=== PATIENT | female | born 1960 | race Caucasian/White ===

== ENCOUNTER 2016-07-29 06:13 | Emergency (ER) | payer BC, OTHER ==
[~2016-07-29] VITALS: Ht 175.3 cm; Wt 94.4 kg
[~2016-07-29 06:13] MED LIST: ASPEC81 PO; ATV/1 PO; CALC200T PO; CLON1TAB3 PO; DULO60CA44 PO; FLUV100T12 PO; LAMO200T38 PO; LEVO75TA PO; MELO15TA4 PO; METH500T37 PO; MULT-506 PO; OXYC-57 PO; RISP0.253 PO
[2016-07-29 06:19] VITALS: TEMP 36.7; Ht 175.3 cm; Wt 94.4 kg
[2016-07-29] MEDS ORDERED: TRAM-10 PO (06:39)
--- NOTE | 2016-07-29 06:41 | EMERGENCY ROOM VISIT NOTE ---
History Report prepared by Alexander: Aisha Etienne Under the Supervision of: Dr. Jamie Myers M.D. First contact with patient: 06:31 Chief Complaint: RESPIRATORY PROBLEMS Stated Complaint: CAN'T BREATH,PANIC ATTACK History of Present Illness The patient is a 55 year old female who presents to the Emergency Room with complaints of persistent shortness of breath that began this morning. The patient states that she has a history of bipolar disorder, anxiety, and panic attacks. She states that she took her normal medications around 0300 this morning, but states that she had difficulty breathing. The patient states that she is unsure if her breathing difficulties are related to her anxiety. The patient notes that during her breathing difficulties she experienced heart palpitations. She notes that she felt disoriented this morning after the episode. She additionally notes a dry mouth and states that she is unsure if that is related to her medications as well. The patient states that this morning she was breathing rapidly this morning. She denies wearing any supplemental oxygen at home, but notes that she smokes approximately 7 cigarettes per day. The patient notes a surgical history of knee replacements and lumbar fusions. She states that she is typically constipated, but denies any increased constipation. The patient denies any fever, chills, chest pain, or recent cough. Source of History: patient Onset: this morning Position: other (global) Quality: other (shortness of breath) Timing: other (persistent) Associated Symptoms: No chest pain, No chills, No cough, No fevers Note: Associated Symptoms: dry mouth, heart palpitations, disorientation Review of Systems All systems have been listed, reviewed, and are negative other than those previously mentioned. Please see Additional Medical History Sheet. 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 (5) Lumbar spinal fusion Surgical Problems: (1) H/O: hysterectomy Family History Cancer Diabetes mellitus Gallbladder disease Heart disease Hypertension Kidney disease Kidney stones Thyroid Social History Smoking Status: Current Every Day Smoker Alcohol Use: none Marital Status: Housing Status: lives with family Occupation Status: unemployed, disabled Current/Historical Medications Scheduled Calcium Carbonate-Vitamin D (Oscal 500/200 D-3), 2 TABS PO QAM Clonazepam (Klonopin), 1 MG PO HS Duloxetine Hcl (Cymbalta), 90 MG PO QAM Fluvoxamine Maleate (Luvox), 150 MG PO HS Lamotrigine (Lamictal), 200 MG PO AMPM Levothyroxine Sodium (Synthroid), 75 MCG PO QAM Meloxicam (Mobic), 15 MG PO QAM Methocarbamol (Robaxin), 1,000 MG PO QID Risperidone (Risperdal), 0.25 MG PO HS Scheduled PRN Tramadol (Ultram), 50 MG PO Q6 PRN for Pain Allergies Coded Allergies: Gabapentin (Verified Adverse Reaction, Intermediate, EDEMA, 07/29/16) Sulfa Antibiotics (Verified Adverse Reaction, Intermediate, VOMITING, 07/29) Physical Exam Vital Signs Date Time Temp Pulse Resp B/P Pulse Ox O2 Delivery O2 Flow Rate FiO2 07/29/16 09:48 80 16 110/82 96 07/29/16 09:41 79 07/29/16 08:21 79 16 129/86 96 Room Air 07/29/16 06:57 83 07/29/16 06:42 99 Room Air 07/29/16 06:37 99 Room Air 07/29/16 06:19 36.7 79 22 141/83 100 Room Air Physical Exam GENERAL: Patient awake, alert, oriented x 3. Patient follows commands. Patient does not appear toxic. Patient is adequately hydrated and well- nourished. SKIN: No erythema, pallor, cyanosis or rash HEENT: Normal head, pupils equal, reactive to light and accommodation. Ears normal. Oral cavity and posterior pharynx appear normal. Neck: Without adenopathy, no neck vein distention. LUNGS: Clear to auscultation. No wheezes, no rales, no rhonchi. HEART: No murmurs. No gallops. No rubs ABDOMEN: No masses, no rebound, no hepatomegaly or splenomegaly. EXTREMITIES: No signs of trauma. No pedal or pretibial edema. No calf or thigh tenderness. NEUROLOGIC: Cranial nerves II-XII within normal limits. No gross motor sensory function deficits. Medical Decision & Procedures ER Provider Diagnostic Interpretation: X ray results are stated below per my interpretation and the radiologist's interpretation. CHEST 2 VIEWS ROUTINE CLINICAL HISTORY: Shortness of breath. COMPARISON STUDY: 12/09/2015 FINDINGS: The cardiac and mediastinal contours are normal. There is no evidence of focal pulmonary consolidation. There is no evidence of failure. No pleural effusions are visualized.[ There is a nonspecific 11 mm opacity at the right lung base, likely representing a summation. If desired, a follow-up PA study with shallow PA obliques could be obtained. There are postsurgical changes present within the lumbar spine IMPRESSION: 1. 11 mm opacity at the right lung base, possibly representing a summation 2. No evidence of failure. No evidence of focal pulmonary consolidation Electronically signed by: Darin Cohn M.D. 07/29/2016 7:53 AM Dictated Date/Time: 07/29/2016 7:49 AM CHEST- PA OBLIQUES NO LATERAL CLINICAL HISTORY: Abnormal chest x-ray. Right lower lung zone nodule COMPARISON STUDY: 07/29/2016 FINDINGS: Submental views the chest fails to confirm the presence of a right lower lung zone nodule. As suspected, that density represented a summation. IMPRESSION: No active disease in the chest. Electronically signed by: Darin Cohn M.D. 07/29/2016 8:52 AM Dictated Date/Time: 07/29/2016 8:51 AM ECG Indication: SOB/dyspnea Rate (beats per minute): 71 Rhythm: normal sinus Findings: no acute ischemic change, no ectopy ED Course 0632: Past medical records reviewed. The patient was evaluated in room B10. A complete history and physical examination was performed. 0932: I reevaluated the patient and she is resting comfortably. I discussed the exam findings with her and I discussed the treatment plan. She verbalized complete understanding and agreement. She is ready to go home. Medical Decision Nurses notes reviewed. Medical history sheet reviewed. Differential diagnosis includes but is not limited to: hyperventilation, anxiety, panic, pulmonary embolism, pneumonia, arrhythmia. 55-year-old female with history of panic attacks now here with similar symptoms. On arrival patient is now calm and comfortable. EKG and chest x-ray were obtained. Please see above. No blood work was felt necessary. The patient was observed and was asymptomatic prior to discharge. Impression Primary Impression: Panic attack Scribe Attestation The scribe's documentation has been prepared under my direction and personally reviewed by me in its entirety. I confirm that the note above accurately reflects all work, treatment, procedures, and medical decision making performed by me. Departure Information Dispostion Home / Self-Care Referrals Leanne Mistry, (PCP) Forms HOME CARE DOCUMENTATION FORM, IMPORTANT VISIT INFORMATION Patient Instructions ED Panic Attack, My [facility] Additional Instructions Continue all of your current medications as prescribed. Follow-up with your family physician.
[2016-07-29 06:42] VITALS: O2SAT 99
--- NOTE | 2016-07-29 07:54 | DIAGNOSTIC IMAGING REPORT ---
CHEST 2 VIEWS ROUTINE CLINICAL HISTORY: Shortness of breath. COMPARISON STUDY: 12/09/2015 FINDINGS: The cardiac and mediastinal contours are normal. There is no evidence of focal pulmonary consolidation. There is no evidence of failure. No pleural effusions are visualized.[ There is a nonspecific 11 mm opacity at the right lung base, likely representing a summation. If desired, a follow-up PA study with shallow PA obliques could be obtained. There are postsurgical changes present within the lumbar spine IMPRESSION: 1. 11 mm opacity at the right lung base, possibly representing a summation 2. No evidence of failure. No evidence of focal pulmonary consolidation Electronically signed by: Darin Cohn M.D. 07/29/2016 7:53 AM Dictated Date/Time: 07/29/2016 7:49 AM
--- NOTE | 2016-07-29 08:53 | DIAGNOSTIC IMAGING REPORT ---
CHEST- PA OBLIQUES NO LATERAL CLINICAL HISTORY: Abnormal chest x-ray. Right lower lung zone nodule COMPARISON STUDY: 07/29/2016 FINDINGS: Submental views the chest fails to confirm the presence of a right lower lung zone nodule. As suspected, that density represented a summation. IMPRESSION: No active disease in the chest. Electronically signed by: Darin Cohn M.D. 07/29/2016 8:52 AM Dictated Date/Time: 07/29/2016 8:51 AM
[2016-07-29 09:48] VITALS: BP 110/82; PULSE 80; O2SAT 96
[2016-09-14] MEDS ORDERED: CALC500C70 PO (11:27)
[2016-09-14] MEDS ORDERED: CHOL100010 PO (11:27)
[2016-09-14] MEDS ORDERED: TRAM-10 PO (11:27)
== END 2016-07-29 09:49 | disposition home or self-care (01) ==
LOC: C.EDB 06:14
DX: F41.0 Panic disorder [episodic paroxysmal anxiety] (principal); F31.9 Bipolar disorder, unspecified; Z90.710 Acquired absence of both cervix and uterus; F17.200 Nicotine dependence, unspecified, uncomplicated

== ENCOUNTER 2016-08-01 08:01 | Emergency (ER) | payer BC, OTHER ==
[~2016-08-01] VITALS: Ht 175.3 cm; Wt 93.0 kg
[~2016-08-01 08:01] MED LIST changes: -ASPEC81 PO; -ATV/1 PO; -MULT-506 PO; -OXYC-57 PO; +TRAM-10 PO
[2016-08-01 08:07] VITALS: TEMP 36.9; Ht 175.3 cm; Wt 93.0 kg
[2016-08-01] MEDS ORDERED: OXYC-57 PO (08:25)
[2016-08-01] MEDS ORDERED: CLONAZEPAM 1 MG TAB PO STA (08:25)
[2016-08-01] MEDS ORDERED: HYDR-5688 PO (08:25)
[2016-08-01] MEDS ORDERED: ATV/1 PO (08:25)
--- NOTE | 2016-08-01 08:38 | EMERGENCY ROOM VISIT NOTE ---
History Report prepared by Alexander: Harmeet Velazquez Under the Supervision of: Dr. Maribel Costa M.D. First contact with patient: 08:07 Chief Complaint: ANXIETY Stated Complaint: PANIC ATTACK History of Present Illness The patient is a 55 year old female who presents to the Emergency Room via ALS with complaints of a persistent panic attack that started 2.5 hours prior to arrival. She complains of persistent difficulty swallowing and breathing. She describes the difficulty swallowing as feeling like her esophagus is closing and like there is no saliva in her mouth. She also complains of shaking, palpitations, feeling disoriented and scared. She notes she tried to call her neighbor, [id number], and but they were all too far away to come and calm her down. Her neighbor tried to calm her down on the phone, but since the patient's symptoms were worsening she called ALS for transport to the hospital for further evaluation. The patient notes that she took her medications between 3 and 4 in the morning. She notes that her symptoms started around 6 despite taking her medications and she called ALS 40 minutes after her symptoms started since they were worsening and she felt like she couldn't breathe. The patient has a history of panic attacks and anxiety. The patient presented to the ED three days ago for similar symptoms. The patient's notes that her symptoms seem worse this morning than they did 3 days ago. The patient denies chest pain, recent illness, cough, fever, pain with deep breaths, or swelling in his legs. 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 Denies: pain with deep breaths, swelling in legs, recent illness Review of Systems See HPI for pertinent positives & negatives. A total of 10 systems reviewed and were otherwise negative. 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 (5) Lumbar spinal fusion Surgical Problems: (1) H/O: hysterectomy Family History Cancer Diabetes mellitus Gallbladder disease Heart disease Hypertension Kidney disease Kidney stones Thyroid Social History Smoking Status: Unknown if Ever Smoked Alcohol Use: none Marital Status: Housing Status: lives with family Occupation Status: unemployed, disabled Current/Historical Medications Scheduled Clonazepam (Klonopin), 1 MG PO HS Duloxetine Hcl (Cymbalta), 90 MG PO QAM Fluvoxamine Maleate (Luvox), 150 MG PO HS Lamotrigine (Lamictal), 200 MG PO AMPM Levothyroxine Sodium (Synthroid), 75 MCG PO QAM Meloxicam (Mobic), 15 MG PO QAM Methocarbamol (Robaxin), 1,000 MG PO QID Risperidone (Risperdal), 0.25 MG PO HS Scheduled PRN Hydrocodone/Acetaminophen 5MG/325MG ([place] 5MG/325MG), 1 TABLET PO Q6 PRN for Pain Lorazepam (Ativan), 1 MG PO UD PRN for Anxiety Oxycodone/Acetaminophen 5MG/325MG (Percocet 5MG/325MG), 1 TABLET PO Q6H PRN for Pain Allergies Coded Allergies: Gabapentin (Verified Adverse Reaction, Intermediate, EDEMA, 07/29/16) Sulfa Antibiotics (Verified Adverse Reaction, Intermediate, VOMITING, 07/29) Physical Exam Vital Signs Date Time Temp Pulse Resp B/P Pulse Ox O2 Delivery O2 Flow Rate FiO2 08/01/16 12:29 66 18 115/80 97 08/01/16 11:04 128/83 08/01/16 09:36 72 18 118/87 08/01/16 08:39 84 08/01/16 08:07 36.9 70 18 141/84 99 Room Air Physical Exam Vital signs reviewed. General: Generally well-appearing female, anxious. Speaks with eyes closed with pressured speech. HEENT: No scleral icterus, PERRLA, neck supple. Atraumatic. Cardiovascular: Regular rate and rhythm, no extra sounds. Pulmonary: Clear to auscultation bilaterally, normal work of breathing. Abdomen: Soft, nontender, nondistended, positive bowel sounds. Musculoskeletal: Atraumatic, no peripheral edema. Neurologic: Patient awake alert and oriented x 3, full strength in all 4 extremities. Cranial nerves 2 through 12 grossly intact. Skin: Warm, dry, no rash Psych: Denies current suicidal or homicidal ideation Medical Decision & Procedures ER Provider Diagnostic Interpretation: X-ray results as stated below per my interpretation and radiologist interpretation. Other radiology results as stated below per my review and radiologist interpretation: CHEST CTA for PULMONARY ARTERIES CT DOSE: 322.27 mGy.cm HISTORY: Difficulty breathing. TECHNIQUE: Multiaxial CT images of the chest were performed following the intravenous administration of contrast to evaluate the pulmonary arteries. Maximal intensity projection images were also obtained. COMPARISON STUDY: Chest CTA 06/24/2014. FINDINGS: No evidence for an aortic dissection. The right lower lobe subsegmental pulmonary arteries are essentially nondiagnostic due to the poor contrast opacification. Otherwise, no filling defects within the pulmonary arteries to suggest a pulmonary embolus. The visualized liver and spleen are unremarkable. Normal adrenal glands. No mediastinal or hilar lymphadenopathy. No pneumothorax. A few bibasilar densities favor subsegmental atelectasis. IMPRESSION: No evidence for pulmonary embolus with limitations as described above. Electronically signed by: Bruce Mo M.D. 08/01/2016 10:47 AM Dictated Date/Time: 08/01/2016 10:29 AM Laboratory Results 08/01/16 08:42 Red Blood Count 4.77, Mean Corpuscular Volume 85.5, Mean Corpuscular Hemoglobin 30.0, Mean Corpuscular Hemoglobin Concent 35.0, Mean Platelet Volume 9.8, Neutrophils (%) (Auto) 76.8, Lymphocytes (%) (Auto) 17.5, Monocytes (%) (Auto) 5.4, Eosinophils (%) (Auto) 0.1, Basophils (%) (Auto) 0.1, Neutrophils # (Auto) 5.29, Lymphocytes # (Auto) 1.21, Monocytes # (Auto) 0.37, Eosinophils # (Auto) 0.01, Basophils # (Auto) 0.01 08/01/16 08:42 Test 08/01/16 08:42 08/01/16 08:45 White Blood Count 6.90 K/uL (4.8-10.8) Red Blood Count 4.77 M/uL (4.2-5.4) Hemoglobin 14.3 g/dL (12.0-16.0) Hematocrit 40.8 % (37-47) Mean Corpuscular Volume 85.5 fL (80-100) Mean Corpuscular Hemoglobin 30.0 pg (25-34) Mean Corpuscular Hemoglobin Concent 35.0 g/dl (32-36) Platelet Count 316 K/uL (130-400) Mean Platelet Volume 9.8 fL (7.4-10.4) Neutrophils (%) (Auto) 76.8 % Lymphocytes (%) (Auto) 17.5 % Monocytes (%) (Auto) 5.4 % Eosinophils (%) (Auto) 0.1 % Basophils (%) (Auto) 0.1 % Neutrophils # (Auto) 5.29 K/uL (1.4-6.5) Lymphocytes # (Auto) 1.21 K/uL (1.2-3.4) Monocytes # (Auto) 0.37 K/uL (0.11-0.59) Eosinophils # (Auto) 0.01 K/uL (0-0.5) Basophils # (Auto) 0.01 K/uL (0-0.2) RDW Standard Deviation 45.0 fL (36.4-46.3) RDW Coefficient of Variation 14.2 % (11.5-14.5) Immature Granulocyte % (Auto) 0.1 % Immature Granulocyte # (Auto) 0.01 K/uL (0.00-0.02) Anion Gap 11.0 mmol/L (3-11) Est Creatinine Clear Calc Drug Dose 69.4 ml/min Estimated GFR () 65.0 Estimated GFR (Non- 56.1 BUN/Creatinine Ratio 14.6 (10-20) Calcium Level 9.4 mg/dl (8.5-10.1) Total Bilirubin 0.5 mg/dl (0.2-1) Direct Bilirubin 0.1 mg/dl (0-0.2) Aspartate Amino Transf (AST/SGOT) 14 U/L (15-37) Alanine Aminotransferase (ALT/SGPT) 9 U/L (12-78) Alkaline Phosphatase 125 U/L (45-117) Total Protein 7.1 gm/dl (6.4-8.2) Albumin 3.9 gm/dl (3.4-5.0) Bedside D-Dimer > 450 ng/mlFEU (0-450) Bedside Troponin I 0.010 ng/ml (0-0.045) Laboratory results per my review. Medications Administered Medications (Trade) Dose Ordered Sig/Marilia Route Start Time Stop Time Status Last Admin Dose Admin Clonazepam (Klonopin Tab) 1 mg NOW STAT PO 08/01/16 08:25 08/01/16 08:26 DC 08/01/16 08:37 1 MG ECG Indication: other Rate (beats per minute): 67 Rhythm: normal sinus Findings: no acute ischemic change, no ectopy ED Course 08: Past medical records reviewed. The patient was evaluated in room B10. A complete history and physical examination was performed. 0825: Ordered Klonopin Tab 1 mg PO. 1000: Ordered Ioversol 100 ml IV/ interaction checking. 1215: Upon reevaluation, the patient appeared to have improvement of her symptoms. I discussed findings with her. She verbalized agreement of the treatment plan. The patient was discharged home. Medical Decision Differential diagnosis: Etiologies such as mood disorder, infection, hypoglycemia, electrolyte abnormalities, cardiac sources, intracerebral event, toxicologic, neurologic, as well as others were entertained. This pt was evaluated and appeared to be in no distress. Pt has stated she is suffering from anxiety. Pt was given klonopin 1 mg. Lab work, CXR and EKG are fairly unrevealing. Pt was denying and SI or HI. This is her second trip to the ED in 3 days for similar. On reevaluation the pt was feeling much improved. Psych case sealer evaluated the pt. It was felt the pt was stable for d/c. Pt will call for appt in next several days with her therapist and has an appt with her psychiatrist next week. She will increase her klonopin to BID until she can see her psychiatrist. Pt and family are happy with the plan and agree. She will return to the ED at anytime for worsening of symptoms or any medical concerns. Impression Primary Impression: Acute anxiety Scribe Attestation The scribe's documentation has been prepared under my direction and personally reviewed by me in its entirety. I confirm that the note above accurately reflects all work, treatment, procedures, and medical decision making performed by me. Departure Information Dispostion Home / Self-Care Referrals Leanne Mistry DO (PCP) Forms HOME CARE DOCUMENTATION FORM, IMPORTANT VISIT INFORMATION Patient Instructions My [facility] Additional Instructions Diagnosis: Acute anxiety Increase your Klonopin to twice daily Follow-up with your psychiatrist next week as scheduled. Contact your therapist to schedule an appointment within the next several days. Continue your other medications as prescribed. Return to the ER for worsening of symptoms or any medical concerns.
[2016-08-01 09:07] LABS: BASO % 0.1 %; BASO ABS # 0.01 K/uL (0-0.2); COMPLETE YES; EOS % 0.1 %; HEMATOCRIT 40.8 % (37-47); IG% 0.1 %; LYMPH % 17.5 %; LYMPH ABS # 1.21 K/uL (1.2-3.4); MEAN CELL VOLUME 85.5 fL (80-100); MEAN PLATELET VOLUME 9.8 fL (7.4-10.4); MONO % 5.4 %; NEUT % 76.8 %; PLATELET COUNT 316 K/uL (130-400); RED BLOOD COUNT 4.77 M/uL (4.2-5.4)
[2016-08-01 09:15] LABS: BUN/CREATININE RATIO 14.6 (10-20); CALCIUM 9.4 mg/dl (8.5-10.1); CREATININE 1.1 mg/dl (0.60-1.20); POTASSIUM 4.1 mmol/L (3.5-5.1)
[2016-08-01] MEDS ORDERED: OPTIRAY 320 IV PRN (10:00)
--- NOTE | 2016-08-01 10:49 | DIAGNOSTIC IMAGING REPORT ---
CHEST CTA for PULMONARY ARTERIES CT DOSE: 322.27 mGy.cm HISTORY: Difficulty breathing. TECHNIQUE: Multiaxial CT images of the chest were performed following the intravenous administration of contrast to evaluate the pulmonary arteries. Maximal intensity projection images were also obtained. COMPARISON STUDY: Chest CTA 06/24/2014. FINDINGS: No evidence for an aortic dissection. The right lower lobe subsegmental pulmonary arteries are essentially nondiagnostic due to the poor contrast opacification. Otherwise, no filling defects within the pulmonary arteries to suggest a pulmonary embolus. The visualized liver and spleen are unremarkable. Normal adrenal glands. No mediastinal or hilar lymphadenopathy. No pneumothorax. A few bibasilar densities favor subsegmental atelectasis. IMPRESSION: No evidence for pulmonary embolus with limitations as described above. Electronically signed by: Bruce Mo M.D. 08/01/2016 10:47 AM Dictated Date/Time: 08/01/2016 10:29 AM
[2016-08-01 12:29] VITALS: BP 115/80; PULSE 66; O2SAT 97
[2016-09-14] MEDS ORDERED: CALC500C70 PO (11:27)
[2016-09-14] MEDS ORDERED: TRAM-10 PO (11:27)
[2016-09-14] MEDS ORDERED: CHOL100010 PO (11:27)
== END 2016-08-01 12:31 | disposition home or self-care (01) ==
LOC: EDBD 08:01 → C.EDB 08:02
DX: F41.9 Anxiety disorder, unspecified (principal); F31.9 Bipolar disorder, unspecified; Z79.899 Other long term (current) drug therapy

== ENCOUNTER 2016-10-06 08:33 | Inpatient (IN) | payer BC, OTHER ==
--- NOTE | 2016-09-14 12:01 | PAT Medication Instructions ---
Service Date Sep 14, 2016. Current Home Medication List Calcium/Vitamin D (Os-Kemar 500 Plus D), 1 TAB PO QAM Cholecalciferol (Vitamin D), 5,000 UNITS PO QAM Clonazepam (Klonopin), 1 MG PO HS Duloxetine Hcl (Cymbalta), 90 MG PO QAM Fluvoxamine Maleate (Luvox), 200 MG PO HS Lamotrigine (Lamictal), 200 MG PO AMPM Levothyroxine Sodium (Synthroid), 75 MCG PO QAM Meloxicam (Mobic), 15 MG PO QAM Methocarbamol (Robaxin), 1,000 MG PO QID Risperidone (Risperdal), 0.25 MG PO HS Tramadol (Ultram), 50 MG PO Q6H PRN for Pain Medication Instructions For Your Scheduled Surgery - Hold the following medications 10 days prior to surgery per surgeon's instructions: Meloxicam (Mobic), 15 MG PO QAM - Hold the following medications the morning of surgery: Calcium/Vitamin D (Os-Kemar 500 Plus D), 1 TAB PO QAM Cholecalciferol (Vitamin D), 5,000 UNITS PO QAM Methocarbamol (Robaxin), 1,000 MG PO QID - Take the following medications the morning of surgery with a sip of water OTHERWISE NOTHING TO EAT OR DRINK AFTER MIDNIGHT: Tramadol (Ultram), 50 MG PO Q6H PRN for Pain (may take if needed up to 4 hours prior to surgery) Lamotrigine (Lamictal), 200 MG PO AMPM Duloxetine Hcl (Cymbalta), 90 MG PO QAM Levothyroxine Sodium (Synthroid), 75 MCG PO QAM - Take the following medications as scheduled the night before surgery: Tramadol (Ultram), 50 MG PO Q6H PRN for Pain Risperidone (Risperdal), 0.25 MG PO HS Fluvoxamine Maleate (Luvox), 200 MG PO HS Clonazepam (Klonopin), 1 MG PO HS Methocarbamol (Robaxin), 1,000 MG PO QID Lamotrigine (Lamictal), 200 MG PO AMPM If you have any questions please call us at [phone] or [phone] or [phone]
[2016-09-14 12:35] LABS: URINE APPEARANCE CLEAR (CLEAR); URINE BILIRUBIN NEG (NEG); URINE COLOR YELLOW; URINE EPITHELIAL CELL AUTO 20-30 /lpf (0-5); URINE NITRITE NEG (NEG); URINE SPECIFIC GRAVITY 1.016 (1.000-1.030); UROBILINOGEN NEG (NEG)
[2016-09-14 12:40] LABS: MANUAL MICROSCOPIC REQUIRED? NO; REVIEW REQ? NO
[2016-09-14 12:43] LABS: INR 0.9 (0.9-1.1); PARTIAL THROMBOPLASTIN RATIO 1.1
[2016-09-14 13:04] LABS: ESTIMATED AVERAGE GLUCOSE 117 mg/dl; HA1C FLAG Normal (Normal)
[2016-09-14 14:46] LABS: BUN/CREATININE RATIO 9.7 (10-20); CALCIUM 9.7 mg/dl (8.5-10.1); CREATININE 1.4 mg/dl (0.60-1.20); POTASSIUM 4.6 mmol/L (3.5-5.1)
--- NOTE | 2016-10-05 12:51 | HISTORY & PHYSICAL EXAMINATION ---
DATE OF ADMISSION: 10/06/2016 CHIEF COMPLAINT: Aseptic loosening, left total knee arthroplasty. HISTORY OF PRESENT ILLNESS: The patient is a 56-year-old female approximately 2 years status post left total knee arthroplasty. More recently she has been having progressive pain and disability with the left knee. She has had progressive x-ray changes suggesting loosening of the tibial component and likely the femoral component as well. She had a negative infection workup with a negative CRP and sed rate. She is now scheduled for a left knee excisional arthroplasty and left total knee revision. PAST MEDICAL HISTORY: Bipolar disorder, hypothyroidism, fibromyalgia, melanoma, bladder prolapse, diverticulitis. PAST SURGICAL HISTORY: Knee arthroscopy x2, previous left and right knee replacements, right total knee patellectomy, multiple lumbar spine surgeries, eye tear duct surgery, hysterectomy, tubal ligation, tonsillectomy. MEDICATIONS: Include clonazepam 1 mg at bedtime, duloxetine HCL 90 mg q.a.m., fluvoxamine maleate 100 mg 2 tablets at bedtime, hydrocodone p.r.n. for pain, lamotrigine 200 mg 1 in the a.m., 1 in the p.m., levothyroxine 75 mcg q.a.m., meloxicam 15 mg daily, methocarbamol 500 mg 2 tablets 4 times daily, risperidone 0.25 mg at bedtime, tramadol HCL 50 mg q. 6 hours p.r.n. pain. ALLERGIES: SULFA AND NEURONTIN. SOCIAL HISTORY: She states half pack a day smoking history. REVIEW OF SYSTEMS: Noncontributory. PHYSICAL EXAMINATION: GENERAL: Well-nourished, well-developed, obese female who appears her stated age. HEAD, EYES, EARS, NOSE, AND THROAT: Normocephalic, atraumatic. Extraocular movements intact, oropharynx pink and moist. NECK: Supple without adenopathy. LUNGS: Clear to auscultation bilaterally. HEART: Regular rate and rhythm. ABDOMEN: Soft, nontender, nondistended, obese. EXTREMITIES: The upper extremity within normal limits. The left knee is neutrally aligned. She has a well-healed scar from her previous arthroplasty. Her range of motion is approximately 0-120 degrees with pain. X-RAYS: X-rays were reviewed. She has a Elias knee in place. There is obvious lucency about the tibial baseplate. The tibial components in a varus alignment. On the lateral view there is questionable early lucency around the femoral component as well. 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 PLAN: The above discussed with the patient. Risks versus benefits discussed. Consent was obtained. The patient's primary care physician is Dr. Alisha Mistry. Will proceed with left knee excisional arthroplasty and total knee revision upon preoperative workup and medical clearance.
[~2016-10-06] VITALS: Ht 175.3 cm; Wt 93.5 kg
[2016-10-06] VITALS (7 sets, daily range): BP systolic 108–131; BP diastolic 69–80; PULSE 56–69; TEMP 36.5–37.3; O2SAT 92–98; Ht 175.3 cm; Wt 93.5 kg
[2016-10-06] MEDS: TRANEXAMIC ACID INJ 1,000 MG in SODIUM CHLORIDE 0.9% 100ML 100 ML IV SCH ×2 (06:30→11:04)
[~2016-10-06 08:33] MED LIST changes: +ACETAMINOPHEN 500 MG TAB PO SCH; +ATROPINE SULFATE 0.1 MG/ML 5ML SYR IV PRN; +BUPIVACAINE 0.25% 30 ML VIAL ONE; +BUPIVACAINE 0.5 % 5 MG/1 ML PF 10ML VIAL ONE; -CALC200T PO; +CALC500C70 PO; +CEFAZOLIN 2000 MG/60 ML D5W 60 ML IV SCH; +CHOL100010 PO; +DEXAMETHASONE 4 MG TAB PO SCH; +EpHEDrine SULFATE INJ 50 MG/ML AMP IV PRN; +FAMOTIDINE 20 MG TAB PO SCH; +FENTANYL CITRATE INJ 50 MCG/1 ML 2 ML VIAL IV PRN; +GABAPENTIN 300 MG CAP PO SCH; +LABETALOL HCL IV 5 MG/ML 20ML IV PRN; +LACTATED RINGER'S 1000ML 1,000 ML IV SCH; +LACTATED RINGER'S 1000ML 500 ML IV ONE; +LACTATED RINGER'S 1000ML IV SCH; +METOCLOPRAMIDE HCL 10 MG TAB PO SCH; +ONDANSETRON INJ 2 MG/ML 2 ML VIAL IV PRN; +ROPIVACAINE 5MG/ML 30 ML 150 MG, BUPIVACAINE/EPINEPHR 0.5% MPF 30 ML, KETOROLAC TROMETH... INFIL SCH; +VANCOMYCIN 1GM/270ML NSS 270 ML IV SCH; +VANCOMYCIN INJ 1,400 MG in SODIUM CHLORIDE 0.9% 500ML 500 ML IV SCH
--- NOTE | 2016-10-06 09:11 | History & Physical Bridge Note ---
H&P Re-Evaluation Bridge Note: I have examined the patient, reviewed the History & Physical and in the interval since the performance of the History & Physical I have noted the following changes of clinical significance: No changes noted
[2016-10-06] MEDS ORDERED: PROPOFOL IV EMULSION 10 MG/ML 20 ML VIAL IV ONE ×4 (10:01→14:44)
[2016-10-06] MEDS ORDERED: LIDOCAINE HCL 2% 2 ML VIAL (20MG/ML) ONE ×3 (10:01→14:44)
[2016-10-06] MEDS ORDERED: ONDANSETRON INJ 2 MG/ML 2 ML VIAL ONE (10:01)
[2016-10-06] MEDS ORDERED: DEXAMETHASONE SOD INJ 4 MG/ML VIAL ONE (10:01)
[2016-10-06] MEDS ORDERED: MIDAZOLAM HCL 1 MG/ML 2ML VIAL ONE ×5 (10:02→12:39)
[2016-10-06] MEDS ORDERED: FENTANYL CITRATE INJ 50 MCG/1 ML 2 ML VIAL ONE ×2 (10:02→14:38)
[2016-10-06] MEDS ORDERED: ORTHO JOINT ANESTHETIC ONE (10:57)
[2016-10-06] MEDS ORDERED: POVIDONE-IODINE OP SOLN 30 ML BTL ONE (10:57)
[2016-10-06] MEDS ORDERED: BACITRACIN 50000 UNIT VIAL ONE ×2 (10:58→12:00)
--- NOTE | 2016-10-06 14:35 | [facility] Post Operative Brief Note ---
Immediate Operative Summary Operative Date Oct 06, 2016. Pre-Operative Diagnosis Aseptic Loosening, Left Total Knee Arthroplasty Post-Operative Diagnosis Aseptic Loosening, Left Total Knee Arthroplasty Procedure(s) Performed Revision of Left Total Knee Arthroplasty Surgeon Dr. Vee Mastercam Programmer Surgeon(s) Bernardino Heck PA-C Findings loose quentin Specimens Microbiology #1-Left Knee Joint Fluid: gram stain, routine culture and sensitivity, anaerobic/aerobic, out of room at 1240 Permanent Specimen A: Left Knee Removed Hardware B: Left Knee Bone and Tissue Frozen Specimen #1- Cement Interface Tibial Component Left Knee #2- Cement Interface Femoral Component Left Knee Complication(s) None Disposition Recovery Room / PACU
--- NOTE | 2016-10-06 15:28 | OPERATIVE REPORT ---
DATE OF OPERATION: 10/06/2016 PREOPERATIVE DIAGNOSIS: Aseptic loosening, left total knee. POSTOPERATIVE DIAGNOSIS: Aseptic loosening, left total knee. PROCEDURE: Revision left total knee. SURGEON: Dr. Vee. FARMWORKER POULTRY: Bernardino Heck PA-C. ANESTHESIA: Spinal. COMPLICATIONS: None. Mr. Heck was essential through all portions of the case including positioning, prepping, draping, ophthalmic surgical assistant, cement removal, implantation of components, wound closure and dressing application. OPERATION AND FINDINGS: PROCEDURE: Following the induction of adequate spinal anesthesia, the patient's left leg was prepped and draped in usual sterile manner. Limb was exsanguinated with an Esmarch bandage and tourniquet inflated to 300 mmHg. A previously made longitudinal incision was reopened. Subcutaneous tissue was sharply dissected. Electrocautery used and Aquamantys were used for hemostasis. Median parapatellar incision was made and gross effusion was noted. The three sets of cultures were taken and joint fluid was suctioned dry. A complete synovectomy was carried out throughout the knee. First, attention was turned to the tibial component and tibial poly was easily loosened and removed. The tibial tray could be seen to be easily moving. Attention was turned to the femoral component where flexible osteotome was easily used to undermine the bone cement interface on the femoral side. Soft tissue was sent to lab for pathology. This came back no white cells seen. No bone was removed with removal of the femoral component. Next, attention was turned to the tibia where using tibial tray removal instrument the tibia was easily removed. The bone cement was then tediously removed being sure to remove every last remaining bit of bone cement. Some soft tissue from the bone cement interface was sent to lab as well and pathology too showed no evidence of inflammatory cells. Sequential reamings were carried out both the tibia and the femoral side, size 10 tibia was chosen as the size to be used, a size 16 femur was chosen the size to be used. First the tibia was prepared using a cleanup cut and this bone fragment was removed with significant scar tissue posteriorly. Next, the tibia was prepared using the tibial punch and a trial tibial component with a 2 mm offset was assemble. This was impacted into position. Next, attention was turned to the femur where the femoral sizer was placed. Decision for 2 augments distally and 2 augments posteriorly was made, all 5 mm. The notch was cut and this bone fragment was removed. The trial femoral component was assembled and inserted and after trial reduction the decision was made to upsize the tibial tray 5 mm and use 16 mm poly. This gave good soft tissue tension in both flexion and extension and the patella tracked well. As the patellar tracking was tested and a towel clip was used to temporarily repair the lateral snip that was required for exposure. All trial components were removed. The patella was inspected and was found to be intact and was not removed. The final components were assembled on the back table. Cement was mixed. All components were cemented in position. The knee was reduced, held in extension while cement hardened. The wounds were closed using 0 Dexon and rajinder. Sterile dressing of Adaptic, 4x4s, sterile Webril and Prevena dressing was obtained and utilized. I attest to the content of the Intraoperative Record and any orders documented therein. Any exceptions are noted below. PADMINI
[2016-10-06] MEDS ORDERED: ONDANSETRON INJ 2 MG/ML 2 ML VIAL IV PRN (15:30)
[2016-10-06] MEDS ORDERED: ALUMINUM/MAGNESIUM/SIMETH (MAALOX MAX) 30 ML UDC PO PRN (15:30)
[2016-10-06] MEDS ORDERED: ZOLPIDEM TARTRATE 5 MG TAB PO PRN (15:30)
[2016-10-06] MEDS ORDERED: MAGNESIUM HYDROXIDE SUSP 30 ML UDC PO PRN (15:30)
[2016-10-06] MEDS ORDERED: METOCLOPRAMIDE HCL INJ 5 MG/ML 2 ML VIAL IV PRN (15:30)
[2016-10-06] MEDS ORDERED: MoRPHine SULFATE 2 MG/ML CARP IV PRN (15:30)
--- NOTE | 2016-10-06 15:33 | Anesthesiology Progress Note ---
Anesthesia Post Op Note Date & Time Oct 06, 2016 at 15:33 Vital Signs Pain Intensity: 0 Vital Signs Past 12 Hours Date Time Temp Pulse Resp B/P Pulse Ox O2 Delivery O2 Flow Rate FiO2 10/06/16 15:20 87 17 110/76 93 Nasal Cannula 2 10/06/16 15:12 36.5 81 17 104/73 92 Nasal Cannula 2 10/06/16 09:10 36.9 69 20 116/69 95 Room Air Notes Mental Status: alert / awake / arousable, participated in evaluation Pt Amnestic to Procedure: No (recall as expected) Nausea / Vomiting: adequately controlled Pain: adequately controlled Airway Patency, RR, SpO2: stable & adequate BP & HR: stable & adequate Hydration State: stable & adequate Neuraxial Anesthesia: was administered, sensory block is resolving Anesthetic Complications: no major complications apparent Pt doing well.
--- NOTE | 2016-10-06 15:51 | DIAGNOSTIC IMAGING REPORT ---
TWO VIEWS LEFT KNEE CLINICAL HISTORY: Postoperative examination. FINDINGS: AP and crosstable lateral portable views of the left knee are obtained. A left knee arthroplasty is in near anatomic alignment. There are long tibial and femoral stems. No periprosthetic lucency is identified There has been undersurface remodeling of the patella. No acute fracture is seen. There are expected postoperative changes around the knee including skin clips, a surgical drain, soft tissue edema, and subcutaneous gas. IMPRESSION: Expected postoperative changes status post left knee arthroplasty. No acute fracture is seen. Electronically signed by: Pedro Moore M.D. 10/06/2016 3:48 PM Dictated Date/Time: 10/06/2016 3:48 PM
[2016-10-06] MEDS ORDERED: MoRPHine SULFATE 4 MG/ML 1 ML CARP\\VIAL IV PRN (18:00)
[2016-10-06] MEDS ORDERED: MoRPHine SULFATE 10 MG/ML CARP/VIAL IV PRN (18:00)
[2016-10-06] MEDS: OXYCODONE HCL IR 5 MG TAB (IMMEDIATE RELEASE) PO PRN ×2 (18:32→22:39)
[2016-10-06] MEDS: FERROUS GLUCONATE 324 MG TAB PO SCH (19:02)
[2016-10-06] MEDS: D5W AND 1/2NSS + 20MEQ KCL 1,000 ML IV SCH (19:02)
[2016-10-06] MEDS: KETOROLAC TROMETHAMINE 30 MG/ML VIAL IV. SCH (19:03)
[2016-10-06] MEDS: CEFAZOLIN IV 2,000 MG in DEXTROSE 5% 50ML 50 ML IV SCH (19:27)
[2016-10-06] MEDS: CLONAZEPAM 1 MG TAB PO SCH (21:39)
[2016-10-06] MEDS: OXYCODONE HCL 10 MG TABCR (OXYCONTIN) PO SCH (21:40)
[2016-10-06] MEDS: METHOCARBAMOL 500 MG TAB PO SCH (21:41)
[2016-10-06] MEDS: RISPERIDONE 0.5 MG TAB PO SCH (21:41)
[2016-10-06] MEDS: FLUVOXAMINE MALEATE 50 MG TAB PO SCH (21:42)
[2016-10-06] MEDS: ASPIRIN 81 MG ECTAB PO SCH (21:43)
[2016-10-06] MEDS: DOCUSATE SODIUM 100 MG CAP PO SCH (21:43)
[2016-10-06] MEDS: ACETAMINOPHEN 500 MG TAB PO SCH (21:44)
[2016-10-07] MEDS: KETOROLAC TROMETHAMINE 30 MG/ML VIAL IV. SCH ×3 (00:07→12:11)
[2016-10-07] MEDS: CEFAZOLIN IV 2,000 MG in DEXTROSE 5% 50ML 50 ML IV SCH (01:43)
[2016-10-07] MEDS: OXYCODONE HCL IR 5 MG TAB (IMMEDIATE RELEASE) PO PRN ×5 (02:57→20:50)
[2016-10-07] MEDS: D5W AND 1/2NSS + 20MEQ KCL 1,000 ML IV SCH (04:08)
[2016-10-07 04:11] VITALS: BP 112/62; PULSE 45; TEMP 36.5; O2SAT 90
[2016-10-07 04:20] VITALS: PULSE 56
[2016-10-07] MEDS: LEVOTHYROXINE 75 MCG TAB PO SCH (05:37)
[2016-10-07] MEDS: ACETAMINOPHEN 500 MG TAB PO SCH ×3 (05:40→21:38)
[2016-10-07 06:40] LABS: HEMATOCRIT 35.1 % (37-47); MEAN CELL VOLUME 89.8 fL (80-100); MEAN CORPUSCULAR HEMOGLOBIN 29.9 pg (25-34); MEAN CORPUSCULAR HGB CONC 33.3 g/dl (32-36); MEAN PLATELET VOLUME 9.7 fL (7.4-10.4); PLATELET COUNT 204 K/uL (130-400); RED BLOOD COUNT 3.91 M/uL (4.2-5.4); WHITE BLOOD COUNT 13.58 K/uL (4.8-10.8)
[2016-10-07 06:57] VITALS: BP 107/67; PULSE 51; TEMP 37; O2SAT 91
[2016-10-07 07:11] LABS: BUN/CREATININE RATIO 11.7 (10-20); CALCIUM 8.3 mg/dl (8.5-10.1); CREATININE 1.1 mg/dl (0.60-1.20); POTASSIUM 4.1 mmol/L (3.5-5.1)
[2016-10-07] MEDS ORDERED: DEXAMETHASONE INJ 10 MG in SYRINGE 0 ML IV ONE (07:30)
--- NOTE | 2016-10-07 07:48 | Orthopedic Progress Note ---
Orthopedic Progress Note Date of Service Oct 07, 2016. Subjective Post OP Day: 1 Reports: feeling well Objective N/V intact, dressing C/D/I (Hemovac and Prevena in place), toes mobile Date Time Temp Pulse Resp B/P Pulse Ox O2 Delivery O2 Flow Rate FiO2 10/07/16 07:19 Room Air 10/07/16 06:57 37.0 51 18 107/67 91 Room Air 10/07/16 04:20 56 10/07/16 04:11 36.5 45 18 112/62 90 Room Air 10/07/16 00:15 Room Air 10/06/16 22:56 36.5 64 16 108/70 93 Room Air 10/06/16 20:22 37.2 58 18 128/75 92 Room Air 10/06/16 19:19 37.1 66 18 131/80 95 Room Air 10/06/16 18:17 37.3 63 18 131/79 92 Room Air 10/06/16 17:45 36.9 56 16 125/80 98 Nasal Cannula 2.0 10/06/16 17:30 Nasal Cannula 2.0 10/06/16 17:15 36.8 59 16 119/76 96 Nasal Cannula 2.0 10/06/16 17:15 96 Nasal Cannula 2.0 10/06/16 17:00 58 17 124/80 95 Nasal Cannula 2 10/06/16 16:45 56 14 116/75 94 Nasal Cannula 2 10/06/16 16:30 60 14 121/80 94 Nasal Cannula 2 10/06/16 16:15 61 12 116/75 94 Nasal Cannula 2 10/06/16 16:00 65 13 108/69 93 Nasal Cannula 2 10/06/16 15:45 61 16 121/73 94 Nasal Cannula 2 10/06/16 15:30 36.3 70 15 115/78 93 Nasal Cannula 2 10/06/16 15:20 87 17 110/76 93 Nasal Cannula 2 10/06/16 15:12 36.5 81 17 104/73 92 Nasal Cannula 2 10/06/16 09:10 36.9 69 20 116/69 95 Room Air Laboratory Results 24 Hours: Test 10/07/16 06:22 Hematocrit 35.1 % Hemoglobin 11.7 g/dL Assessment & Plan Assessment: 56 yo female stable POD #1 s/p left TKA revision Plan: 1. Med management 2. DVT prophylaxis- ASA, TEDs, SCDs 3. PT/OT 4. D/C planning- pt interested in [facility]
[2016-10-07] MEDS: OXYCODONE HCL 10 MG TABCR (OXYCONTIN) PO SCH ×2 (08:03→20:50)
[2016-10-07] MEDS: DULOXETINE (CYMBALTA) 30 MG CAP PO SCH (08:03)
[2016-10-07] MEDS: PANTOprazole SOD 40 MG TAB PO SCH (08:04)
[2016-10-07] MEDS: ASPIRIN 81 MG ECTAB PO SCH ×2 (08:04→20:48)
[2016-10-07] MEDS: CALCIUM 600MG + VIT D 400 IU TAB PO SCH (08:04)
[2016-10-07] MEDS: METHOCARBAMOL 500 MG TAB PO SCH ×4 (08:04→20:49)
[2016-10-07] MEDS: MULTIVITAMIN TAB PO SCH (08:04)
[2016-10-07] MEDS: FERROUS GLUCONATE 324 MG TAB PO SCH ×3 (08:04→18:40)
[2016-10-07] MEDS: DOCUSATE SODIUM 100 MG CAP PO SCH ×2 (08:05→20:48)
--- NOTE | 2016-10-07 08:08 | Anesthesiology Progress Note ---
Anesthesia Post Op Note Date & Time Oct 07, 2016 at 08:07 Vital Signs Pain Intensity: 6.0 Vital Signs Past 12 Hours Date Time Temp Pulse Resp B/P Pulse Ox O2 Delivery O2 Flow Rate FiO2 10/07/16 07:19 Room Air 10/07/16 06:57 37.0 51 18 107/67 91 Room Air 10/07/16 04:20 56 10/07/16 04:11 36.5 45 18 112/62 90 Room Air 10/07/16 00:15 Room Air 10/06/16 22:56 36.5 64 16 108/70 93 Room Air 10/06/16 20:22 37.2 58 18 128/75 92 Room Air Notes Mental Status: alert / awake / arousable, participated in evaluation Pt Amnestic to Procedure: Yes Nausea / Vomiting: adequately controlled Pain: adequately controlled Airway Patency, RR, SpO2: stable & adequate BP & HR: stable & adequate Hydration State: stable & adequate Neuraxial Anesthesia: sensory block resolved Anesthetic Complications: no major complications apparent
[2016-10-07 15:50] VITALS: BP 124/81; PULSE 61; TEMP 37.2; O2SAT 97
--- NOTE | 2016-10-07 15:50 | Discharge Instructions ---
Discharge Instructions Date of Service Oct 07, 2016. Admission Reason for Admission: Left Knee Mechanical Loosening Of Internal Prosthe Discharge Discharge Diagnosis / Problem: Left total knee revision arthroplasty Discharge Goals Goal(s): Decrease discomfort, Improve function Activity Recommendations Activity Limitations: as noted below Weightbearing Status: Left weightbearing (as tolerated) . Current Hospital Diet Patient's current hospital diet: Diabetes Type 2 Diet Discharge Diet Recommended Diet: Regular Diet Procedures Procedures Performed: Revision of Left Total Knee Arthroplasty Pending Studies Studies pending at discharge: no Laboratory Results Hemoglobin A1c Test 09/14/16 12:10 Range/Units Estimated Average Glucose 117 mg/dl Hemoglobin A1c 5.7 H 4.5-5.6 % Medical Emergencies . Who to Call and When: Medical Emergencies: If at any time you feel your situation is an emergency, please call 911 immediately. . Non-Emergent Contact Non-Emergency issues call your: Surgeon Call Non-Emergent contact if: temperature is above 101.5, your pain is not controlled, wound has increased drainage, wound has increased redness . "Provider Documentation" section prepared by Bernardino Heck PA-C. . VTE Core Measure Inpt VTE Proph given/why not?: Other Anticoagulation (ASA 81mg bid), T.E.D. Stockings, SCD's [place] Drug Monitoring Program Search Results: patient reviewed within database, no issues identified
[2016-10-07] MEDS: RISPERIDONE 0.5 MG TAB PO SCH (20:48)
[2016-10-07] MEDS: FLUVOXAMINE MALEATE 50 MG TAB PO SCH (20:50)
[2016-10-07] MEDS: CLONAZEPAM 1 MG TAB PO SCH (20:50)
[2016-10-07 22:50] VITALS: BP 132/76; PULSE 49; TEMP 37; O2SAT 96
[2016-10-08 00:10] VITALS: PULSE 60
[2016-10-08] MEDS: OXYCODONE HCL IR 5 MG TAB (IMMEDIATE RELEASE) PO PRN ×3 (01:14→09:28)
[2016-10-08] MEDS: ACETAMINOPHEN 500 MG TAB PO SCH (05:33)
[2016-10-08] MEDS: LEVOTHYROXINE 75 MCG TAB PO SCH (05:34)
[2016-10-08 05:57] VITALS: BP 106/65; PULSE 63; TEMP 36.9; O2SAT 92
[2016-10-08] MEDS: FERROUS GLUCONATE 324 MG TAB PO SCH (07:23)
[2016-10-08] MEDS: DOCUSATE SODIUM 100 MG CAP PO SCH (07:24)
[2016-10-08] MEDS: CALCIUM 600MG + VIT D 400 IU TAB PO SCH (07:24)
[2016-10-08] MEDS: ASPIRIN 81 MG ECTAB PO SCH (07:24)
[2016-10-08] MEDS: DULOXETINE (CYMBALTA) 30 MG CAP PO SCH (07:25)
[2016-10-08] MEDS: OXYCODONE HCL 10 MG TABCR (OXYCONTIN) PO SCH (07:25)
[2016-10-08] MEDS: MULTIVITAMIN TAB PO SCH (07:25)
[2016-10-08] MEDS: PANTOprazole SOD 40 MG TAB PO SCH (07:26)
[2016-10-08] MEDS: METHOCARBAMOL 500 MG TAB PO SCH (07:26)
--- NOTE | 2016-10-08 08:02 | Orthopedic Progress Note ---
Orthopedic Progress Note Date of Service Oct 08, 2016. Subjective Post OP Day: 2 Reports: feeling well Objective N/V intact, dressing C/D/I (Prevena in place), toes mobile Date Time Temp Pulse Resp B/P Pulse Ox O2 Delivery O2 Flow Rate FiO2 10/08/16 05:57 36.9 63 16 106/65 92 Room Air 10/08/16 00:10 60 10/08/16 00:10 Room Air 10/07/16 22:50 37.0 49 16 132/76 96 Room Air 10/07/16 16:10 Room Air 10/07/16 15:50 37.2 61 18 124/81 97 Room Air Assessment & Plan Assessment: 56 yo female stable POD #2 s/p left TKA revision Plan: 1. Med management 2. DVT prophylaxis- ASA, TEDs, SCDs 3. PT/OT 4. D/C planning- pt interested in [facility]
[2016-10-08 08:27] VITALS: BP 109/72; PULSE 67; O2SAT 97
[2016-10-08] MEDS ORDERED: OXYSR10 PO (09:19)
[2016-10-08] MEDS ORDERED: ACET-1138 PO (09:19)
[2016-10-08] MEDS ORDERED: ASPEC81 PO (09:19)
[2016-10-08] MEDS ORDERED: RXC5 PO (09:19)
[2016-10-08 09:29] VITALS: BP 109/72; PULSE 67; TEMP 36.9; O2SAT 97
--- NOTE | 2016-10-19 15:24 | DISCHARGE SUMMARY ---
CHIEF COMPLAINT: Left knee pain. Please see complete history and physical examination. HOSPITAL COURSE: The patient underwent left total knee revision arthroplasty without complication. She tolerated the procedure well and was discharged to recovery room in stable condition. Her postoperative pain was reasonably well controlled with a combination of spinal anesthesia, adductor canal block, intraoperative injection, IV, and oral pain medications. She was started on aspirin for DVT prophylaxis. She also utilized SANDRA stockings and SCDs for additional prophylaxis. Her H\T\H was stable and did not require transfusion. Her Hemovac drain was discontinued on postoperative day 2. Her Prevena wound VAC will remain in place for approximately 7 days postoperative. She tolerated postoperative physical therapy reasonably well. She was bending her knee and ambulating appropriately. She was discharged to [facility] on postoperative day 2. She will continue her physical therapy there prior to discharge home and outpatient therapy. She will continue her aspirin for DVT prophylaxis and follow up in our office in approximately 10-14 days for her initial postop evaluation.
== END 2016-10-08 10:30 | DRG 468 ==
LOC: ENRESERVDT → ENRESERVTM → C.ACU 08:33 → C.3E 10:25
PROC: 0SRD0J9 Replacement of Left Knee Joint with Synthetic Substitute, Cemented, Open Approach (ICD-10-PCS; principal; 2016-10-06 11:45)
PROC: 0SPD0JZ Removal of Synthetic Substitute from Left Knee Joint, Open Approach (ICD-10-PCS; principal; 2016-10-06 11:45)
DX: T84.033A Mechanical loosening of internal left knee prosthetic joint, initial encounter (principal); F31.9 Bipolar disorder, unspecified; F17.210 Nicotine dependence, cigarettes, uncomplicated; E03.9 Hypothyroidism, unspecified; M79.7 Fibromyalgia; Z85.820 Personal history of malignant melanoma of skin; Y92.009 Unspecified place in unspecified non-institutional (private) residence as the place of occurrence of the external cause; Z96.653 Presence of artificial knee joint, bilateral; Y83.1 Surgical operation with implant of artificial internal device as the cause of abnormal reaction of the patient, or of later complication, without mention of misadventure at the time of the procedure

== ENCOUNTER 2017-01-21 05:01 | Emergency (ER) | payer BC, OTHER ==
[~2017-01-21] VITALS: Ht 175.3 cm; Wt 89.5 kg
[~2017-01-21 05:01] MED LIST changes: +ACET-1138 PO; -ACETAMINOPHEN 500 MG TAB PO SCH; +ASPEC81 PO; -ATROPINE SULFATE 0.1 MG/ML 5ML SYR IV PRN; -BUPIVACAINE 0.25% 30 ML VIAL ONE; -BUPIVACAINE 0.5 % 5 MG/1 ML PF 10ML VIAL ONE; -CEFAZOLIN 2000 MG/60 ML D5W 60 ML IV SCH; -DEXAMETHASONE 4 MG TAB PO SCH; -EpHEDrine SULFATE INJ 50 MG/ML AMP IV PRN; -FAMOTIDINE 20 MG TAB PO SCH; -FENTANYL CITRATE INJ 50 MCG/1 ML 2 ML VIAL IV PRN; -GABAPENTIN 300 MG CAP PO SCH; -LABETALOL HCL IV 5 MG/ML 20ML IV PRN; -LACTATED RINGER'S 1000ML 1,000 ML IV SCH; -LACTATED RINGER'S 1000ML 500 ML IV ONE; -LACTATED RINGER'S 1000ML IV SCH; -MELO15TA4 PO; -METOCLOPRAMIDE HCL 10 MG TAB PO SCH; -ONDANSETRON INJ 2 MG/ML 2 ML VIAL IV PRN; +OXYSR10 PO; -ROPIVACAINE 5MG/ML 30 ML 150 MG, BUPIVACAINE/EPINEPHR 0.5% MPF 30 ML, KETOROLAC TROMETH... INFIL SCH; +RXC5 PO; -TRAM-10 PO; -VANCOMYCIN 1GM/270ML NSS 270 ML IV SCH; -VANCOMYCIN INJ 1,400 MG in SODIUM CHLORIDE 0.9% 500ML 500 ML IV SCH
[2017-01-21 05:05] VITALS: TEMP 36.7; Ht 175.3 cm; Wt 89.5 kg
[2017-01-21] MEDS ORDERED: ONDANSETRON 8 MG/54 ML D5W IV STA (05:28)
[2017-01-21] MEDS ORDERED: MoRPHine SULFATE 4 MG/ML 1 ML CARP\\VIAL IV STA (05:28)
[2017-01-21] MEDS ORDERED: SODIUM CHLORIDE 0.9% 1000ML 1,000 ML IV STA (05:28)
--- NOTE | 2017-01-21 05:33 | EMERGENCY ROOM VISIT NOTE ---
History Report prepared by Alexander: Juan Santana Under the Supervision of: Bakari FonsecaO. First contact with patient: 05:11 Chief Complaint: ABDOMINAL PAIN Stated Complaint: UPR ABDOMINAL PAIN,TINGLING IN LFT HAND,SICK History of Present Illness The patient is a 56 year old female who presents to the Emergency Room with complaints of waxing/waning upper abdominal pain that started three days ago. She rates her pain as a 7/10 in severity. The patient states that The patient states that the pain is worsened at night. The patient also reports experiencing nausea, diaphoresis, and tingling in left hand. She admits to a surgical history of three back surgeries and five knee surgeries. The patient admits to a medical history of diverticulosis, but admits that these symptoms are not similar to her diverticulosis symptoms due to the location of the pain.The patient admits to a family history of a cholecystectomy, kidney stones , and heart attack. She states that has not been able to sleep and usually sleeps in a recliner change. The patient denies vomiting, change in bowel movements, hematochezia, melena, urinary symptoms, change in medication or diet , abdominal surgeries, personal cholecystectomy, and a reflux history. Source of History: patient Onset: three days ago Position: abdomen Symptom Intensity: 7/10 Timing: waxes/wanes Associated Symptoms: + diaphoresis, + nausea, No vomiting, No melena, No hematochezia, No diarrhea, No urinary symptoms Review of Systems See HPI for pertinent positives & negatives. A total of 10 systems reviewed and were otherwise negative. 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 (6) Lumbar spinal fusion Surgical Problems: (1) H/O: hysterectomy Family History Cancer Diabetes mellitus Gallbladder disease Heart disease Hypertension Kidney disease Kidney stones Thyroid Social History Smoking Status: Current Every Day Smoker Alcohol Use: none Marital Status: Housing Status: lives with family Occupation Status: unemployed, disabled Current/Historical Medications Scheduled Calcium/Vitamin D (Os-Kemar 500 Plus D), 1 TAB PO DAILY Cholecalciferol (Vitamin D), 5,000 PO DAILY Clonazepam (Klonopin), 1 MG PO HS Duloxetine Hcl (Cymbalta), 90 MG PO QAM Fluvoxamine Maleate (Luvox), 200 MG PO HS Lamotrigine (Lamictal), 200 MG PO AMPM Levothyroxine Sodium (Synthroid), 75 MCG PO QAM Meloxicam (Mobic), 15 MG PO DAILY Methocarbamol (Robaxin), 1,000 MG PO QID Allergies Coded Allergies: Gabapentin (Verified Adverse Reaction, Intermediate, EDEMA, 01/21/17) Sulfa Antibiotics (Verified Adverse Reaction, Intermediate, VOMITING, ) Physical Exam Vital Signs Date Time Temp Pulse Resp B/P (MAP) Pulse Ox O2 Delivery O2 Flow Rate FiO2 01/21/17 10:16 73 18 117/77 95 01/21/17 09:09 69 16 114/79 96 01/21/17 08:04 88 16 120/81 99 Room Air 01/21/17 06:47 83 16 112/69 97 01/21/17 05:50 68 01/21/17 05:46 62 24 138/79 100 Room Air 01/21/17 05:05 36.7 61 24 141/66 100 Room Air Physical Exam GENERAL: uncomfortable, alert, well appearing, well nourished, no distress, non- toxic EYE EXAM: normal conjunctiva, PERRL and EOM's grossly intact OROPHARYNX: no exudate, no erythema, lips, buccal mucosa, and tongue normal and mucous membranes are moist NECK: supple, no nuchal rigidity, no adenopathy, non-tender LUNGS: Clear to auscultation. Normal chest wall mechanics HEART: no murmurs, S1 normal and S2 normal ABDOMEN: abdomen soft, upper abdominal tender, normo-active bowel sounds, no masses, no rebound or guarding. BACK: Back is symmetrical on inspection and there is no deformity, no midline tenderness, no CVA tenderness. SKIN: no rashes and no bruising UPPER EXTREMITIES: upper extremities are grossly normal. LOWER EXTREMITIES: No pitting edema. Well healed vertical scar on knee from previous surgeries. NEURO EXAM: Normal sensorium, cranial nerves II-XII grossly intact, normal speech, no gross weakness of arms, no gross weakness of legs. Gross sensation intact. Medical Decision & Procedures ER Provider Diagnostic Interpretation: Radiology results have been interpreted by the radiologist and reviewed by me. BILIARY ULTRASOUND CLINICAL HISTORY: epigastric pain COMPARISON STUDY: No previous studies for comparison. FINDINGS: There is suboptimal visualization the pancreas. No pancreatic abnormalities were identified. Multiple gallstones were visualized. There is associated sludge within the gallbladder. There is no gallbladder wall thickening. The common bile duct was dilated measuring 8 mm. The common hepatic duct may measure 12 mm. There is intra and extrahepatic biliary ductal dilatation. There is slight increase in renal cortical echogenicity. There is a 1 cm right renal cyst. There is minimal prominence of the right renal pelvis. Hydronephrosis is not felt to be present. IMPRESSION: 1. Mildly distended gallbladder containing multiple calculi and sludge 2. Intra and extrahepatic biliary ductal dilatation. 3. No common bile duct calculi visualized. An MRCP might be of benefit in follow-up. Electronically signed by: Darin Cohn M.D. 01/21/2017 6:48 AM Dictated Date/Time: 01/21/2017 6:43 AM ABDOMEN 2VIEW W/PA CHEST RTN CLINICAL HISTORY: Generalized abdominal pain COMPARISON STUDY: Chest x-ray dated July 29, 2016 FINDINGS: Erect chest reveals no free air. There is no focal pulmonary consolidation. Erect and supine views the abdomen reveal minimally prominent left upper quadrant small bowel loops, possibly representing a focal ileus. There is gas present within nondistended colon. There are postsurgical changes present within the lumbar spine. There are nonspecific right pelvic basin calcifications. IMPRESSION: 1. No evidence of free air 2. Nonspecific bowel gas pattern with mildly prominent gas-filled left upper quadrant small bowel loops. Electronically signed by: Darin Cohn M.D. 01/21/2017 6:50 AM Dictated Date/Time: 01/21/2017 6:48 AM Laboratory Results 01/21/17 05:20 Red Blood Count 4.97, Mean Corpuscular Volume 84.9, Mean Corpuscular Hemoglobin 28.8, Mean Corpuscular Hemoglobin Concent 33.9, Mean Platelet Volume 9.9, Neutrophils (%) (Auto) 79.4, Lymphocytes (%) (Auto) 15.4, Monocytes (%) (Auto) 5.0, Eosinophils (%) (Auto) 0.0, Basophils (%) (Auto) 0.1, Neutrophils # (Auto) 7.65, Lymphocytes # (Auto) 1.48, Monocytes # (Auto) 0.48, Eosinophils # (Auto) 0.00, Basophils # (Auto) 0.01 01/21/17 05:20 Test 01/21/17 05:20 01/21/17 05:49 White Blood Count 9.63 K/uL (4.8-10.8) Red Blood Count 4.97 M/uL (4.2-5.4) Hemoglobin 14.3 g/dL (12.0-16.0) Hematocrit 42.2 % (37-47) Mean Corpuscular Volume 84.9 fL (80-100) Mean Corpuscular Hemoglobin 28.8 pg (25-34) Mean Corpuscular Hemoglobin Concent 33.9 g/dl (32-36) Platelet Count 264 K/uL (130-400) Mean Platelet Volume 9.9 fL (7.4-10.4) Neutrophils (%) (Auto) 79.4 % Lymphocytes (%) (Auto) 15.4 % Monocytes (%) (Auto) 5.0 % Eosinophils (%) (Auto) 0.0 % Basophils (%) (Auto) 0.1 % Neutrophils # (Auto) 7.65 K/uL (1.4-6.5) Lymphocytes # (Auto) 1.48 K/uL (1.2-3.4) Monocytes # (Auto) 0.48 K/uL (0.11-0.59) Eosinophils # (Auto) 0.00 K/uL (0-0.5) Basophils # (Auto) 0.01 K/uL (0-0.2) RDW Standard Deviation 46.4 fL (36.4-46.3) RDW Coefficient of Variation 15.0 % (11.5-14.5) Immature Granulocyte % (Auto) 0.1 % Immature Granulocyte # (Auto) 0.01 K/uL (0.00-0.02) Anion Gap 8.0 mmol/L (3-11) Est Creatinine Clear Calc Drug Dose 61.7 ml/min Estimated GFR () 58.1 Estimated GFR (Non- 50.1 BUN/Creatinine Ratio 13.8 (10-20) Calcium Level 9.1 mg/dl (8.5-10.1) Total Bilirubin 0.6 mg/dl (0.2-1) Aspartate Amino Transf (AST/SGOT) 53 U/L (15-37) Alanine Aminotransferase (ALT/SGPT) 16 U/L (12-78) Alkaline Phosphatase 163 U/L (45-117) Troponin I < 0.015 ng/ml (0-0.045) Total Protein 7.0 gm/dl (6.4-8.2) Albumin 3.8 gm/dl (3.4-5.0) Globulin 3.2 gm/dl (2.5-4.0) Albumin/Globulin Ratio 1.2 (0.9-2) Lipase 387 U/L (73-393) Chemistry Specimen Hemolysis Bedside Lactic Acid Venous 1.18 mmol/L (0.90-1.70) Laboratory results per my review. Medications Administered Medications (Trade) Dose Ordered Sig/Marilia Route Start Time Stop Time Status Last Admin Dose Admin Sodium Chloride 1,000 ml @ 999 mls/hr Q1H1M STAT IV 01/21/17 05:28 01/21/17 06:28 DC 01/21/17 05:38 999 MLS/HR Morphine Sulfate (MoRPHine SULFATE INJ) 4 mg NOW STAT IV 01/21/17 05:28 01/21/17 05:30 DC 01/21/17 05:38 4 MG Prochlorperazine Edisylate (Compazine Inj) 5 mg NOW STAT IV 01/21/17 05:35 01/21/17 05:36 DC 01/21/17 05:40 5 MG Diphenhydramine HCl (Benadryl Inj) 12.5 mg NOW STAT IV 01/21/17 05:35 01/21/17 05:36 DC 01/21/17 05:40 12.5 MG Al Hydroxide/Mg Hydroxide (Maalox Susp) 30 ml NOW STAT PO 01/21/17 06:28 01/21/17 06:29 DC 01/21/17 06:47 30 ML ECG Indication: abdominal pain Rate (beats per minute): 59 Rhythm: sinus bradycardia Findings: no acute ischemic change, prolonged QT (Borderline), no ectopy, other (Normal Curlew, Normal interal, Low voltage) ED Course 0523: The patient was evaluated in room A03. A complete history and physical exam was performed. 0528: Ondansetron HCl 8 mg IV, Morphine Sulfate 4 mg IV, Sodium Chloride 1000 ml @ 999 mls/hr IV. 0535: Benadryl Injection 12.5 mg IV, Compazine Injection 5 mg. 0628: Maalox Susp 30 ml PO. 0639: I reevaluated the patient and she is still in imaging I updated her on the results so far. 0658: I reevaluated the patient and she is resting comfortably. I updated her on the results and she reports her pain is controlled. 0710: MRCP pending. Pt signed out to Dr. Costa. Medical Decision Differential diagnoses includes but is not limited to gastritis, peptic ulcer disease, GERD, gallbladder disease, pancreatitis, small bowel obstruction, acute coronary syndrome, pericarditis, ischemic bowel, irritable bowel disease, irritable bowel syndrome, appendicitis, diverticulitis, malignancy, hernia, urinary tract infection, torsion, /ectopic , perforation, trauma, infectious. Medication Reconciliation: I attest that I have personally reviewed the patient' s current medication list. Blood pressure screening: Patient was found to have a slightly elevated blood pressure due to circumstances. I do not believe that the patient requires hypertension monitoring. Patient likely with symptoms secondary to biliary colic. Labs reassuring despite 3 days of waxing and waning symptoms. Gallstones noted on the ultrasound however suggestion of ductal dilatation warranted additional evaluation with MRCP. Patient signed out follow-up MRCP. I would anticipate if MRCP did not show choledocholithiasis, the patient could be discharged as long as pain controlled, and there is no vomiting or fever. Patient could then follow-up as an outpatient with surgery for an elective cholecystectomy. If patient's symptoms returned or worsened, or MRCP showed choledocholithiasis, then patient would need to be admitted to medicine for likely ERCP, GI and surgical evaluation. Doubt symptoms related to atypical presentation of ACS, doubt GI bleed, vascular etiology, no evidence of bacteremia/sepsis, no evidence for pancreatitis. Impression Primary Impression: Abdominal pain Additional Impression: Cholelithiases Scribe Attestation The scribe's documentation has been prepared under my direction and personally reviewed by me in its entirety. I confirm that the note above accurately reflects all work, treatment, procedures, and medical decision making performed by me. Departure Information Dispostion Still a Patient Referrals Leanne Mistry DO (PCP) Patient Instructions My [facility] Additional Instructions Please call and follow up with your family doctor. Please call and follow-up with the surgeon listed. Please continue regular medications as prescribed. Please eat a light and bland diet until you're feeling better. Please drink clear liquids at frequent intervals to stay well-hydrated. If you develop any recurrent or worsening pain, develop vomiting, fevers, noticed black or bloody stools, develop chest pain, trouble breathing, dizziness, or you have any other new concerns, please return the emergency room. Problem Qualifiers Primary Impression: Abdominal pain Abdominal location: epigastric Qualified Codes: R10.13 - Epigastric pain Additional Impression: Cholelithiases Cholelithiasis location: gallbladder Cholecystitis presence: without cholecystitis Biliary obstruction: without biliary obstruction Qualified Codes: K80.20 - Calculus of gallbladder without cholecystitis without obstruction
[2017-01-21] MEDS ORDERED: PROCHLORPERAZINE 5 MG/ML 2 ML VIAL IV STA (05:35)
[2017-01-21] MEDS ORDERED: DiphenhydrAMINE HCL 50 MG/ML VIAL IV STA (05:35)
[2017-01-21 05:46] LABS: BASO % 0.1 %; BASO ABS # 0.01 K/uL (0-0.2); COMPLETE YES; HEMATOCRIT 42.2 % (37-47); IG% 0.1 %; LYMPH % 15.4 %; LYMPH ABS # 1.48 K/uL (1.2-3.4); MEAN CELL VOLUME 84.9 fL (80-100); MEAN CORPUSCULAR HEMOGLOBIN 28.8 pg (25-34); MEAN CORPUSCULAR HGB CONC 33.9 g/dl (32-36); MEAN PLATELET VOLUME 9.9 fL (7.4-10.4); NEUT % 79.4 %; PLATELET COUNT 264 K/uL (130-400); RED BLOOD COUNT 4.97 M/uL (4.2-5.4); WHITE BLOOD COUNT 9.63 K/uL (4.8-10.8)
[2017-01-21] MEDS ORDERED: MELO7.5T5 PO (05:48)
[2017-01-21] MEDS ORDERED: CHOL1000 PO (05:54)
[2017-01-21] MEDS ORDERED: CHOL1TAB42 PO (05:56)
[2017-01-21] MEDS ORDERED: CALC500C70 PO (05:56)
[2017-01-21 06:18] LABS: ALB/GLOB RATIO 1.2 (0.9-2); ALKALINE PHOSPHATASE 163 U/L (45-117); ALT/SGPT 16 U/L (12-78); AST/SGOT 53 U/L (15-37); BLOOD UREA NITROGEN 17 mg/dl (7-18); BUN/CREATININE RATIO 13.8 (10-20); CALCIUM 9.1 mg/dl (8.5-10.1); CARBON DIOXIDE 23 mmol/L (21-32); CHLORIDE 111 mmol/L (98-107); GLUCOSE 130 mg/dl (70-99); POTASSIUM 3.9 mmol/L (3.5-5.1); SODIUM 142 mmol/L (136-145)
[2017-01-21] MEDS ORDERED: ALUMINUM/MAGNESIUM SUSP 30 ML UDC PO STA (06:28)
--- NOTE | 2017-01-21 06:49 | DIAGNOSTIC IMAGING REPORT ---
BILIARY ULTRASOUND CLINICAL HISTORY: epigastric pain COMPARISON STUDY: No previous studies for comparison. FINDINGS: There is suboptimal visualization the pancreas. No pancreatic abnormalities were identified. Multiple gallstones were visualized. There is associated sludge within the gallbladder. There is no gallbladder wall thickening. The common bile duct was dilated measuring 8 mm. The common hepatic duct may measure 12 mm. There is intra and extrahepatic biliary ductal dilatation. There is slight increase in renal cortical echogenicity. There is a 1 cm right renal cyst. There is minimal prominence of the right renal pelvis. Hydronephrosis is not felt to be present. IMPRESSION: 1. Mildly distended gallbladder containing multiple calculi and sludge 2. Intra and extrahepatic biliary ductal dilatation. 3. No common bile duct calculi visualized. An MRCP might be of benefit in follow-up. Electronically signed by: Darin Cohn M.D. 01/21/2017 6:48 AM Dictated Date/Time: 01/21/2017 6:43 AM
--- NOTE | 2017-01-21 06:51 | DIAGNOSTIC IMAGING REPORT ---
ABDOMEN 2VIEW W/PA CHEST RTN CLINICAL HISTORY: Generalized abdominal pain COMPARISON STUDY: Chest x-ray dated July 29, 2016 FINDINGS: Erect chest reveals no free air. There is no focal pulmonary consolidation. Erect and supine views the abdomen reveal minimally prominent left upper quadrant small bowel loops, possibly representing a focal ileus. There is gas present within nondistended colon. There are postsurgical changes present within the lumbar spine. There are nonspecific right pelvic basin calcifications. IMPRESSION: 1. No evidence of free air 2. Nonspecific bowel gas pattern with mildly prominent gas-filled left upper quadrant small bowel loops. Electronically signed by: Darin Cohn M.D. 01/21/2017 6:50 AM Dictated Date/Time: 01/21/2017 6:48 AM
--- NOTE | 2017-01-21 09:39 | DIAGNOSTIC IMAGING REPORT ---
MRCP CLINICAL HISTORY: Cholelithiasis. Ductal dilatation. Epigastric pain. COMPARISON STUDY: Biliary ultrasound dated 01/21/2017 FINDINGS: Multiple gallstones are visualized. The common bile duct is mildly dilated measuring 7.8 mm. There is borderline dilatation of the proximal pancreatic duct which measures 4 mm. The mid and distal pancreatic duct appear normal. There are no common bile duct filling defects to indicate calculi. Tapering of the distal most common bile duct is nonspecific and may be secondary to spasm. There is minimal prominence of the central intrahepatic ducts. IMPRESSION: 1. Cholelithiasis 2. Mild dilatation the common bile duct. No common bile duct calculi are visualized 3. Borderline dilatation of the proximal pancreatic duct 4. Nonspecific tapering of the distal most common bile duct. Electronically signed by: Darin Cohn M.D. 01/21/2017 9:37 AM Dictated Date/Time: 01/21/2017 9:32 AM
[2017-01-21 10:16] VITALS: BP 117/77; PULSE 73; O2SAT 95
== END 2017-01-21 10:17 | disposition home or self-care (01) ==
LOC: C.EDB 05:03 → C.EDA 10:17
DX: R10.13 Epigastric pain (principal); K80.20 Calculus of gallbladder without cholecystitis without obstruction; F31.9 Bipolar disorder, unspecified; F41.9 Anxiety disorder, unspecified; F17.200 Nicotine dependence, unspecified, uncomplicated; Z98.1 Arthrodesis status; Z90.710 Acquired absence of both cervix and uterus; Z98.890 Other specified postprocedural states; Z82.49 Family history of ischemic heart disease and other diseases of the circulatory system; Z84.1 Family history of disorders of kidney and ureter; Z83.3 Family history of diabetes mellitus; Z79.899 Other long term (current) drug therapy

== ENCOUNTER 2017-01-22 10:29 | Observation (INO) | payer BC, OTHER ==
[~2017-01-22] VITALS: Ht 175.3 cm; Wt 89.4 kg
[~2017-01-22 10:29] MED LIST changes: -ACET-1138 PO; -ASPEC81 PO; -CHOL100010 PO; +CHOL1TAB42 PO; +MELO7.5T5 PO; -OXYSR10 PO; -RISP0.253 PO; -RXC5 PO
[2017-01-22] MEDS ORDERED: SODIUM CHLORIDE 0.9% 1000ML 1,000 ML IV STA (11:15)
[2017-01-22] MEDS ORDERED: HYDROmorphone INJ 0.5 MG/0.5 ML SYR IV STA (11:15)
[2017-01-22] MEDS ORDERED: ONDANSETRON 8 MG/54 ML D5W IV STA (11:15)
[2017-01-22 12:33] LABS: BASO % 0.3 %; BASO ABS # 0.02 K/uL (0-0.2); COMPLETE YES; EOS % 0.1 %; HEMATOCRIT 40.9 % (37-47); IG% 0.1 %; LYMPH % 17.2 %; LYMPH ABS # 1.28 K/uL (1.2-3.4); MEAN CELL VOLUME 85.9 fL (80-100); MEAN CORPUSCULAR HEMOGLOBIN 29.4 pg (25-34); MEAN CORPUSCULAR HGB CONC 34.2 g/dl (32-36); MEAN PLATELET VOLUME 9.6 fL (7.4-10.4); MONO % 5.5 %; NEUT % 76.8 %; PLATELET COUNT 239 K/uL (130-400); RED BLOOD COUNT 4.76 M/uL (4.2-5.4); WHITE BLOOD COUNT 7.44 K/uL (4.8-10.8)
--- NOTE | 2017-01-22 12:40 | EMERGENCY ROOM VISIT NOTE ---
ED Visit Note First contact with patient: 11:02 The patient was seen and examined with Constantino Costa PA-C. I agree with the history, physical and findings. Please see the note for disposition and details.
[2017-01-22 12:45] LABS: INR 0.9 (0.9-1.1); PARTIAL THROMBOPLASTIN RATIO 1.1; PROTHROMBIN TIME (PATIENT) 9.9 SECONDS (9.0-12.0)
[2017-01-22 12:50] LABS: BUN/CREATININE RATIO 12.8 (10-20); CALCIUM 9.2 mg/dl (8.5-10.1); CREATININE 0.99 mg/dl (0.60-1.20); POTASSIUM 4.1 mmol/L (3.5-5.1)
[2017-01-22] MEDS: HYDROmorphone INJ 0.5 MG/0.5 ML SYR IV PRN ×3 (13:45→16:17)
--- NOTE | 2017-01-22 14:19 | DIAGNOSTIC IMAGING REPORT ---
ABDOMINAL ULTRASOUND, RIGHT UPPER QUADRANT HISTORY: KNOWN GALLSTONES/SLUDGE, PROX PANCREATIC DUCT DILATATION. COMPARISON: MRCP 01/21/2017. Abdominal ultrasound 01/21/2017. FINDINGS: Pancreas: The pancreas demonstrates a normal echotexture. Liver: Unremarkable. Gallbladder: Multiple small gallstones. Borderline gallbladder wall thickening at 4 mm. CBD: Slight decompression of the common bile duct which now measures up to 7 mm. Right kidney: No hydronephrosis. IMPRESSION: 1. Multiple small gallstones are again noted. Borderline thickening of the gallbladder wall. 2. Slight decompression of the biliary system compared to the prior study. Electronically signed by: Bruce Mo M.D. 01/22/2017 2:17 PM Dictated Date/Time: 01/22/2017 2:14 PM
[2017-01-22 14:42] LABS: URINE APPEARANCE CLEAR (CLEAR); URINE BILIRUBIN NEG (NEG); URINE COLOR YELLOW; URINE EPITHELIAL CELL AUTO >30 /lpf (0-5); URINE NITRITE NEG (NEG); URINE SPECIFIC GRAVITY 1.021 (1.000-1.030); UROBILINOGEN NEG (NEG)
[2017-01-22 14:46] LABS: MANUAL MICROSCOPIC REQUIRED? NO; REVIEW REQ? NO
--- NOTE | 2017-01-22 16:09 | EMERGENCY ROOM VISIT NOTE ---
History First contact with patient: 11:02 Chief Complaint: ABDOMINAL PAIN Stated Complaint: GALL BLADDER Nursing Triage Summary: pt reports I was seen here 1 day ago and was told I have gall stones the pain is no better and I was told to return if pain worsened History of Present Illness The patient is a 56 year old female who presents to the Emergency Room with complaints of persistent epigastric and right upper quadrant pain. The patient was seen here yesterday with similar complaints, and had an extensive workup showing evidence for gallstones, sludge and various hepatic/biliary/pancreatic duct issues. The patient was instructed to follow-up with Gen. surgery and family doctor for further management. The patient reports that she ate Jell-O and yogurt last evening. She did notice worsening discomfort and nausea after doing so. She woke up this morning with severe pain that she describes as an intermittent pain that is becoming more frequent and severe. It radiates into her back and right lower chest region. She has had no central chest pain, neck pain, shortness of breath, fevers or chills. The pain is slightly worsened with deep breathing. She denies any urinary symptoms, constipation or diarrhea. She rates her discomfort a 9 out of 10. Review of Systems HEENT: Denies dizziness, visual problems, hearing loss, tinnitus. Denies difficulty swallowing or oral lesions. PULMONARY: Denies cough, shortness of breath, sputum production or hemoptysis. CARDIOVASCULAR: Denies chest pain, palpitations, dyspnea on exertion, orthopnea or peripheral edema. GASTROINTESTINAL: See history of present illness. GENITOURINARY: Denies dysuria, frequency, urgency or nocturia. NEUROLOGIC: Denies history of epilepsy, CVA, TIA or chronic headaches. MUSCULOSKELETAL: Denies history of joint tenderness/swelling. SKIN: Denies rashes or lesions. PSYCHIATRIC: History of anxiety and bipolar disorder. ENDOCRINE: Denies history of diabetes or thyroid disorders. 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 (6) Lumbar spinal fusion Surgical Problems: (1) H/O: hysterectomy Family History Cancer Diabetes mellitus Gallbladder disease Heart disease Hypertension Kidney disease Kidney stones Thyroid Social History Smoking Status: Current Every Day Smoker Alcohol Use: none Marital Status: Housing Status: lives with family Occupation Status: unemployed, disabled Current/Historical Medications Scheduled Calcium/Vitamin D (Os-Kemar 500 Plus D), 1 TAB PO DAILY Cholecalciferol (Vitamin D), 5,000 PO DAILY Clonazepam (Klonopin), 1 MG PO HS Duloxetine Hcl (Cymbalta), 90 MG PO QAM Fluvoxamine Maleate (Luvox), 200 MG PO HS Lamotrigine (Lamictal), 200 MG PO AMPM Levothyroxine Sodium (Synthroid), 75 MCG PO QAM Meloxicam (Mobic), 15 MG PO DAILY Methocarbamol (Robaxin), 1,000 MG PO QID Allergies Coded Allergies: Gabapentin (Verified Adverse Reaction, Intermediate, EDEMA, 01/22/17) Sulfa Antibiotics (Verified Adverse Reaction, Intermediate, VOMITING, ) Physical Exam Vital Signs Date Time Temp Pulse Resp B/P (MAP) Pulse Ox O2 Delivery O2 Flow Rate FiO2 01/22/17 14:31 76 18 137/72 99 Room Air 01/22/17 12:40 82 18 127/81 99 Room Air 01/22/17 10:39 36.8 97 18 136/81 99 Room Air Physical Exam CONSTITUTIONAL: Healthy and well nourished. Alert and oriented X 3 with positive affect. The patient appears in moderate discomfort from pain and nausea. HEENT: Normocephalic, atraumatic. Pupils equal, round and reactive. No scleral icterus or conjunctival injection/pallor. OROPHARYNX: No tonsillar hypertrophy or posterior pharyngeal erythema. NECK: Full active range of motion without discomfort. No JVD or carotid bruits. RESPIRATORY: Clear to auscultation bilaterally with no wheezing, crackles, rhonchi or stridor. CARDIOVASCULAR: Regular rate and rhythm with no murmurs, rubs or gallops. GASTROINTESTINAL: Bowel sounds present in all quadrants. Patient has notable epigastric and right upper quadrant pain with positive Talbert sign. No abdominal rigidity, guarding or rebound. Negative CVA tenderness. Negative McBurney's point tenderness. MUSCULOSKELETAL: Full range of motion of all joints without discomfort. INTEGUMENTARY: No rash or other significant dermatologic conditions noted. HEMATOLOGIC: No ecchymosis or petechiae. NEUROLOGIC: No focal neurologic deficits noted. Medical Decision & Procedures ER Provider Diagnostic Interpretation: Repeat ultrasound of the right upper quadrant does not show any acute findings, with persistent borderline gallbladder wall thickening and stones. Radiologist report is as follows: ABDOMINAL ULTRASOUND, RIGHT UPPER QUADRANT HISTORY: KNOWN GALLSTONES/SLUDGE, PROX PANCREATIC DUCT DILATATION. COMPARISON: MRCP 01/21/2017. Abdominal ultrasound 01/21/2017. FINDINGS: Pancreas: The pancreas demonstrates a normal echotexture. Liver: Unremarkable. Gallbladder: Multiple small gallstones. Borderline gallbladder wall thickening at 4 mm. CBD: Slight decompression of the common bile duct which now measures up to 7 mm. Right kidney: No hydronephrosis. IMPRESSION: 1. Multiple small gallstones are again noted. Borderline thickening of the gallbladder wall. 2. Slight decompression of the biliary system compared to the prior study. Laboratory Results 01/22/17 12:18 Red Blood Count 4.76, Mean Corpuscular Volume 85.9, Mean Corpuscular Hemoglobin 29.4, Mean Corpuscular Hemoglobin Concent 34.2, Mean Platelet Volume 9.6, Neutrophils (%) (Auto) 76.8, Lymphocytes (%) (Auto) 17.2, Monocytes (%) (Auto) 5.5, Eosinophils (%) (Auto) 0.1, Basophils (%) (Auto) 0.3, Neutrophils # (Auto) 5.71, Lymphocytes # (Auto) 1.28, Monocytes # (Auto) 0.41, Eosinophils # (Auto) 0.01, Basophils # (Auto) 0.02 01/22/17 12:18 Test 01/22/17 12:18 01/22/17 14:28 White Blood Count 7.44 K/uL (4.8-10.8) Red Blood Count 4.76 M/uL (4.2-5.4) Hemoglobin 14.0 g/dL (12.0-16.0) Hematocrit 40.9 % (37-47) Mean Corpuscular Volume 85.9 fL (80-100) Mean Corpuscular Hemoglobin 29.4 pg (25-34) Mean Corpuscular Hemoglobin Concent 34.2 g/dl (32-36) Platelet Count 239 K/uL (130-400) Mean Platelet Volume 9.6 fL (7.4-10.4) Neutrophils (%) (Auto) 76.8 % Lymphocytes (%) (Auto) 17.2 % Monocytes (%) (Auto) 5.5 % Eosinophils (%) (Auto) 0.1 % Basophils (%) (Auto) 0.3 % Neutrophils # (Auto) 5.71 K/uL (1.4-6.5) Lymphocytes # (Auto) 1.28 K/uL (1.2-3.4) Monocytes # (Auto) 0.41 K/uL (0.11-0.59) Eosinophils # (Auto) 0.01 K/uL (0-0.5) Basophils # (Auto) 0.02 K/uL (0-0.2) RDW Standard Deviation 47.9 fL (36.4-46.3) RDW Coefficient of Variation 15.1 % (11.5-14.5) Immature Granulocyte % (Auto) 0.1 % Immature Granulocyte # (Auto) 0.01 K/uL (0.00-0.02) Prothrombin Time 9.9 SECONDS (9.0-12.0) Prothromb Time International Ratio 0.9 (0.9-1.1) Activated Partial Thromboplast Time 28.1 SECONDS (21.0-31.0) Partial Thromboplastin Ratio 1.1 Anion Gap 7.0 mmol/L (3-11) Est Creatinine Clear Calc Drug Dose 74.7 ml/min Estimated GFR () 73.3 Estimated GFR (Non- 63.3 BUN/Creatinine Ratio 12.8 (10-20) Calcium Level 9.2 mg/dl (8.5-10.1) Total Bilirubin 0.5 mg/dl (0.2-1) Direct Bilirubin 0.1 mg/dl (0-0.2) Aspartate Amino Transf (AST/SGOT) 25 U/L (15-37) Alanine Aminotransferase (ALT/SGPT) 22 U/L (12-78) Alkaline Phosphatase 152 U/L (45-117) Total Creatine Kinase 49 U/L (26-192) Total Protein 7.0 gm/dl (6.4-8.2) Albumin 3.8 gm/dl (3.4-5.0) Lipase 436 U/L (73-393) Urine Color YELLOW Urine Appearance CLEAR (CLEAR) Urine pH 6.0 (4.5-7.5) Urine Specific [place] 1.021 (1.000-1.030) Urine Protein NEG (NEG) Urine Glucose (UA) NEG (NEG) Urine Ketones NEG (NEG) Urine Occult Blood NEG (NEG) Urine Nitrite NEG (NEG) Urine Bilirubin NEG (NEG) Urine Urobilinogen NEG (NEG) Urine Leukocyte Esterase TRACE (NEG) Urine WBC (Auto) 1-5 /hpf (0-5) Urine RBC (Auto) 0-4 /hpf (0-4) Urine Hyaline Casts (Auto) 1-5 /lpf (0-5) Urine Epithelial Cells (Auto) >30 /lpf (0-5) Urine Bacteria (Auto) NEG (NEG) The above labs were reviewed. The patient has no leukocytosis or electrolyte abnormality. LFTs and bilirubin Cerner normal. Alkaline phosphatase and lipase are elevated. Urinalysis is unremarkable. Medications Administered Medications (Trade) Dose Ordered Sig/Marilia Route Start Time Stop Time Status Last Admin Dose Admin Sodium Chloride 1,000 ml @ 999 mls/hr Q1H1M STAT IV 01/22/17 11:15 01/22/17 12:15 DC 01/22/17 12:28 999 MLS/HR Ondansetron HCl (Zofran 8mg Iv) 8 mg NOW STAT IV 01/22/17 11:15 01/22/17 11:19 DC 01/22/17 12:24 8 MG Hydromorphone HCl (Dilaudid Inj) 0.5 mg NOW STAT IV 01/22/17 11:15 01/22/17 11:19 DC 01/22/17 12:24 0.5 MG Hydromorphone HCl (Dilaudid Inj) 0.5 mg Q30M PRN IV 01/22/17 11:15 02/05/17 11:14 01/22/17 15:02 0.5 MG Procedure 1. IV hydration: The patient received a liter normal saline bolus 2. IV medications: The patient was initially administered Dilaudid 0.5 mg and Zofran 8 mg IVP. ED Course Patient history and physical exam were performed. Nurse's notes were reviewed. Vital signs were reviewed and normal. The patient is afebrile and normotensive. I also reviewed documentation from yesterday's visit. The patient had a biliary ultrasound showing a mild distended gallbladder containing multiple calculi and sludge. Common bile duct was dilated, measuring 8 mm. [place] and extrahepatic biliary ductal dilatation was noted, with no obvious common bile duct calculi. An MRCP was recommended in follow- up. The patient did have an MRCP performed yesterday, showing cholelithiasis, mild dilatation of the common bile duct with no common bile duct calculi visualized. Borderline dilatation of the proximal pancreatic duct, as well as nonspecific tapering of the distal most common bile duct were noted. The patient returns for worsening and more frequent waves of discomfort. I did suggest further laboratory and ultrasound imaging, and the patient was in agreement. IV access was established, and labs were drawn. The patient was hydrated with normal saline, and initially received IV Dilaudid and Zofran for pain and nausea. Review of labs shows an elevated alkaline phosphatase and lipase, otherwise remaining labs, including LFTs, bilirubin and white count are normal. Ultrasound of the right upper quadrant does not show any convincing evidence for acute cholecystitis. Case was further discussed with Dr. Delcid, ED attending physician, who recommended consult then surgery to discuss immediacy for surgery. The case was discussed with Dr. Le, general surgeon on-call, who recommended that cholecystectomy procedure warranted at this point, especially since MRCP results are normal. Dr. Le did come to the emergency department for further evaluation. Please see his dictation for further treatment and final disposition. While under my care, the patient did receive 3 separate doses of Dilaudid 0.5 mg IVP. Zofran administration did help with the patient's nausea. Medical Decision Patient presents to the emergency department with symptoms most consistent with biliary colic secondary to gallstones. The patient currently does not have any fever or elevated white count. She has no elevated bilirubin or there are transaminases. She had a complete workup yesterday that did not suggest cardiopulmonary etiology. She also had an MRCP the did not show any evidence for choledocholithiasis or other significant findings except for gallstones. Impression Primary Impression: Biliary colic Additional Impression: Multiple gallstones Departure Information Referrals Leanne Mistry DO (PCP) Patient Instructions My [facility] Problem Qualifiers
--- NOTE | 2017-01-22 16:41 | History and Physical ---
History & Physical Date & Time of Service: Jan 22, 2017 at 16:38 Chief Complaint: Gall Bladder Primary Care Physician: Leanne Mistry DO History of Present Illness Source: patient pt with intermittent RUQ pain and nausea for a couple months. worse yesterday and was seen in ER and d/c'd home. Pain, nausea got worse today so she came back. Past Medical/Surgical History Medical Problems: (1) Anxiety Status: Chronic (2) Bipolar disorder Status: Chronic (3) Lumbar spinal fusion Status: Resolved Surgical Problems: (1) H/O: hysterectomy Status: Resolved Family History Cancer Diabetes mellitus Gallbladder disease Heart disease Hypertension Kidney disease Kidney stones Thyroid Social History Smoking Status: Current Every Day Smoker Marital Status: Occupational Status: unemployed, disabled Immunizations History of Influenza Vaccine: Yes Influenza Vaccine Date: May 19, 2014 History of Tetanus Vaccine?: Yes Tetanus Immunization Date: Sep 30, 2008 History of Pneumococcal: No Pneumococcal Date: Sep 18, 1998 History of Hepatitis B Vaccine: No Multi-Drug Resistant Organisms History of MDRO: No Allergies Coded Allergies: Gabapentin (Verified Adverse Reaction, Intermediate, EDEMA, 01/22/17) Sulfa Antibiotics (Verified Adverse Reaction, Intermediate, VOMITING, ) Home Medications Scheduled Calcium/Vitamin D (Os-Kemar 500 Plus D), 1 TAB PO DAILY Cholecalciferol (Vitamin D), 5,000 PO DAILY Clonazepam (Klonopin), 1 MG PO HS Duloxetine Hcl (Cymbalta), 90 MG PO QAM Fluvoxamine Maleate (Luvox), 200 MG PO HS Lamotrigine (Lamictal), 200 MG PO AMPM Levothyroxine Sodium (Synthroid), 75 MCG PO QAM Meloxicam (Mobic), 15 MG PO DAILY Methocarbamol (Robaxin), 1,000 MG PO QID Review of Systems Constitutional: + weight loss (approx 75 lbs on purpose by dieting) Abdomen: + pain, + nausea, + vomiting Physical Exam Vital Signs Date Time Temp Pulse Resp B/P (MAP) Pulse Ox O2 Delivery O2 Flow Rate FiO2 01/22/17 14:31 76 18 137/72 99 Room Air 01/22/17 12:40 82 18 127/81 99 Room Air 01/22/17 10:39 36.8 97 18 136/81 99 Room Air General Appearance: no apparent distress Head: normocephalic, atraumatic Eyes: PERRL, EOMI ENT: hearing grossly normal Neck: supple, no JVD Respiratory/Chest: no respiratory distress, no accessory muscle use Abdomen/GI: soft, + pertinent finding (+RUQ ttp. no guarding. ) Neurologic/Psych: alert, oriented x 3 Skin: normal color, warm/dry, no rash Diagnostics Laboratory Results Results Past 24 Hours Test 01/22/17 12:18 01/22/17 14:28 Range/Units White Blood Count 7.44 4.8-10.8 K/uL Red Blood Count 4.76 4.2-5.4 M/uL Hemoglobin 14.0 12.0-16.0 g/dL Hematocrit 40.9 37-47 % Mean Corpuscular Volume 85.9 80-100 fL Mean Corpuscular Hemoglobin 29.4 25-34 pg Mean Corpuscular Hemoglobin Concent 34.2 32-36 g/dl Platelet Count 239 130-400 K/uL Mean Platelet Volume 9.6 7.4-10.4 fL Neutrophils (%) (Auto) 76.8 % Lymphocytes (%) (Auto) 17.2 % Monocytes (%) (Auto) 5.5 % Eosinophils (%) (Auto) 0.1 % Basophils (%) (Auto) 0.3 % Neutrophils # (Auto) 5.71 1.4-6.5 K/uL Lymphocytes # (Auto) 1.28 1.2-3.4 K/uL Monocytes # (Auto) 0.41 0.11-0.59 K/uL Eosinophils # (Auto) 0.01 0-0.5 K/uL Basophils # (Auto) 0.02 0-0.2 K/uL RDW Standard Deviation 47.9 36.4-46.3 fL RDW Coefficient of Variation 15.1 11.5-14.5 % Immature Granulocyte % (Auto) 0.1 % Immature Granulocyte # (Auto) 0.01 0.00-0.02 K/uL Prothrombin Time 9.9 9.0-12.0 SECONDS Prothromb Time International Ratio 0.9 0.9-1.1 Activated Partial Thromboplast Time 28.1 21.0-31.0 SECONDS Partial Thromboplastin Ratio 1.1 Sodium Level 143 136-145 mmol/L Potassium Level 4.1 3.5-5.1 mmol/L Chloride Level 109 98-107 mmol/L Carbon Dioxide Level 27 21-32 mmol/L Anion Gap 7.0 3-11 mmol/L Blood Urea Nitrogen 13 7-18 mg/dl Creatinine 0.99 0.60-1.20 mg/dl Est Creatinine Clear Calc Drug Dose 74.7 ml/min Estimated GFR () 73.3 Estimated GFR (Non- 63.3 BUN/Creatinine Ratio 12.8 10-20 Random Glucose 76 70-99 mg/dl Calcium Level 9.2 8.5-10.1 mg/dl Total Bilirubin 0.5 0.2-1 mg/dl Direct Bilirubin 0.1 0-0.2 mg/dl Aspartate Amino Transf (AST/SGOT) 25 15-37 U/L Alanine Aminotransferase (ALT/SGPT) 22 12-78 U/L Alkaline Phosphatase 152 45-117 U/L Total Creatine Kinase 49 26-192 U/L Total Protein 7.0 6.4-8.2 gm/dl Albumin 3.8 3.4-5.0 gm/dl Lipase 436 73-393 U/L Urine Color YELLOW Urine Appearance CLEAR CLEAR Urine pH 6.0 4.5-7.5 Urine Specific [place] 1.021 1.000-1.030 Urine Protein NEG NEG Urine Glucose (UA) NEG NEG Urine Ketones NEG NEG Urine Occult Blood NEG NEG Urine Nitrite NEG NEG Urine Bilirubin NEG NEG Urine Urobilinogen NEG NEG Urine Leukocyte Esterase TRACE NEG Urine WBC (Auto) 1-5 0-5 /hpf Urine RBC (Auto) 0-4 0-4 /hpf Urine Hyaline Casts (Auto) 1-5 0-5 /lpf Urine Epithelial Cells (Auto) >30 0-5 /lpf Urine Bacteria (Auto) NEG NEG Diagnostic Radiology US: shows gallstones and wall thickening. MRCP yesterday neg for CBD stones Impression Assessment and Plan 1. gallstone pancreatitis admit. IVF/NPO/symptom control recheck LFT's/lipase tomorrow. if lipase decreasing will plan lap laith tomorrow. if it worsens we may need to wait/consult GI for poss ERCP
[2017-01-22] MEDS ORDERED: ONDANSETRON INJ 2 MG/ML 2 ML VIAL IV PRN (16:45)
[2017-01-22 17:40] VITALS: BP 118/72; PULSE 70; TEMP 36.8; O2SAT 98
[2017-01-22 18:00] VITALS: BP 118/72; PULSE 70; TEMP 36.8; O2SAT 98; Ht 175.3 cm; Wt 89.4 kg
[2017-01-22] MEDS: CIPROFLOXACIN / D5W 400 MG in PREMIXED IN D5W 200 ML IV SCH (18:43)
[2017-01-22] MEDS: SODIUM CHLOR 0.45% + 20MEQ KCL 1,000 ML IV SCH (18:43)
[2017-01-22] MEDS: MoRPHine SULFATE 4 MG/ML 1 ML CARP\\VIAL IV PRN ×2 (18:44→22:45)
[2017-01-22] MEDS ORDERED: IV FLUIDS COMPLETED PRN (18:45)
[2017-01-22] MEDS: CLONAZEPAM 1 MG TAB PO SCH (20:34)
[2017-01-22 22:57] VITALS: BP 117/78; PULSE 70; TEMP 36.9; O2SAT 98
[2017-01-23] VITALS (7 sets, daily range): BP systolic 97–146; BP diastolic 61–81; PULSE 53–70; TEMP 36.5–37.1; O2SAT 94–100
[2017-01-23] MEDS: SODIUM CHLOR 0.45% + 20MEQ KCL 1,000 ML IV SCH (02:06)
[2017-01-23] MEDS: MoRPHine SULFATE 4 MG/ML 1 ML CARP\\VIAL IV PRN (03:13)
[2017-01-23] MEDS: CIPROFLOXACIN / D5W 400 MG in PREMIXED IN D5W 200 ML IV SCH ×2 (05:33→18:00)
[2017-01-23 07:08] LABS: BUN/CREATININE RATIO 10.4 (10-20); CALCIUM 8.8 mg/dl (8.5-10.1); CREATININE 0.91 mg/dl (0.60-1.20); POTASSIUM 4.1 mmol/L (3.5-5.1)
[2017-01-23] MEDS ORDERED: NURSING VERBAL MED ORDER ONE (07:45)
[2017-01-23] MEDS: D5W AND 1/2NSS + 20MEQ KCL 1,000 ML IV SCH ×3 (08:08→23:29)
[2017-01-23] MEDS: MoRPHine SULFATE 2 MG/ML CARP IV PRN ×3 (08:13→22:04)
[2017-01-23] MEDS ORDERED: LIDOCAINE HCL 2% 2 ML VIAL (20MG/ML) ONE (10:56)
[2017-01-23] MEDS ORDERED: ONDANSETRON INJ 2 MG/ML 2 ML VIAL ONE (10:56)
[2017-01-23] MEDS ORDERED: MIDAZOLAM HCL 1 MG/ML 2ML VIAL ONE (10:56)
[2017-01-23] MEDS ORDERED: DEXAMETHASONE SOD INJ 4 MG/ML VIAL ONE (10:56)
[2017-01-23] MEDS ORDERED: FENTANYL CITRATE INJ 50 MCG/1 ML 2 ML VIAL ONE ×3 (10:56→14:32)
[2017-01-23] MEDS ORDERED: ROCURONIUM BROMIDE 10 MG/ML 5 ML VIAL ONE (10:56)
[2017-01-23] MEDS ORDERED: PROPOFOL IV EMULSION 10 MG/ML 20 ML VIAL IV ONE (10:56)
[2017-01-23] MEDS ORDERED: CIPROFLOXACIN 400MG / 200ML D5W ONE (12:45)
[2017-01-23] MEDS ORDERED: ONDANSETRON INJ 2 MG/ML 2 ML VIAL IV PRN (13:00)
[2017-01-23] MEDS ORDERED: PROMETHAZINE HCL INJ 12.5 MG in SODIUM CHLORIDE 0.9% 50ML 50 ML IV PRN (13:00)
[2017-01-23] MEDS ORDERED: KETOROLAC TROMETHAMINE 30 MG/ML VIAL IV. PRN (13:00)
[2017-01-23] MEDS ORDERED: ATROPINE SULFATE 0.1 MG/ML 5ML SYR IV PRN (13:00)
[2017-01-23] MEDS ORDERED: BUPIVACAINE/EPINEPHRINE 0.5% MPF 1:200,000 10 ML VIAL ONE (13:06)
[2017-01-23] MEDS ORDERED: CEFAZOLIN SOD 1 GM VIAL ONE (13:28)
[2017-01-23] MEDS ORDERED: NEOSTIGMINE METHYLSULFATE 5 MG/5 ML SYR ONE (14:06)
[2017-01-23] MEDS ORDERED: GLYCOPYRROLATE INJ 0.2 MG/ML VIAL ONE (14:06)
--- NOTE | 2017-01-23 14:08 | [facility] Operative Report ---
Operative Report Operative Date Jan 23, 2017. Pre-Operative Diagnosis gallstone pancreatitis Post-Operative Diagnosis gallstone pancreatitis/cholecysitis Procedure(s) Performed Laparoscopic cholecystectomy Surgeon Dr. Le [employer] Surgeon(s) Can Wang PA-C Estimated Blood Loss 5ML Findings moderately inflammed gallbladder Specimens A. Gallbladder Anesthesia get Complication(s) None Disposition Recovery Room / PACU Description of Procedure After informed consent was obtained the patient was taken the operating suite placed in supine position. After successful intubation the abdomen was sterilely prepped and draped in usual fashion. A periumbilical incision was made with an 11 blade scalpel carried down through the soft tissue using electrocautery. Anterior rectus fascia was opened using electrocautery and 2 # 0 Vicryl stay sutures were placed. Peritoneum was entered with blunt finger penetration and a finger sweep was performed. A 12 mm Ramachandran trocar was placed and the abdomen was insufflated to 18 mmHg. A Laparoscope was inserted into the abdomen was examined 360. A subxiphoid 5 mm port and 2 right upper quadrant 5 mm ports were all placed under direct vision. The patient was placed in reverse Trendelenburg position and slightly airplane to the left. The gallbladder was mildly to moderately thickened. There was no free fluid. We were able to grab the gallbladder and elevated superiorly and laterally. A [place] dissector was used to take down adhesions around the neck of the gallbladder. The cystic duct was readily identified and skeletonized. It was clipped twice proximally once distally and transected. In similar fashion the cystic artery was skeletonized clipped and divided. The gallbladder was was removed from the gallbladder fossa. Because of the acute inflammation a small hole was incidentally accidentally made in the gallbladder releasing a small amount of bile into the upper abdomen. Once we removed the gallbladder off the liver bed it was placed into an Endo Catch bag and we immediately suctioned up all the bile and irrigated the right upper quadrant. Several small bleeding points on the gallbladder fossa were controlled using electrocautery. We did look around the abdomen. There was no bile spillage in the pelvis. The remainder the abdomen appeared normal and we did a final irrigation. At the end of the procedure there was adequate hemostasis and no evidence of any bile leak. The gallbladder was removed as were the trochars and the abdomen was desufflated. The fascia of the camera port was closed using 0 Vicryl in a [id number] fashion. All wounds were irrigated and closed using 4-0 Monocryl. Marcaine was injected around them for postoperative analgesia and skin glue used as a dressing. The patient was awaken extubated and transferred recovery in stable condition I attest to the content of the Intraoperative Record and any orders documented therein. Any exceptions are noted below.
[2017-01-23] MEDS ORDERED: HYDR-5688 PO (14:11)
[2017-01-23] MEDS: FENTANYL CITRATE INJ 50 MCG/1 ML 2 ML VIAL IV PRN ×8 (14:13→14:48)
--- NOTE | 2017-01-23 14:13 | Discharge Instructions ---
Discharge Instructions Date of Service Jan 23, 2017. Admission Reason for Admission: Acute Gallstone Pancreatitis Discharge Discharge Diagnosis / Problem: laparoscopic cholecystectomy Discharge Goals Goal(s): Decrease discomfort Activity Recommendations Activity Limitations: as noted below Lifting Limitations: no more than 10 pounds Shower/Bathe: no limitations (ok to shower) Driving or Machine Use: resume 3 days after discharge . Instructions / Follow-Up Instructions / Follow-Up Dr. Le in 2 weeks, call [phone] to schedule [address] Current Hospital Diet Patient's current hospital diet: Clear Liquid Diet Discharge Diet Recommended Diet: Low Fat Diet (for a few days) Procedures Procedures Performed: Laparoscopic cholecystectomy Pending Studies Studies pending at discharge: yes List of pending studies: pathology Medical Emergencies . Who to Call and When: Medical Emergencies: If at any time you feel your situation is an emergency, please call 911 immediately. . Non-Emergent Contact Non-Emergency issues call your: Surgeon Call Non-Emergent contact if: you have a fever, temperature is above 101.5, your pain is not controlled, wound has increased redness . "Provider Documentation" section prepared by Raad Wang. . VTE Core Measure Inpt VTE Proph given/why not?: SCD's [place] Drug Monitoring Program Search Results: no issues identified
[2017-01-23] MEDS ORDERED: KETOROLAC TROMETHAMINE 30 MG/ML VIAL ONE (14:14)
[2017-01-23] MEDS ORDERED: MoRPHine SULFATE 4 MG/ML 1 ML CARP\\VIAL IV PRN (14:15)
--- NOTE | 2017-01-23 15:05 | Anesthesiology Progress Note ---
Anesthesia Post Op Note Date & Time Jan 23, 2017 at 15:04 Vital Signs Pain Intensity: 5 Vital Signs Past 12 Hours Date Time Temp Pulse Resp B/P (MAP) Pulse Ox O2 Delivery O2 Flow Rate FiO2 01/23/17 15:00 49 16 140/75 97 Nasal Cannula 2 01/23/17 14:50 49 16 139/72 97 Nasal Cannula 2 01/23/17 14:40 51 16 143/72 100 Nasal Cannula 2 01/23/17 14:30 45 16 149/81 99 Nasal Cannula 2 01/23/17 14:20 48 16 147/82 100 Nasal Cannula 2 01/23/17 14:10 36.3 59 16 164/96 98 Nasal Cannula 2 01/23/17 07:35 Room Air 01/23/17 07:28 37.1 70 18 108/71 (83) 94 Room Air Notes Mental Status: alert / awake / arousable, participated in evaluation Pt Amnestic to Procedure: Yes Nausea / Vomiting: adequately controlled Pain: adequately controlled Airway Patency, RR, SpO2: stable & adequate BP & HR: stable & adequate Hydration State: stable & adequate Anesthetic Complications: no major complications apparent
[2017-01-23] MEDS: CLONAZEPAM 1 MG TAB PO SCH (20:51)
[2017-01-23] MEDS: HYDROCODONE/ACETAMOPHEN 5/325MG TAB PO PRN (20:51)
[2017-01-24] MEDS: HYDROCODONE/ACETAMOPHEN 5/325MG TAB PO PRN (00:57)
[2017-01-24] MEDS: MoRPHine SULFATE 2 MG/ML CARP IV PRN (02:22)
[2017-01-24 03:41] VITALS: BP 109/67; PULSE 64; TEMP 36.7; O2SAT 96
[2017-01-24] MEDS: CIPROFLOXACIN / D5W 400 MG in PREMIXED IN D5W 200 ML IV SCH (05:26)
[2017-01-24 07:56] VITALS: BP 110/72; PULSE 68; TEMP 36.9; O2SAT 92
[2017-01-24 08:37] VITALS: O2SAT 92
[2017-01-24] MEDS: D5W AND 1/2NSS + 20MEQ KCL 1,000 ML IV SCH (08:48)
--- NOTE | 2017-01-24 08:52 | Surgery Progress Note ---
Surgery Progress Note Date of Service Jan 24, 2017. Subjective nausea resolved, [place] not working well, tolerating diet Objective Vital Signs: Date Time Temp Pulse Resp B/P (MAP) Pulse Ox O2 Delivery O2 Flow Rate FiO2 01/24/17 08:37 92 Room Air 01/24/17 07:56 36.9 68 16 110/72 (85) 92 Room Air 01/24/17 07:35 Room Air 01/24/17 03:41 36.7 64 16 109/67 (81) 96 Room Air 01/23/17 23:30 Room Air 01/23/17 23:20 36.6 57 16 97/61 (73) 97 Room Air 01/23/17 19:20 37.1 63 16 117/73 (88) 98 Nasal Cannula 2.0 01/23/17 17:39 36.8 58 18 120/73 (89) 99 Nasal Cannula 2.0 01/23/17 16:44 36.8 53 18 118/73 (88) 99 Nasal Cannula 2.0 01/23/17 15:57 53 18 133/81 (98) 96 Nasal Cannula 2.0 01/23/17 15:30 Nasal Cannula 2.0 01/23/17 15:30 Nasal Cannula 2.0 01/23/17 15:30 36.5 54 16 146/75 (98) 100 Nasal Cannula 2.0 01/23/17 15:10 36.2 52 16 145/75 97 Nasal Cannula 2 01/23/17 15:00 49 16 140/75 97 Nasal Cannula 2 01/23/17 14:50 49 16 139/72 97 Nasal Cannula 2 01/23/17 14:40 51 16 143/72 100 Nasal Cannula 2 01/23/17 14:30 45 16 149/81 99 Nasal Cannula 2 01/23/17 14:20 48 16 147/82 100 Nasal Cannula 2 01/23/17 14:10 36.3 59 16 164/96 98 Nasal Cannula 2 Abdomen: non distended, soft Incision(s): drainage (umblical incision) Assessment & Plan s/p lap laith will change to Percocet and d/c if pain control is better
[2017-01-24] MEDS ORDERED: OXYC-57 PO (08:53)
[2017-01-24 10:27] VITALS: BP 110/72; PULSE 68; TEMP 36.9; O2SAT 92
[2017-01-24] MEDS: OXYCODONE/ACETAMINOPHEN 5-325 TAB PO PRN ×2 (10:45→14:49)
--- NOTE | 2017-01-24 10:54 | Anesthesiology Progress Note ---
Anesthesia Post Op Note Date & Time Jan 24, 2017 at 10:53 Vital Signs Pain Intensity: 6.0 Vital Signs Past 12 Hours Date Time Temp Pulse Resp B/P (MAP) Pulse Ox O2 Delivery O2 Flow Rate FiO2 01/24/17 10:27 36.9 68 16 92 Room Air 01/24/17 08:37 92 Room Air 01/24/17 07:56 36.9 68 16 110/72 (85) 92 Room Air 01/24/17 07:35 Room Air 01/24/17 03:41 36.7 64 16 109/67 (81) 96 Room Air 01/23/17 23:30 Room Air 01/23/17 23:20 36.6 57 16 97/61 (73) 97 Room Air Notes Mental Status: alert / awake / arousable, participated in evaluation Pt Amnestic to Procedure: Yes Nausea / Vomiting: adequately controlled Pain: adequately controlled Airway Patency, RR, SpO2: stable & adequate BP & HR: stable & adequate Hydration State: stable & adequate Anesthetic Complications: no major complications apparent
[2017-01-24 12:47] VITALS: BP 124/82; PULSE 68; TEMP 36.8; O2SAT 94
--- NOTE | 2017-01-25 10:35 | DISCHARGE SUMMARY ---
PRIMARY DISCHARGE DIAGNOSES: 1. Cholelithiasis. 2. Biliary pancreatitis. 3. Acute cholecystitis. SECONDARY DISCHARGE DIAGNOSES: Anxiety disorder and bipolar. PROCEDURE PERFORMED: Laparoscopic cholecystectomy. HOSPITAL COURSE: The patient is a 56-year-old female who presented to the Emergency Department for the second time in 2 days with a complaint of right upper quadrant pain. Her ultrasound showed multiple stones and new borderline thickening of the gallbladder wall. The common bile duct was 7 mm, but she had a previous MRCP, which was negative. Her white count was normal, but her lipase was now elevated at 436. Her remaining LFTs were normal. She was admitted to the surgery service by the evening and treated with IV hydration and analgesics. The next morning, her lipase normalized to 148. Her pain had resolved. She was taken to the operating room that afternoon for laparoscopic cholecystectomy. The procedure was well tolerated. She was returned to the surgical floor and continued on IV Cipro. She did have some nausea that evening, but by postoperative day #1, this resolved. She was able to tolerate a regular diet. When she was tolerating oral analgesics, she was stable for discharge. DISCHARGE INSTRUCTIONS: Discharge home. Follow up with Dr. Le in 2 weeks. DISCHARGE MEDICATIONS: Percocet 1-2 tablets every 4 hours as needed. Resume her home medications, Lamictal 200 mg b.i.d., Synthroid 75 mcg daily, Mobic 15 mg daily, Robaxin 1000 mg q.i.d., Cymbalta 60 mg daily, Klonopin 1 mg at bedtime, and calcium and vitamin D supplements.
== END 2017-01-24 15:05 | disposition home or self-care (01) ==
LOC: C.EDB 10:30 → C.MSW 16:49 → ENRESERV 17:02
PROVIDERS: ADMIT Surgery; ATTEND Surgery
DX: K85.10 Biliary acute pancreatitis without necrosis or infection (principal); K80.10 Calculus of gallbladder with chronic cholecystitis without obstruction; F41.9 Anxiety disorder, unspecified; F31.9 Bipolar disorder, unspecified; F17.210 Nicotine dependence, cigarettes, uncomplicated; Z79.899 Other long term (current) drug therapy

== ENCOUNTER 2019-04-01 05:06 | Observation (INO) ==
[2019-04-01] MEDS ORDERED: NITROGLYCERIN SL 0.4 MG/TAB TAB SL STA (05:22)
[2019-04-01] MEDS ORDERED: ASPIRIN 81 MG CHEW PO STA (05:22)
--- NOTE | 2019-04-01 05:30 | Emergency Department Note ---
ED Provider Note Name: Jolie Santiago Age: 58 F Arrives Via: POV Informant: Pt CC: Chest Pain HPI: 58 female arrives for evaluation of chest pain. History of bipolar, anxiety, joint disease arrives for evaluation of left chest pain. Notes was awake at 2 am when she developed left lower chest discomfort. Tight in nature. Radiates to sternum and left shoulder. Associated palpitations. No nausea, vomiting, syncope, sob, nor other symptoms. This has not occurred previously. She notes that she was feeling yesterday. No medications taken for this. Exertion makes cp worse, rest makes better. No trauma, injuries, fevers, chills, leg swelling, calf pain, abdominal pain, back pain, weakness, rashes, urinary symptoms/diarrhea nor other symptoms. Notes mother and brother with MIs. Patient with history of smoking. Denies HTN, DMII, DLP history. States she had stress testing several years ago. No previous CAD history. ROS: See above HPI for pertinent positives & negatives. A total of 10 systems reviewed and were otherwise negative. Past Medical History: Bipolar, Anxiety, Joint disease, Hypothyroid Past Surgical History: Multiple back and knee operations Family History: Mother and brother with NC Social History: Smokes, , No etoh, no drug use Home Medications: See Below Allergies: Gabapentin, sulfa Physical: Vitals: BP 135/86, P 83, R 16, O2 97%, Temp 37.0 Exam: GENERAL: Patient is anxious appearing and in no acute distress. EYES: No scleral icterus, unremarkable pupils. ENT: Mucous membranes moist, no nasal congestion. NECK: No masses appreciated, no meningismus, trachea is midline. RESPIRATORY: No dyspnea. Clear to auscultation and equal bilaterally. No wheeze, no rhonchi. CARDIOVASCULAR: Regular rate and rhythm. No murmurs, rubs, gallops appreciated. GASTROINTESTINAL: Abdomen soft, non-tender, no peritonitis. Bowel sounds positive. No masses appreciated. BACK: No midline tenderness, no CVA tenderness EXTREMITIES: Normal motion all extremities, no cyanosis, no edema. NEUROLOGIC: Alert and oriented, no acute motor or sensory deficits, no focal weakness, cranial nerves grossly intact. SKIN: No rash, no jaundice, no diaphoresis. ED Course: Prior Medical Record, Triage/Nursing Notes, Medications, Allergies reviewed by Me Vital Signs: reviewed and remarkable for wnl Labs: Reviewed and remarkable for neg trop Interventions: Asa 324mg PO, SLNTG Imaging: X ray results are stated below per my interpretation: Chest: 1 view: No infiltrate, no effusion, normal cardiac border. EKG: Per My Interpretation: Indication CP: NSR 73 no ectopy no ischemia. QTC 451. No STEMI appreciated. Similar to EKG with better baseline compared to 03/15/18 Blood pressure: Normal. No Referral necessary Course: Evaluated and given meds with resolution of symptoms. Reviewed with Dr Garcia and hospitalists will evaluate further. Disposition: Hospitalization. Differentials: Cardiac Ischemia (STEMI, NSTEMI, Unstable Angina, etc), Aortic Dissection, Arrhythmia, Pulmonary Embolism, Pneumonia, Pneumothorax, MSK, Infectious, Pericarditis/Myocarditis, Esophageal Rupture, Gastrointestinal, amongst other pathologies entertained. Medical Decision Makin yr old female with anxiety, bipolar, fibromyalgia who arrives with left chest pain radiating to shoulder which resolved after SLNTG. Given ASA 324mg PO. Brother and mother with MIs in past. With history, description of symptoms and resolution post nitro, in setting of pain just starting a few hours ago can not rule out ACS at this. Currently no indication for anticoagulation. Hospitalist aware and will evaluate further. Impression: Left-Sided Chest Pain Rios Dimas MD Impression & Plan Left-sided chest pain Past Med/Surg History Social History Preferred Language: French Communication Ability: Effective Visual Impairment: Limited Hearing Ability: Normal Beliefs That Will Affect Care: None marital status: Current Living Situation: Spouse current occupational status: disabled Feels Safe at Home: Yes Smoking Status: Current some day smoker Hx Alcohol Use: No Hx Substance Use: No Results & Data Vital Signs Vital Signs - 24 hr 04/01/19 05:11 04/01/19 05:29 04/01/19 06:00 Temperature 37.0 C Temperature Source Oral Sepsis Recent Fever Within 48 Hours No Sepsis Action Taken by Nursing No Action Required Pulse Rate 83 Pulse Rate [Right Finger] 83 78 Pulse Rhythm [Right Finger] Regular Pulse Strength [Right Finger] Normal Respiratory Rate 16 16 20 Respiratory Effort / Characteristics Non-Labored Spontaneous Non-Labored Spontaneous Non-Labored Spontaneous Respiratory Depth Normal Normal Normal Respiratory Pattern Regular Regular Blood Pressure 135/86 Blood Pressure [Right Arm] 139/85 142/90 H Blood Pressure Mean 102 Blood Pressure Mean [Right Arm] 103 107 Blood Pressure Position Lying Blood Pressure Position [Right Arm] Lying Pulse Oximetry 97 98 98 Oxygen Delivery Method Room Air Room Air Room Air Laboratory Data Result diagrams: 04/01/19 05:28 04/01/19 05:28 Lab Results 04/01/19 04/01/19 04/01/19 Range/Units 05:28 05:28 05:28 WBC 6.20 (4.8-10.8) K/uL RBC 4.35 (4.2-5.4) M/uL Hgb 13.2 (12.0-16.0) g/dL Hct 38.5 (37-47) % MCV 88.5 (80-100) fL MCH 30.3 (25-34) pg MCHC 34.3 (32-36) g/dL RDW Std Deviation 44.7 (36.4-46.3) fL RDW Coeff of Lane 13.7 (11.5-14.5) % Plt Count 304 (130-400) K/uL MPV 9.5 (7.4-10.4) fL Immature Gran % (Auto) 0.2 % Neut % (Auto) 62.7 % Lymph % (Auto) 28.9 % [place] % (Auto) 5.8 % Eos % (Auto) 1.9 % Baso % (Auto) 0.5 % Immature Gran # (Auto) 0.01 (0.00-0.02) K/uL Neut # (Auto) 3.89 (1.4-6.5) K/uL Lymph # (Auto) 1.79 (1.2-3.4) K/uL [place] # (Auto) 0.36 (0.11-0.59) K/uL Eos # (Auto) 0.12 (0-0.5) K/uL Baso # (Auto) 0.03 (0-0.2) K/uL APTT 26.8 (21.0-31.0) Seconds PTT Ratio 1.0 Sodium 140 (136-145) mmol/L Potassium 3.7 (3.5-5.1) mmol/L Chloride 106 (98-107) mmol/L Carbon Dioxide 27 (21-32) mmol/L Anion Gap 7.0 (3-11) BUN 23 H (7-18) mg/dl Creatinine 1.28 H (0.6-1.2) mg/dl Est Cr Clr Drug Dosing 57.1 ml/min Est GFR ( Amer) 53.0 Est GFR (Non-Af Amer) 45.7 BUN/Creatinine Ratio 17.7 (10-20) Glucose 109 H (70-99) mg/dl Calcium 9.3 (8.5-10.1) mg/dl Magnesium (1.8-2.4) mg/dl Total Bilirubin (0.2-1) mg/dl Direct Bilirubin (0-0.2) mg/dl AST (15-37) U/L ALT (12-78) U/L Alkaline Phosphatase (45-117) U/L POC Troponin I (0-0.045) ng/ml Troponin I < 0.015 (0-0.045) ng/ml Total Protein (6.4-8.2) gm/dl Albumin (3.4-5.0) gm/dl Lipase (73-393) U/L 04/01/19 04/01/19 Range/Units 05:28 05:32 WBC (4.8-10.8) K/uL RBC (4.2-5.4) M/uL Hgb (12.0-16.0) g/dL Hct (37-47) % MCV (80-100) fL MCH (25-34) pg MCHC (32-36) g/dL RDW Std Deviation (36.4-46.3) fL RDW Coeff of Lane (11.5-14.5) % Plt Count (130-400) K/uL MPV (7.4-10.4) fL Immature Gran % (Auto) % Neut % (Auto) % Lymph % (Auto) % [place] % (Auto) % Eos % (Auto) % Baso % (Auto) % Immature Gran # (Auto) (0.00-0.02) K/uL Neut # (Auto) (1.4-6.5) K/uL Lymph # (Auto) (1.2-3.4) K/uL [place] # (Auto) (0.11-0.59) K/uL Eos # (Auto) (0-0.5) K/uL Baso # (Auto) (0-0.2) K/uL APTT (21.0-31.0) Seconds PTT Ratio Sodium (136-145) mmol/L Potassium (3.5-5.1) mmol/L Chloride (98-107) mmol/L Carbon Dioxide (21-32) mmol/L Anion Gap (3-11) BUN (7-18) mg/dl Creatinine (0.6-1.2) mg/dl Est Cr Clr Drug Dosing ml/min Est GFR ( Amer) Est GFR (Non-Af Amer) BUN/Creatinine Ratio (10-20) Glucose (70-99) mg/dl Calcium (8.5-10.1) mg/dl Magnesium 1.9 (1.8-2.4) mg/dl Total Bilirubin 0.5 (0.2-1) mg/dl Direct Bilirubin 0.1 (0-0.2) mg/dl AST 19 (15-37) U/L ALT 20 (12-78) U/L Alkaline Phosphatase 129 H (45-117) U/L POC Troponin I < 0.03 (0-0.045) ng/ml Troponin I (0-0.045) ng/ml Total Protein 7.0 (6.4-8.2) gm/dl Albumin 3.6 (3.4-5.0) gm/dl Lipase 206 (73-393) U/L Administered Medications Discontinued Medications Aspirin (Aspirin Chew) 324 mg PO NOW STA Stop: 04/01/19 05:23 Last Admin: 04/01/19 05:28 Dose: 324 mg Documented by: [id number] Nitroglycerin (Nitrostat) 0.4 mg SL NOW STA Stop: 04/01/19 05:23 Last Admin: 04/01/19 05:28 Dose: 0.4 mg Documented by: [id number] Discharge Plan Visit Data Chief Complaint: Cardiac Assessment Stated Complaint: CHEST PAIN, TINGLING IN FACE ED Provider: Rios Dimas Discharge Problem: Left-sided chest pain Forms Stand Alone Forms: My [facility] Prescriptions Prescriptions: No Action lamotrigine [Lamictal] 200 mg tablet 200 mg PO BID RF: 0 omega-3 fatty acids [Fish Oil Concentrate] 1,000 mg capsule 2,000 mg PO DAILY RF: 0 levothyroxine [Synthroid] 75 mcg tablet 75 mcg PO QAM RF: 0 cholecalciferol (vitamin D3) 5,000 unit capsule 5,000 units PO DAILY RF: 0 calcium carbonate-vitamin D3 500 mg(1,250mg) -125 unit tablet 1 tab PO DAILY RF: 0 baclofen 10 mg tablet 10 mg PO BID RF: 0 duloxetine [Cymbalta] 60 mg capsule,delayed release(DR/EC) 90 mg PO DAILY RF: 0 Vraylar 1.5 mg capsule 1.5 mg PO DAILY RF: 0 meloxicam 15 mg tablet,disintegrating 15 mg PO DAILY RF: 0 econazole 1 % cream 1 appln TOP QID RF: 0 fluvoxamine 100 mg Tablet 100 mg PO HS RF: 0 clonazepam 1 mg Tablet 1 mg PO HS RF: 0 clonazepam 1 mg tablet 0.5 mg PO QAM RF: 0 cyanocobalamin (vitamin B-12) [Vitamin B-12] 1,000 mcg Tablet 1,000 mcg PO DAILY RF: 0
[2019-04-01 05:44] LABS: Basophils # (auto) 0.03 K/uL (0-0.2); Basophils % (auto) 0.5 %; Eosinophils # (auto) 0.12 K/uL (0-0.5); Eosinophils % (auto) 1.9 %; Hematocrit (blood only) 38.5 % (37-47); Hemoglobin 13.2 g/dL (12.0-16.0); Immature Granulocytes # (auto) 0.01 K/uL (0.00-0.02); Immature Granulocytes % (auto) 0.2 %; Lymphocytes # (auto) 1.79 K/uL (1.2-3.4); Lymphocytes % (auto) 28.9 %; Mean Corpuscular Hemoglobin 30.3 pg (25-34); Mean Corpuscular Hgb Conc 34.3 g/dL (32-36); Mean Corpuscular Volume 88.5 fL (80-100); Mean Platelet Volume 9.5 fL (7.4-10.4); Monocytes # (auto) 0.36 K/uL (0.11-0.59); Monocytes % (auto) 5.8 %; Neutrophils # (auto) 3.89 K/uL (1.4-6.5); Neutrophils % (auto) 62.7 %; Platelet Count 304 K/uL (130-400); RDW Coefficient of Variation 13.7 % (11.5-14.5); RDW Standard Deviation 44.7 fL (36.4-46.3); Red Blood Count 4.35 M/uL (4.2-5.4)
[2019-04-01 05:59] LABS: BUN Creatinine Ratio 17.7 (10-20); Blood Urea Nitrogen 23 mg/dl (7-18); Calcium 9.3 mg/dl (8.5-10.1); Carbon Dioxide 27 mmol/L (21-32); Chloride 106 mmol/L (98-107); Creatinine Clr Calc Pharmacy 57.1 ml/min; Est GFR (Non-African American) 45.7; Glucose 109 mg/dl (70-99); Potassium 3.7 mmol/L (3.5-5.1); Sodium 140 mmol/L (136-145)
[2019-04-01 06:04] LABS: Troponin I < 0.015 ng/ml (0-0.045)
[2019-04-01 06:11] LABS: Partial Thromboplastin Time 26.8 Seconds (21.0-31.0)
[2019-04-01 06:21] LABS: Albumin Level 3.6 gm/dl (3.4-5.0); Bilirubin Direct 0.1 mg/dl (0-0.2); Bilirubin,Total 0.5 mg/dl (0.2-1); Magnesium 1.9 mg/dl (1.8-2.4)
--- NOTE | 2019-04-01 06:27 | XRay Report ---
XR chest 1V portable HISTORY: 58 years-old Female left chest pain acute atypical chest pain COMPARISON: Chest radiograph 03/17/2018 TECHNIQUE: Portable AP view of the chest FINDINGS: Cardiomediastinal and hilar silhouettes are within normal limits. No pneumothorax, pleural effusion, focal airspace consolidation or overt pulmonary edema. Bones of the chest appear grossly intact. IMPRESSION: No acute process. The above report was generated using voice recognition software. It may contain grammatical, syntax o r spelling errors. Electronically signed by: Donny Zamora M.D. 04/01/2019 6:26 AM
--- NOTE | 2019-04-01 06:39 | History & Physical Report ---
Date of Service April 01, 2019 Assessment & Plan (1) Left-sided chest pain: With musculoskeletal component given reproducibility Anxiety contributory to symptoms Rule out ACS given relief with nitroglycerin and risk factors bipolar disorder/history OCD/PTSD as per records Suboptimal as per patient account intolerance to new Vraylar rx chronic back pain/fibromyalgia, at baseline CRI, creatinine at baseline ongoing tobacco abuse OBS PCU Aspirin for CAD prevention until ACS ruled out DSE if second troponin within normal limits Anxiolytic as needed Psych consult RE psych med review, patient requesting to see Dr. Brice Nicotine patch PRN DVT prophylaxis Lovenox subcu Full code History of Present Illness Chief Complaint: Chest pain Primary Care Provider: Leanne Mistry, History obtained from patient and records. Medical history significant for bipolar disorder, history OCD, PTSD as per records, chronic back pain/fibromyalgia, CRI (baseline creatinine 1.2), ongoing tobacco abuse. Recent confinement June 2014 for lower extremity pain. Patient started by psychiatrist on new Vraylar Rx to replace her Abilify about 2 weeks ago. Has not been well since starting new Rx. She stopped taking Vraylar 2 days ago and resumed her Abilify. Waiting for callback from psychiatrist. This morning she woke up with achy left-sided discomfort going to the left arm with shortness of breath. Has had similar chest pain in the past related to panic attacks. Chest pain relieved by aspirin and nitroglycerin administered at the ER. Medical History as above Recent outpatient lipid panel February 2019 as follows : Cholesterol 172, LDL 91, HDL 70, triglycerides 55 Surgical History : Back surgery, knee surgery, cholecystectomy, BTL, ear ducts surgery, hysterectomy Family History : Heart disease, skin cancer, bipolar disorder, thyroid disorder, rheumatoid arthritis Personal/Social history :Past tobacco abuse, no EtOH intake, disabled Allergies Allergy/AdvReac Type Severity Reaction Status Date / Time gabapentin AdvReac Intermediate EDEMA Verified 04/01/19 05:52 Sulfa (Sulfonamide AdvReac Intermediate VOMITING Verified 04/01/19 05:52 Antibiotics) cariprazine [From Vraylar] AdvReac sick Verified 04/01/19 06:42 Home Medications Home Medications Medication Instructions Recorded Confirmed Type calcium carbonate 500 mg (1,250 1 tab PO DAILY tab 03/07/18 04/01/19 History mg)-vitamin D3 125 unit tablet cholecalciferol (vitamin D3) 5,000 5,000 units PO DAILY 03/07/18 04/01/19 History unit capsule lamotrigine 200 mg tablet 200 mg PO BID 03/07/18 04/01/19 History levothyroxine 75 mcg tablet 75 mcg PO QAM 03/07/18 04/01/19 History omega-3 fatty acids 1,000 mg 2,000 mg PO DAILY 03/07/18 04/01/19 History capsule baclofen 10 mg tablet 10 mg PO BID tab 03/08/18 04/01/19 History clonazepam 1 mg PO HS 06/25/18 04/01/19 History fluvoxamine 100 mg PO HS 06/25/18 04/01/19 History duloxetine 60 mg capsule,delayed 90 mg PO DAILY cap 08/23/18 04/01/19 History release clonazepam 0.5 mg PO QAM 12/30/18 04/01/19 History cyanocobalamin (vitamin B-12) 1,000 mcg PO DAILY 12/30/18 04/01/19 History [Vitamin B-12] cariprazine 1.5 mg capsule 1.5 mg PO DAILY 03/14/19 04/01/19 History meloxicam 15 mg disintegrating 15 mg PO DAILY 03/14/19 04/01/19 History tablet econazole 1 % topical cream 1 appln TOP QID gm 03/20/19 04/01/19 History Past Med/Surg History Social History Preferred Language: Yi Communication Ability: Effective Visual Impairment: Limited Hearing Ability: Normal Beliefs That Will Affect Care: None marital status: Current Living Situation: Spouse current occupational status: disabled Other Information That Helps Us Care for You: Yes Feels Safe at Home: Yes Safety Concerns: Feels Safe At This Time Smoking Status: Current some day smoker Tobacco Type: cigarettes ; Tobacco Cessation Education Requested by Patient: No Hx Alcohol Use: No Hx Substance Use: No Review of Systems Review of Systems: As per HPI, all 10 systems reviewed, all other ROS negative Physical Exam Physical Exam: GENERAL: Anxious, obese, no respiratory distress SKIN: Normal color, warm HEENT: Bespectacled, [employer] palpebral conjunctivae, no ptosis, dry buccal mucosa NECK : Supple, short neck, no tenderness CHEST : CTA, left chest wall tenderness HEART : RRR, no obvious murmurs ABDOMEN: Some distention, nontender EXTREMITIES : Bilateral LE swelling (chronic), no LE tenderness, no other conspicuous deformities noted NEUROLOGIC : Coherent, no facial asymmetry, gait and stance not assessed, no other gross focality Results & Data Vital Signs (Past 12 Hours) Vital Signs Temp Pulse Pulse Resp BP BP Pulse Ox 04/01/19 06:00 78 20 142/90 H 98 04/01/19 05:29 83 16 139/85 98 04/01/19 05:11 37.0 C 83 16 135/86 97 Laboratory Results Laboratory Results WBC 6.20 K/uL (4.8-10.8) 04/01/19 05:28 RBC 4.35 M/uL (4.2-5.4) 04/01/19 05:28 Hgb 13.2 g/dL (12.0-16.0) 04/01/19 05:28 Hct 38.5 % (37-47) 04/01/19 05:28 MCV 88.5 fL (80-100) 04/01/19 05:28 MCH 30.3 pg (25-34) 04/01/19 05:28 MCHC 34.3 g/dL (32-36) 04/01/19 05:28 RDW Std Deviation 44.7 fL (36.4-46.3) 04/01/19 05:[address] 13.7 % (11.5-14.5) 04/01/19 05:28 Plt Count 304 K/uL (130-400) 04/01/19 05:28 MPV 9.5 fL (7.4-10.4) 04/01/19 05:28 Immature Gran % (Auto) 0.2 % 04/01/19 05:28 Neut % (Auto) 62.7 % 04/01/19 05:28 Lymph % (Auto) 28.9 % 04/01/19 05:28 [place] % (Auto) 5.8 % 04/01/19 05:28 Eos % (Auto) 1.9 % 04/01/19 05:28 Baso % (Auto) 0.5 % 04/01/19 05:28 Immature Gran # (Auto) 0.01 K/uL (0.00-0.02) 04/01/19 05:28 Neut # (Auto) 3.89 K/uL (1.4-6.5) 04/01/19 05:28 Lymph # (Auto) 1.79 K/uL (1.2-3.4) 04/01/19 05:28 [place] # (Auto) 0.36 K/uL (0.11-0.59) 04/01/19 05:28 Eos # (Auto) 0.12 K/uL (0-0.5) 04/01/19 05:28 Baso # (Auto) 0.03 K/uL (0-0.2) 04/01/19 05:28 APTT 26.8 Seconds (21.0-31.0) 04/01/19 05:28 PTT Ratio 1.0 04/01/19 05:28 Sodium 140 mmol/L (136-145) 04/01/19 05:28 Potassium 3.7 mmol/L (3.5-5.1) 04/01/19 05:28 Chloride 106 mmol/L (98-107) 04/01/19 05:28 Carbon Dioxide 27 mmol/L (21-32) 04/01/19 05:28 Anion Gap 7.0 (3-11) 04/01/19 05:28 BUN 23 mg/dl (7-18) H 04/01/19 05:28 Creatinine 1.28 mg/dl (0.6-1.2) H 04/01/19 05:28 Est Cr Clr Drug Dosing 57.1 ml/min 04/01/19 05:28 Est GFR ( Amer) 53.0 04/01/19 05:28 Est GFR (Non-Af Amer) 45.7 04/01/19 05:28 BUN/Creatinine Ratio 17.7 (10-20) 04/01/19 05:28 Glucose 109 mg/dl (70-99) H 04/01/19 05:28 Calcium 9.3 mg/dl (8.5-10.1) 04/01/19 05:28 Magnesium 1.9 mg/dl (1.8-2.4) 04/01/19 05:28 Total Bilirubin 0.5 mg/dl (0.2-1) 04/01/19 05:28 Direct Bilirubin 0.1 mg/dl (0-0.2) 04/01/19 05:28 AST 19 U/L (15-37) 04/01/19 05:28 ALT 20 U/L (12-78) 04/01/19 05:28 Alkaline Phosphatase 129 U/L (45-117) H 04/01/19 05:28 POC Troponin I < 0.03 ng/ml (0-0.045) 04/01/19 05:32 Troponin I < 0.015 ng/ml (0-0.045) 04/01/19 05:28 Total Protein 7.0 gm/dl (6.4-8.2) 04/01/19 05:28 Albumin 3.6 gm/dl (3.4-5.0) 04/01/19 05:28 Lipase 206 U/L (73-393) 04/01/19 05:28 Diagnostic Findings Chest x-ray as per my interpretation atelectasis EKG as per my interpretation : Rate 75, NSR, LAD, LAFB, no ischemia
[2019-04-01] MEDS ORDERED: clonazePAM 1 MG TAB PO SCH ×2 (06:45→21:00)
[2019-04-01] MEDS ORDERED: clonazePAM 0.5 MG TAB PO ONE (06:50)
[2019-04-01] MEDS ORDERED: LACTATED RINGER'S 1,000 ML IV SCH (08:08)
[2019-04-01] MEDS ORDERED: NITROGLYCERIN SL 0.4 MG/TAB TAB SL PRN (08:08)
[2019-04-01] MEDS ORDERED: LORazepam 0.5 MG/1 ML VIAL IV PRN (08:08)
[2019-04-01] MEDS ORDERED: MoRPHine SULFATE 4 MG/ML 1 ML CARP\\VIAL IV PRN (08:08)
[2019-04-01] MEDS ORDERED: PROMETHAZINE HCL 12.5 MG in SODIUM CHLORIDE 0.9% 50 ML IV PRN (08:08)
[2019-04-01] MEDS ORDERED: ACETAMINOPHEN 325 MG TAB PO PRN (08:08)
[2019-04-01] MEDS: TRAMADOL HCL 50 MG TABLET PO PRN ×2 (08:54→16:00)
[2019-04-01] MEDS ORDERED: DULOXETINE HCL 60 MG CAP PO SCH ×2 (09:00)
[2019-04-01] MEDS ORDERED: lamoTRIgine 100 MG TAB PO SCH (09:00)
[2019-04-01] MEDS ORDERED: DULOXETINE HCL 30 MG CAP PO SCH (09:00)
[2019-04-01] MEDS ORDERED: LEVOTHYROXINE SODIUM 75 MCG TABLET PO SCH (09:00)
[2019-04-01] MEDS ORDERED: ENOXAPARIN INJ 40 MG/0.4 ML SYR SQ SCH (09:00)
[2019-04-01] MEDS ORDERED: CYANOCOBALAMIN 500 MCG TABLET (VITAMIN B-12) PO SCH (09:00)
[2019-04-01] MEDS ORDERED: BACLOFEN 10 MG TAB PO SCH (09:00)
[2019-04-01] MEDS: DOBUTamine HCL 12.5 MG/ML 20 ML VIAL IV ONE ×2 (14:22→15:29)
[2019-04-01] MEDS: ATROPINE SULFATE 0.1 MG/ML 10ML SYR IV ONE ×2 (14:22→15:28)
[2019-04-01] MEDS: METOPROLOL TARTRATE 1 MG/ML VIAL IV ONE ×2 (14:23→15:29)
--- NOTE | 2019-04-01 14:40 | Hospitalist Progress Note ---
Date of Service April 01, 2019 Assessment & Plan (1) Left-sided chest pain: Left-sided chest pain Rule out ACS DD: Musculoskeletal given reproducibility, secondary to panic attack Fibromyalgia could be contributing Cardiac enzymes: Negative EKG showed no signs of acute ischemia CXR:No acute process Dobutamine stress test: Nonischemic dobutamine stress echocardiogram Bipolar disorder H/O OCD/PTSD Follows with psychiatry Dr. Gilliland Recently started on cariprazine which patient is intolerant Appreciate Psychiatry Input Cariprazine discontinued and resumed abilify 2mg daily as per psychiatry recommendations Continue clonazepam, lamotrigine, fluvoxamine No plan for inpatient Psychiatry treatment Needs follow up with Psychiatry upon discharge at [facility] Chronic back pain/fibromyalgia Stable Continue baclofen, meloxicam CKD III Creatinine near baseline Avoid nephrotoxic agents as able Monitor renal function Ongoing tobacco abuse Counseled to quit smoking DVT Px: Lovenox SQ Code Status Full code Disposition Plan to discharge home today Subjective Patient is seen and examined at bedside Left-sided reproducible chest discomfort improved States chest pain likely secondary to panic attack Minimal dizziness Denies any shortness of breath, nausea, abdominal pain Discussed with cardiology, psychiatry today Plan for dobutamine stress test today Review of Systems Review of Systems: All systems reviewed & are unremarkable except as noted in HPI & below Physical Exam Physical Exam: Physical Exam: Vitals signs as noted above General Appearance:Moderately built and nourished, no apparent distress Head: normocephalic, Atraumatic Eyes: normal inspection, EOMI Neck: supple, Trachea midline Respiratory/Chest: Normal breath sounds, CTA, + chest pain reproducible on palpation Cardiovascular: S1, S2, No murmur Abdomen/GI:Soft, Non tender, Bowel sounds present Extremities/Musculoskelatal:normal inspection, + B/L LE edema Neurologic/Psych:AAOX3, grossly no focal neurological deficits Skin: normal color, warm Results & Data Vital Signs (Past 12 Hours) Vital Signs Temp Pulse Pulse Pulse Resp BP BP 04/01/19 11:45 36.9 C 77 18 131/82 04/01/19 07:55 36.5 C 82 18 143/83 H 04/01/19 07:46 77 20 154/90 H 04/01/19 07:00 80 20 134/66 04/01/19 06:00 78 20 142/90 H 04/01/19 05:29 83 16 139/85 10/14/19 05:11 37.0 C 83 16 135/86 Pulse Ox 04/01/19 11:45 95 04/01/19 07:55 97 04/01/19 07:46 97 04/01/19 07:00 93 04/01/19 06:00 98 04/01/19 05:29 98 04/01/19 05:11 97 Laboratory Results Short CBC 04/01/19 Range/Units 05:28 WBC 6.20 (4.8-10.8) K/uL Hgb 13.2 (12.0-16.0) g/dL Hct 38.5 (37-47) % Plt Count 304 (130-400) K/uL BMP 04/01/19 05:28 Sodium 140 Potassium 3.7 Chloride 106 Carbon Dioxide 27 BUN 23 H Creatinine 1.28 H Glucose 109 H Calcium 9.3 Cardiac Enzymes 04/01/19 04/01/19 Range/Units 05:28 09:19 Troponin I < 0.015 < 0.015 (0-0.045) ng/ml Liver Function 04/01/19 Range/Units 05:28 Total Bilirubin 0.5 (0.2-1) mg/dl Direct Bilirubin 0.1 (0-0.2) mg/dl AST 19 (15-37) U/L ALT 20 (12-78) U/L Alkaline Phosphatase 129 H (45-117) U/L Albumin 3.6 (3.4-5.0) gm/dl Diagnostic Findings CXR: No acute process. Medications Administered Home Medications Medication Instructions Recorded Confirmed calcium carbonate 500 mg (1,250 1 tab PO DAILY tab 03/07/18 04/01/19 mg)-vitamin D3 125 unit tablet cholecalciferol (vitamin D3) 5,000 5,000 units PO DAILY 03/07/18 04/01/19 unit capsule lamotrigine 200 mg tablet 200 mg PO BID 03/07/18 04/01/19 levothyroxine 75 mcg tablet 75 mcg PO QAM 03/07/18 04/01/19 omega-3 fatty acids 1,000 mg 2,000 mg PO DAILY 03/07/18 04/01/19 capsule baclofen 10 mg tablet 10 mg PO BID tab 03/08/18 04/01/19 clonazepam 1 mg PO HS 06/25/18 04/01/19 fluvoxamine 100 mg PO HS 06/25/18 04/01/19 duloxetine 60 mg capsule,delayed 90 mg PO DAILY cap 08/23/18 04/01/19 release clonazepam 0.5 mg PO QAM 12/30/18 04/01/19 cyanocobalamin (vitamin B-12) 1,000 mcg PO DAILY 12/30/18 04/01/19 [Vitamin B-12] cariprazine 1.5 mg capsule 1.5 mg PO DAILY 03/14/19 04/01/19 meloxicam 15 mg disintegrating 15 mg PO DAILY 03/14/19 04/01/19 tablet econazole 1 % topical cream 1 appln TOP QID gm 03/20/19 04/01/19
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
--- NOTE | 2019-04-01 18:07 | Discharge Summary ---
Date of Service April 01, 2019 Admission HPI Per Admitting Provider Jolie Santiago is a 58-year-old female admitted medically on 04/01/19 after presenting to the ED with chest pain, concerned she was having a heart attack. Psychiatric consultation was requested to evaluate the patient's psychiatric medication regimen - as she reports side effects to recent initiation of cariprazine. Pt is followed by Dr. Roopa Brice at [facility] for medication management. Prior to interview, patient's case was reviewed and discussed with inpatient psychiatrist, psychiatric nurse liaison and Dr. Brice. Pt is cooperative with evaluation. Pt states that she was started on cariprazine, and reports the medication "made me feel weird, I was eating all the time." Pt states that she had previously been on aripiprazole, and "I was taken off of it because I had been a bit of a [id number]." Pt states that after experiencing unpleasant side effects to the cariprazine, she discontinued the medication and resumed her previous dose of aripiprazole 2mg daily. Pt states, "I know I had a panic attack, I've had them before. I know what they feel like." She reports to this provider that she has a significant family history of cardiovascular disease, and was told by past doctors to be "better safe than sorry" with symptoms of chest pain. Patient is somewhat circumstantial, and it is somewhat difficult to keep patient on a singular topic. She shares multiple prior situations that have triggered panic attacks, and several difficult conversations with family - only a few of which seem to be recent. Pt does admit that her fibromyalgia and neuropathy contribute to a lot of pain and "make me feel miserable sometimes." Pt states that overall, her mood has been decent for her. She reports situational stressors which contribute to exacerbation of anxiety, but admits this often resolves. When discussing a situation involving her mother's (05/2018), the patient states "sometimes I do become suicidal, I don't know why that happens." It takes several attempts to bring patient's attention back to a risk assessment regarding this statement, but ultimately she reports her self- reported "suicidality", is better labeled as passive thought and thoughts to "escape". "Like, sometimes, I just want to get away, I just can't handle the situation." Pt states she has little trouble managing these thoughts, stating she reliably uses music as a coping strategy. Pt denies suicide attempts or inpatient psychiatric hospitalizations. She follows closely with her providers at [facility], and denies any acute concerns related to her mental health. She reports diagnoses of Bipolar disorder, NIECY, and PTSD. Pt denies HI, SIB, A/V hallucinations, paranoia, eating disorder, and other specific psychiatric symptoms. Admission Exam Per Admitting Provider GENERAL: Anxious, obese, no respiratory distress SKIN: Normal color, warm HEENT: Bespectacled, [place] palpebral conjunctivae, no ptosis, dry buccal mucosa NECK : Supple, short neck, no tenderness CHEST : CTA, left chest wall tenderness HEART : RRR, no obvious murmurs ABDOMEN: Some distention, nontender EXTREMITIES : Bilateral LE swelling (chronic), no LE tenderness, no other conspicuous deformities noted NEUROLOGIC : Coherent, no facial asymmetry, gait and stance not assessed, no other gross focality Principal Diagnosis Chest Pain Anxiety/Panic Attack Discharge Data Allergies Allergy/AdvReac Type Severity Reaction Status Date / Time gabapentin AdvReac Intermediate EDEMA Verified 04/01/19 05:52 Sulfa (Sulfonamide AdvReac Intermediate VOMITING Verified 04/01/19 05:52 Antibiotics) cariprazine [From Vraylar] AdvReac sick Verified 04/01/19 06:42 Consultations 04/01/19 05:53 ED Decision to Admit Stat 04/01/19 08:08 Consult Psychiatry Routine Procedures Performed CXR:No acute process Dobutamine stress test: Nonischemic dobutamine stress echocardiogram Hospital Course (1) Left-sided chest pain: Left-sided chest pain Rule out ACS DD: Musculoskeletal given reproducibility, secondary to panic attack Fibromyalgia could be contributing Cardiac enzymes: Negative EKG showed no signs of acute ischemia CXR:No acute process Dobutamine stress test: Nonischemic dobutamine stress echocardiogram Bipolar disorder H/O OCD/PTSD Follows with psychiatry Dr. Gilliland Recently started on cariprazine which patient is intolerant Appreciate Psychiatry Input Cariprazine discontinued and resumed abilify 2mg daily as per psychiatry recommendations Continue clonazepam, lamotrigine, fluvoxamine No plan for inpatient Psychiatry treatment Needs follow up with Psychiatry upon discharge at [facility] Chronic back pain/fibromyalgia Stable Continue baclofen, meloxicam CKD III Creatinine near baseline Avoid nephrotoxic agents as able Monitor renal function Ongoing tobacco abuse Counseled to quit smoking DVT Px: Lovenox SQ Code Status Full code Disposition Plan to discharge home today Total Time Total Time Spent Total Time Spent (In Minutes): 33 minutes Total Time Includes: Examination of the Patient, Discharge Planning, Medication Reconciliation, Communication With Other Providers and Other Discharge Plan Discharge Items Patient Disposition: Home - Self-Care Reason For Visit: CP Discharge Diagnosis: Chest Pain Anxiety/Panic Attack Activity: Resume your previous activity Exercise/Sports: Gradually increase as tolerated Non-emergency contact: Primary Care Provider and Psychiatrist Call non-emergency contact if: you have any medication questions, your symptoms worsen, your pain is not controlled, your pain is worsening, your pain is unusual for you, your pain is concerning for you and you have a fever Follow-up/Referrals: Leanne Mistry DO [Primary Care Provider] - Diet: Heart Healthy Addtl Attending Provider Instructions: Follow-up with your primary care physician Dr.Keiter song on April 08, 2019 at 12:45 PM Follow-up with your psychiatrist at [facility] in 1-2 weeks as advised Medication Changes 1) STOP taking Cariprazine as you did not tolerate the medication 2)Start taking Aripiprazole 2 mg daily as previously prescribed Seek immediate medical attention if your symptoms reoccur or worsen Pending Studies at Discharge: No Stand-Alone Forms: My [facility] Medications and DC Order Prescriptions: Continued lamotrigine [Lamictal] 200 mg tablet 200 mg PO BID RF: 0 omega-3 fatty acids [Fish Oil Concentrate] 1,000 mg capsule 2,000 mg PO DAILY RF: 0 levothyroxine [Synthroid] 75 mcg tablet 75 mcg PO QAM RF: 0 cholecalciferol (vitamin D3) 5,000 unit capsule 5,000 units PO DAILY RF: 0 calcium carbonate-vitamin D3 500 mg(1,250mg) -125 unit tablet 1 tab PO DAILY RF: 0 baclofen 10 mg tablet 10 mg PO BID RF: 0 duloxetine [Cymbalta] 60 mg capsule,delayed release(DR/EC) 90 mg PO DAILY RF: 0 meloxicam 15 mg tablet,disintegrating 15 mg PO DAILY RF: 0 econazole 1 % cream 1 appln TOP QID RF: 0 fluvoxamine 100 mg Tablet 100 mg PO HS RF: 0 clonazepam 1 mg Tablet 1 mg PO HS RF: 0 clonazepam 1 mg tablet 0.5 mg PO QAM RF: 0 cyanocobalamin (vitamin B-12) [Vitamin B-12] 1,000 mcg Tablet 1,000 mcg PO DAILY RF: 0 aripiprazole 2 mg Tablet 2 mg PO DAILY RF: 0 Discontinued Vraylar 1.5 mg capsule 1.5 mg PO DAILY RF: 0 Discharge Orders: Discharge Order (Routine); Ordered 04/01/19 Ordered By: Jase Mott/Other Patient Handouts: Echo Dobutamine Stress, Heart Attack Warning Signs Admission Data Admit Date/Time: 04/01/19 06:43 Attending Provider: Jase Multani Admit Provider: Alexandre Garcia Primary Care Provider: Leanne Mistry Other Providers: Alexandre Garcia ; Roopa Birce Other Interventions: Discharge Summary Assessment (RN) Last Done: 04/01/19 18:11 DC Date/Time DO NOT enter until pt leaves facility: 04/01/19 18:50
[2019-04-01] MEDS ORDERED: FLUVOXAMINE MALEATE 50 MG TAB PO SCH (21:00)
[2019-04-02] MEDS ORDERED: ASPIRIN 81 MG ECTAB PO SCH (09:00)
== END 2019-04-01 18:50 | disposition home or self-care (01) ==
LOC: 2S 05:06 → ED 05:06 → 2S 07:46

== ENCOUNTER 2021-06-17 07:36 | Inpatient (IN) ==
--- NOTE | 2021-05-28 11:15 | PAT Medication Instructions ---
Medication Instructions Date of Service May 28, 2021 Home Medications lamotrigine 200 mg tablet (Lamictal) 200 mg PO BID levothyroxine 75 mcg tablet (Synthroid) 75 mcg PO QAM omega-3 fatty acids 1,000 mg capsule (Fish Oil Concentrate) 1,000 mg PO BID baclofen 10 mg tablet 10 mg PO BID clonazepam 1 mg tablet 1 mg PO HS fluvoxamine 100 mg tablet 100 mg PO BID tramadol 50 mg tablet 50 mg PO Q6H PRN Centrum Silver Women 1 tab PO QAM diclofenac sodium 1 % topical gel (Voltaren) 4 g TOPICAL QID PRN pantoprazole 40 mg tablet,delayed release 40 mg PO QAM lurasidone 40 mg tablet (Latuda) 40 mg PO QPM calcium carbonate 600 mg-vitamin D3 10 mcg (400 unit) tablet (Calcium 600 + D(3)) 1 tab PO QAM cholecalciferol (vitamin D3) 50 mcg (2,000 unit) capsule (Vitamin D3) 50 mcg PO QAM STOP taking 2 weeks before surgery (or as soon as possible if surgery is within 2 weeks) omega-3 fatty acids 1,000 mg capsule (Fish Oil Concentrate) 1,000 mg PO BID STOP taking 24 hours before surgery diclofenac sodium 1 % topical gel (Voltaren) 4 g TOPICAL QID PRN DO NOT take the morning of surgery baclofen 10 mg tablet 10 mg PO BID Centrum Silver Women 1 tab PO QAM calcium carbonate 600 mg-vitamin D3 10 mcg (400 unit) tablet (Calcium 600 + D(3)) 1 tab PO QAM cholecalciferol (vitamin D3) 50 mcg (2,000 unit) capsule (Vitamin D3) 50 mcg PO QAM Take morning of surgery With a small sip of water, OTHERWISE NOTHING TO EAT OR DRINK AFTER MIDNIGHT: lamotrigine 200 mg tablet (Lamictal) 200 mg PO BID levothyroxine 75 mcg tablet (Synthroid) 75 mcg PO QAM fluvoxamine 100 mg tablet 100 mg PO BID tramadol 50 mg tablet 50 mg PO Q6H PRN (okay to take up to 4 hours prior to surgery if needed) pantoprazole 40 mg tablet,delayed release 40 mg PO QAM Take evening before surgery lamotrigine 200 mg tablet (Lamictal) 200 mg PO BID baclofen 10 mg tablet 10 mg PO BID clonazepam 1 mg tablet 1 mg PO HS fluvoxamine 100 mg tablet 100 mg PO BID tramadol 50 mg tablet 50 mg PO Q6H PRN (if needed) lurasidone 40 mg tablet (Latuda) 40 mg PO QPM Other Notes If you have any questions please call us at [phone] or [phone] or or [phone]
--- NOTE | 2021-06-01 11:03 | Anesthesiology Consultation ---
Date of Service June 01, 2021 Assessment & Plan (1) Encounter for pre-operative examination: - surgeon ordered medical clearance. - Pessary: She inquired if this needs removed for surgery and she was advised this is to surgeon's determination. She states will contact their office. - Dental procedure 06/14/2021: Pt reports permanent crown placement planned for 06/04/2021. She verbalized understanding she needs to discuss this with her surgeon's office if okay and I will discuss with anesthesiologist. Case discussed with Dr. Claudio who advised it is fine from an anesthesia standpoint, determination to surgeon. Pt made aware while still in clinic, states she will contact surgeon's office. - COVID screening: Per assessment on 06/01/2021: Travel screen negative, no known COVID-19 positive contacts or current COVID-19 related symptoms. Patient vaccinated. Surgeon arranging preop COVID testing, scheduled 06/11/2021 [place]. Awaiting results. Chart Review Chart Review: Acceptable Risk for Surgery (pending medical clearance) and Patient seen in Pre Admission Testing Teaching & Discussion Pre-Anesthesia Teaching/Discussion Notes: Instructed NPO after midnight before surgery, except medications with 15 cc of water. Medication instructions provided according to the PAT guidelines. History Surgery Operation Date: 06/15/21 10:05 Proposed Procedures p T12-L2 Decompression, T10-L2 Fusion, L2 Screw Removal, Neuro Monitoring - Ambrose Goldberg, Height/Weight Height: 5 ft 8.5 in Weight: 92.9 kg Allergies Allergy/AdvReac Type Severity Reaction Status Date / Time oxybutynin [From Ditropan] Allergy Severe Anaphylaxis Verified 05/28/21 09:56 acetaminophen [From Tylenol] Allergy Mild Hives, Verified 05/28/21 09:56 itching, rash gabapentin AdvReac Intermediate EDEMA Verified 05/28/21 09:56 HANDS AND FEET Sulfa (Sulfonamide AdvReac Intermediate VOMITING Verified 05/28/21 09:56 Antibiotics) cariprazine [From Vraylar] AdvReac Mild sick Verified 05/28/21 09:56 Medications Home Medications Medication Instructions Recorded Confirmed Last Taken lamotrigine 200 mg tablet 200 mg PO BID 03/07/18 05/28/21 04/20/20 (Lamictal) levothyroxine 75 mcg tablet 75 mcg PO QAM 03/07/18 05/28/21 04/20/20 (Synthroid) omega-3 fatty acids 1,000 mg 1,000 mg PO BID 03/07/18 05/28/21 04/20/20 capsule (Fish Oil Concentrate) baclofen 10 mg tablet 10 mg PO BID tab 03/08/18 05/28/21 04/20/20 clonazepam 1 mg tablet 1 mg PO HS 06/25/18 05/28/21 04/19/20 fluvoxamine 100 mg tablet 100 mg PO BID 06/25/18 05/28/21 04/19/20 tramadol 50 mg tablet 50 mg PO Q6H PRN 04/26/19 05/28/21 04/19/20 multivit with 1 tab PO QAM 04/11/20 05/28/21 04/20/20 jglluazh-yrkf-PW-lutein 8 mg iron-400 mcg-300 mcg tablet (Centrum Silver Women) diclofenac sodium 1 % topical gel 4 g TOPICAL QID PRN 04/20/20 05/28/21 Unknown (Voltaren) pantoprazole 40 mg tablet,delayed 40 mg PO QAM 04/20/20 05/28/21 04/20/20 release lurasidone 40 mg tablet (Latuda) 40 mg PO QPM 01/22/21 05/28/21 Unknown calcium carbonate 600 mg-vitamin 1 tab PO QAM 05/28/21 05/28/21 Unknown D3 10 mcg (400 unit) tablet (Calcium 600 + D(3)) cholecalciferol (vitamin D3) 50 50 mcg PO QAM 05/28/21 05/28/21 Unknown mcg (2,000 unit) capsule (Vitamin D3) Past Medical History Medical History (Updated 06/01/21 @ 11:18 by Diane Barton PA-C) Anxiety chronic, stable per pt, follows with a therapist and psychiatrist Bipolar disorder chronic, stable per pt, follows with a therapist and psychiatrist Cervical spinal stenosis Chronic back pain Chronic kidney disease stage 3 monitoring Degenerative disc disease Fibromyalgia GERD (gastroesophageal reflux disease) controlled, stable per pt Hypothyroidism Lumbar postlaminectomy syndrome L1-L5 Fusion OCD (obsessive compulsive disorder) Osteoarthritis Post traumatic stress disorder Presence of pessary Sacroiliitis Spinal stenosis Patient denies h/o stroke, seizures, heart attack, heart failure, DM, HTN, blood clots or blood transfusions. Exercise / Class Metabolic Activity II 4-5 Yardwork/Stairs/Walk up hill (denies CP or SOB with 1 FOS) Past Family History Family History Other No pertinent family history in first degree relatives Past Surgical History Surgical History (Updated 06/01/21 @ 11:13 by Diane Barton PA-C) H/O eye surgery tear duct surgery (Left eye x2) H/O right knee surgery removal of right patella s/p revision of TKA; 2 meniscal repairs History of bilateral tubal ligation History of cholecystectomy History of colonoscopy History of revision of total replacement of left knee joint History of tonsillectomy History of total left knee replacement History of total right knee replacement S/P lumbar fusion fusion from L2 - L5 (3 separate surgeries) S/P GAGE (total abdominal hysterectomy) with Unilateral salping-oopherectomy Past Anesthesia History No Hx of Anesthesia Complications and No Family Hx of Anesthesia Complications History of PONV No Hx of PONV and No Hx of Motion Sickness Social History Smoking Status: Current every day smoker tobacco type: cigarettes Smoking cigarettes per day: 6 Do You Dip or Chew Tobacco: No Hx Alcohol Use: No Hx Substance Use: No substance use type: does not use Review of Systems Patient denies chest pain, shortness of breath, dyspnea on exertion, snoring, witnessed apneas, reflux, fever, chills, cough, wheezing, or palpitations. Physical Exam Vital Signs Vitals BP 121/76 P 62 TEMP 98.6 SP02 96% on RA RESP 17 Physical Full cervical extension range of motion without pain Full TMJ range of motion TMD 3.5 finger breaths Mallampati Score 2 Dentition: intact, missing two upper back, temporary crown left upper side, multiple crowns backs bilat upper and lower; denies implants, bridges or chipped teeth Lungs: normal respiratory effort. Clear throughout to auscultation, no adventitious breath sounds Cardiac: regular rate and rhythm, no murmurs noted Carotid arteries: negative bruit bilat Extremities: no distal extremity edema Lab Results Anesthesia Preop Results Results Anesthesia Widget: WBC 5.79 K/uL (4.8-10.8) 06/01/21 Hgb 13.8 g/dL (12.0-16.0) 06/01/21 Hct 41.6 % (37-47) 06/01/21 Plt 266 K/uL (130-400) 06/01/21 Na 139 mmol/L (136-145) 06/01/21 K 4.5 mmol/L (3.5-5.1) 06/01/21 Cl 106 mmol/L (98-107) 06/01/21 CO2 28 mmol/L (21-32) 06/01/21 BUN 27 mg/dl (7-18) H 06/01/21 Creat 1.24 mg/dl (0.6-1.2) H 06/01/21 Glucose Level 83 mg/dl (70-99) 06/01/21 PT 9.7 Seconds (9.0-12.0) 06/01/21 PTT 28.0 Seconds (21.0-31.0) 06/01/21 INR 1.0 (0.9-1.1) 06/01/21 Urine Color Yellow 06/01/21 Urine Appearance Clear (Clear) 06/01/21 Urine pH 7.0 (4.5-7.5) 06/01/21 Urine Specific [place] 1.009 (1.000-1.030) 06/01/21 Urine Protein Negative (Negative) 06/01/21 Urine Glucose (UA) Negative (Negative) 06/01/21 Urine Ketones Negative (Negative) 06/01/21 Urine Blood Negative (Negative) 06/01/21 Urine Nitrite Negative (Negative) 06/01/21 Urine Bilirubin Negative (Negative) 06/01/21 Urine Urobilinogen Negative (Negative) 06/01/21 Urine Leukocyte Esterase Trace (Negative) H 06/01/21 Urine WBC (Auto) 1-5 /hpf (0-5) 06/01/21 Urine RBC (Auto) 0-4 /hpf (0-4) 06/01/21 Urine Hyaline Casts (Auto) 0 /lpf (0-5) 06/01/21 Urine Epithelial Cells (Auto) 0-5 /lpf (0-5) 06/01/21 Urine Bacteria (Auto) Negative (Negative) 06/01/21 Blood Type O Negative 06/01/21 Antibody Screen NEGATIVE 06/01/21 Testing Electrocardiogram Date: 06/01/21 Normal sinus rhythm, rate 61 bpm. *Unconfirmed* Chest X-Ray Date: 06/01/21 FINDINGS: Cardiomediastinal and hilar silhouettes are within normal limits. No pneumothorax, pleural effusion, airspace consolidation or overt pulmonary edema. Mild hyperinflation. Degenerative changes of the shoulders and spine. Number spinal fusion hardware. Grade 1 retrolisthesis of L1 on L2. The L2 pedicle screws extend into the L1-L2 intervertebral disc space with focal moderate kyphosis. IMPRESSION: No acute processes of the chest. Stress Test Date: 04/01/19 Nonischemic dobutamine stress echocardiogram No arrhythmias EF 50-55% No segmental left ventricular wall motion abnormalities are noted Grade I diastolic dysfunction No significant valvular pathology mild cLVH
[~2021-06-17 07:36] MED LIST changes: -CALC500C70 PO; -CHOL1TAB42 PO; -CLON1TAB3 PO; +CeleBREX 200 MG CAP PO SCH; -DULO60CA44 PO; -FLUV100T12 PO; -LAMO200T38 PO; -LEVO75TA PO; +LR 15ML/HR IV SCH; -MELO7.5T5 PO; -METH500T37 PO; +ceFAZolin 2000MG 2,000 MG/15 ML SYR IV SCH
[2021-06-17] MEDS ORDERED: fentaNYL citrate 100 MCG/2 ML VIAL ONE ×2 (09:41→13:28)
[2021-06-17] MEDS ORDERED: MIDAZOLAM HCL 1 MG/ML 2ML VIAL ONE (09:41)
[2021-06-17] MEDS ORDERED: ONDANSETRON INJ 2 MG/ML 2 ML VIAL ONE (09:58)
[2021-06-17] MEDS ORDERED: LIDOCAINE 2% 2 ML VIAL/AMP(20MG/ML) INFIL ONE (09:58)
[2021-06-17] MEDS ORDERED: PROPOFOL IV EMULSION 10 MG/ML 20 ML VIAL IV ONE (09:58)
--- NOTE | 2021-06-17 10:00 | History & Physical Bridge Note ---
Date of Service June 17, 2021 History & Physical Bridge Note I have examined the patient, reviewed the History & Physical and in the interval since the performance of the History & Physical I have noted the following changes of clinical significance: no changes noted
--- NOTE | 2021-06-17 10:02 | History & Physical Report ---
Date of Service June 17, 2021 Assessment & Plan (1) Neurogenic claudication due to lumbar spinal stenosis: Plan: T12-L2 decompression, T10-L2 fusion, L2 screw removal. History of Present Illness Chief Complaint: Back and bilateral leg pain Primary Care Provider: Leanne Mistry DO This is a 60-year-old female known to me the presents with chronic persistent back and leg pain. After failing course of nonoperative care she is here for surgical invention. Allergies Allergy/AdvReac Type Severity Reaction Status Date / Time oxybutynin [From Ditropan] Allergy Severe Anaphylaxis Verified 06/17/21 08:10 acetaminophen [From Tylenol] Allergy Mild Hives, Verified 06/17/21 08:10 itching, rash gabapentin AdvReac Intermediate EDEMA Verified 06/17/21 08:10 HANDS AND FEET Sulfa (Sulfonamide AdvReac Intermediate VOMITING Verified 06/17/21 08:10 Antibiotics) cariprazine [From Vraylar] AdvReac Mild sick Verified 06/17/21 08:10 Home Medications Medication Instructions Recorded Confirmed Type lamotrigine 200 mg tablet 200 mg PO BID 03/07/18 06/17/21 History (Lamictal) levothyroxine 75 mcg tablet 75 mcg PO QAM 03/07/18 06/17/21 History (Synthroid) omega-3 fatty acids 1,000 mg 1,000 mg PO BID 03/07/18 06/17/21 History capsule (Fish Oil Concentrate) baclofen 10 mg tablet 10 mg PO BID tab 03/08/18 06/17/21 History clonazepam 1 mg tablet 1 mg PO HS 06/25/18 06/17/21 History fluvoxamine 100 mg tablet 100 mg PO BID 06/25/18 06/17/21 History tramadol 50 mg tablet 50 mg PO Q6H PRN 04/26/19 06/17/21 History multivit with 1 tab PO QAM 04/11/20 06/17/21 History inetelok-vbli-SK-lutein 8 mg iron-400 mcg-300 mcg tablet (Centrum Silver Women) diclofenac sodium 1 % topical gel 4 g TOPICAL QID PRN 04/20/20 06/17/21 History (Voltaren) pantoprazole 40 mg tablet,delayed 40 mg PO QAM 04/20/20 06/17/21 History release lurasidone 40 mg tablet (Latuda) 40 mg PO QPM 01/22/21 06/17/21 History calcium carbonate 600 mg-vitamin 1 tab PO QAM 05/28/21 06/17/21 History D3 10 mcg (400 unit) tablet (Calcium 600 + D(3)) cholecalciferol (vitamin D3) 50 50 mcg PO QAM 05/28/21 06/17/21 History mcg (2,000 unit) capsule (Vitamin D3) Past Med/Surg History Medical History (Updated 06/17/21 @ 10:01 by Ambrose Goldberg DO) Anxiety chronic, stable per pt, follows with a therapist and psychiatrist Bipolar disorder chronic, stable per pt, follows with a therapist and psychiatrist Cervical spinal stenosis Chronic back pain Chronic kidney disease stage 3 monitoring Degenerative disc disease Fibromyalgia GERD (gastroesophageal reflux disease) controlled, stable per pt Hypothyroidism Lumbar postlaminectomy syndrome L1-L5 Fusion OCD (obsessive compulsive disorder) Osteoarthritis Post traumatic stress disorder Presence of pessary Sacroiliitis Spinal stenosis Surgical History H/O eye surgery tear duct surgery (Left eye x2) H/O right knee surgery removal of right patella s/p revision of TKA; 2 meniscal repairs History of bilateral tubal ligation History of cholecystectomy History of colonoscopy History of revision of total replacement of left knee joint History of tonsillectomy History of total left knee replacement History of total right knee replacement S/P lumbar fusion fusion from L2 - L5 (3 separate surgeries) S/P GAGE (total abdominal hysterectomy) with Unilateral salping-oopherectomy Family History Other No pertinent family history in first degree relatives Social History Smoking Status: Current every day smoker Tobacco Type: Cigarettes Cigarettes Per Day: 6; Second Hand Exposure: Yes; Do You Dip or Chew Tobacco: No; Tobacco Cessation Education Requested by Patient: No Hx Alcohol Use: No Hx Substance Use: No Preferred Language: Hungarian Communication Ability: Effective Visual Impairment: Limited Hearing Ability: Normal 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
[2021-06-17] MEDS ORDERED: GLYCOPYRROLATE 0.2 MG/ML VIAL ONE (10:20)
[2021-06-17] MEDS ORDERED: ROCURONIUM BROMIDE 10 MG/ML 5 ML VIAL IV ONE ×2 (10:20→11:41)
[2021-06-17] MEDS ORDERED: NEOSTIGMINE METHYLSULFATE 1 MG/ML 10ML VIAL ONE (10:20)
[2021-06-17] MEDS ORDERED: DEXAMETHASONE SOD INJ 4 MG/ML VIAL ONE (10:20)
[2021-06-17] MEDS ORDERED: BUPIVACAINE/EPINEPHRINE 0.25% 1:200,000 30 ML VIAL ONE (10:23)
[2021-06-17] MEDS ORDERED: NALOXONE HCL 0.4 MG/1 ML VIAL/CARP IV PRN ×2 (11:06→16:45)
[2021-06-17] MEDS ORDERED: FLUMAZENIL 0.1 MG/1 ML 10 ML VIAL IV PRN (11:06)
[2021-06-17] MEDS ORDERED: ONDANSETRON INJ 2 MG/ML 2 ML VIAL IV PRN ×2 (11:06→16:45)
[2021-06-17] MEDS ORDERED: ATROPINE SULFATE 0.1 MG/ML 10ML SYR IV PRN (11:06)
[2021-06-17] MEDS ORDERED: LABETALOL HCL IV 5 MG/ML 20ML IV PRN (11:06)
[2021-06-17] MEDS ORDERED: PROMETHAZINE HCL 12.5 MG in SODIUM CHLORIDE 0.9% 50 ML IV PRN ×2 (11:06→16:45)
[2021-06-17] MEDS ORDERED: ePHEDrine sulfate 50 MG/ML AMP IV PRN (11:06)
[2021-06-17] MEDS ORDERED: HYDROmorphone INJ 2 MG/ML SYR/VIAL ONE (11:22)
[2021-06-17] MEDS ORDERED: PHENYLEPHRINE 100MCG/ML 5ML SYR ONE (11:35)
[2021-06-17] MEDS ORDERED: FLOSEAL HEMOSTATIC MATRIX 10ML TOP ONE (12:54)
--- NOTE | 2021-06-17 13:23 | Operative Report ---
Post Operative Report Pre & Post Diagnosis Operation Date: 06/17/21 09:35 Pre-Op Diagnosis: Neurogenic claudication due to lumbar spinal stenosis Post-Op Diagnosis: Neurogenic claudication due to lumbar spinal stenosis I identified the patient and participated in the time-out.: Yes Procedure Operation Date: 06/17/21 09:35 Actual Procedures #1 removal of posterior instrumentation L2. #2 exploration of fusion L2-L3. #3 decompression T12-L1 L1-L2. #4 posterior spinal fusion T10-L2. #5 placed posterior instrumentation T10-L1. #6 placement locally harvested morselized autograft in the posterior gutters. #7 placement of infuse collagen sponge and master graft in the posterior lateral gutters. Surgeon Ambrose Goldberg, Stock Fitter David Bernal Estimated Blood Loss 250 Findings Consistent with Post-Op Diagnosis Specimens None Indications This is a 60-year-old female who presents above-mentioned diagnosis after failin g course of nonoperative care she is here for surgical invention. Description of Procedure Patient was met with identified informed consent obtained. Patient was then taken to the operative suite underwent ablation placed in a prone position on a Adrian table with the chest padded bolsters. All bony prominences well-padded eyes inspected to ensure no external proximal spine but at this point the thoracolumbar spine was prepped and draped in a sterile fashion. Sharp dissection with the assistance of Bovie cautery was performed down to and exp osing the lamina and transverse processes of [id number] L1 and the instrumentation at L2 and L3. Then proceeded to move the connector and pedicle screws at L2 explore the fusion mass noting it to be mature and intact. Then performed complete laminectomy of L1 and T12 including bilateral medial facetectomies and foraminotomies addressing all spinal stenosis. Pedicle screws were then placed on the right at T11 and 12 and L1. On the left I was able to obtain adequate purchase at T10 and L1. Using barrel connectors on the previous claude I connected a new claude to the old instrumentation. Pedicle screws were locked into place. Cross-link was inserted and locked into place. The transverse processes of T10-T11 T12-L1 and all 2 were then burred to subcortical bleeding bone. Infuse collagen sponge master graft local graft was placed in the posterior gutters. 15 round CARIDAD drain inserted. The incision was then closed with 1 Vicryl to fascia 2-0 Vicryl subcutaneously and 4 Monocryl for rere l skin closure. Steri-Strip sterile dressings placed. Patient will continue PACU stable condition. Please note spinal cord monitoring was utilized at the procedure no changes noted. Lastly David Bernal was present at the entire procedure and while the patient positioning complex portions of the surgery and final skin closure. I attest to the content of the Intraoperative Record and any orders documented therein. Any exceptions are noted below.
--- NOTE | 2021-06-17 13:29 | Fluoroscopy Report ---
[place] thoracic spine 2V CLINICAL HISTORY: T12-L2 DECOMP, T10-L2 FUSION COMPARISON STUDY: Thoracic and lumbar spine MRI 03/12/2021. FLUOROSCOPY TIME: 44 seconds. FINDINGS: 3 fluoroscopic spot images of the thoracolumbar spine were submitted for review. Exact leve ls are difficult to determine due to the spot imaging. However there appears to be T10-L2 posterior d ecompression and fusion which is linked to the previous L2 hardware. The visualized hardware appears intact. IMPRESSION: Fluoroscopy provided for thoracolumbar spine fusion. ACT 112: Negative or not required by law. Electronically signed by: Bruce Mo M.D. 06/17/2021 1:28 PM
[2021-06-17] MEDS: fentaNYL citrate 100 MCG/2 ML VIAL IV PRN ×4 (14:01→14:15)
[2021-06-17] MEDS: HYDROmorphone INJ 1 MG/ML SYRINGE IV PRN ×10 (14:19→23:35)
--- NOTE | 2021-06-17 15:05 | Anesthesiology Progress Note ---
Date of Service June 17, 2021 Anesthesia Post Procedure Vital Signs Vital Signs: Temp Pulse Pulse Resp BP BP Pulse Ox 06/17/21 14:50 82 18 141/89 H 94 06/17/21 14:40 85 18 130/89 96 06/17/21 14:30 80 18 130/85 100 06/17/21 14:20 90 18 134/85 100 06/17/21 14:10 80 20 136/83 100 06/17/21 14:00 85 20 137/84 100 06/17/21 13:50 36.3 C L 86 15 129/84 95 06/17/21 08:19 36.9 C 62 18 132/76 94 Pain Intensity Lower Back: Pain Intensity: 5 Transfer of Care Handoff Completed per policy Notes Mental Status: alert / awake / arousable Patient Amnestic to Procedure: Yes Nausea / Vomiting: adequately controlled Pain: adequately controlled Airway Patency, RR, SpO2: stable & adequate BP & HR: stable & adequate Hydration State: stable & adequate Anesthetic Complications: no major complications apparent
[2021-06-17] MEDS ORDERED: HYDROmorphone HCL 2 MG TAB PO STA (16:06)
[2021-06-17] MEDS ORDERED: HYDROmorphone HCL 2 MG TAB PO ONE (16:07)
[2021-06-17] MEDS ORDERED: LORazepam 0.5 MG TAB PO PRN (16:45)
[2021-06-17] MEDS ORDERED: FAMOTIDINE 20 MG TAB PO PRN (16:45)
[2021-06-17] MEDS ORDERED: DO NOT ADMINISTER FLU VACCINE PRN (16:45)
[2021-06-17] MEDS ORDERED: traMADol HCL 50 MG TABLET PO PRN (16:45)
[2021-06-17] MEDS ORDERED: LORazepam 0.5 MG/1 ML VIAL IV PRN (16:45)
[2021-06-17] MEDS ORDERED: diphenhydrAMINE Capsule 25 MG CAP PO PRN (16:45)
[2021-06-17] MEDS ORDERED: ACETAMINOPHEN 1,000 MG/100 ML VIAL IV PRN (16:45)
[2021-06-17] MEDS ORDERED: ACETAMINOPHEN 500 MG TAB PO PRN (16:45)
[2021-06-17] MEDS ORDERED: SOD PHOSPHATE/SOD BIPHOSPHATE ENEMA 132 ML BTL PR PRN (16:45)
[2021-06-17] MEDS ORDERED: METOCLOPRAMIDE HCL INJ 5 MG/ML 2 ML VIAL IV PRN (16:45)
[2021-06-17] MEDS ORDERED: DO NOT ADMINISTER PNEUMOCOCCAL VACCINE PRN (16:45)
[2021-06-17] MEDS ORDERED: MAGNESIUM HYDROXIDE SUSP 30 ML UDC PO PRN (16:45)
[2021-06-17] MEDS ORDERED: ALUMINUM/MAGNESIUM SUSP 30 ML UDC PO PRN (16:45)
[2021-06-17] MEDS ORDERED: ONDANSETRON 4 MG OD TAB PO PRN (16:45)
[2021-06-17] MEDS ORDERED: HYDROmorphone INJ 0.5 MG/0.5 ML SYR IV PRN (16:45)
[2021-06-17] MEDS ORDERED: bisacodyL 10 MG SUPP PR PRN (16:45)
[2021-06-17] MEDS ORDERED: hydrOXYzine HCl 25 MG TAB PO PRN (16:45)
[2021-06-17] MEDS: SODIUM CHLORIDE 0.9% 1000ML 1,000 ML IV SCH (17:11)
--- NOTE | 2021-06-17 17:14 | Hospitalist Consultation ---
Date of Consultation June 17, 2021 Assessment & Plan (1) Neurogenic claudication due to lumbar spinal stenosis: - Pain management, bowel regimen and DVT ppx per the primary team - PT/OT consults, pt is planning on outpatient therapy - Follow am CBC to monitor for acute blood loss, hgb 13.8 on 06/01 prior to procedure (2) Hypothyroidism: - Continue levothyroxine (3) Chronic kidney disease: - Stage III, chronic and stable,Cr. baseline 1.2-1.3, follow with am labs (4) GERD (gastroesophageal reflux disease): - Cont pantoprazole (5) OCD (obsessive compulsive disorder): (6) Anxiety: (7) Bipolar disorder: - Continue lamotrigine 200 mg BID, lurasidone 40 mg QPM (take prior to bedtime with a small snack), fluvoxamine 100 mg BID, clonazepam 1 mg HS DVT ppx: teds, scd CODE: Full code Dispo: From home, will likely remain in the hospital x 1-2 days. Thank you for involving us in the care of Ms. Santiago. Please do not hesitate to call with questions or concerns. At this time medicine service will follow along. Supervising Physician Co-Signing Physician Notes 60 yo F with PMHx of hypothyroidism, CKD stage III, DDD, GERD, PTSD, fibromyalgia, anxiety, bipolar disorder, with previous lumbar postlaminectomy syndrom from L1-L5 fusions, who underwent T12-L2 Decompression, T10-L2 Fusion, L2 Screw Removal by Dr. Goldberg on 06/17/21. Consult for medical management. Was out for postoperative blood loss anemia. Incentive spirometer. Pain management/physical therapy/anticoagulation per primary team. Patient has not moved bowel or gas after the surgery today. Continue to monitor. Increase bowel regimen if needed. Patient reports being generally constipated at baseline. Upon examination: GENERAL: Alert and oriented x3. NAD, on 2L min HEENT: No pallor, no icterus. Pupils equal, round and reactive to light. Oral mucosa moist. NECK: No JVD, no neck masses. HEART: S1 and S2 heard. Regular rate and rhythm. No murmur, no gallop. RESPIRATORY SYSTEM: Normal AP diameter. No accessory muscle use. No wheezing, no crackles. ABDOMEN: Soft, bowel sounds present, nontender, no distention. CENTRAL NERVOUS SYSTEM: No facial droop. Speech is clear. Obeys simple commands. Moves extremities. EXTREMITIES: No edema, no erythema seen. Clean dressing over lower back. I have seen and examined the patient and have discussed the case with the provider above. I agree with the assessment and plan as stated. History of Present Illness Reason for Consultation: Medical management Requesting Physician: Dr. Goldberg Attending Physician: Ambrose Goldberg, DO History of Present Illness This is a 60 yo F with PMHx of hypothyroidism, CKD stage III, DDD, GERD, PTSD, fibromyalgia, anxiety, bipolar disorder, with previous lumbar postlaminectomy syndrom from L1-L5 fusions, who underwent T12-L2 Decompression, T10-L2 Fusion, L2 Screw Removal by Dr. Goldberg on 06/17/21. She is doing well overall. Rates her pain is currently a 7/10, just received dose of IV pain medication prior to my arrival. She is tolerating liquids without any difficulty, awaiting solid food for dinner. She denies any nausea, vomiting, last bowel movement was yesterday. She has sensation distally, no decreased sensation, and can move her legs and toes without difficulty. Patient describes her multiple psychiatric medications and that her mood has been much improved since starting Latuda over the summer. She does note that it makes her somewhat sleepy and is requesting to take it closer to bedtime with a small snack if possible. Patient notes that she quit smoking prior to this admission stay and reports that she wants to quit cold turkey. Denies the need for nicotine patch. She also tells me that she previously lost 100 pounds and feels like this has made a large difference with her back pain and previous surgical procedures. Allergies Allergy/AdvReac Type Severity Reaction Status Date / Time oxybutynin [From Ditropan] Allergy Severe Anaphylaxis Verified 06/17/21 08:10 acetaminophen [From Tylenol] Allergy Mild Hives, Verified 06/17/21 08:10 itching, rash gabapentin AdvReac Intermediate EDEMA Verified 06/17/21 08:10 HANDS AND FEET Sulfa (Sulfonamide AdvReac Intermediate VOMITING Verified 06/17/21 08:10 Antibiotics) cariprazine [From Vraylar] AdvReac Mild sick Verified 06/17/21 08:10 Home Medications Medication Instructions Recorded Confirmed Type lamotrigine 200 mg tablet 200 mg PO BID 03/07/18 06/17/21 History (Lamictal) levothyroxine 75 mcg tablet 75 mcg PO QAM 03/07/18 06/17/21 History (Synthroid) omega-3 fatty acids 1,000 mg 1,000 mg PO BID 03/07/18 06/17/21 History capsule (Fish Oil Concentrate) baclofen 10 mg tablet 10 mg PO BID tab 03/08/18 06/17/21 History clonazepam 1 mg tablet 1 mg PO HS 06/25/18 06/17/21 History fluvoxamine 100 mg tablet 100 mg PO BID 06/25/18 06/17/21 History tramadol 50 mg tablet 50 mg PO Q6H PRN 04/26/19 06/17/21 History multivit with 1 tab PO QAM 04/11/20 06/17/21 History ciodetxx-zqkb-FQ-lutein 8 mg iron-400 mcg-300 mcg tablet (Centrum Silver Women) diclofenac sodium 1 % topical gel 4 g TOPICAL QID PRN 04/20/20 06/17/21 History (Voltaren) pantoprazole 40 mg tablet,delayed 40 mg PO QAM 04/20/20 06/17/21 History release lurasidone 40 mg tablet (Latuda) 40 mg PO QPM 01/22/21 06/17/21 History calcium carbonate 600 mg-vitamin 1 tab PO QAM 05/28/21 06/17/21 History D3 10 mcg (400 unit) tablet (Calcium 600 + D(3)) cholecalciferol (vitamin D3) 50 50 mcg PO QAM 05/28/21 06/17/21 History mcg (2,000 unit) capsule (Vitamin D3) Patient History Medical History (Updated 06/17/21 @ 17:08 by Shama Heaton PA-C) Anxiety chronic, stable per pt, follows with a therapist and psychiatrist Bipolar disorder chronic, stable per pt, follows with a therapist and psychiatrist Cervical spinal stenosis Chronic back pain Chronic kidney disease stage 3 monitoring Degenerative disc disease Fibromyalgia GERD (gastroesophageal reflux disease) controlled, stable per pt Hypothyroidism Lumbar postlaminectomy syndrome L1-L5 Fusion OCD (obsessive compulsive disorder) Osteoarthritis Post traumatic stress disorder Presence of pessary Sacroiliitis Spinal stenosis Surgical History H/O eye surgery tear duct surgery (Left eye x2) H/O right knee surgery removal of right patella s/p revision of TKA; 2 meniscal repairs History of bilateral tubal ligation History of cholecystectomy History of colonoscopy History of revision of total replacement of left knee joint History of tonsillectomy History of total left knee replacement History of total right knee replacement S/P lumbar fusion fusion from L2 - L5 (3 separate surgeries) S/P AGGE (total abdominal hysterectomy) with Unilateral salping-oopherectomy Family History Other No pertinent family history in first degree relatives Social History Smoking Status: Current every day smoker Tobacco Type: Cigarettes Cigarettes Per Day: 6; Second Hand Exposure: Yes; Do You Dip or Chew Tobacco: No; Tobacco Cessation Education Requested by Patient: No Hx Alcohol Use: No Hx Substance Use: No Preferred Language: Slovenian Communication Ability: Effective Visual Impairment: Limited Hearing Ability: Normal 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 Beliefs That Will Affect Care: None marital status: Current Living Situation: Spouse current occupational status: disabled Other Information That Helps Us Care for You: No Feels Safe at Home: Yes Safety Concerns: Feels Safe At This Time Assistive Devices: Cane Review of Systems Review of Systems: Constitutional: No fever, sweats or chills Eyes: No diplopia, no worsening or blurred vision ENT: normal hearing, no trouble swallowing Respiratory: No cough, sputum, dyspnea at rest or on exertion Cardiovascular: No chest pain, tightness or palpitations Abdomen: No pain, nausea, vomiting, diarrhea or constipation Musculoskeletal: No joint pain, calf pain, swelling Neurologic: No weakness, numbness/tingling, or balance problems Psychiatric: No anxiety or depression Skin: No rash or itch Physical Exam Physical Exam: General: awake, alert, no apparent distress + obese Head: Normocephalic, atraumatic ENT: PERRL, EOMI, no pharyngeal exudate, mucous membranes moist Chest: Clear to auscultation, on 2 LPM NC, O2 sats are 93%, no adventitious breath sounds Cardiac: Regular rate and rhythm, + faint systolic murmur, no JVD, normal peripheral pulses, good capillary refill Abdominal: NABS x 4 quadrants, soft, nondistended, nontender to palpation, no rebound or guarding Back: Dressing is C/D/I : Bass in place draining clear yellow urine Extremities: Normal inspection, no peripheral edema or erythema, calfs nontender to palpation Psych: Normal mood and affect Neuro: AAO x 3, strength intact bilaterally and rated 5/5, no motor deficits, speech is clear, no peripheral sensory deficits Results & Data Results & Data ([facility]) Vital Signs (Past 12 Hours) Vital Signs Temp Pulse Pulse Pulse Resp BP BP 06/17/21 16:56 36.8 C 90 24 126/88 06/17/21 16:30 36.8 C 90 18 126/79 06/17/21 16:29 36.5 C 86 24 126/79 06/17/21 16:15 36.4 C L 90 16 132/84 06/17/21 16:00 88 14 140/85 06/17/21 15:45 97 H 14 146/89 H 06/17/21 15:30 93 H 14 144/91 H 06/17/21 15:20 90 14 144/94 H 06/17/21 15:10 80 14 131/88 06/17/21 15:00 36.5 C 82 18 125/88 06/17/21 14:50 82 18 141/89 H 06/17/21 14:40 85 18 130/89 06/17/21 14:30 80 18 130/85 06/17/21 14:20 90 18 134/85 06/17/21 14:10 80 20 136/83 06/17/21 14:00 85 20 137/84 06/17/21 13:50 36.3 C L 86 15 129/84 06/17/21 08:19 36.9 C 62 18 132/76 Pulse Ox 06/17/21 16:56 96 06/17/21 16:30 95 06/17/21 16:29 96 06/17/21 16:15 95 06/17/21 16:00 94 06/17/21 15:45 99 06/17/21 15:30 95 06/17/21 15:20 98 06/17/21 15:10 94 06/17/21 15:00 94 06/17/21 14:50 94 06/17/21 14:40 96 06/17/21 14:30 100 06/17/21 14:20 100 06/17/21 14:10 100 06/17/21 14:00 100 06/17/21 13:50 95 06/17/21 08:19 94
[2021-06-17] MEDS: ceFAZolin 2000MG 2,000 MG/15 ML SYR IV SCH (18:01)
[2021-06-17] MEDS: KETOROLAC TROMETHAMINE 15 MG/ML VIAL IV SCH ×2 (18:01→22:59)
[2021-06-17] MEDS: oxyCODONE HCL IR 5 MG TAB (IMMEDIATE RELEASE) PO PRN (19:12)
[2021-06-17] MEDS: DOCUSATE SODIUM/SENNA 50/8.6MG TAB PO SCH (19:59)
[2021-06-17] MEDS: OMEGA-3 (PURIFIED FISH OIL) 1 GM CAP PO SCH (19:59)
[2021-06-17] MEDS: lamoTRIgine 100 MG TAB PO SCH (20:00)
[2021-06-17] MEDS: fluvoxaMINE MALEATE 50 MG TAB PO SCH (20:00)
[2021-06-17] MEDS: BACLOFEN 10 MG TAB PO SCH (20:00)
[2021-06-17] MEDS: clonazePAM 1 MG TAB PO SCH (20:03)
[2021-06-17] MEDS: LURASIDONE HCL 40 MG TAB PO SCH (21:35)
[2021-06-18] MEDS: ceFAZolin 2000MG 2,000 MG/15 ML SYR IV SCH (02:13)
[2021-06-18] MEDS: SODIUM CHLORIDE 0.9% 1000ML 1,000 ML IV SCH (02:13)
[2021-06-18] MEDS: oxyCODONE HCL IR 5 MG TAB (IMMEDIATE RELEASE) PO PRN ×4 (02:16→19:25)
[2021-06-18] MEDS: traMADol HCL 50 MG TABLET PO PRN (03:18)
[2021-06-18] MEDS: POLYETHYLENE (MIRALAX) 17 GM PACK PO SCH ×4 (05:06→22:37)
[2021-06-18] MEDS: KETOROLAC TROMETHAMINE 15 MG/ML VIAL IV SCH ×2 (05:06→11:57)
[2021-06-18] MEDS: LEVOTHYROXINE SODIUM 75 MCG TABLET PO SCH (05:07)
[2021-06-18 08:06] LABS: Hematocrit (blood only) 38.1 % (37-47); Hemoglobin 12.5 g/dL (12.0-16.0); Immature Granulocytes # (auto) 0.02 K/uL (0.00-0.02); Immature Granulocytes % (auto) 0.2 %; Lymphocytes # (auto) 1.22 K/uL (1.2-3.4); Lymphocytes % (auto) 9.6 %; Mean Corpuscular Hemoglobin 29.7 pg (25-34); Mean Corpuscular Hgb Conc 32.8 g/dL (32-36); Mean Corpuscular Volume 90.5 fL (80-100); Mean Platelet Volume 9.9 fL (7.4-10.4); Monocytes # (auto) 0.32 K/uL (0.11-0.59); Monocytes % (auto) 2.5 %; Neutrophils # (auto) 11.19 K/uL (1.4-6.5); Neutrophils % (auto) 87.7 %; Platelet Count 263 K/uL (130-400); RDW Coefficient of Variation 14.1 % (11.5-14.5); RDW Standard Deviation 46.6 fL (36.4-46.3); Red Blood Count 4.21 M/uL (4.2-5.4); White Blood Count 12.75 K/uL (4.8-10.8)
[2021-06-18 08:42] LABS: Creatinine Clr Calc Pharmacy 59.8 ml/min; Est GFR (African American) 57.6 ml/min; Est GFR (Non-African American) 49.7 ml/min; Potassium 4.3 mmol/L (3.5-5.1)
[2021-06-18] MEDS: dexAMETHasone 6 MG in SYRINGE 0 ML IV SCH (09:26)
[2021-06-18] MEDS: fluvoxaMINE MALEATE 50 MG TAB PO SCH ×2 (09:27→20:16)
[2021-06-18] MEDS: OMEGA-3 (PURIFIED FISH OIL) 1 GM CAP PO SCH ×2 (09:27→20:15)
[2021-06-18] MEDS: PANTOprazole 40 MG TAB PO SCH (09:27)
[2021-06-18] MEDS: CALCIUM 600MG + VIT D 400 IU TAB PO SCH (09:27)
[2021-06-18] MEDS: CHOLECALCIFEROL 1,000 UNITS 25 MCG TAB PO SCH (09:27)
[2021-06-18] MEDS: MULTIVITAMIN TAB PO SCH (09:27)
[2021-06-18] MEDS: lamoTRIgine 100 MG TAB PO SCH ×2 (09:27→20:15)
[2021-06-18] MEDS: BACLOFEN 10 MG TAB PO SCH ×2 (09:28→20:15)
--- NOTE | 2021-06-18 13:12 | Orthopedic Progress Note ---
Date of Service June 18, 2021 Assessment & Plan (1) Neurogenic claudication due to lumbar spinal stenosis: Plan: At this time continue physical therapy monitor [facility] output consider possible rehab versus home health in the next few days. Admission and Anticipated Discharge Date Admission Date: June 17, 2021 Subjective Back pain controlled leg pain markedly improved Physical Exam Physical Exam: Patient is in bed. She is sitting upright and comfortable. She is good strength testing lower extremities. Results & Data ([facility]) Vital Signs (Past 12 Hours) Vital Signs Temp Pulse Resp BP Pulse Ox 06/18/21 10:50 36.6 C 60 20 123/76 95 06/18/21 07:05 36.8 C 75 18 114/72 95 06/18/21 03:26 36.8 C 68 16 116/75 93
--- NOTE | 2021-06-18 14:01 | Hospitalist Progress Note ---
Date of Service June 18, 2021 Assessment & Plan (1) Neurogenic claudication due to lumbar spinal stenosis: Plan: (1) Neurogenic claudication due to lumbar spinal stenosis: - Status post removal of posterior instrumentation, and decompression and fusion at various vertebral level by Dr. Goldberg on 06/17/2021. - Pain management, bowel regimen and DVT ppx per the primary team - PT/OT consults, pt is planning on outpatient therapy - Follow am CBC to monitor for acute blood loss, hgb 13.8 on 06/01 prior to procedure - Hb stable around 12-13 (2) Hypothyroidism: - Continue levothyroxine (3) Chronic kidney disease: - Stage III, chronic and stable,Cr. baseline 1.2-1.3, follow with am labs (4) GERD (gastroesophageal reflux disease): - Cont pantoprazole (5) OCD (obsessive compulsive disorder): (6) Anxiety: (7) Bipolar disorder: - Continue lamotrigine 200 mg BID, lurasidone 40 mg QPM (take prior to bedtime with a small snack), fluvoxamine 100 mg BID, clonazepam 1 mg HS DVT ppx: teds, scd CODE: Full code Dispo: From home, will likely remain in the hospital x 1-2 days. PT/OT recs is rehab. Admission and Anticipated Discharge Date Admission Date: June 17, 2021 Subjective Patient was walking with the help of walker with physical therapy in the hallway when I went to meet her, later on saw her at bedside, on room air, NAD, no new acute events overnight. Patient reports eating okay. Patient reports not being able to sleep overnight but she does mention that she has insomnia at baseline. Reports pain under control. Patient denies any fever/chills/headache/dizziness/chest pain/palpitation/other review of symptoms. Physical Exam Physical Exam: GENERAL: Alert and oriented x3. NAD, on RA. HEENT: No pallor, no icterus. Pupils equal, round and reactive to light. Oral mucosa moist. NECK: No JVD, no neck masses. HEART: S1 and S2 heard. Regular rate and rhythm. No murmur, no gallop. RESPIRATORY SYSTEM: Normal AP diameter. No accessory muscle use. No wheezing, no crackles. ABDOMEN: Soft, bowel sounds present, nontender, no distention. CENTRAL NERVOUS SYSTEM: No facial droop. Speech is clear. Obeys simple commands. Moves extremities. EXTREMITIES: No edema, no erythema seen. Clean dressing over lower back. Results & Data Results & Data ([facility]) Vital Signs (Past 12 Hours) Vital Signs Temp Pulse Resp BP Pulse Ox 06/18/21 10:50 36.6 C 60 20 123/76 95 06/18/21 07:05 36.8 C 75 18 114/72 95 06/18/21 03:26 36.8 C 68 16 116/75 93
[2021-06-18] MEDS: clonazePAM 1 MG TAB PO SCH (20:14)
[2021-06-18] MEDS: DOCUSATE SODIUM/SENNA 50/8.6MG TAB PO SCH (20:16)
[2021-06-18] MEDS: LURASIDONE HCL 40 MG TAB PO SCH (22:37)
[2021-06-19] MEDS: oxyCODONE HCL IR 5 MG TAB (IMMEDIATE RELEASE) PO PRN ×2 (00:35→20:14)
[2021-06-19] MEDS: POLYETHYLENE (MIRALAX) 17 GM PACK PO SCH ×4 (04:48→23:26)
[2021-06-19] MEDS: LEVOTHYROXINE SODIUM 75 MCG TABLET PO SCH (04:48)
[2021-06-19 05:58] LABS: Hematocrit (blood only) 33.2 % (37-47); Hemoglobin 10.7 g/dL (12.0-16.0); Mean Corpuscular Hemoglobin 29.5 pg (25-34); Mean Corpuscular Hgb Conc 32.2 g/dL (32-36); Mean Corpuscular Volume 91.5 fL (80-100); Platelet Count 228 K/uL (130-400); RDW Coefficient of Variation 14.2 % (11.5-14.5); RDW Standard Deviation 47.8 fL (36.4-46.3); Red Blood Count 3.63 M/uL (4.2-5.4); White Blood Count 11.54 K/uL (4.8-10.8)
[2021-06-19] MEDS: traMADol HCL 50 MG TABLET PO PRN ×2 (07:31→13:12)
[2021-06-19] MEDS: OMEGA-3 (PURIFIED FISH OIL) 1 GM CAP PO SCH ×2 (09:23→20:14)
[2021-06-19] MEDS: MULTIVITAMIN TAB PO SCH (09:23)
[2021-06-19] MEDS: PANTOprazole 40 MG TAB PO SCH (09:23)
[2021-06-19] MEDS: lamoTRIgine 100 MG TAB PO SCH ×2 (09:23→20:14)
[2021-06-19] MEDS: CHOLECALCIFEROL 1,000 UNITS 25 MCG TAB PO SCH (09:24)
[2021-06-19] MEDS: BACLOFEN 10 MG TAB PO SCH ×2 (09:24→20:14)
[2021-06-19] MEDS: CALCIUM 600MG + VIT D 400 IU TAB PO SCH (09:24)
[2021-06-19] MEDS: fluvoxaMINE MALEATE 50 MG TAB PO SCH ×2 (09:24→20:13)
[2021-06-19] MEDS: dexAMETHasone 6 MG in SYRINGE 0 ML IV SCH (10:03)
--- NOTE | 2021-06-19 11:19 | Orthopedic Progress Note ---
Date of Service June 19, 2021 Assessment & Plan (1) Neurogenic claudication due to lumbar spinal stenosis: Plan: At this time we will continue physical therapy monitor [facility] output hopefully discharge to rehab Monday. Admission and Anticipated Discharge Date Admission Date: June 17, 2021 Subjective Back pain controlled leg pain improved Physical Exam Physical Exam: Patient is in the chair at the bedside is good strength testing. Appears comfortable. Results & Data ([facility]) Vital Signs (Past 12 Hours) Vital Signs Temp Pulse Resp BP Pulse Ox 06/19/21 07:24 36.6 C 63 16 101/67 96
--- NOTE | 2021-06-19 14:02 | Hospitalist Progress Note ---
Date of Service June 19, 2021 Assessment & Plan (1) Neurogenic claudication due to lumbar spinal stenosis: Plan: (1) Neurogenic claudication due to lumbar spinal stenosis: - Status post removal of posterior instrumentation, and decompression and fusion at various vertebral level by Dr. Goldberg on 06/17/2021. - Pain management, bowel regimen and DVT ppx per the primary team - PT/OT consults, pt is planning on outpatient therapy - Follow am CBC to monitor for acute blood loss, hgb 13.8 on 06/01 prior to procedure - Hb stable around 12-13 (2) Hypothyroidism: - Continue levothyroxine (3) Chronic kidney disease: - Stage III, chronic and stable,Cr. baseline 1.2-1.3, follow with am labs (4) GERD (gastroesophageal reflux disease): - Cont pantoprazole (5) OCD (obsessive compulsive disorder): (6) Anxiety: (7) Bipolar disorder: - Continue lamotrigine 200 mg BID, lurasidone 40 mg QPM (take prior to bedtime with a small snack), fluvoxamine 100 mg BID, clonazepam 1 mg HS DVT ppx: teds, scd CODE: Full code Dispo: From home. PT/OT recs is rehab. CM working with placement. Admission and Anticipated Discharge Date Admission Date: June 17, 2021 Subjective Patient was sitting up in bed, talking over the phone, on room air, NAD, no new acute events overnight. Patient reports pain under control. Patient reports eating okay. Patient denies fever/headache/chest/chest pain/palpitation/other review of symptoms. Physical Exam Physical Exam: GENERAL: Alert and oriented x3. NAD, on RA. HEENT: No pallor, no icterus. Pupils equal, round and reactive to light. Oral mucosa moist. NECK: No JVD, no neck masses. HEART: S1 and S2 heard. Regular rate and rhythm. No murmur, no gallop. RESPIRATORY SYSTEM: Normal AP diameter. No accessory muscle use. No wheezing, no crackles. ABDOMEN: Soft, bowel sounds present, nontender, no distention. CENTRAL NERVOUS SYSTEM: No facial droop. Speech is clear. Obeys simple commands. Moves extremities. EXTREMITIES: No edema, no erythema seen. Clean dressing over lower back. Results & Data Results & Data ([facility]) Vital Signs (Past 12 Hours) Vital Signs Temp Pulse Resp BP Pulse Ox 06/19/21 07:24 36.6 C 63 16 101/67 96
[2021-06-19] MEDS: DOCUSATE SODIUM/SENNA 50/8.6MG TAB PO SCH (20:14)
[2021-06-19] MEDS: LURASIDONE HCL 40 MG TAB PO SCH (20:14)
[2021-06-19] MEDS: clonazePAM 1 MG TAB PO SCH (20:14)
[2021-06-20] MEDS: oxyCODONE HCL IR 5 MG TAB (IMMEDIATE RELEASE) PO PRN ×2 (04:23→16:22)
[2021-06-20] MEDS: LEVOTHYROXINE SODIUM 75 MCG TABLET PO SCH (04:23)
[2021-06-20] MEDS: POLYETHYLENE (MIRALAX) 17 GM PACK PO SCH ×4 (04:23→21:42)
[2021-06-20 08:00] LABS: Hemoglobin 10.5 g/dL (12.0-16.0); Mean Corpuscular Hemoglobin 29.9 pg (25-34); Mean Corpuscular Hgb Conc 32.8 g/dL (32-36); Mean Corpuscular Volume 91.2 fL (80-100); Mean Platelet Volume 10.3 fL (7.4-10.4); Platelet Count 238 K/uL (130-400); RDW Coefficient of Variation 14.5 % (11.5-14.5); RDW Standard Deviation 48.5 fL (36.4-46.3); Red Blood Count 3.51 M/uL (4.2-5.4); White Blood Count 10.67 K/uL (4.8-10.8)
[2021-06-20] MEDS: lamoTRIgine 100 MG TAB PO SCH ×2 (09:48→21:03)
[2021-06-20] MEDS: CHOLECALCIFEROL 1,000 UNITS 25 MCG TAB PO SCH (09:48)
[2021-06-20] MEDS: MULTIVITAMIN TAB PO SCH (09:48)
[2021-06-20] MEDS: OMEGA-3 (PURIFIED FISH OIL) 1 GM CAP PO SCH ×2 (09:49→21:02)
[2021-06-20] MEDS: CALCIUM 600MG + VIT D 400 IU TAB PO SCH (09:49)
[2021-06-20] MEDS: fluvoxaMINE MALEATE 50 MG TAB PO SCH ×2 (09:49→21:02)
[2021-06-20] MEDS: PANTOprazole 40 MG TAB PO SCH (09:49)
[2021-06-20] MEDS: BACLOFEN 10 MG TAB PO SCH ×2 (09:49→21:02)
[2021-06-20] MEDS: dexAMETHasone 6 MG in SYRINGE 0 ML IV SCH (09:50)
--- NOTE | 2021-06-20 10:45 | Orthopedic Progress Note ---
Date of Service June 20, 2021 Assessment & Plan (1) Neurogenic claudication due to lumbar spinal stenosis: Plan: At this time we will continue physical therapy anticipate discharge tomorrow. Admission and Anticipated Discharge Date Admission Date: June 17, 2021 Subjective Patient's back pain is well controlled. She denies any leg pain. Physical Exam Physical Exam: Patient is in the chair at the bedside. Is good strength testing. Peers comfortable. Results & Data ([facility]) Vital Signs (Past 12 Hours) Vital Signs Temp Pulse Resp BP Pulse Ox 06/20/21 07:20 36.5 C 74 16 108/71 92 06/19/21 23:30 36.7 C 71 16 100/61 93
--- NOTE | 2021-06-20 12:24 | XRay Report ---
THORACOLUMBAR SPINE 2 VIEWS CLINICAL HISTORY: Postoperative examination. FINDINGS: AP and lateral views of the thoracolumbar spine are obtained. Correlation is made with lumb ar spine radiographs dated 12/11/2017, as well as MRI examinations of the thoracic and lumbar spine da myla 03/12/2021. The skeletal structures are osteopenic. Vertebral body height and alignment are mainta ined throughout the imaged thoracolumbar spine. Minimal dextrocurvature is noted at L1-L2. There is p ostoperative change from laminectomy and posterior fusion seen from T10 through L5. Interpedicular sc rews are present at all levels with the exception of L2. Spinal rods are in place. The orthopedic joe dware appears intact. There has been discectomy at L3-L4, L4-L5, and L5-S1. There is moderate to adva nced disc space narrowing with endplate sclerosis seen at T12-L1 and L1-L2. Small posterior disc oste ophyte complexes are seen at several levels. A surgical drain is in place. The visualized bony pelvis appears intact. Sclerotic change is noted in the sacroiliac joints. Cholecystectomy clips are noted in the right upper quadrant. No bowel obstruction is seen. Moderate fecal retention is noted througho ut the colon. IMPRESSION: 1. Osteopenia with postoperative and spondylotic changes as above. The orthopedic hardware appears in tact. 2. There is no radiographic evidence of acute fracture or malalignment. Dictated: 06/20/2021 11:52 AM Transcribed: 06/20/2021 12:16 PM [place] [id number] [email or web address] Electronically signed by: Pedro Moore M.D. 06/20/2021 12:22 PM
--- NOTE | 2021-06-20 12:25 | Hospitalist Progress Note ---
Date of Service June 20, 2021 Assessment & Plan (1) Neurogenic claudication due to lumbar spinal stenosis: Plan: (1) Neurogenic claudication due to lumbar spinal stenosis: - Status post removal of posterior instrumentation, and decompression and fusion at various vertebral level by Dr. Goldberg on 06/17/2021. - Pain management, bowel regimen and DVT ppx per the primary team - PT/OT consults, pt is planning on outpatient therapy - Hgb 13.8 on 06/01 prior to procedure - Hb stable, monitor as appropriate (2) Hypothyroidism: - Continue levothyroxine (3) Chronic kidney disease: - Stage III, chronic and stable,Cr. baseline 1.2-1.3, follow with am labs (4) GERD (gastroesophageal reflux disease): - Cont pantoprazole (5) OCD (obsessive compulsive disorder): (6) Anxiety: (7) Bipolar disorder: - Continue lamotrigine 200 mg BID, lurasidone 40 mg QPM (take prior to bedtime with a small snack), fluvoxamine 100 mg BID, clonazepam 1 mg HS DVT ppx: teds, scd CODE: Full code Dispo: From home. PT/OT recs is rehab. CM working with placement. VAUGHAN per primary team. Admission and Anticipated Discharge Date Admission Date: June 17, 2021 Subjective Patient was sitting up in chair, on room air, NAD, no new acute events overnight. Patient reports pain under control. Patient reports feeling better. Patient denies any fever/chills/chest pain/palpitation/other review of symptoms. Physical Exam Physical Exam: GENERAL: Alert and oriented x3. NAD, on RA. HEENT: No pallor, no icterus. Pupils equal, round and reactive to light. Oral mucosa moist. NECK: No JVD, no neck masses. HEART: S1 and S2 heard. Regular rate and rhythm. No murmur, no gallop. RESPIRATORY SYSTEM: Normal AP diameter. No accessory muscle use. No wheezing, no crackles. ABDOMEN: Soft, bowel sounds present, nontender, no distention. CENTRAL NERVOUS SYSTEM: No facial droop. Speech is clear. Obeys simple commands. Moves extremities. EXTREMITIES: No edema, no erythema seen. Clean dressing over lower back. Results & Data Results & Data ([facility]) Vital Signs (Past 12 Hours) Vital Signs Temp Pulse Resp BP Pulse Ox 06/20/21 07:20 36.5 C 74 16 108/71 92
[2021-06-20] MEDS: traMADol HCL 50 MG TABLET PO PRN (18:16)
[2021-06-20] MEDS: LURASIDONE HCL 40 MG TAB PO SCH (21:02)
[2021-06-20] MEDS: DOCUSATE SODIUM/SENNA 50/8.6MG TAB PO SCH (21:03)
[2021-06-20] MEDS: clonazePAM 1 MG TAB PO SCH (21:08)
[2021-06-21] MEDS: oxyCODONE HCL IR 5 MG TAB (IMMEDIATE RELEASE) PO PRN ×2 (03:53→15:13)
[2021-06-21] MEDS: POLYETHYLENE (MIRALAX) 17 GM PACK PO SCH (05:10)
[2021-06-21] MEDS: LEVOTHYROXINE SODIUM 75 MCG TABLET PO SCH (05:14)
[2021-06-21] MEDS: CHOLECALCIFEROL 1,000 UNITS 25 MCG TAB PO SCH (07:05)
[2021-06-21] MEDS: fluvoxaMINE MALEATE 50 MG TAB PO SCH (07:06)
[2021-06-21] MEDS: MULTIVITAMIN TAB PO SCH (07:06)
[2021-06-21] MEDS: CALCIUM 600MG + VIT D 400 IU TAB PO SCH (07:06)
[2021-06-21] MEDS: OMEGA-3 (PURIFIED FISH OIL) 1 GM CAP PO SCH (07:06)
[2021-06-21] MEDS: PANTOprazole 40 MG TAB PO SCH (07:06)
[2021-06-21] MEDS: BACLOFEN 10 MG TAB PO SCH (07:06)
[2021-06-21] MEDS: lamoTRIgine 100 MG TAB PO SCH (07:07)
--- NOTE | 2021-06-21 12:33 | Discharge Summary ---
Date of Service June 21, 2021 Admission HPI Per Admitting Provider This is a 60-year-old female known to me the presents with chronic persistent back and leg pain. After failing course of nonoperative care she is here for surgical invention. Principal Diagnosis Thoracolumbar spinal stenosis Discharge Data Allergies Allergy/AdvReac Type Severity Reaction Status Date / Time oxybutynin [From Ditropan] Allergy Severe Anaphylaxis Verified 06/17/21 08:10 acetaminophen [From Tylenol] Allergy Mild Hives, Verified 06/17/21 08:10 itching, rash gabapentin AdvReac Intermediate EDEMA Verified 06/17/21 08:10 HANDS AND FEET Sulfa (Sulfonamide AdvReac Intermediate VOMITING Verified 06/17/21 08:10 Antibiotics) cariprazine [From Vraylar] AdvReac Mild sick Verified 06/17/21 08:10 Consultations 06/17/21 16:45 Consult Hospitalist Routine Procedures Performed Operation Date: 06/17/21 09:35 Actual Procedures p T12-L2 Decompression, T10-L2 Fusion, Spinal Cord Monitoring(Not Applicable) - Ambrose Goldberg DO s L2 Screw Removal,(Not Applicable) - Ambrose Goldberg DO Ordered Studies 06/17/21 09:35 FL thoracic spine 2V Routine Hospital Course (1) Neurogenic claudication due to lumbar spinal stenosis: Patient went thoracolumbar decompression fusion tolerates well second orthopedic for postoperative. Postop day 1 she is up and ambulating progress postop #2 postop day 3 CARIDAD drain decreased probably. Doing quite well. E xcellent strength testing. Subsequent discharge home with home health. Discharge orders instructions from the chart for further review. Total Time Total Time Spent Total Time Spent (In Minutes): 20 minutes Discharge Plan Discharge Items Patient Disposition: Home - Home Health Services Reason For Visit: Other Intervrtebral Disc Degeneration Thoracic Reg Discharge Diagnosis: Thoracolumbar spinal stenosis with neurogenic claudication Activity: As commented below Non-emergency contact: Primary Care Provider Call non-emergency contact if: you have any medication questions Follow-up/Referrals: Ambrose Goldberg DO [Surgeon] - Leanne Mistry DO [Primary Care Provider] - Diet: Regular Addtl Attending Provider Instructions: ACTIVITY RECOMMENDATIONS: SELF CARE INSTRUCTIONS AFTER THORACIC/LUMBAR FUSIONS 1. You may walk to your tolerance. It is good exercise for your legs and back. Expect some back and intermittent leg aches and pains. 2. You may perform "counter-top" level activities (make a sandwich, latisha with a project, etc.). 3. No bending or lifting of more than 10 pounds or back twisting of any nature (roll like a log when turning in bed). 4. You may ride in a car for 20-30 minutes at a time. No driving until after your first visit with your doctor. 5. Frequent changes of position and restricting sitting to 30 minutes at a time will help limit the amount of back spasms and stiffness you may experience. 6. You may discontinue the use of ambulatory aids (cane, crutches, etc.) once your strength and confidence allow. 7. You may enterprise business architect the shower and let water strike your incision when you arrive home at least once daily. Do not take a tub bath, sit in a hot tub or go into a swimming pool until after your first recheck in the office. SPECIAL CARE INSTRUCTIONS: VERY IMPORTANT TO READ AND REVIEW A. Your surgical incision has been closed with a cosmetic suture under the skin that will dissolve in about 6 weeks. In 14 days, you can use a pair of clean scissors and cut the suture that is left outside of the skin at the ends of your incision. 1. The small skin tapes can be removed 7 days after surgery if they have not fallen off by that point. 2. You may keep the wound open to air as much as possible to promote healing after post-op day number 5 unless told otherwise by your doctor. 3. If you think the wound looks like it is becoming infected (redness or worsening drainage) and/or you are experiencing fever, chill or worsening back pain and muscle spasms, contact the office so that we may evaluate you as soon as possible. B. Complications are uncommon, but please contact us if you have any signs or symptoms of: 1. wound infection (fever higher than 102.5 degrees F, redness, separation of wound, drainage, or increasing pain from the incision) 2. blood clots in legs (pain, swelling, redness and warmth in legs) 3. urinary tract infection (fever higher than 102.5 degrees F, burning upon urination or increased frequency of urination) 4. nerve problems (inability to walk on your toes or heels, numbness, loss of bowel or bladder control) 5. any other symptoms that concern you C. Please call the office at if you have any concerns or questions about your operation or recovery. D. No smoking! Smoking drastically decreases the chance of a solid fusion. E. Do not take any anti-inflammatory medications (Indocin, Advil, Motrin, Aspirin, Naprosyn, etc.) as these may inhibit the chance of a solid fusion. Tylenol is okay to take for pain. MANAGING PAIN AFTER SPINAL SURGERY 1. Narcotic medication is intended for short-term use and will be provided for surgical pain. Surgical pain usually lasts for a period of 4-6 weeks. Narcotic medication includes Percocet, Vicodin, Darvocet, Tylenol #3 or Lortab. 2. Longer-term pain is more appropriately treated with non-narcotic medication such as Tylenol ES. 3. Muscle spasm is not appropriately treated with narcotics. Muscle relaxers such as Soma, Flexeril or Skelaxin can be used along with Tylenol ES. 4. Remember that we all live with some "aches and pains". This is not unusual or uncommon after an injury or as we get older. a. Back pain is expected and may include muscle spasms for 4 to 6 weeks after surgery. The pain should gradually improve. If the pain worsens for no apparent reason, please contact the office. b. Intermittent leg pain may also be experienced and should not be concerned about unless it worsens for no apparent reason. If so, please contact the office. 5. We will provide appropriate medication within the normal guidelines of their prescribed use. We will also be very cautious and aware of potential abuse and extended duration of patients' medication needs. a. Pain medications are for your comfort and to assist with sleep and rest so that the tissue can heal. They are not provided in order to return to normal activity and should not be used through the day. To do so or worsening pain at night can result from ongoing tissue damage and de velopment of tolerance to the prescribed medicine. 6. Please allow 2-3 days to process refills. Prescriptions will not be mailed but must be picked up at the office. FOLLOW UP VISIT: Keep your scheduled follow-up appointment. Any questions, please call the office at . Pending Studies at Discharge: No Stand-Alone Forms: My [facility], Smoking Cessation Medications and DC Order Prescriptions: New tramadol 50 mg tablet 50 mg PO Q6H PRN (Reason: pain, moderate) Qty: 30 RF: 0 oxycodone 5 mg tablet 5 mg PO Q6H PRN (Reason: pain, severe) Qty: 30 RF: 0 Continued tramadol 50 mg tablet 50 mg PO Q6H PRN (Reason: Pain) RF: 0 lamotrigine [Lamictal] 200 mg tablet 200 mg PO BID RF: 0 omega-3 fatty acids [Fish Oil Concentrate] 1,000 mg capsule 1,000 mg PO BID RF: 0 levothyroxine [Synthroid] 75 mcg tablet 75 mcg PO QAM RF: 0 baclofen 10 mg tablet 10 mg PO BID RF: 0 Latuda 40 mg tablet 40 mg PO QPM RF: 0 fluvoxamine 100 mg Tablet 100 mg PO BID RF: 0 clonazepam 1 mg Tablet 1 mg PO HS RF: 0 Centrum Silver Women 8 mg iron-400 mcg-300 mcg Tablet 1 tab PO QAM RF: 0 pantoprazole 40 mg tablet,delayed release (DR/EC) 40 mg PO QAM RF: 0 diclofenac sodium [Voltaren] 1 % gel 4 g topical QID PRN (Reason: Pain) RF: 0 calcium carbonate-vitamin D3 [Calcium 600 + D(3)] 600 mg-10 mcg (400 unit) Tablet 1 tab PO QAM RF: 0 cholecalciferol (vitamin D3) [Vitamin D3] 50 mcg (2,000 unit) Capsule 50 mcg PO QAM RF: 0 Discharge Orders: Discharge Order (Routine); Ordered 06/21/21 Ordered By: Ambrose Goldberg Admission Data Admit Date/Time: 06/17/21 13:27 Attending Provider: Ambrose Goldberg Admit Provider: Ambrose Goldberg Primary Care Provider: Leanne Mistry Other Providers: Tenzin Sotelo ; [facility] ; [facility]
--- NOTE | 2021-06-21 15:31 | Hospitalist Progress Note ---
Date of Service June 21, 2021 Assessment & Plan (1) Neurogenic claudication due to lumbar spinal stenosis: (2) Acute blood loss as cause of postoperative anemia: Plan: (1) Neurogenic claudication due to lumbar spinal stenosis: - Status post removal of posterior instrumentation, and decompression and fusion at various vertebral level by Dr. Goldberg on 06/17/2021. - Pain management, bowel regimen and DVT ppx per the primary team - PT/OT consults, pt is planning on outpatient therapy - Hgb 13.8 on 06/01 prior to procedure - Hb stable, monitor as appropriate #. Ac Blood Loss anemia 2/2 post op status Hemoglobin stable around 12-13 at baseline. Postoperatively, hemoglobin stable around 10.5 Patient does not have any signs and symptoms of chest pain/palpitation/headache or dizziness. Stable. (2) Hypothyroidism: - Continue levothyroxine (3) Chronic kidney disease: - Stage III, chronic and stable,Cr. baseline 1.2-1.3, follow with am labs (4) GERD (gastroesophageal reflux disease): - Cont pantoprazole (5) OCD (obsessive compulsive disorder): (6) Anxiety: (7) Bipolar disorder: - Continue lamotrigine 200 mg BID, lurasidone 40 mg QPM (take prior to bedtime with a small snack), fluvoxamine 100 mg BID, clonazepam 1 mg HS DVT ppx: teds, scd CODE: Full code Dispo: From home. PT/OT recs is rehab. CM working with placement. VAUGHAN per primary team. Admission and Anticipated Discharge Date Admission Date: June 17, 2021 Subjective Patient was sitting up in reclining chair, on room air, NAD, no new acute events overnight. Patient reports pain under control. Patient reports feeling better. Patient denies any fever/chills/chest pain/palpitation/other review of symptoms. Physical Exam Physical Exam: GENERAL: Alert and oriented x3. NAD, on RA. HEENT: No pallor, no icterus. Pupils equal, round and reactive to light. Oral mucosa moist. NECK: No JVD, no neck masses. HEART: S1 and S2 heard. Regular rate and rhythm. No murmur, no gallop. RESPIRATORY SYSTEM: Normal AP diameter. No accessory muscle use. No wheezing, no crackles. ABDOMEN: Soft, bowel sounds present, nontender, no distention. CENTRAL NERVOUS SYSTEM: No facial droop. Speech is clear. Obeys simple commands. Moves extremities. EXTREMITIES: No edema, no erythema seen. Clean dressing over lower back. CARIDAD drain in in situ w/ minimal serosanguinous collection. Results & Data Results & Data ([facility]) Vital Signs (Past 12 Hours) Vital Signs Temp Pulse Pulse Resp BP BP Pulse Ox 06/21/21 13:19 36.3 C L 70 75 16 110/70 125/73 94 06/21/21 07:00 36.3 C L 70 16 110/70 94
== END 2021-06-21 15:46 | disposition home health service (06) | DRG 460 ==
LOC: ASU 07:36 → PACUINP 07:36 → OBSVTOIN 13:27 → 3N 16:28

== ENCOUNTER 2022-02-06 14:52 | Observation (INO) ==
[2022-02-06 15:36] LABS: Basophils # (auto) 0.06 K/uL (0-0.2); Basophils % (auto) 0.6 %; Eosinophils # (auto) 0.06 K/uL (0-0.50); Eosinophils % (auto) 0.6 %; Hematocrit (blood only) 37.7 % (34.1-44.9); Hemoglobin 12.7 g/dl (12.0-16.0); Immature Granulocytes # (auto) 0.07 K/uL (0.00-0.02); Immature Granulocytes % (auto) 0.7 %; Lymphocytes # (auto) 0.99 K/uL (1.2-3.4); Lymphocytes % (auto) 9.8 %; Mean Corpuscular Hemoglobin 28.9 pg (25.0-34.0); Mean Corpuscular Hgb Conc 33.7 g/dL (32.0-36.0); Mean Corpuscular Volume 85.9 fL (80.0-100.0); Mean Platelet Volume 9.9 fL (9.4-12.3); Monocytes # (auto) 0.97 K/uL (0.24-0.82); Monocytes % (auto) 9.6 %; Neutrophils # (auto) 7.93 K/uL (1.4-6.5); Neutrophils % (auto) 78.7 %; Platelet Count 274 K/uL (130-400); RDW Standard Deviation 44.2 fL (36.4-46.3); Red Blood Count 4.39 M/uL (3.93-5.22); White Blood Count 10.08 K/ul (4.8-10.8)
[2022-02-06 16:03] LABS: Alanine Aminotransferase 25 U/L (7-52); Albumin Globulin Ratio 1.4 (0.9-2); Albumin Level 3.7 gm/dl (3.4-5.0); Alkaline Phosphatase 144 U/L (34-104); Anion Gap 9 (3-11); Aspartate Aminotransferase 34 U/L (13-39); Blood Urea Nitrogen 16 mg/dl (6-23); Calcium 8.9 mg/dl (8.5-10.1); Carbon Dioxide 24 mmol/L (21-32); Chloride 108 mmol/L (98-107); Est GFR (African American) 49.5 ml/min; Est GFR (Non-African American) 42.7 ml/min; Globulin 2.7 gm/dl (2.5-4.0); Glucose 95 mg/dl (70-99(Fasting)); Potassium 4.1 mmol/L (3.5-5.1); Sodium 141 mmol/L (136-145); Total Protein 6.4 gm/dl (6.0-8.3)
--- NOTE | 2022-02-06 16:33 | Ultrasound Report ---
LEFT LOWER EXTREMITY VENOUS DOPPLER HISTORY: leg/calf pain COMPARISON STUDY: None. FINDINGS: Extensive thrombus seen within the left common femoral vein, superficial femoral vein, popl iteal vein, and calf veins with acute DVT. IMPRESSION: Extensive DVT within the left lower extremity. ACT 112: Negative or not required by law. Electronically signed by: Bruce Mo M.D. 02/06/2022 4:32 PM
--- NOTE | 2022-02-06 17:03 | Emergency Department Note ---
Impression & Plan Pulmonary embolism, DVT (deep venous thrombosis) ED Provider Note NAME: GENTRY RUIZ AGE: 61 SEX: F : 1960 ARRIVES VIA: Walk-In INFORMANT: Patient, ED PROVIDER(S): Mairo Rodriguez DO CHIEF COMPLAINT: Leg pain HPI: The patient is a 61-year-old female who presented to the emergency department for left leg pain. The patient notices left leg pain that goes from the medial aspect of her thigh into her calf. She does not have a history of DVT. She states she has had some generalized weakness but denies having any chest pain. She does note some slight shortness of breath with exertion. She is never had a history of clots in the lungs. She did have surgery in May but states that she has been recovering from that nicely. She has had no numbness in the leg. She denies have any recent trauma to the leg. She has not been seen by her primary care physician for the symptoms. She denies having any black or bloody bowels. She states that she has been compliant with her outpatient medications. ROS: See above HPI for pertinent positives & negatives. A total of 10 systems reviewed and were otherwise negative. PAST MEDICAL HISTORY: See Below PAST SURGICAL HISTORY: See Below FAMILY HISTORY: See Below SOCIAL HISTORY: See Below HOME MEDICATIONS: See Below ALLERGIES: See Below VITALS: See Below PHYSICAL EXAMINATION: GENERAL: Patient is awake alert in no acute distress patient is resting comfortably and showing no signs of anxiety EYES: The conjunctivae are clear. The pupils are round and reactive. EARS, NOSE, MOUTH AND THROAT: The nose is without any evidence of any deformity. Mucous membranes are moist. Tongue is midline. NECK: The neck is nontender and supple. RESPIRATORY: Normal respiratory effort is noted there is no evidence of wheezing rhonchi or rales CARDIOVASCULAR: Regular rate and rhythm noted there no murmurs rubs or gallops normal S1 normal S2. GASTROINTESTINAL: The abdomen is soft. Abdomen is nontender. MUSCULOSKELETAL/EXTREMITIES: There is no evidence of gross deformity full range of motion is noted in the hips and shoulders. SKIN: Pulses are symmetric in both feet. There is no significant erythema. There was pedal edema in the left foot as well as calf tenderness in the left leg. There were varicosities noted in the left leg. NEUROLOGIC: Patient is awake alert and oriented x3 MEDICAL DECISION MAKING: The patient is a 61-year-old female who presented to the emergency department for an evaluation of leg pain. The patient was found to have leg pain and swelling. Ultrasound was obtained which showed extensive DVT. She was not hypotensive or tachycardic but she did have some complaints of shortness of breath with exertion. Further laboratory and radiographic studies were obtained including CT of the chest. This was positive for bilateral PE with a significant clot burden. The patient was started on heparin in the emergency department. She was reevaluated multiple times. I discussed the patient's condition [facility] They have agreed to evaluate the patient in the emergency department for further management and disposition. Triage Nursing notes reviewed. Prior medical records reviewed Vital Signs: reviewed and remarkable for no significant abnormalities Differential diagnosis: DVT, musculoskeletal, infection, joint effusion, trauma, lymphedema, idiopathic, CHF, as well as other pathologies. ER treatment provided: See below Diagnostics interpreted by me: ECG: EKG was obtained in the emergency department. My interpretation is normal sinus rhythm at 84 bpm. There is no ectopy. Inferior and lateral ST d epressions were noted. This was compared to a tracing from June 01, 2021. No significant changes were noted. Cardiac Monitoring: An order was placed for continuous cardiac monitoring. The monitor shows a rate of 86 bpm with sinus rhythm. Laboratory studies: As stated above and show below. Imaging studies: See below Consultation(s): I discussed this case with Sadia who [facility]. ED COURSE: Procedures: none Critical Care: I have personally spent greater than 55 minutes of critical care time in the direct management of this patient. This includes bedside care, interpretation of diagnostic studies, and testing, discussion with consultants, patient, and family members, and other required patient management activities. This 55 minutes is in excess of all separately billable procedures. Past Med/Surg History Medical History Anxiety chronic, stable per pt, follows with a therapist and psychiatrist Bipolar disorder chronic, stable per pt, follows with a therapist and psychiatrist Cervical spinal stenosis Chronic back pain Chronic kidney disease stage 3 monitoring CKD (chronic kidney disease), stage III Degenerative disc disease Fibromyalgia GERD (gastroesophageal reflux disease) controlled, stable per pt Hypothyroidism Lumbar postlaminectomy syndrome L1-L5 Fusion OCD (obsessive compulsive disorder) Osteoarthritis Post traumatic stress disorder Presence of pessary Sacroiliitis Spinal stenosis Tobacco use Surgical History H/O eye surgery tear duct surgery (Left eye x2) H/O right knee surgery removal of right patella s/p revision of TKA; 2 meniscal repairs History of bilateral tubal ligation History of cholecystectomy History of colonoscopy History of revision of total replacement of left knee joint History of tonsillectomy History of total left knee replacement History of total right knee replacement S/P lumbar fusion fusion from L2 - L5 (3 separate surgeries) S/P GAGE (total abdominal hysterectomy) with Unilateral salping-oopherectomy Family History Other No pertinent family history in first degree relatives Social History Smoking Status: Current every day smoker Tobacco Type: Cigarettes Cigarettes Per Day: 6; Smoking End Date: Tdy; Second Hand Exposure: No; Do You Dip or Chew Tobacco: No; Tobacco Cessation Education Requested by Patient: No (Patient reports she is quitting and wont need help) Hx Alcohol Use: No Hx Substance Use: No Preferred Language: Slovenian Communication Ability: Effective Visual Impairment: Limited Hearing Ability: Normal Mds Manager Required: No Beliefs That Will Affect Care: None marital status: Current Living Situation: Spouse current occupational status: disabled Other Information That Helps Us Care for You: No Feels Safe at Home: Yes Assistive Devices: Bedside Commode, Cane, Glasses, Mechanical Lift and Walker Allergies Allergies Allergy/AdvReac Type Severity Reaction Status Date / Time oxybutynin [From Ditropan] Allergy Severe Anaphylaxis Verified 06/17/21 08:10 acetaminophen [From Tylenol] Allergy Mild Hives, Verified 06/17/21 08:10 itching, rash gabapentin AdvReac Intermediate EDEMA Verified 06/17/21 08:10 HANDS AND FEET Sulfa (Sulfonamide AdvReac Intermediate VOMITING Verified 06/17/21 08:10 Antibiotics) cariprazine [From Vraylar] AdvReac Mild sick Verified 06/17/21 08:10 Home Meds Home Medications Medication Instructions Recorded Confirmed lamotrigine 200 mg tablet 200 mg PO BID 03/07/18 02/06/22 (Lamictal) levothyroxine 75 mcg tablet 75 mcg PO QAM 03/07/18 02/06/22 (Synthroid) omega-3 fatty acids 1,000 mg 1,000 mg PO BID 03/07/18 02/06/22 capsule (Fish Oil Concentrate) baclofen 10 mg tablet 10 mg PO HS 03/08/18 02/06/22 clonazepam 1 mg tablet 1 mg PO HS 06/25/18 02/06/22 fluvoxamine 100 mg tablet 100 mg PO BID 06/25/18 02/06/22 multivit with 1 tab PO QAM 04/11/20 02/06/22 oojqptak-qhrx-IB-lutein 8 mg iron-400 mcg-300 mcg tablet (Centrum Silver Women) pantoprazole 40 mg tablet,delayed 40 mg PO QAM 04/20/20 02/06/22 release lurasidone 40 mg tablet (Latuda) 40 mg PO QPM 01/22/21 02/06/22 calcium carbonate 600 mg-vitamin 1 tab PO QAM 05/28/21 02/06/22 D3 10 mcg (400 unit) tablet (Calcium 600 + D(3)) cholecalciferol (vitamin D3) 50 50 mcg PO QAM 05/28/21 02/06/22 mcg (2,000 unit) capsule (Vitamin D3) Results & Data (ED) Vital Signs Vital Signs - 24 hr 02/06/22 14:56 02/06/22 17:28 Temperature 36.5 C Temperature Source Temporal Artery Scan Pulse Rate 95 H Pulse Rate [Right Finger] 81 Respiratory Rate 19 20 Respiratory Effort / Characteristics Non-Labored Spontaneous Non-Labored Respiratory Depth Normal Normal Blood Pressure 124/80 Blood Pressure [Right Arm] 130/80 Blood Pressure Mean 94 Blood Pressure Mean [Right Arm] 96 Pulse Oximetry 97 97 Oxygen Delivery Method Room Air Room Air Sepsis Recent Fever Within 48 Hours No Sepsis New/Unexplained Change in Mental Status N/A Sepsis Action Taken by Nursing No Action Required Home Medications Current Medication List: was personally reviewed by me Laboratory Data Attestation: I reviewed the patient's lab results. Result diagrams: 02/06/22 15:28 02/06/22 15:28 Lab Results 02/06/22 02/06/22 02/06/22 Range/Units 15:28 15:28 15:28 WBC 10.08 (4.8-10.8) K/ul RBC 4.39 (3.93-5.22) M/uL Hgb 12.7 (12.0-16.0) g/dl Hct 37.7 (34.1-44.9) % MCV 85.9 (80.0-100.0) fL MCH 28.9 (25.0-34.0) pg MCHC 33.7 (32.0-36.0) g/dL RDW Std Deviation 44.2 (36.4-46.3) fL RDW Coeff of Lane 14.0 (11.5-14.5) % Plt Count 274 (130-400) K/uL MPV 9.9 (9.4-12.3) fL Immature Gran % (Auto) 0.7 % Neut % (Auto) 78.7 % Lymph % (Auto) 9.8 % Tucker % (Auto) 9.6 % Eos % (Auto) 0.6 % Baso % (Auto) 0.6 % Neut # (Auto) 7.93 H (1.4-6.5) K/uL Lymph # (Auto) 0.99 L (1.2-3.4) K/uL Tucker # (Auto) 0.97 H (0.24-0.82) K/uL Eos # (Auto) 0.06 (0-0.50) K/uL Baso # (Auto) 0.06 (0-0.2) K/uL Immature Gran # (Auto) 0.07 H (0.00-0.02) K/uL PT 10.0 (9.0-12.0) Seconds INR 0.9 (0.9-1.1) APTT 28.2 (21.0-31.0) Seconds PTT Ratio 1.0 Sodium 141 (136-145) mmol/L Potassium 4.1 (3.5-5.1) mmol/L Chloride 108 H (98-107) mmol/L Carbon Dioxide 24 (21-32) mmol/L Anion Gap 9 (3-11) BUN 16 (6-23) mg/dl Creatinine 1.33 H (0.6-1.2) mg/dl Est Cr Clr Drug Dosing Not Reportable Est GFR ( Amer) 49.5 ml/min Est GFR (Non-Af Amer) 42.7 ml/min BUN/Creatinine Ratio 12.0 (10-20) Glucose 95 (70-99(Fasting)) mg/dl Calcium 8.9 (8.5-10.1) mg/dl Total Bilirubin 1.0 (0.2-1.0) mg/dl AST 34 (13-39) U/L ALT 25 (7-52) U/L Alkaline Phosphatase 144 H (34-104) U/L Troponin I High Sens (0-14) pg/ml Total Protein 6.4 (6.0-8.3) gm/dl Albumin 3.7 (3.4-5.0) gm/dl Globulin 2.7 (2.5-4.0) gm/dl Albumin/Globulin Ratio 1.4 (0.9-2) SARS-CoV-2, RNA, NAAT (NEGATIVE) 02/06/22 02/06/22 Range/Units 15:28 17:21 WBC (4.8-10.8) K/ul RBC (3.93-5.22) M/uL Hgb (12.0-16.0) g/dl Hct (34.1-44.9) % MCV (80.0-100.0) fL MCH (25.0-34.0) pg MCHC (32.0-36.0) g/dL RDW Std Deviation (36.4-46.3) fL RDW Coeff of Lane (11.5-14.5) % Plt Count (130-400) K/uL MPV (9.4-12.3) fL Immature Gran % (Auto) % Neut % (Auto) % Lymph % (Auto) % Tucker % (Auto) % Eos % (Auto) % Baso % (Auto) % Neut # (Auto) (1.4-6.5) K/uL Lymph # (Auto) (1.2-3.4) K/uL Tucker # (Auto) (0.24-0.82) K/uL Eos # (Auto) (0-0.50) K/uL Baso # (Auto) (0-0.2) K/uL Immature Gran # (Auto) (0.00-0.02) K/uL PT (9.0-12.0) Seconds INR (0.9-1.1) APTT (21.0-31.0) Seconds PTT Ratio Sodium (136-145) mmol/L Potassium (3.5-5.1) mmol/L Chloride (98-107) mmol/L Carbon Dioxide (21-32) mmol/L Anion Gap (3-11) BUN (6-23) mg/dl Creatinine (0.6-1.2) mg/dl Est Cr Clr Drug Dosing Est GFR ( Amer) ml/min Est GFR (Non-Af Amer) ml/min BUN/Creatinine Ratio (10-20) Glucose (70-99(Fasting)) mg/dl Calcium (8.5-10.1) mg/dl Total Bilirubin (0.2-1.0) mg/dl AST (13-39) U/L ALT (7-52) U/L Alkaline Phosphatase (34-104) U/L Troponin I High Sens 65.6 H* (0-14) pg/ml Total Protein (6.0-8.3) gm/dl Albumin (3.4-5.0) gm/dl Globulin (2.5-4.0) gm/dl Albumin/Globulin Ratio (0.9-2) SARS-CoV-2, RNA, NAAT NEGATIVE (NEGATIVE) Administered Medications Baclofen (Baclofen 10 Mg Tab) 10 mg PO HS [facility] Stop: 03/08/22 20:59 Last Admin: 02/06/22 20:39 Dose: 10 mg Documented By: REBECCA Clonazepam (Clonazepam 1 Mg Tab) 1 mg PO HS [facility] Stop: 03/08/22 20:59 Last Admin: 02/06/22 20:41 Dose: 1 mg Documented By: REBECCA Fluvoxamine Maleate (Fluvoxamine Maleate 50 Mg Tab) 100 mg PO BID [facility] Stop: 03/08/22 20:59 Last Admin: 02/06/22 20:39 Dose: 100 mg Documented By: REBECCA Heparin Sodium/Dextrose (Heparin Sodium/Dextrose) 25,000 units in 500 mls @ 27 mls/hr IV .[id number] [facility]; Protocol Stop: 03/08/22 17:29 Last Admin: 02/06/22 17:40 Dose: 1,350 units/hr, 27 mls/hr Documented By: ANDRES Co-signed By: HERSON Lamotrigine (Lamotrigine 100 Mg Tab) 200 mg PO BID [facility] Stop: 03/08/22 20:59 Last Admin: 02/06/22 20:38 Dose: 200 mg Documented By: REBECCA Lurasidone HCl (Lurasidone Hcl 40 Mg Tab) 40 mg PO QPM [facility] Stop: 03/08/22 20:59 Last Admin: 02/06/22 20:38 Dose: 40 mg Documented By: REBECCA Discontinued Medications Heparin Sodium (Porcine) (Heparin Sod (Porcine) 1000 Unit/Ml) 1 units IV NOW ONE Stop: 02/06/22 17:21 Last Admin: 02/06/22 17:39 Dose: 6,000 units Documented By: ANDRES Co-signed By: HERSON Heparin Sodium/Dextrose (Heparin Iv Adult Wt-Based Standard With Bolus Protocol) 1 each IV NOW [facility]; Protocol Stop: 02/06/22 17:06 Last Admin: 02/06/22 17:42 Dose: Not Given Documented By: ANDRES Heparin Sodium/Dextrose (Heparin Iv Adult Wt-Based Standard With Bolus Protocol) 1 each IV Q15M [facility]; Protocol Stop: 03/08/22 17:29 Last Admin: 02/06/22 19:56 Dose: Not Given Documented By: [facility] Admin: 02/06/22 19:56 Dose: Not Given Documented By: [facility] Admin: 02/06/22 19:56 Dose: Not Given Documented By: [facility] Admin: 02/06/22 18:22 Dose: Not Given Documented By: Admin: 02/06/22 18:20 Dose: Not Given Documented By: Admin: 02/06/22 18:20 Dose: Not Given Documented By: Admin: 02/06/22 18:19 Dose: Not Given Documented By: Admin: 02/06/22 17:43 Dose: Not Given Documented By: ANDRES Sodium Chloride (Nss 1000ml) 1,000 mls @ 999 mls/hr IV .Q1H1M ONE Stop: 02/06/22 18:16 Last Infusion: 02/06/22 18:21 Dose: 0 mls/hr Documented By: Admin: 02/06/22 17:44 Dose: 999 mls/hr Documented By: ANDRES Ioversol (Optiray 300 500ml) 98 ml IV ONCE ONE Stop: 02/06/22 17:10 Last Admin: 02/06/22 17:10 Dose: 98 ml Documented By: BJORN Ketorolac Tromethamine (Ketorolac Tromethamine 15 Mg/Ml Vial) 15 mg IV NOW [facility] Stop: 02/06/22 18:09 Last Admin: 02/06/22 18:20 Dose: 15 mg Documented By: ES Imaging Data Radiologist's Impression: Venous Doppler Study 02/06/22 14:59 LEFT LOWER EXTREMITY VENOUS DOPPLER HISTORY: leg/calf pain COMPARISON STUDY: None. FINDINGS: Extensive thrombus seen within the left common femoral vein, superficial femoral vein, popliteal vein, and calf veins with acute DVT. IMPRESSION: Extensive DVT within the left lower extremity. ACT 112: Negative or not required by law. Electronically signed by: Bruce Mo M.D. 02/06/2022 4:32 PM Chest CTA 02/06/22 16:40 CHEST CTA for PULMONARY ARTERIES CT DOSE: 451.32 mGy.cm HISTORY: Shortness of breath. Assess for pulmonary embolus. extensive DVT TECHNIQUE: Multiaxial CT images of the chest were performed following the int ravenous administration of contrast to evaluate the pulmonary arteries. Maximal intensity projection images were also obtained. A dose lowering technique was utilized adhering to the principles of ALARA. COMPARISON STUDY: Chest CTA 03/15/2018 FINDINGS: Partially visualized lower thoracic and lumbar spine posterior fusion hardware. Limited views of the upper abdomen demonstrate normal liver, spleen, and adrenal glands. There is a 2.4 cm exophytic hypodense lesion within the left kidney. This is difficult care does due to the streak artifact from the metallic hardware but favors a cyst. The thyroid gland enhances normally. Normal esophagus. No pleural or pericardial effusions. No mediastinal or hilar lymphadenopathy. The heart is normal in size. No evidence for right-sided heart strain. No evidence for an aortic dissection. Multiple scattered filling defects seen throughout the majority of the pulmonary arteries including the distal rig ht main pulmonary artery consistent with pulmonary emboli. No pneumothorax. The central airways are patent. Small linear scarlike densities within the periphery the right lower lobe are again noted. Otherwise, no new focal lung consolidations. IMPRESSION: Extensive bilateral pulmonary emboli. No evidence for right-sided heart strain. ACT 112: Negative or not required by law. Electronically signed by: Bruce Mo M.D. 02/06/2022 6:28 PM Discharge Plan Visit Data Chief Complaint: Calf Pain Stated Complaint: PAIN IN L CALF ED Provider: Mario Rodriguez Discharge Problem: Pulmonary embolism, DVT (deep venous thrombosis) Patient Disposition: Admitted As Inpatient Discharge Instructions Interventions: ED Discharge Assessment Last Done: 02/06/22 18:43 : Pulmonary embolism Qualifiers: Pulmonary embolism type: multiple subsegmental (without acute cor pulmonale) Qualified Code(s): I26.94 - Multiple subsegmental pulmonary emboli without acute cor pulmonale DVT (deep venous thrombosis) Qualifiers: DVT location: lower extremity Affected thrombotic vein of extremity: femoral Chronicity: acute Laterality: left Qualified Code(s): I82.412 - Acute embolism and thrombosis of left femoral vein
[2022-02-06] MEDS ORDERED: Heparin IV Adult Wt-Based Standard WITH Bolus Protocol IV STA (17:05)
[2022-02-06] MEDS ORDERED: OPTIRAY 300 500mL IV ONE (17:09)
[2022-02-06] MEDS ORDERED: SODIUM CHLORIDE 0.9% 1000ML 1,000 ML IV ONE (17:16)
[2022-02-06] MEDS ORDERED: HEPARIN SOD (PORCINE) 1000 UNIT/ML IV ONE (17:20)
[2022-02-06] MEDS ORDERED: HEPARIN SODIUM/DEXTROSE 25,000 UNITS/500 ML BAG IV SCH (17:30)
--- NOTE | 2022-02-06 17:40 | History & Physical Report ---
Date of Service February 06, 2022 Assessment & Plan (1) Pulmonary embolism: (2) DVT (deep venous thrombosis): (3) Elevated troponin: Plan: Patient is 61 y/o F with PMH bipolar disorder, anxiety, hypothyroidism, CKD III, GERD, tobacco use presented to ER with c/o left leg pain x 4 days. 6 days ago went on 2.5 hour car ride. Denies SOB, CP, dizziness, syncope, extremity erythema In ER pt afebrile, P: 95, 98% on RA. LLE Doppler: Extensive DVT within the left lower extremity CTA Chest: Extensive bilateral pulmonary emboli. No evidence for right-sided heart strain. EKG without acute ST elevation Troponin: 65 ?provoked vs unprovoked. 2.5 [address] car ride 2 days prior to symptom onset In ER Heparin IV started Continue Heparin IV Trend troponin Echo CBC, BMP in am (4) CKD (chronic kidney disease), stage III: Plan: Cr: 1.3. Baseline ~1.3 Monitor renal functions avoid nephrotoxic agents when possible (5) Bipolar disorder: (6) Anxiety: Plan: Continue fluvoxamine, clonazepam, lamotrigine, Latuda Recently was on Tegretol and developed rash. Tegretol was discontinued and rash is improving (7) GERD (gastroesophageal reflux disease): Plan: Patient reports increased reflux symptoms, have improved with diet modification Continue PPI (8) Hypothyroidism: Plan: Continue levothyroxine (9) Tobacco use: Plan: Smoking 1/4 ppd Denies nicotine patch. Voices incentive to quit smoking DVT Prophylaxis DVT/PE present on admission. On Heparin IV Full Code as per discussion with pt Follows with Dr Mistry for routine care Pt was seen and care coordinated with Dr Diaz. See addendum History of Present Illness Chief Complaint: Left leg pain Primary Care Provider: Leanne Mistry, DO Patient is 61 y/o F with PMH bipolar disorder, anxiety, hypothyroidism, CKD III, GERD, tobacco use presented to ER with c/o left leg pain x 4 days. Patient states 6 days ago went on 2.5 hour car ride. 4 days ago started with aching sensation to left calf that then radiated down leg and past 2 days radiated up to left groin. Thinks left leg looks a little more swollen. Denies any noted redness. Denies SOB, exertional SOB, CP. History spine surgery 05/2021. Denies history DVT/PE in past. Denies known family history of DVT/PE. Approximately 16 days ago was placed on Tegretol and few days after started with pruritic/burning rash to bilateral legs and Tegretol discontinued. The rash has since improved. Patient reports was having some cough and irritation sensation in her throat approximately 2 weeks ago. She has stopped drinking soda and coffee and cough and throat irritation have resolved. Denies fever/chills, diaphoresis, N/V/D/C, SPARKS, dizziness, syncope, vision changes, neck pain, mopped assist, orthopnea, palpitations, choking, otalgia, rhinorrhea, abdominal pain, paresthesias, weakness, urinary symptoms, weight loss, night sweats, melena, hematochezia, epistaxis, hematuria. In ER found to have extensive DVT to left lower extremity, bilateral PE and was started on heparin. Allergies Allergy/AdvReac Type Severity Reaction Status Date / Time oxybutynin [From Ditropan] Allergy Severe Anaphylaxis Verified 06/17/21 08:10 acetaminophen [From Tylenol] Allergy Mild Hives, Verified 06/17/21 08:10 itching, rash gabapentin AdvReac Intermediate EDEMA Verified 06/17/21 08:10 HANDS AND FEET Sulfa (Sulfonamide AdvReac Intermediate VOMITING Verified 06/17/21 08:10 Antibiotics) cariprazine [From Vraylar] AdvReac Mild sick Verified 06/17/21 08:10 Home Medications Medication Instructions Recorded Confirmed Type lamotrigine 200 mg tablet 200 mg PO BID 03/07/18 02/06/22 History (Lamictal) levothyroxine 75 mcg tablet 75 mcg PO QAM 03/07/18 02/06/22 History (Synthroid) omega-3 fatty acids 1,000 mg 1,000 mg PO BID 03/07/18 02/06/22 History capsule (Fish Oil Concentrate) baclofen 10 mg tablet 10 mg PO HS 03/08/18 02/06/22 History clonazepam 1 mg tablet 1 mg PO HS 06/25/18 02/06/22 History fluvoxamine 100 mg tablet 100 mg PO BID 06/25/18 02/06/22 History multivit with 1 tab PO QAM 04/11/20 02/06/22 History ogegptdk-kymn-IV-lutein 8 mg iron-400 mcg-300 mcg tablet (Centrum Silver Women) pantoprazole 40 mg tablet,delayed 40 mg PO QAM 04/20/20 02/06/22 History release lurasidone 40 mg tablet (Latuda) 40 mg PO QPM 01/22/21 02/06/22 History calcium carbonate 600 mg-vitamin 1 tab PO QAM 05/28/21 02/06/22 History D3 10 mcg (400 unit) tablet (Calcium 600 + D(3)) cholecalciferol (vitamin D3) 50 50 mcg PO QAM 05/28/21 02/06/22 History mcg (2,000 unit) capsule (Vitamin D3) Past Med/Surg History Medical History Anxiety chronic, stable per pt, follows with a therapist and psychiatrist Bipolar disorder chronic, stable per pt, follows with a therapist and psychiatrist Cervical spinal stenosis Chronic back pain Chronic kidney disease stage 3 monitoring CKD (chronic kidney disease), stage III Degenerative disc disease Fibromyalgia GERD (gastroesophageal reflux disease) controlled, stable per pt Hypothyroidism Lumbar postlaminectomy syndrome L1-L5 Fusion OCD (obsessive compulsive disorder) Osteoarthritis Post traumatic stress disorder Presence of pessary Sacroiliitis Spinal stenosis Tobacco use Surgical History H/O eye surgery tear duct surgery (Left eye x2) H/O right knee surgery removal of right patella s/p revision of TKA; 2 meniscal repairs History of bilateral tubal ligation History of cholecystectomy History of colonoscopy History of revision of total replacement of left knee joint History of tonsillectomy History of total left knee replacement History of total right knee replacement S/P lumbar fusion fusion from L2 - L5 (3 separate surgeries) S/P GAGE (total abdominal hysterectomy) with Unilateral salping-oopherectomy Family History Other No pertinent family history in first degree relatives Social History Smoking Status: Current every day smoker Tobacco Type: Cigarettes Cigarettes Per Day: 6; Smoking End Date: Tdy; Second Hand Exposure: No; Do You Dip or Chew Tobacco: No; Tobacco Cessation Education Requested by Patient: No (Patient reports she is quitting and wont need help) Hx Alcohol Use: No Hx Substance Use: No Preferred Language: [place] Communication Ability: Effective Visual Impairment: Limited Hearing Ability: Normal Hims Clerk Required: No Beliefs That Will Affect Care: None marital status: Current Living Situation: Spouse current occupational status: disabled Other Information That Helps Us Care for You: No Feels Safe at Home: Yes Assistive Devices: Bedside Commode, Cane, Glasses, Mechanical Lift and Walker Review of Systems Review of Systems: All systems reviewed & are unremarkable except as noted in HPI & below Physical Exam Physical Exam: General: no distress, WDWN Head: normocephalic, atraumatic Eyes: conjunctiva non-injected, anicteric ENT: normal inspection external ears, nose, mucous membranes moist Neck: supple, trachea midline Lungs: clear, no respiratory distress, no wheezing/rhonchi/rales CV: RRR, no murmur Abd: normal BS, soft, non-tender Ext: no cyanosis, no erythema, LLE: +larger size compared to RLE, +tenderness calf, medial thigh, distal pulses palpable Neuro: A&O x 3, no focal deficits noted, normal affect Skin: warm, dry, +scattered erythematous macules to bilateral lower legs Results & Data Results & Data ([facility]) Vital Signs (Past 12 Hours) Vital Signs Temp Pulse Pulse Resp BP BP Pulse Ox 02/06/22 17:28 81 20 130/80 97 02/06/22 14:56 36.5 C 95 H 19 124/80 97 O2 Del Method 02/06/22 17:28 Room Air 02/06/22 14:56 Room Air Laboratory Results Short CBC 02/06/22 Range/Units 15:28 WBC 10.08 (4.8-10.8) K/ul Hgb 12.7 (12.0-16.0) g/dl Hct 37.7 (34.1-44.9) % Plt Count 274 (130-400) K/uL BMP 02/06/22 15:28 Sodium 141 Potassium 4.1 Chloride 108 H Carbon Dioxide 24 BUN 16 Creatinine 1.33 H Glucose 95 Calcium 8.9 Liver Function 02/06/22 Range/Units 15:28 Total Bilirubin 1.0 (0.2-1.0) mg/dl AST 34 (13-39) U/L ALT 25 (7-52) U/L Alkaline Phosphatase 144 H (34-104) U/L Albumin 3.7 (3.4-5.0) gm/dl Diagnostic Findings Venous Doppler Study 02/06/22 14:59 LEFT LOWER EXTREMITY VENOUS DOPPLER HISTORY: leg/calf pain COMPARISON STUDY: None. FINDINGS: Extensive thrombus seen within the left common femoral vein, superficial femoral vein, popliteal vein, and calf veins with acute DVT. IMPRESSION: Extensive DVT within the left lower extremity. ACT 112: Negative or not required by law. Electronically signed by: Bruce Mo M.D. 02/06/2022 4:32 PM Chest CTA 02/06/22 16:40 CHEST CTA for PULMONARY ARTERIES CT DOSE: 451.32 mGy.cm HISTORY: Shortness of breath. Assess for pulmonary embolus. extensive DVT TECHNIQUE: Multiaxial CT images of the chest were performed following the intravenous administration of contrast to evaluate the pulmonary arteries. Maximal intensity projection images were also obtained. A dose lowering technique was utilized adhering to the principles of ALARA. COMPARISON STUDY: Chest CTA 03/15/2018 FINDINGS: Partially visualized lower thoracic and lumbar spine posterior fusion hardware. Limited views of the upper abdomen demonstrate normal liver, spleen, and adrenal glands. There is a 2.4 cm exophytic hypodense lesion within the left kidney. This is difficult care does due to the streak artifact from the metallic hardware but favors a cyst. The thyroid gland enhances normally. Normal esophagus. No pleural or pericardial effusions. No mediastinal or hilar lymphadenopathy. The heart is normal in size. No evidence for right-sided heart strain. No evidence for an aortic dissection. Multiple scattered filling defects seen throughout the majority of the pulmonary arteries including the distal right main pulmonary artery consistent with pulmonary emboli. No pneumothorax. The central airways are patent. Small linear scarlike densities within the periphery the right lower lobe are again noted. Otherwise, no new focal lung consolidations. IMPRESSION: Extensive bilateral pulmonary emboli. No evidence for right-sided heart strain. ACT 112: Negative or not required by law. Electronically signed by: Bruce Mo M.D. 02/06/2022 6:28 PM ECG Rate (beats per minute): 65 Rhythm: sinus rhythm Supervising Physician Co-Signing Physician Notes 61 yo F presented with an unprovoked DVT/PE. She did report some recent travel with a 3hr car ride, which may have contributed to this, but it is difficult to determine. She denies any chest pain, dyspnea at rest or on exertion but she is reporting some pain in her medial left thigh. Lungs are clear to auscultation and there is no evidence of heart failure on exam. Left leg is slightly more swollen than the right on exam but there is no edema. She has been placed on heparin for now. Hypercoagulable workup is pending. Cont to monitor on telemetry. Trend cardiac enzymes overnight. DO Joe (1) DVT (deep venous thrombosis) Affected thrombotic vein of extremity: femoral Chronicity: acute DVT location: lower extremity Laterality: left Qualified Code(s): I82.412 - Acute embolism and thrombosis of left femoral vein (2) Pulmonary embolism Pulmonary embolism type: multiple subsegmental (without acute cor pulmonale) Qualified Code(s): I26.94 - Multiple subsegmental pulmonary emboli without acute cor pulmonale
[2022-02-06] MEDS: Heparin IV Adult Wt-Based Standard WITH Bolus Protocol IV SCH ×5 (17:43→19:56)
[2022-02-06] MEDS ORDERED: KETOROLAC TROMETHAMINE 15 MG/ML VIAL IV STA (18:08)
[2022-02-06 18:30] LABS: INR 0.9 (0.9-1.1); Partial Thromboplastin Time 28.2 Seconds (21.0-31.0)
--- NOTE | 2022-02-06 18:31 | CT Scan Report ---
CHEST CTA for PULMONARY ARTERIES CT DOSE: 451.32 mGy.cm HISTORY: Shortness of breath. Assess for pulmonary embolus. extensive DVT TECHNIQUE: Multiaxial CT images of the chest were performed following the intravenous administration of contrast to evaluate the pulmonary arteries. Maximal intensity projection images were also obtaine d. A dose lowering technique was utilized adhering to the principles of ALARA. COMPARISON STUDY: Chest CTA 03/15/2018 FINDINGS: Partially visualized lower thoracic and lumbar spine posterior fusion hardware. Limited vie ws of the upper abdomen demonstrate normal liver, spleen, and adrenal glands. There is a 2.4 cm exoph ytic hypodense lesion within the left kidney. This is difficult care does due to the streak artifact from the metallic hardware but favors a cyst. The thyroid gland enhances normally. Normal esophagus. No pleural or pericardial effusions. No mediastinal or hilar lymphadenopathy. The heart is normal in size. No evidence for right-sided heart strain. No evidence for an aortic dissection. Multiple scatte red filling defects seen throughout the majority of the pulmonary arteries including the distal right main pulmonary artery consistent with pulmonary emboli. No pneumothorax. The central airways are pat ent. Small linear scarlike densities within the periphery the right lower lobe are again noted. Other araujo, no new focal lung consolidations. IMPRESSION: Extensive bilateral pulmonary emboli. No evidence for right-sided heart strain. ACT 112: Negative or not required by law. Electronically signed by: Bruce Mo M.D. 02/06/2022 6:28 PM
[2022-02-06] MEDS ORDERED: POLYETHYLENE (MIRALAX) 17 GM PACK PO PRN (19:01)
[2022-02-06] MEDS: lamoTRIgine 100 MG TAB PO SCH (20:38)
[2022-02-06] MEDS: fluvoxaMINE MALEATE 50 MG TAB PO SCH (20:39)
[2022-02-06] MEDS ORDERED: clonazePAM 1 MG TAB PO SCH (21:00)
[2022-02-06] MEDS ORDERED: BACLOFEN 10 MG TAB PO SCH (21:00)
[2022-02-06] MEDS ORDERED: LURASIDONE HCL 40 MG TAB PO SCH (21:00)
[2022-02-07 00:38] LABS: Partial Thromboplastin Ratio 2.5
[2022-02-07 00:41] LABS: Partial Thromboplastin Time 69.1 Seconds (21.0-31.0)
[2022-02-07 04:12] LABS: Hematocrit (blood only) 33.7 % (34.1-44.9); Hemoglobin 11.4 g/dl (12.0-16.0); Mean Corpuscular Hgb Conc 33.8 g/dL (32.0-36.0); Mean Corpuscular Volume 85.8 fL (80.0-100.0); Mean Platelet Volume 9.8 fL (9.4-12.3); Platelet Count 279 K/uL (130-400); RDW Standard Deviation 44.4 fL (36.4-46.3); Red Blood Count 3.93 M/uL (3.93-5.22)
[2022-02-07] MEDS ORDERED: KETOROLAC TROMETHAMINE 15 MG/ML VIAL IV ONE (04:49)
[2022-02-07] MEDS ORDERED: traMADol HCL 50 MG TABLET PO PRN (04:50)
[2022-02-07 04:52] LABS: BUN Creatinine Ratio 15.7 (10-20); Calcium 8.2 mg/dl (8.5-10.1); Creatinine Clr Calc Pharmacy 59.5 ml/min; Est GFR (African American) 59.1 ml/min; Potassium 3.5 mmol/L (3.5-5.1)
[2022-02-07] MEDS ORDERED: LEVOTHYROXINE SODIUM 75 MCG TABLET PO SCH (06:30)
[2022-02-07 07:30] LABS: Partial Thromboplastin Ratio 1.9
[2022-02-07] MEDS ORDERED: MULTIVITAMIN TAB PO SCH (09:00)
[2022-02-07] MEDS ORDERED: CALCIUM 600MG + VIT D 400 IU TAB PO SCH (09:00)
[2022-02-07] MEDS ORDERED: CHOLECALCIFEROL 1,000 UNITS 25 MCG TAB PO SCH (09:00)
[2022-02-07] MEDS ORDERED: PANTOprazole 40 MG TAB PO SCH (09:00)
[2022-02-07] MEDS: fluvoxaMINE MALEATE 50 MG TAB PO SCH (09:42)
[2022-02-07] MEDS: lamoTRIgine 100 MG TAB PO SCH (09:42)
[2022-02-07] MEDS ORDERED: APIXABAN 5 MG TABLET PO SCH (11:00)
--- NOTE | 2022-02-07 11:00 | Electrocardiogram Report ---
Test Reason : Blood Pressure : / mmHG Vent. Rate : 079 BPM Atrial Rate : 079 BPM P-R Int : 170 ms QRS Dur : 086 ms QT Int : 426 ms P-R-T Axes : 080 -06 010 degrees QTc Int : 488 ms Normal sinus rhythm Normal ECG When compared with ECG of 06-FEB-2022 17:19, No significant change was found Confirmed by Giovanni Tirado ([id number]) on 02/07/2022 10:59:48 AM Referred By: REFERRED SELF Confirmed By:Giovanni Tirado
--- NOTE | 2022-02-07 12:26 | Electrocardiogram Report ---
Test Reason : Blood Pressure : / mmHG Vent. Rate : 084 BPM Atrial Rate : 084 BPM P-R Int : 156 ms QRS Dur : 086 ms QT Int : 404 ms P-R-T Axes : 072 -16 014 degrees QTc Int : 477 ms Poor data quality, interpretation may be adversely affected Normal sinus rhythm Normal ECG When compared with ECG of 01-JUN-2021 11:42, T wave amplitude has decreased in Anterior leads Confirmed by Giovanni Tirado ([id number]) on 02/07/2022 12:25:49 PM Referred By: REFERRED SELF Confirmed By:Giovanni Tirado
--- NOTE | 2022-02-07 17:27 | Discharge Summary ---
Date of Service February 07, 2022 Admission HPI Per Admitting Provider Patient is 61 y/o F with PMH bipolar disorder, anxiety, hypothyroidism, CKD III, GERD, tobacco use presented to ER with c/o left leg pain x 4 days. Patient states 6 days ago went on 2.5 hour car ride. 4 days ago started with aching sensation to left calf that then radiated down leg and past 2 days radiated up to left groin. Thinks left leg looks a little more swollen. Denies any noted redness. Denies SOB, exertional SOB, CP. History spine surgery 05/2021. Denies history DVT/PE in past. Denies known family history of DVT/PE. Approximately 16 days ago was placed on Tegretol and few days after started with pruritic/burning rash to bilateral legs and Tegretol discontinued. The rash has since improved. Patient reports was having some cough and irritation sensation in her throat approximately 2 weeks ago. She has stopped drinking soda and coffee and cough and throat irritation have resolved. Denies fever/chills, diaphoresis, N/V/D/C, SPARKS, dizziness, syncope, vision changes, neck pain, mopped assist, orthopnea, palpitations, choking, otalgia, rhinorrhea, abdominal pain, paresthesias, weakness, urinary symptoms, weight loss, night sweats, melena, hematochezia, epistaxis, hematuria. In ER found to have extensive DVT to left lower extremity, bilateral PE and was started on heparin. Admission Exam Per Admitting Provider General: no distress, WDWN Head: normocephalic, atraumatic Eyes: conjunctiva non-injected, anicteric ENT: normal inspection external ears, nose, mucous membranes moist Neck: supple, trachea midline Lungs: clear, no respiratory distress, no wheezing/rhonchi/rales CV: RRR, no murmur Abd: normal BS, soft, non-tender Ext: no cyanosis, no erythema, LLE: +larger size compared to RLE, +tenderness calf, medial thigh, distal pulses palpable Neuro: A&O x 3, no focal deficits noted, normal affect Skin: warm, dry, +scattered erythematous macules to bilateral lower legs Principal Diagnosis Acute DVT LLE, Acute PE without cor pulmonale Discharge Exam General: Sitting comfortably in bed, not in distress, on room air HEENT: EOMI, GLENN, MMM Chest: Clear breath sounds bilaterally, no wheezes or crackles CVS: Regular rate and rhythm, normal heart sounds, no murmur Abdomen: Soft, non tender, not distended, normal bowel sounds Neuro: Awake, alert, oriented, conversing well, non focal Extremities: LLE swollen and painful compared to the right. Prior TKA scars noted. Discharge Data Allergies Allergy/AdvReac Type Severity Reaction Status Date / Time oxybutynin [From Ditropan] Allergy Severe Anaphylaxis Verified 06/17/21 08:10 acetaminophen [From Tylenol] Allergy Mild Hives, Verified 06/17/21 08:10 itching, rash gabapentin AdvReac Intermediate EDEMA Verified 06/17/21 08:10 HANDS AND FEET Sulfa (Sulfonamide AdvReac Intermediate VOMITING Verified 06/17/21 08:10 Antibiotics) cariprazine [From Vraylar] AdvReac Mild sick Verified 06/17/21 08:10 Consultations 02/06/22 17:16 ED Decision to Admit Stat Ordered Studies 02/06/22 14:59 US venous doppler LE LT Stat 02/06/22 16:40 CT angio chest PE protocol Stat Laboratory Results WBC 8.00 K/ul (4.8-10.8) 02/07/22 03:55 RBC 3.93 M/uL (3.93-5.22) 02/07/22 03:55 Hgb 11.4 g/dl (12.0-16.0) L 02/07/22 03:55 Hct 33.7 % (34.1-44.9) L 02/07/22 03:55 MCV 85.8 fL (80.0-100.0) 02/07/22 03:55 MCH 29.0 pg (25.0-34.0) 02/07/22 03:55 MCHC 33.8 g/dL (32.0-36.0) 02/07/22 03:55 RDW Std Deviation 44.4 fL (36.4-46.3) 02/07/22 03:[address] 14.0 % (11.5-14.5) 02/07/22 03:55 Plt Count 279 K/uL (130-400) 02/07/22 03:55 MPV 9.8 fL (9.4-12.3) 02/07/22 03:55 Immature Gran % (Auto) 0.7 % 02/06/22 15:28 Neut % (Auto) 78.7 % 02/06/22 15:28 Lymph % (Auto) 9.8 % 02/06/22 15:28 Gila % (Auto) 9.6 % 02/06/22 15:28 Eos % (Auto) 0.6 % 02/06/22 15:28 Baso % (Auto) 0.6 % 02/06/22 15:28 Neut # (Auto) 7.93 K/uL (1.4-6.5) H 02/06/22 15:28 Lymph # (Auto) 0.99 K/uL (1.2-3.4) L 02/06/22 15:28 Gila # (Auto) 0.97 K/uL (0.24-0.82) H 02/06/22 15:28 Eos # (Auto) 0.06 K/uL (0-0.50) 02/06/22 15:28 Baso # (Auto) 0.06 K/uL (0-0.2) 02/06/22 15:28 Immature Gran # (Auto) 0.07 K/uL (0.00-0.02) H 02/06/22 15:28 PT 10.0 Seconds (9.0-12.0) 02/06/22 15:28 INR 0.9 (0.9-1.1) 02/06/22 15:28 APTT 52.0 Seconds (21.0-31.0) H* 02/07/22 06:37 PTT Ratio 1.9 02/07/22 06:37 Sodium 139 mmol/L (136-145) 02/07/22 03:55 Potassium 3.5 mmol/L (3.5-5.1) 02/07/22 03:55 Chloride 109 mmol/L (98-107) H 02/07/22 03:55 Carbon Dioxide 22 mmol/L (21-32) 02/07/22 03:55 Anion Gap 8 (3-11) 02/07/22 03:55 BUN 18 mg/dl (6-23) 02/07/22 03:55 Creatinine 1.15 mg/dl (0.6-1.2) 02/07/22 03:55 Est Cr Clr Drug Dosing 59.5 ml/min 02/07/22 03:55 Est GFR ( Amer) 59.1 ml/min 02/07/22 03:55 Est GFR (Non-Af Amer) 51.0 ml/min 02/07/22 03:55 BUN/Creatinine Ratio 15.7 (10-20) 02/07/22 03:55 Glucose 143 mg/dl (70-99(Fasting)) H 02/07/22 03:55 Calcium 8.2 mg/dl (8.5-10.1) L 02/07/22 03:55 Total Bilirubin 1.0 mg/dl (0.2-1.0) 02/06/22 15:28 AST 34 U/L (13-39) 02/06/22 15:28 ALT 25 U/L (7-52) 02/06/22 15:28 Alkaline Phosphatase 144 U/L (34-104) H 02/06/22 15:28 Troponin I High Sens 41.8 pg/ml (0-14) H 02/07/22 08:49 Total Protein 6.4 gm/dl (6.0-8.3) 02/06/22 15:28 Albumin 3.7 gm/dl (3.4-5.0) 02/06/22 15:28 Globulin 2.7 gm/dl (2.5-4.0) 02/06/22 15:28 Albumin/Globulin Ratio 1.4 (0.9-2) 02/06/22 15:28 SARS-CoV-2, RNA, NAAT NEGATIVE (NEGATIVE) 02/06/22 17:21 Impressions Venous Doppler Study 02/06/22 14:59 LEFT LOWER EXTREMITY VENOUS DOPPLER HISTORY: leg/calf pain COMPARISON STUDY: None. FINDINGS: Extensive thrombus seen within the left common femoral vein, superficial femoral vein, popliteal vein, and calf veins with acute DVT. IMPRESSION: Extensive DVT within the left lower extremity. ACT 112: Negative or not required by law. Electronically signed by: Bruce Mo M.D. 02/06/2022 4:32 PM Chest CTA 02/06/22 16:40 CHEST CTA for PULMONARY ARTERIES CT DOSE: 451.32 mGy.cm HISTORY: Shortness of breath. Assess for pulmonary embolus. extensive DVT TECHNIQUE: Multiaxial CT images of the chest were performed following the intravenous administration of contrast to evaluate the pulmonary arteries. Maximal intensity projection images were also obtained. A dose lowering technique was utilized adhering to the principles of ALARA. COMPARISON STUDY: Chest CTA 03/15/2018 FINDINGS: Partially visualized lower thoracic and lumbar spine posterior fusion hardware. Limited views of the upper abdomen demonstrate normal liver, spleen, and adrenal glands. There is a 2.4 cm exophytic hypodense lesion within the left kidney. This is difficult care does due to the streak artifact from the metallic hardware but favors a cyst. The thyroid gland enhances normally. Normal esophagus. No pleural or pericardial effusions. No mediastinal or hilar lymphadenopathy. The heart is normal in size. No evidence for right-sided heart strain. No evidence for an aortic dissection. Multiple scattered filling defects seen throughout the majority of the pulmonary arteries including the distal right main pulmonary artery consistent with pulmonary emboli. No pneumothorax. The central airways are patent. Small linear scarlike densities within the periphery the right lower lobe are again noted. Otherwise, no new focal lung consolidations. IMPRESSION: Extensive bilateral pulmonary emboli. No evidence for right-sided heart strain. ACT 112: Negative or not required by law. Electronically signed by: Bruce Mo M.D. 02/06/2022 6:28 PM Hospital Course (1) Pulmonary embolism: (2) DVT (deep venous thrombosis): Plan Patient presented to the ED yesterday with increasing LLE pain which started 1 day after her 5 hr back and forth car ride to [facility]. She was found to have LLE DVT. Also found to have bilateral PE without saddle PE or cor pulmonale. Trop mildly elevated but CT and echo does not show right heart strain. She was started on heparin drip and changed to eliquis today- copay of $0. Hypercoag work up pending which she will need to follow up with PCP. This is her first episode of DVT/PE- possibly provoked from her recent travel- in which case would need 3-6 months of eliquis but will defer to PCP for further management pending the pending labs. She is hemodynamically stable and saturating well in room air and with ambulation. She is comfortable and stable for discharge home. Discharge instructions reviewed in detail at bedside. Total Time Total Time Spent Total Time Spent (In Minutes): 40 Discharge Plan Discharge Items Patient Disposition: Home - Self-Care Reason For Visit: DVT Discharge Diagnosis: Acute DVT/PE without cor pulmonale Activity: Resume your previous activity Non-emergency contact: Primary Care Provider Call non-emergency contact if: you have any medication questions, your symptoms worsen and your pain is concerning for you Follow-up/Referrals: Leanne Mistry, [Primary Care Provider] - (Date & Time 02/15/2022 4:40 PM Provider Dayanara Augustine PA-C Department [facility] ) Diet: Regular Addtl Attending Provider Instructions: You have blood clot in your left leg and the lung Continue eliquis 2 tabs twice daily starting tonight for 1 week, then 1 tab twice daily for at least 3-6 months. Follow up with family doctor regarding the pending blood work results for hyperc oagulability Follow up with family doctor regarding final duration of the blood thinner Take it easy for the next week given the amount of blood clots you have. Don't overexert yourself. Pending Studies at Discharge: Yes (hypercoagulable work up) Stand-Alone Forms: My [facility] [employer], Smoking Cessation Medications and DC Order Prescriptions: New Eliquis 5 mg (74 tabs) tablets,dose pack 5 mg PO Q12H Qty: 74 0RF Continued lamotrigine [Lamictal] 200 mg tablet 200 mg PO BID omega-3 fatty acids [Fish Oil Concentrate] 1,000 mg capsule 1,000 mg PO BID levothyroxine [Synthroid] 75 mcg tablet 75 mcg PO QAM Rx Instructions: TAKE THIS MEDICATION AT LEAST 30 MINUTES BEFORE BREAKFAST OR ANY OTHER MEDICATIONS baclofen 10 mg tablet 10 mg PO HS Latuda 40 mg tablet 40 mg PO QPM Rx Instructions: must administer with food (at least 350 calories) fluvoxamine 100 mg Tablet 100 mg PO BID clonazepam 1 mg Tablet 1 mg PO HS Centrum Silver Women 8 mg iron-400 mcg-300 mcg Tablet 1 tab PO QAM pantoprazole 40 mg tablet,delayed release (DR/EC) 40 mg PO QAM calcium carbonate-vitamin D3 [Calcium 600 + D(3)] 600 mg-10 mcg (400 unit) Tablet 1 tab PO QAM cholecalciferol (vitamin D3) [Vitamin D3] 50 mcg (2,000 unit) Capsule 50 mcg PO QAM Discharge Orders: Discharge Order (Routine); Ordered 02/07/22 Ordered By: Twin Tamayo Admission Data Admit Date/Time: 02/06/22 18:06 Attending Provider: Twin Tamayo Admit Provider: Vicenta Diaz Primary Care Provider: Leanne Mistry Other Providers: Vicenta Diaz Other Interventions: Discharge Summary Assessment (RN) Last Done: 02/07/22 13:37
[2022-02-12 01:21] LABS: Anti Cardiolipin Ab IgG <2.0 GPL-U/mL; Anti Cardiolipin Ab IgM <2.0 MPL-U/mL; Anti-Thrombin III Activity 106 % normal (80-135); B2 Glycoprotein IgG <2.0 U/mL (<20.0); B2 Glycoprotein IgM <2.0 U/mL (<20.0); PTT LA Screen 100 sec (<=40); Protein S Functional(Activity) 66 % (60-140)
[2022-02-12 08:01] LABS: Lupus Hex Phase (Rflxdonotord) Positive (Negative)
[2022-02-14] MEDS ORDERED: APIXABAN 5 MG TABLET PO SCH (09:00)
[2022-02-18 22:47] LABS: Factor 5 Mutation NEGATIVE
== END 2022-02-07 14:43 | disposition home or self-care (01) | DRG 299 ==
LOC: ED 14:52 → INTOOBSV 18:06 → 2S 18:06 → SUATTDRO 18:06 → 2S 18:43

== ENCOUNTER 2022-04-24 05:08 | Observation (INO) ==
[2022-04-24 05:50] LABS: Basophils # (auto) 0.03 K/uL (0-0.2); Basophils % (auto) 0.6 %; Eosinophils # (auto) 0.02 K/uL (0-0.50); Eosinophils % (auto) 0.4 %; Hematocrit (blood only) 45.5 % (34.1-44.9); Hemoglobin 15.2 g/dl (12.0-16.0); Immature Granulocytes # (auto) 0.01 K/uL (0.00-0.02); Immature Granulocytes % (auto) 0.2 %; Lymphocytes # (auto) 1.31 K/uL (1.2-3.4); Lymphocytes % (auto) 24.7 %; Mean Corpuscular Hemoglobin 30.1 pg (25.0-34.0); Mean Corpuscular Hgb Conc 33.4 g/dL (32.0-36.0); Mean Corpuscular Volume 90.1 fL (80.0-100.0); Mean Platelet Volume 10.3 fL (9.4-12.3); Monocytes # (auto) 0.35 K/uL (0.24-0.82); Monocytes % (auto) 6.6 %; Neutrophils # (auto) 3.58 K/uL (1.4-6.5); Neutrophils % (auto) 67.5 %; Platelet Count 237 K/uL (130-400); RDW Coefficient of Variation 14.2 % (11.5-14.5); Red Blood Count 5.05 M/uL (3.93-5.22)
[2022-04-24 06:02] LABS: Partial Thromboplastin Ratio 1.1; Partial Thromboplastin Time 30.8 Seconds (21.0-31.0); Prothrombin Time 10.4 Seconds (9.0-12.0)
[2022-04-24 06:21] LABS: Albumin Globulin Ratio 1.8 (0.9-2); Albumin Level 4.9 gm/dl (3.4-5.0); BUN Creatinine Ratio 12.7 (10-20); Bilirubin,Total 0.4 mg/dl (0.2-1.0); Calcium 9.8 mg/dl (8.5-10.1); Creatinine Clr Calc Pharmacy 48.4 ml/min; Est GFR (African American) 45.8 ml/min; Est GFR (Non-African American) 39.5 ml/min; Globulin 2.7 gm/dl (2.5-4.0); Magnesium 1.9 mg/dl (1.7-2.4); Potassium 3.3 mmol/L (3.5-5.1); Total Protein 7.6 gm/dl (6.0-8.3)
[2022-04-24 06:26] LABS: Troponin I High Sensitivity 4.8 pg/ml (0-14)
--- NOTE | 2022-04-24 06:51 | Emergency Department Note ---
History of Present Illness General Chief complaint: Stroke/CVA Symptoms Stated complaint: SIDE OF FACE NUMB, SHAKING, HEART PROBLEMS Time Seen by Provider: 04/24/22 06:32 Source: patient and family ( who is at the bedside) Mode of arrival: ambulatory Limitations: no limitations History of Present Illness This patient is a 61-year-old female who has a history of PE, chronic anticoagulation and anxiety comes in after waking up at 345 feeling short of breath and shaky she did noticed that the left side of her cheek was numb and felt like she got numb up into her head and also her left arm and leg. No weakness. She denies any difficulty speaking or swallowing but her says she may have slurred a few words no change in vision no fall or trauma she does take anticoagulation with Eliquis and takes it twice a day and in fact her last dose was this morning. Denies chest pain or shortness of breath at present. No abdominal pain no fever chills. No history of similar. She does have a history of anxiety but is never felt like this before Home Medications Medication Instructions Recorded Confirmed Type lamotrigine 200 mg tablet 200 mg PO BID 03/07/18 04/24/22 History (Lamictal) levothyroxine 75 mcg tablet 75 mcg PO QAM 03/07/18 04/24/22 History (Synthroid) omega-3 fatty acids 1,000 mg 1,000 mg PO BID 03/07/18 04/24/22 History capsule (Fish Oil Concentrate) baclofen 10 mg tablet 10 mg PO HS 03/08/18 04/24/22 History clonazepam 1 mg tablet 1 mg PO HS 06/25/18 04/24/22 History fluvoxamine 100 mg tablet 100 mg PO BID 06/25/18 04/24/22 History multivit with 1 tab PO QAM 04/11/20 04/24/22 History oftoiwhf-ctah-WE-lutein 8 mg iron-400 mcg-300 mcg tablet (Centrum Silver Women) pantoprazole 40 mg tablet,delayed 40 mg PO QAM 04/20/20 04/24/22 History release lurasidone 40 mg tablet (Latuda) 40 mg PO QPM 01/22/21 04/24/22 History calcium carbonate 600 mg-vitamin 1 tab PO QAM 05/28/21 04/24/22 History D3 10 mcg (400 unit) tablet (Calcium 600 + D(3)) cholecalciferol (vitamin D3) 50 50 mcg PO QAM 05/28/21 04/24/22 History mcg (2,000 unit) capsule (Vitamin D3) apixaban 5 mg (74 tabs) tablets in 5 mg PO Q12H #74 ea 02/07/22 04/24/22 Rx a dose pack (Eliquis) oxycodone 5 mg tablet 5 mg PO Q6 PRN pain #12 tabs 02/09/22 04/24/22 Rx Allergies Allergy/AdvReac Type Severity Reaction Status Date / Time oxybutynin [From Ditropan] Allergy Severe Anaphylaxis Verified 04/24/22 06:59 acetaminophen [From Tylenol] Allergy Mild Hives, Verified 04/24/22 06:59 itching, rash gabapentin AdvReac Intermediate EDEMA Verified 04/24/22 06:59 HANDS AND FEET Sulfa (Sulfonamide AdvReac Intermediate VOMITING Verified 04/24/22 06:59 Antibiotics) cariprazine [From Vraylar] AdvReac Mild sick Verified 04/24/22 06:59 Past Med/Surg History Medical History Anxiety chronic, stable per pt, follows with a therapist and psychiatrist Bipolar disorder chronic, stable per pt, follows with a therapist and psychiatrist Cervical spinal stenosis Chronic back pain Chronic kidney disease stage 3 monitoring CKD (chronic kidney disease), stage III Degenerative disc disease Fibromyalgia GERD (gastroesophageal reflux disease) controlled, stable per pt Hypothyroidism Lumbar postlaminectomy syndrome L1-L5 Fusion OCD (obsessive compulsive disorder) Osteoarthritis Post traumatic stress disorder Presence of pessary Sacroiliitis Spinal stenosis Tobacco use Surgical History H/O eye surgery tear duct surgery (Left eye x2) H/O right knee surgery removal of right patella s/p revision of TKA; 2 meniscal repairs History of bilateral tubal ligation History of cholecystectomy History of colonoscopy History of revision of total replacement of left knee joint History of tonsillectomy History of total left knee replacement History of total right knee replacement S/P lumbar fusion fusion from L2 - L5 (3 separate surgeries) S/P GAGE (total abdominal hysterectomy) with Unilateral salping-oopherectomy Family History Other No pertinent family history in first degree relatives Social History Smoking Status: Current every day smoker Tobacco Type: Cigarettes Cigarettes Per Day: 7; Second Hand Exposure: No; Do You Dip or Chew Tobacco: No; Tobacco Cessation Education Requested by Patient: No Hx Alcohol Use: No Hx Substance Use: No Preferred Language: Citizen Of [place] Communication Ability: Effective Visual Impairment: Limited Hearing Ability: Normal 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 Beliefs That Will Affect Care: None marital status: Current Living Situation: Spouse current occupational status: disabled How many Children do You have: 1 Other Information That Helps Us Care for You: No Feels Safe at Home: Yes Safety Concerns: Feels Safe At This Time Assistive Devices: Glasses Review of Systems A total of 10 systems reviewed and were otherwise negative Physical Exam Vital Signs Vital Signs - 24 hr 04/24/22 05:11 04/24/22 05:26 04/24/22 05:43 Temperature 36.6 C Temperature Source Temporal Artery Scan Pulse Rate 71 Pulse Rate [Finger] 59 L Pulse Rate from SpO2 Sensor Pulse Rhythm Regular Pulse Rhythm [Finger] Pulse Strength Normal Pulse Strength [Finger] Respiratory Rate 20 20 Respiratory Effort / Characteristics Non-Labored Respiratory Depth Normal Respiratory Pattern Blood Pressure 151/81 H Blood Pressure [Right Arm] 137/79 Blood Pressure Mean 104 Blood Pressure Mean [Right Arm] 98 Blood Pressure Position Sitting Pulse Oximetry 93 99 Oxygen Delivery Method Room Air Room Air Sepsis Recent Fever Within 48 Hours No Sepsis New/Unexplained Change in Mental Status N/A Sepsis Action Taken by Nursing No Action Required 04/24/22 06:18 04/24/22 07:03 04/24/22 05:45 Temperature Temperature Source Pulse Rate 60 Pulse Rate [Finger] 57 L 57 L Pulse Rate from SpO2 Sensor 60 Pulse Rhythm Pulse Rhythm [Finger] Regular Regular Pulse Strength Pulse Strength [Finger] Normal Normal Respiratory Rate 16 15 18 Respiratory Effort / Characteristics Non-Labored Spontaneous Non-Labored Spontaneous Respiratory Depth Normal Normal Respiratory Pattern Regular Blood Pressure Blood Pressure [Right Arm] 144/82 H 148/88 H Blood Pressure Mean Blood Pressure Mean [Right Arm] 102 108 Blood Pressure Position Pulse Oximetry 94 98 98 Oxygen Delivery Method Room Air Room Air Room Air Sepsis Recent Fever Within 48 Hours Sepsis New/Unexplained Change in Mental Status Sepsis Action Taken by Nursing 04/24/22 05:50 04/24/22 06:03 04/24/22 06:10 Temperature Temperature Source Pulse Rate 63 64 64 Pulse Rate [Finger] Pulse Rate from SpO2 Sensor 64 64 63 Pulse Rhythm Pulse Rhythm [Finger] Pulse Strength Pulse Strength [Finger] Respiratory Rate 17 19 18 Respiratory Effort / Characteristics Respiratory Depth Respiratory Pattern Blood Pressure Blood Pressure [Right Arm] Blood Pressure Mean Blood Pressure Mean [Right Arm] Blood Pressure Position Pulse Oximetry 97 96 96 Oxygen Delivery Method Room Air Room Air Room Air Sepsis Recent Fever Within 48 Hours Sepsis New/Unexplained Change in Mental Status Sepsis Action Taken by Nursing 04/24/22 06:20 04/24/22 06:30 04/24/22 06:30 Temperature Temperature Source Pulse Rate 60 58 L Pulse Rate [Finger] Pulse Rate from SpO2 Sensor 59 L 59 L Pulse Rhythm Pulse Rhythm [Finger] Pulse Strength Pulse Strength [Finger] Respiratory Rate 18 15 Respiratory Effort / Characteristics Respiratory Depth Respiratory Pattern Blood Pressure 138/84 Blood Pressure [Right Arm] Blood Pressure Mean 102 Blood Pressure Mean [Right Arm] Blood Pressure Position Pulse Oximetry 94 95 Oxygen Delivery Method Room Air Room Air Room Air Sepsis Recent Fever Within 48 Hours Sepsis New/Unexplained Change in Mental Status Sepsis Action Taken by Nursing 04/24/22 06:40 04/24/22 06:50 04/24/22 07:03 Temperature Temperature Source Pulse Rate 62 59 L 59 L Pulse Rate [Finger] Pulse Rate from SpO2 Sensor 63 60 59 L Pulse Rhythm Pulse Rhythm [Finger] Pulse Strength Pulse Strength [Finger] Respiratory Rate 18 17 18 Respiratory Effort / Characteristics Respiratory Depth Respiratory Pattern Blood Pressure Blood Pressure [Right Arm] Blood Pressure Mean Blood Pressure Mean [Right Arm] Blood Pressure Position Pulse Oximetry 97 98 98 Oxygen Delivery Method Room Air Room Air Room Air Sepsis Recent Fever Within 48 Hours Sepsis New/Unexplained Change in Mental Status Sepsis Action Taken by Nursing 04/24/22 07:10 04/24/22 07:20 04/24/22 07:30 Temperature Temperature Source Pulse Rate 58 L 58 L 60 Pulse Rate [Finger] Pulse Rate from SpO2 Sensor 58 L 58 L 60 Pulse Rhythm Pulse Rhythm [Finger] Pulse Strength Pulse Strength [Finger] Respiratory Rate 16 17 18 Respiratory Effort / Characteristics Respiratory Depth Respiratory Pattern Blood Pressure Blood Pressure [Right Arm] Blood Pressure Mean Blood Pressure Mean [Right Arm] Blood Pressure Position Pulse Oximetry 98 95 97 Oxygen Delivery Method Room Air Room Air Room Air Sepsis Recent Fever Within 48 Hours Sepsis New/Unexplained Change in Mental Status Sepsis Action Taken by Nursing 04/24/22 07:40 04/24/22 07:50 04/24/22 08:00 Temperature Temperature Source Pulse Rate 56 L 59 L 59 L Pulse Rate [Finger] Pulse Rate from SpO2 Sensor 57 L 59 L 60 Pulse Rhythm Pulse Rhythm [Finger] Pulse Strength Pulse Strength [Finger] Respiratory Rate 16 16 16 Respiratory Effort / Characteristics Respiratory Depth Respiratory Pattern Blood Pressure Blood Pressure [Right Arm] Blood Pressure Mean Blood Pressure Mean [Right Arm] Blood Pressure Position Pulse Oximetry 97 95 94 Oxygen Delivery Method Room Air Room Air Room Air Sepsis Recent Fever Within 48 Hours Sepsis New/Unexplained Change in Mental Status Sepsis Action Taken by Nursing General: Well developed well nourished middle-aged female in no acute distress, breathing comfortably on room air. Normal speech, alert on x3 HEENT: Normal cephalic atraumatic. Pupils are equal round and reactive to light. Extraocular movements are intact. Oropharynx is pink with moist mucous membranes. No swelling of the mouth lips or tongue. Neck: Supple with a midline trachea. No meningeal signs or stiffness, no JVD or bruits. No Stridor. Chest: Clear to auscultation bilaterally. No wheezes or rhonchi. No increased work of breathing. Heart: Regular rate and rhythm without murmurs or gallops. Abdomen: Soft nontender, nondistended without rebound guarding or rigidity. Extremities: No cyanosis clubbing or edema. No calf tenderness or assymetry Spine/Back. Non tender to palpation. No CVA tenderness Skin: Good turgor without rashes. Neurologic exam: Cranial nerves two through 12 are intact. Motor and sensation are intact to sharp and dull throughout however she says the left side of her face arm and leg feel different than the right. Course Administered Medications Fluvoxamine Maleate (Fluvoxamine Maleate 50 Mg Tab) 100 mg PO BID [facility] Stop: 05/24/22 11:22 Last Admin: 04/24/22 12:42 Dose: Not Given Documented By: ABBIE Potassium Chloride/Sodium Chloride (Normal Saline W/20 Meq Kcl) 20 meq in 1,000 mls @ 75 mls/hr IV .[id number] [facility] Stop: 05/24/22 11:44 Last Admin: 04/24/22 13:09 Dose: 75 mls/hr Documented By: ABBIE Levothyroxine Sodium (Levothyroxine Sodium 75 Mcg Tablet) 75 mcg PO DAILYBB [facility] Stop: 05/24/22 11:22 Last Admin: 04/24/22 12:42 Dose: Not Given Documented By: ABBIE Pantoprazole Sodium (Pantoprazole 40 Mg Tab) 40 mg PO QAM [facility] Stop: 05/24/22 11:22 Last Admin: 04/24/22 12:42 Dose: Not Given Documented By: ABBIE Discontinued Medications Lorazepam (Lorazepam 0.5 Mg Tab) Confirm Administered Dose 0.5 mg .ROUTE .STK- MED ONE Stop: 04/24/22 10:06 Last Admin: 04/24/22 10:06 Dose: 0.5 mg Documented By: ANDRIA Lorazepam (Lorazepam 0.5 Mg Tab) 0.5 mg PO TODAY@1130 [facility] Stop: 04/24/22 14:00 Last Admin: 04/24/22 12:44 Dose: Not Given Documented By: ABBIE Potassium Chloride (Potassium Chloride Crtab 20 Meq Tabcr) 40 meq PO NOW [facility] Stop: 04/24/22 11:24 Last Admin: 04/24/22 12:41 Dose: 40 meq Documented By: ABBIE Medical Decision Making Differential Diagnosis Stroke, intracranial hemorrhage, anxiety, electrolyte or metabolic abnormality, cardiac disease, infection, Medical Records Attestation: I reviewed the patient's medical records. Home Medications Current Medication List: was personally reviewed by me Laboratory Data Attestation: I reviewed the patient's lab results. Result diagrams: 04/24/22 05:30 04/24/22 05:30 Lab Results 04/24/22 04/24/22 04/24/22 Range/Units 05:21 05:30 05:30 WBC 5.30 (4.8-10.8) K/ul RBC 5.05 (3.93-5.22) M/uL Hgb 15.2 (12.0-16.0) g/dl Hct 45.5 H (34.1-44.9) % MCV 90.1 (80.0-100.0) fL MCH 30.1 (25.0-34.0) pg MCHC 33.4 (32.0-36.0) g/dL RDW Std Deviation 47.0 H (36.4-46.3) fL RDW Coeff of Lane 14.2 (11.5-14.5) % Plt Count 237 (130-400) K/uL MPV 10.3 (9.4-12.3) fL Immature Gran % (Auto) 0.2 % Neut % (Auto) 67.5 % Lymph % (Auto) 24.7 % [place] % (Auto) 6.6 % Eos % (Auto) 0.4 % Baso % (Auto) 0.6 % Neut # (Auto) 3.58 (1.4-6.5) K/uL Lymph # (Auto) 1.31 (1.2-3.4) K/uL [place] # (Auto) 0.35 (0.24-0.82) K/uL Eos # (Auto) 0.02 (0-0.50) K/uL Baso # (Auto) 0.03 (0-0.2) K/uL Immature Gran # (Auto) 0.01 (0.00-0.02) K/uL PT 10.4 (9.0-12.0) Seconds INR 1.0 (0.9-1.1) APTT 30.8 (21.0-31.0) Seconds PTT Ratio 1.1 Sodium (136-145) mmol/L Potassium (3.5-5.1) mmol/L Chloride (98-107) mmol/L Carbon Dioxide (21-32) mmol/L Anion Gap (3-11) BUN (6-23) mg/dl Creatinine (0.6-1.2) mg/dl Est Cr Clr Drug Dosing ml/min Est GFR ( Amer) ml/min Est GFR (Non-Af Amer) ml/min BUN/Creatinine Ratio (10-20) Glucose (70-99(Fasting)) mg/dl POC Glucose 178 H (70-99) mg/dl Calcium (8.5-10.1) mg/dl Magnesium (1.7-2.4) mg/dl Total Bilirubin (0.2-1.0) mg/dl AST (13-39) U/L ALT (7-52) U/L Alkaline Phosphatase (34-104) U/L Troponin I High Sens (0-14) pg/ml Total Protein (6.0-8.3) gm/dl Albumin (3.4-5.0) gm/dl Globulin (2.5-4.0) gm/dl Albumin/Globulin Ratio (0.9-2) SARS-CoV-2, RNA, NAAT (NEGATIVE) 04/24/22 04/24/22 Range/Units 05:30 06:54 WBC (4.8-10.8) K/ul RBC (3.93-5.22) M/uL Hgb (12.0-16.0) g/dl Hct (34.1-44.9) % MCV (80.0-100.0) fL MCH (25.0-34.0) pg MCHC (32.0-36.0) g/dL RDW Std Deviation (36.4-46.3) fL RDW Coeff of Lane (11.5-14.5) % Plt Count (130-400) K/uL MPV (9.4-12.3) fL Immature Gran % (Auto) % Neut % (Auto) % Lymph % (Auto) % [place] % (Auto) % Eos % (Auto) % Baso % (Auto) % Neut # (Auto) (1.4-6.5) K/uL Lymph # (Auto) (1.2-3.4) K/uL [place] # (Auto) (0.24-0.82) K/uL Eos # (Auto) (0-0.50) K/uL Baso # (Auto) (0-0.2) K/uL Immature Gran # (Auto) (0.00-0.02) K/uL PT (9.0-12.0) Seconds INR (0.9-1.1) APTT (21.0-31.0) Seconds PTT Ratio Sodium 141 (136-145) mmol/L Potassium 3.3 L (3.5-5.1) mmol/L Chloride 105 (98-107) mmol/L Carbon Dioxide 28 (21-32) mmol/L Anion Gap 8 (3-11) BUN 18 (6-23) mg/dl Creatinine 1.42 H (0.6-1.2) mg/dl Est Cr Clr Drug Dosing 48.4 ml/min Est GFR ( Amer) 45.8 ml/min Est GFR (Non-Af Amer) 39.5 ml/min BUN/Creatinine Ratio 12.7 (10-20) Glucose 151 H (70-99(Fasting)) mg/dl POC Glucose (70-99) mg/dl Calcium 9.8 (8.5-10.1) mg/dl Magnesium 1.9 (1.7-2.4) mg/dl Total Bilirubin 0.4 (0.2-1.0) mg/dl AST 19 (13-39) U/L ALT 7 (7-52) U/L Alkaline Phosphatase 118 H (34-104) U/L Troponin I High Sens 4.8 D (0-14) pg/ml Total Protein 7.6 (6.0-8.3) gm/dl Albumin 4.9 (3.4-5.0) gm/dl Globulin 2.7 (2.5-4.0) gm/dl Albumin/Globulin Ratio 1.8 (0.9-2) SARS-CoV-2, RNA, NAAT NEGATIVE (NEGATIVE) Imaging Data Attestation: I personally reviewed and interpreted this imaging study as follows: My Impression: Head CTno hemorrhage or mass-effect Radiologist's Impression: Head CT 04/24/22 05:16 CT OF THE HEAD WITHOUT CONTRAST CLINICAL HISTORY: Stroke Like Symptoms. Facial numbness. Weakness. COMPARISON STUDY: Head CT October 18, 2020. CT DOSE: 687.98 mGy.cm TECHNIQUE: Helical axial images of the head were obtained without IV contrast. Automated exposure control was utilized for the study. A dose lowering technique was utilized adhering to the principles of ALARA. FINDINGS: No acute intracranial hemorrhage, midline shift or mass effect is present. Mild white matter hypodensities favor small vessel disease. The ventricular system is unremarkable. The basal cisterns are patent. No extra- axial collections are present. There are no findings to suggest acute dural sinus thrombosis or acute territorial infarct. No significant calvarial abnormalities are present. Visualized portions of the sinuses and mastoid air cells are clear. IMPRESSION: No acute intracranial findings. ACT 112: Negative or not required by law. Electronically signed by: Dale Tyler M.D. 04/24/2022 7:07 AM ECG Data Attestation: I personally reviewed and interpreted this ECG as follows: Indication: + bradycardia Rate (beats per minute): 58 Rhythm: + sinus bradycardia ECG [place]: + Normal ECG ST segments: + Normal ST segments ECG Findings: no PACs or no PVCs Comparison ECG Date: from (02/09/22) Change: no significant change MDM Narrative This patient comes in as described above. She has tingling on her left side. It started at 345. She is on chronic Eliquis and actually already took it today and would not be a thrombolytic candidate additionally her symptoms are very mild in fact when checked sharp and dull there intact but she subjectively feels different. It still is possible this is a stroke but could also be related to anxiety or other factors. Her blood work was obtained and was unremarkable. She was placed on a cardiac rehab nurse. Head CT was unremarkable. EKG was unremarkable as there is nursing electrolyte or metabolic abnormalities. Her symptoms are mild at this point but I am concerned that they are just on one side I do think she needs to be admitted/observed for stroke work-up I have consulted the [facility] to admit her for these measures. COVID testing was negative Continuous cardiac monitoring: Orders placed in EMR for continuous cardiac rehab nurse. Upon my interpretation patient noted to be in sinus bradycardia with a rate of 60 Impression & Plan Stroke-like symptoms, Anxiety, Left sided numbness, Lab test negative for COVID-19 virus Discharge Plan Visit Data Chief Complaint: Stroke/CVA Symptoms Stated Complaint: SIDE OF FACE NUMB, SHAKING, HEART PROBLEMS ED Provider: Constantino Nunez Discharge Problem: Stroke-like symptoms, Anxiety, Left sided numbness, Lab test negative for COVID-19 virus Patient Disposition: Admitted As Inpatient Discharge Instructions Interventions: ED Discharge Assessment Last Done: 04/24/22 10:16
--- NOTE | 2022-04-24 07:09 | CT Scan Report ---
CT OF THE HEAD WITHOUT CONTRAST CLINICAL HISTORY: Stroke Like Symptoms. Facial numbness. Weakness. COMPARISON STUDY: Head CT October 18, 2020. CT DOSE: 687.98 mGy.cm TECHNIQUE: Helical axial images of the head were obtained without IV contrast. Automated exposure con trol was utilized for the study. A dose lowering technique was utilized adhering to the principles o f ALARA. FINDINGS: No acute intracranial hemorrhage, midline shift or mass effect is present. Mild white matte r hypodensities favor small vessel disease. The ventricular system is unremarkable. The basal cistern s are patent. No extra-axial collections are present. There are no findings to suggest acute dural si nus thrombosis or acute territorial infarct. No significant calvarial abnormalities are present. Visu alized portions of the sinuses and mastoid air cells are clear. IMPRESSION: No acute intracranial findings. ACT 112: Negative or not required by law. Electronically signed by: Dale Tyler M.D. 04/24/2022 7:07 AM
[2022-04-24] MEDS ORDERED: LORazepam 0.5 MG TAB ONE (10:05)
[2022-04-24] MEDS ORDERED: PHARMACIST DISCHARGE MED REC CONSULT PRN (11:23)
[2022-04-24] MEDS ORDERED: POTASSIUM CHLORIDE CRTAB 20 MEQ TABCR PO STA (11:23)
--- NOTE | 2022-04-24 11:27 | Magnetic Resonance Report ---
MRI OF THE BRAIN WITHOUT CONTRAST CLINICAL HISTORY: LEFT FACIAL AND LEFT SIDED NUMBNESS COMPARISON STUDY: Head CT April 24, 2022 and October 18, 2020. TECHNIQUE: Utilizing a 1.5 [place] magnet and dedicated coil, multiplanar, multiecho imaging of the bra in was performed without IV contrast. FINDINGS: There are no foci of restricted diffusion to suggest acute infarct. No acute intracranial h emorrhage, midline shift or mass effect is present. Ventricular system is normal. Basal cisterns are patent. Flow-voids for the major intracranial vessels are present. No intracranial masses identified on this unenhanced exam. Numerous small white matter T2 hyperintense foci are noted. These favor smal l vessel disease. Calvarial signal is normal. There is no evidence for sinusitis. There is no mastoid fluid. Orbits are unremarkable on this unenhanced study. IMPRESSION: No acute intracranial findings. ACT 112: Negative or not required by law. Electronically signed by: Dale Tyler M.D. 04/24/2022 11:25 AM
--- NOTE | 2022-04-24 11:29 | Magnetic Resonance Report ---
MRA OF THE INTRACRANIAL CIRCULATION WITHOUT CONTRAST CLINICAL HISTORY: LEFT FACIAL AND LEFT SIDED NUMBNESS COMPARISON STUDY: Head CT October 18, 2020. Head CT performed earlier today. TECHNIQUE: Utilizing a 1.5 [place] magnet and 3-D [id number] technique, unenhanced MRA of the intra cranial circulation was obtained. FINDINGS: The bilateral M1, M2, A1 and A2 segments are patent. There is no central vessel occlusion. No intracranial aneurysm is identified. Left vertebral artery is dominant. No significant stenosis wi thin the intracranial vessels are present. Posterior circulation is intact. IMPRESSION: No intracranial aneurysm. No central vessel occlusion. ACT 112: Negative or not required by law. Electronically signed by: Dale Tyler M.D. 04/24/2022 11:27 AM
[2022-04-24] MEDS ORDERED: LORazepam 0.5 MG TAB PO SCH (11:30)
--- NOTE | 2022-04-24 11:34 | History & Physical Report ---
Date of Service April 24, 2022 Assessment & Plan (1) Left facial numbness: Plan: Patient is a 59-year-old female with a history of pulmonary embolism on Eliquis, CKD stage III, hypothyroidism, bipolar disorder, anxiety, other problems noted below presenting with left-sided facial numbness that started around 4 AM this morning. Left facial numbness, rule out acute CVA Possible complicated migraine CT head: No acute process Brain MRI: No acute intracranial findings. Brain MRA: No intracranial aneurysm. No central vessel occlusion. Patient already on Eliquis twice daily Continue for now Monitor blood pressure closely Neurology service consulted As needed Tylenol for headache PT and OT evaluation Mild hypokalemia Given oral potassium Mild acute kidney injury on CKD stage III Given IV fluids History of pulmonary embolism Diagnosed January 2020 Continue Eliquis 5 mg p.o. twice daily Hypothyroidism Continue levothyroxine 75 mcg daily History of bipolar disorder, anxiety disorder Continue Latuda, fluvoxamine, clonazepam DVT prophylaxis Already on Eliquis Disposition Anticipate return to home when medically stable plan of care discussed with patient in detail and at length all questions answered she is understanding, agreeable, comfortable with the plan of care Admission and Anticipated Discharge Date Admission Date: April 24, 2022 History of Present Illness Chief Complaint: Left-sided facial numbness that started around 4 AM Primary Care Provider: Leanne Mistry DO Patient is a 59-year-old female with a history of pulmonary embolism on Eliquis, CKD stage III, hypothyroidism, bipolar disorder, anxiety, other problems noted below presenting with left-sided facial numbness that started around 4 AM this morning. Patient states that she usually is awake around midnight. And stays awake until about early childhood education specialist and goes back to sleep. While awake around midnight today, she reports having left-sided headache which was then followed by left facial numbness. Patient reports being anxious about the facial numbness, then developed shaking of her arms mostly on the left side and bilateral lower leg shaking She also felt having some dizziness and loss of balance, but was able to ambulate properly to get into her car, to go to the ER. At the ER, patient's blood pressure slightly elevated, but otherwise vital signs stable. CT head no acute process. Patient already taking Eliquis, stroke alert not called. On exam, the patient was seen resting in bed, sitting up, awake and alert, oriented, answers questions appropriately. She reports that she still having left facial numbness, slight left-sided headache, but no other focal somatic symptoms. no chest pain, dyspnea, palpitations, dizziness No fevers or chills No other symptom Allergies Allergy/AdvReac Type Severity Reaction Status Date / Time oxybutynin [From Ditropan] Allergy Severe Anaphylaxis Verified 04/24/22 06:59 acetaminophen [From Tylenol] Allergy Mild Hives, Verified 04/24/22 06:59 itching, rash gabapentin AdvReac Intermediate EDEMA Verified 04/24/22 06:59 HANDS AND FEET Sulfa (Sulfonamide AdvReac Intermediate VOMITING Verified 04/24/22 06:59 Antibiotics) cariprazine [From Vraylar] AdvReac Mild sick Verified 04/24/22 06:59 Home Medications Medication Instructions Recorded Confirmed Type lamotrigine 200 mg tablet 200 mg PO BID 03/07/18 04/24/22 History (Lamictal) levothyroxine 75 mcg tablet 75 mcg PO QAM 03/07/18 04/24/22 History (Synthroid) omega-3 fatty acids 1,000 mg 1,000 mg PO BID 03/07/18 04/24/22 History capsule (Fish Oil Concentrate) baclofen 10 mg tablet 10 mg PO HS 03/08/18 04/24/22 History clonazepam 1 mg tablet 1 mg PO HS 06/25/18 04/24/22 History fluvoxamine 100 mg tablet 100 mg PO BID 06/25/18 04/24/22 History multivit with 1 tab PO QAM 04/11/20 04/24/22 History fxkrpaoy-oasb-OA-lutein 8 mg iron-400 mcg-300 mcg tablet (Centrum Silver Women) pantoprazole 40 mg tablet,delayed 40 mg PO QAM 04/20/20 04/24/22 History release lurasidone 40 mg tablet (Latuda) 40 mg PO QPM 01/22/21 04/24/22 History calcium carbonate 600 mg-vitamin 1 tab PO QAM 05/28/21 04/24/22 History D3 10 mcg (400 unit) tablet (Calcium 600 + D(3)) cholecalciferol (vitamin D3) 50 50 mcg PO QAM 05/28/21 04/24/22 History mcg (2,000 unit) capsule (Vitamin D3) apixaban 5 mg (74 tabs) tablets in 5 mg PO Q12H #74 ea 02/07/22 04/24/22 Rx a dose pack (Eliquis) oxycodone 5 mg tablet 5 mg PO Q6 PRN pain #12 tabs 02/09/22 04/24/22 Rx Past Med/Surg History Medical History Anxiety chronic, stable per pt, follows with a therapist and psychiatrist Bipolar disorder chronic, stable per pt, follows with a therapist and psychiatrist Cervical spinal stenosis Chronic back pain Chronic kidney disease stage 3 monitoring CKD (chronic kidney disease), stage III Degenerative disc disease Fibromyalgia GERD (gastroesophageal reflux disease) controlled, stable per pt Hypothyroidism Lumbar postlaminectomy syndrome L1-L5 Fusion OCD (obsessive compulsive disorder) Osteoarthritis Post traumatic stress disorder Presence of pessary Sacroiliitis Spinal stenosis Tobacco use Surgical History H/O eye surgery tear duct surgery (Left eye x2) H/O right knee surgery removal of right patella s/p revision of TKA; 2 meniscal repairs History of bilateral tubal ligation History of cholecystectomy History of colonoscopy History of revision of total replacement of left knee joint History of tonsillectomy History of total left knee replacement History of total right knee replacement S/P lumbar fusion fusion from L2 - L5 (3 separate surgeries) S/P GAGE (total abdominal hysterectomy) with Unilateral salping-oopherectomy Family History Other No pertinent family history in first degree relatives Social History Smoking Status: Current every day smoker Tobacco Type: Cigarettes Cigarettes Per Day: 6; Second Hand Exposure: No; Hx Alcohol Use: No Hx Substance Use: No Preferred Language: Yakut Communication Ability: Effective Visual Impairment: Limited Hearing Ability: Normal Animal Rides Manager Required: No Beliefs That Will Affect Care: None marital status: Current Living Situation: Spouse current occupational status: disabled How many Children do You have: 1 Feels Safe at Home: Yes Assistive Devices: None Review of Systems Review of Systems: all noted and negative except for above Physical Exam Physical Exam: General- oriented x 3, not in distress, speaks in sentences with no effort or accessory muscle use Head- atraumatic Eyes- PERRL, EOMI, anicteric ENT- oropharynx clear Neck- supple, no JVD, no adenopathy, no thyromegaly; carotids +2/2, no bruits appreciated Lungs- clear to auscultation bilaterally, no rales/wheezes Heart- normal rate, regular rhythm; no murmur, no gallop, no rub appreciated Abdomen- normal bowel sounds, nondistended, soft, nontender, no masses or hepatosplenomegaly Extremities- no pretibial edema, no calf tenderness; peripheral pulses intact Neuro- alert, oriented x 3; CN 2-12 grossly intact except for decreased sensation left face, 90%; motor 5/5 bilaterally;sensation 100% on the right, 90% on the left; no other gross focal neurologic deficits No pronator drift Skin- warm & dry Results & Data Results & Data ([facility]) Vital Signs (Past 12 Hours) Vital Signs Temp Pulse Pulse Resp BP BP Pulse Ox 04/24/22 10:16 04/24/22 10:00 59 L 15 04/24/22 09:50 54 L 04/24/22 09:40 60 17 04/24/22 09:30 59 L 11 L 98 04/24/22 09:30 129/87 04/24/22 09:20 60 14 99 04/24/22 09:10 63 14 99 04/24/22 09:00 61 21 100 04/24/22 08:50 60 13 99 04/24/22 08:40 57 L 15 95 04/24/22 08:30 61 19 96 04/24/22 08:30 134/85 04/24/22 08:20 60 16 96 04/24/22 08:10 56 L 15 95 04/24/22 08:00 59 L 16 94 04/24/22 07:50 59 L 16 95 04/24/22 07:40 56 L 16 97 04/24/22 07:30 60 18 97 04/24/22 07:20 58 L 17 95 04/24/22 07:10 58 L 16 98 04/24/22 07:03 59 L 18 98 04/24/22 06:50 59 L 17 98 04/24/22 06:40 62 18 97 04/24/22 06:30 58 L 15 95 04/24/22 06:30 138/84 04/24/22 06:20 60 18 94 04/24/22 06:10 64 18 96 04/24/22 06:03 64 19 96 04/24/22 05:50 63 17 97 04/24/22 05:45 60 18 98 04/24/22 07:03 57 L 15 148/88 H 98 04/24/22 06:18 57 L 16 144/82 H 94 04/24/22 05:43 59 L 20 137/79 99 04/24/22 05:26 04/24/22 05:11 36.6 C 71 20 151/81 H 93 O2 Del Method 04/24/22 10:16 Room Air 04/24/22 10:00 Room Air 04/24/22 09:50 Room Air 04/24/22 09:40 Room Air 04/24/22 09:30 Room Air 04/24/22 09:30 Room Air 04/24/22 09:20 Room Air 04/24/22 09:10 Room Air 04/24/22 09:00 Room Air 04/24/22 08:50 Room Air 04/24/22 08:40 Room Air 04/24/22 08:30 Room Air 04/24/22 08:30 Room Air 04/24/22 08:20 Room Air 04/24/22 08:10 Room Air 04/24/22 08:00 Room Air 04/24/22 07:50 Room Air 04/24/22 07:40 Room Air 04/24/22 07:30 Room Air 04/24/22 07:20 Room Air 04/24/22 07:10 Room Air 04/24/22 07:03 Room Air 04/24/22 06:50 Room Air 04/24/22 06:40 Room Air 04/24/22 06:30 Room Air 04/24/22 06:30 Room Air 04/24/22 06:20 Room Air 04/24/22 06:10 Room Air 04/24/22 06:03 Room Air 04/24/22 05:50 Room Air 04/24/22 05:45 Room Air 04/24/22 07:03 Room Air 04/24/22 06:18 Room Air 04/24/22 05:43 04/24/22 05:26 Room Air 04/24/22 05:11 Room Air all noted and reviewed including below Code Status & VTE Plan VTE Prophylaxis Plan VTE Prophylaxis will be ordered: Yes
[2022-04-24] MEDS: fluvoxaMINE MALEATE 50 MG TAB PO SCH ×2 (12:42→20:20)
[2022-04-24] MEDS: LEVOTHYROXINE SODIUM 75 MCG TABLET PO SCH (12:42)
[2022-04-24] MEDS: PANTOprazole 40 MG TAB PO SCH (12:42)
[2022-04-24] MEDS: NSS + 20MEQ KCL 20 MEQ/1,000 ML BAG IV SCH (13:09)
--- NOTE | 2022-04-24 14:03 | Electrocardiogram Report ---
Test Reason : Blood Pressure : / mmHG Vent. Rate : 058 BPM Atrial Rate : 058 BPM P-R Int : 168 ms QRS Dur : 092 ms QT Int : 482 ms P-R-T Axes : 038 000 043 degrees QTc Int : 473 ms Sinus bradycardia Otherwise normal ECG When compared with ECG of 09-FEB-2022 10:53, No significant change was found Confirmed by Miguel High ([id number]) on 04/24/2022 2:03:22 PM Referred By: Confirmed By:Miguel High
[2022-04-24] MEDS ORDERED: LORazepam 0.5 MG TAB PO STA (15:37)
[2022-04-24] MEDS ORDERED: GADOBUTROL 65ML VIAL IV ONE (18:09)
--- NOTE | 2022-04-24 18:30 | Magnetic Resonance Report ---
MR ANGIOGRAPHY OF THE NECK WITH AND WITHOUT CONTRAST CLINICAL HISTORY: LEFT FACIAL AND LEFT SIDED NUMBNESS COMPARISON STUDY: No previous studies for comparison. TECHNIQUE: Utilizing a 1.5 Florencia magnet and dedicated coil, unenhanced and contrast-enhanced MRA of t he neck was obtained. Intravenous injection of 8.5 cc of Gadavist was uneventful. FINDINGS: The bilateral common carotid, cervical internal carotid and vertebral arteries are patent. No stenosis or dissection within these vessels is identified. The left vertebral artery is dominant a nd patent. There is no aneurysm within the neck. IMPRESSION: Unremarkable MRA of the neck. No stenosis or dissection within the bilateral common drummond tid, cervical internal carotid or vertebral arteries. ACT 112: Negative or not required by law. Electronically signed by: Dale Tyler M.D. 04/24/2022 6:27 PM
[2022-04-24] MEDS: oxyCODONE HCL IR 5 MG TAB (IMMEDIATE RELEASE) PO PRN (19:36)
[2022-04-24] MEDS: APIXABAN 5 MG TABLET PO SCH (20:20)
[2022-04-24] MEDS: lamoTRIgine 100 MG TAB PO SCH (20:20)
[2022-04-24] MEDS ORDERED: LURASIDONE HCL 40 MG TAB PO SCH (21:00)
[2022-04-24] MEDS ORDERED: BACLOFEN 10 MG TAB PO SCH (21:00)
[2022-04-24] MEDS ORDERED: clonazePAM 1 MG TAB PO SCH (21:00)
[2022-04-25] MEDS: oxyCODONE HCL IR 5 MG TAB (IMMEDIATE RELEASE) PO PRN (00:54)
[2022-04-25] MEDS: NSS + 20MEQ KCL 20 MEQ/1,000 ML BAG IV SCH (03:19)
[2022-04-25] MEDS: LEVOTHYROXINE SODIUM 75 MCG TABLET PO SCH (03:20)
[2022-04-25 06:40] LABS: Basophils # (auto) 0.03 K/uL (0-0.2); Basophils % (auto) 0.8 %; Eosinophils # (auto) 0.04 K/uL (0-0.50); Eosinophils % (auto) 1.1 %; Hematocrit (blood only) 38.8 % (34.1-44.9); Hemoglobin 13.2 g/dl (12.0-16.0); Immature Granulocytes # (auto) 0.01 K/uL (0.00-0.02); Immature Granulocytes % (auto) 0.3 %; Lymphocytes # (auto) 1.39 K/uL (1.2-3.4); Lymphocytes % (auto) 38.1 %; Mean Corpuscular Hemoglobin 30.2 pg (25.0-34.0); Mean Corpuscular Volume 88.8 fL (80.0-100.0); Monocytes # (auto) 0.32 K/uL (0.24-0.82); Monocytes % (auto) 8.8 %; Neutrophils # (auto) 1.86 K/uL (1.4-6.5); Neutrophils % (auto) 50.9 %; Platelet Count 202 K/uL (130-400); RDW Coefficient of Variation 14.2 % (11.5-14.5); RDW Standard Deviation 45.8 fL (36.4-46.3); Red Blood Count 4.37 M/uL (3.93-5.22); White Blood Count 3.65 K/ul (4.8-10.8)
[2022-04-25 07:09] LABS: Calcium 8.1 mg/dl (8.5-10.1); Chol HDL Ratio 3.4 (0-5); Creatinine Clr Calc Pharmacy 62.4 ml/min; Est GFR (African American) 64.4 ml/min; Est GFR (Non-African American) 55.6 ml/min; Potassium 4.1 mmol/L (3.5-5.1)
[2022-04-25 07:30] LABS: Estimated Average Glucose 108 mg/dl; Hemoglobin A1C 5.4 % (4.5-5.6)
[2022-04-25] MEDS: APIXABAN 5 MG TABLET PO SCH (08:10)
[2022-04-25] MEDS: fluvoxaMINE MALEATE 50 MG TAB PO SCH (08:10)
[2022-04-25] MEDS: lamoTRIgine 100 MG TAB PO SCH (08:10)
[2022-04-25] MEDS: PANTOprazole 40 MG TAB PO SCH (08:10)
--- NOTE | 2022-04-25 10:03 | Neurology Consultation ---
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 All of these symptoms are either markedly improved or resolved. She is left with a little bit of left cheek dysesthesias ( no numbness on exam) and nonspecific gait disturbance. She has no focal neurologic findings, meningeal signs, or encephalopathy on exam. MRI of the brain showed no acute stroke. Therefore, I believe her event was either a TIA or a "complicated" migraine (typically you do not get a headache with a TIA or stroke). She does not have a history of migraines or significant headaches. The patient has a history of PE recently and is on Eliquis. MRI of the brain did show mild old small vessel ischemic disease. Anticoagulants will not typically prevent small vessel ischemic disease or TIAs related to this. MR angiography of the head and neck were unremarkable without vessel anomalies or stenoses. Total cholesterol was 155 and triglycerides 115. hemoglobin A1c was 5.4. The patient has a history of chronic pain in her joints and low back post multiple surgeries. she has bipolar and other psychiatric issues on multiple medications but I believe these are stable. Recommendations: 1. increase activity as able. 2. Consider 81 mg aspirin tablet daily to prevent small vessel ischemic disease and TIA. Adding this to Eliquis will likely increase her bruising /bleeding risks so this needs to be considered. 3. at this point, I see no need to do any more testing. 4. With a cholesterol of 155 a low-dose statin could be initiated, but she would not be a high-dose statin candidate. 5. I can follow up as an outpatient if desired. We could see her in 3-4 weeks with the PA in the office. Overall, I spent a total of 90 minutes with this case including review of records, review of MRI films, direct evaluation the patient at bedside, and discussion of the case with the patient and RN at bedside, and Dr. Perry, including differential diagnosis and treatment options History of Present Illness Reason for Consultation: Patient is a 61-year-old, who I was asked to see at the request of Dr. Perry, for neurologic consultation regarding left-sided numbness and dysesthesias and other symptoms. Requesting Physician: Dr. Perry Attending Physician: Lobo Perry MD History of Present Illness Patient has a history of degenerative joint issues with multiple surgeries on her knees and lumbar spine. She has had a fusion from L5 up to T to over the course of her surgeries. She has chronic low back pain and a restless leg syndrome type symptom where she can only sit or lay for so long and then she has to get up. She has a longstanding history of bipolar disorder, anxiety, and OCD, on multiple medications. This has been relatively stable as far as I can ascertain. In January of this year she had a left lower extremity DVT with pulmonary embolism and now is on Eliquis. Patient went to bed as usual on the evening of April 23. She got up at 12:30 a.m. on April 24 (as usual ) to get up and clean. Around 5 she noted that her balance was off a little bit although she did not fall. She had some numbness in the left face arm and leg and then had a headache on the left side. Her felt that her speech was slurred and she went to the emergency room. She arrived at 5:11 a.m., with a temperature of 36.6, respiratory rate 20 and comfortable, pulse 71 and regular, blood pressure 156/81, and O2 saturation 93%. She was not walking well (wobbly) and had the left-sided dysesthesias and numbness. She was still having a left-sided headache. Exam was otherwise unremarkable without any other focal neurologic findings and she did not have a left facial droop. CBC was unremarkable. Chem profile revealed a glucose 151 and a creatinine of 1.4. CT scan of the head was unremarkable. MRI of the brain showed no stroke. It did showed mild old nonspecific small vessel ischemic changes only. I reviewed these films. This morning, she has very little numbness left and only a little bit of residual in her left cheek. The arm and leg are resolved. Her headache has resolved. Her speech is back to normal. She feels that her walking is perhaps slightly wobbly still but much better than yesterday. She is in normal sinus rhythm in the 50s. Allergies Allergy/AdvReac Type Severity Reaction Status Date / Time oxybutynin [From Ditropan] Allergy Severe Anaphylaxis Verified 04/24/22 06:59 acetaminophen [From Tylenol] Allergy Mild Hives, Verified 04/24/22 06:59 itching, rash gabapentin AdvReac Intermediate EDEMA Verified 04/24/22 06:59 HANDS AND FEET Sulfa (Sulfonamide AdvReac Intermediate VOMITING Verified 04/24/22 06:59 Antibiotics) cariprazine [From Vraylar] AdvReac Mild sick Verified 04/24/22 06:59 Home Medications Medication Instructions Recorded Confirmed Type lamotrigine 200 mg tablet 200 mg PO BID 03/07/18 04/24/22 History (Lamictal) levothyroxine 75 mcg tablet 75 mcg PO QAM 03/07/18 04/24/22 History (Synthroid) omega-3 fatty acids 1,000 mg 1,000 mg PO BID 03/07/18 04/24/22 History capsule (Fish Oil Concentrate) baclofen 10 mg tablet 10 mg PO HS 03/08/18 04/24/22 History clonazepam 1 mg tablet 1 mg PO HS 06/25/18 04/24/22 History fluvoxamine 100 mg tablet 100 mg PO BID 06/25/18 04/24/22 History multivit with 1 tab PO QAM 04/11/20 04/24/22 History jlhckyoh-alhk-HC-lutein 8 mg iron-400 mcg-300 mcg tablet (Centrum Silver Women) pantoprazole 40 mg tablet,delayed 40 mg PO QAM 04/20/20 04/24/22 History release lurasidone 40 mg tablet (Latuda) 40 mg PO QPM 01/22/21 04/24/22 History calcium carbonate 600 mg-vitamin 1 tab PO QAM 05/28/21 04/24/22 History D3 10 mcg (400 unit) tablet (Calcium 600 + D(3)) cholecalciferol (vitamin D3) 50 50 mcg PO QAM 05/28/21 04/24/22 History mcg (2,000 unit) capsule (Vitamin D3) apixaban 5 mg (74 tabs) tablets in 5 mg PO Q12H #74 ea 02/07/22 04/24/22 Rx a dose pack (Eliquis) oxycodone 5 mg tablet 5 mg PO Q6 PRN pain #12 tabs 02/09/22 04/24/22 Rx Patient History Medical History Anxiety chronic, stable per pt, follows with a therapist and psychiatrist Bipolar disorder chronic, stable per pt, follows with a therapist and psychiatrist Cervical spinal stenosis Chronic back pain Chronic kidney disease stage 3 monitoring CKD (chronic kidney disease), stage III Degenerative disc disease Fibromyalgia GERD (gastroesophageal reflux disease) controlled, stable per pt Hypothyroidism Lumbar postlaminectomy syndrome L1-L5 Fusion OCD (obsessive compulsive disorder) Osteoarthritis Post traumatic stress disorder Presence of pessary Sacroiliitis Spinal stenosis Tobacco use Surgical History H/O eye surgery tear duct surgery (Left eye x2) H/O right knee surgery removal of right patella s/p revision of TKA; 2 meniscal repairs History of bilateral tubal ligation History of cholecystectomy History of colonoscopy History of revision of total replacement of left knee joint History of tonsillectomy History of total left knee replacement History of total right knee replacement S/P lumbar fusion fusion from L2 - L5 (3 separate surgeries) S/P GAGE (total abdominal hysterectomy) with Unilateral salping-oopherectomy Family History Mother , age 90 with multiple problems No problems noted. Father , age 86 with dementia and parkinsonism Dementia Parkinson disease Other No pertinent family history in first degree relatives Social History Smoking Status: Current every day smoker Tobacco Type: Cigarettes Cigarettes Per Day: 7; Second Hand Exposure: No; Do You Dip or Chew Tobacco: No; Tobacco Cessation Education Requested by Patient: No Hx Alcohol Use: No Hx Substance Use: No Preferred Language: Polish Communication Ability: Effective Visual Impairment: Limited Hearing Ability: Normal Side Panel Hanger Required: No Beliefs That Will Affect Care: None marital status: Current Living Situation: Spouse current occupational status: disabled current occupation: [id number] her low back, her knees, and her psychiatric conditions How many Children do You have: 1 Other Information That Helps Us Care for You: No Feels Safe at Home: Yes Safety Concerns: Feels Safe At This Time Assistive Devices: Glasses Review of Systems Constitutional: no fever, no fatigue and no weakness Eyes: no diplopia, no eye pain and no worsening vision Ear, Nose, Mouth, Throat: no ear pain, no tinnitus, no hearing loss, no dizziness, no snoring, no hoarseness and no dysphagia Respiratory: no cough and no dyspnea Cardiovascular: no chest pain, no palpitations and no lightheadedness Gastrointestinal: no abdominal pain, no nausea and no vomiting Genitourinary: no dysuria, no urinary frequency and no urinary incontinence Musculoskeletal: + back pain, + neck pain and + joint pain; no radicular pain and no myalgia Integumentary: no rash and no lesions Neurologic: + gait abnormality and + numbness; no localized weakness, no generalized weakness, no tingling, no tremor(s), no abnormal movements, no headache(s), no abnormal speech, no confusion and no memory loss Psychiatric: + depression and + anxiety; no irritability, no difficulty concentrating, no confusion and no hallucinations Endocrine: no fatigue and no flushing Hematologic / Lymphatic: no easy bleeding and no easy bruising Allergy / Immunological: no urticaria and no problem reported Exam (Neuro) Physical Exam: The patient is left-handed. The patient is awake, alert, and attentive. Speech is normal without any aphasia or dysarthria. The patient can name objects, repeat phrases, and has normal spontaneous speech. Mentation and thought processes are intact, with orientation to person, place and time, and normal fund of knowledge. Attention and concentration are normal. Mood and affect are normal and appropriate. General appearance and grooming are normal. Short and long-term memory are intact to conversation. Pupils are 3 mm bilaterally and reactive to light. Extraocular eye muscles are intact without nystagmus. Visual acuity and visual tabor seem normal grossly to confrontation. There are no deficits to sensation in the face in all 3 distributions of the fifth cranial nerve bilaterally. Corneal reflexes are positive bilaterally. Facial strength and symmetry was normal bilaterally. Hearing seems normal bilaterally. Palate moves well without asymmetry. There is normal sternocleidomastoid and trapezius (shoulder shrug) strength bilaterally. Tongue is midline with good strength bilaterally. Neck has a full range of motion without discomfort. There are no cervical bruits bilaterally. There are no cranial or ocular bruits. Heart is without murmur. There is a regular rhythm and rate. Cervical, thoracic, and lumbar spine are nontender to palpation. Gait is narrow based And very slow and cautious, limping favoring each leg. Stance eyes open was reasonable. With outstretched arms there is no drift. There are no resting, postural, or action tremors. There is no ataxia with finger to nose testing. There is good facility in the hands. No other abnormal involuntary movements are noted. Motor strength is 5/5 diffusely in the arms bilaterally including deltoids, biceps, triceps, brachioradialis, wrist flexors and extensors, magician/illusionist, and intrinsic hand muscles. Motor strength is 5/5 diffusely in the legs bilaterally including hip flexors, quadriceps, hamstrings, gastrocnemius, tibialis anterior, tibialis posterior, and Peroneii muscles. Toe extensors are normal and there is good bulk in the extensor digitorum brevis muscles bilaterally. The limbs have good tone without rigidity or spasticity. There is no atrophy noted in the muscles. Muscle bulk is normal, there is no tenderness to palpation, no myotonia to percussion, and no fasciculations seen. Sensory examination is intact to touch and pin throughout all 4 limbs diffusely. Reflexes are 1/4 in the biceps, triceps, brachioradialis, quadriceps, and Achilles tendons bilaterally. There is no clonus bilaterally. Toes are downgoing with plantar stimulation bilaterally. Peripheral pulses are present and of normal quality distally in all 4 limbs. There is no peripheral edema noted in the limbs. Results & Data ([facility]) Vital Signs (Past 12 Hours) Vital Signs Temp Pulse Pulse Resp BP Pulse Ox O2 Del Method 04/25/22 07:28 36.9 C 60 17 117/67 96 Room Air 04/25/22 03:28 36.9 C 56 L 18 154/76 H 93 Room Air 04/24/22 23:20 62 04/24/22 23:13 36.6 C 62 16 133/76 94 Room Air PG Care Time/CCT Total # of Minutes Spent Total Time Spent with Patient: Total time spent is greater than 50% in coordination of care (as documented) at patient's floor/unit and/or counseling patient: Coding Level of Care Code 03440 Initial Inpt Care Lvl 3 Diagnoses Left sided numbness R20.0 Left facial numbness R20.0 Dysarthria R47.1 Headache R51.9 Lumbar postlaminectomy syndrome M96.1 Bipolar disorder F31.9 Time Spent (min) 90 Comment Add modifiers as able
--- NOTE | 2022-04-25 12:19 | Hospitalist Progress Note ---
Date of Service April 25, 2022 Assessment & Plan (1) Left facial numbness: Plan: Patient is a 59-year-old female with a history of pulmonary embolism on Eliquis, CKD stage III, hypothyroidism, bipolar disorder, anxiety, other problems noted below presenting with left-sided facial numbness that started around 4 AM this morning. Left facial numbness, possibly secondary t to transient ischemic attack or TIA Possible complicated migraine CT head: No acute process Brain MRI: No acute intracranial findings. Brain MRA: No intracranial aneurysm. No central vessel occlusion. Telemetry monitoring: No arrhythmia Total cholesterol 155 Triglycerides 115 LDL 86 HDL 46 Neurology service consulted, patient examined by Dr. Rojas Left facial numbness felt to be possibly secondary to TIA Aspirin 81 mg p.o. daily Consider statin for cholesterol 155 Patient already on Eliquis twice daily Continue for now Mild hypokalemia Given oral potassium, resolved Mild acute kidney injury on CKD stage III Given IV fluids, resolved History of pulmonary embolism Diagnosed January 2020 Continue Eliquis 5 mg p.o. twice daily Hypothyroidism Continue levothyroxine 75 mcg daily History of bipolar disorder, anxiety disorder Continue Latuda, fluvoxamine, clonazepam DVT prophylaxis Already on Eliquis Disposition Discharge to home today Follow-up with PCP in 1 week plan of care discussed with patient in detail and at length all questions answered she is understanding, agreeable, comfortable with the plan of care Admission and Anticipated Discharge Date Admission Date: April 24, 2022 Subjective Follow-up for left-sided facial numbness, possible TIA, etc. Seen sitting up in bedside chair, comfortable, not in distress States she feels much better overall Left facial numbness has resolved No other focal neurologic deficits Ambulating with no problems no chest pain, dyspnea, palpitations, dizziness No fevers or chills No other symptoms No arrhythmia noted overnight Review of Systems Review of Systems: all noted and negative except for above Physical Exam Physical Exam: General- oriented x 3, not in distress, speaks in sentences with no effort or accessory muscle use Eyes- anicteric Neck- no JVD Lungs- clear breath sounds bilaterally, no rales/wheezes Heart- normal rate, regular rhythm; no murmurs Abdomen- normal bowel sounds, nondistended, soft, nontender Extremities- no pretibial edema, no calf tenderness Neuro- alert, oriented x 3; no gross focal neurologic deficits Skin- warm & dry Results & Data Results & Data ([facility]) Vital Signs (Past 12 Hours) Vital Signs Temp Pulse Resp BP Pulse Ox O2 Del Method 04/25/22 07:28 36.9 C 60 17 117/67 96 Room Air 04/25/22 03:28 36.9 C 56 L 18 154/76 H 93 Room Air all noted and reviewed including below
[2022-04-25] MEDS ORDERED: ASPIRIN 81 MG ECTAB PO SCH (12:30)
[2022-04-25] MEDS ORDERED: STROKE PATIENT DISCHARGE STA (12:32)
--- NOTE | 2022-04-25 13:13 | Discharge Summary ---
Discharge Summary Date of Service April 25, 2022 Notes For Next Care Provider Medication Changes From Visit New: Aspirin 81mg po daily Admission HPI Per Admitting Provider Patient is a 59-year-old female with a history of pulmonary embolism on Eliquis, CKD stage III, hypothyroidism, bipolar disorder, anxiety, other problems noted below presenting with left-sided facial numbness that started around 4 AM this morning. Patient states that she usually is awake around midnight. 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 While awake around midnight today, she reports having left-sided headache which was then followed by left facial numbness. Patient reports being anxious about the facial numbness, then developed shaking of her arms mostly on the left side and bilateral lower leg shaking She also felt having some dizziness and loss of balance, but was able to ambulate properly to get into her car, to go to the ER. At the ER, patient's blood pressure slightly elevated, but otherwise vital signs stable. CT head no acute process. Patient already taking Eliquis, stroke alert not called. On exam, the patient was seen resting in bed, sitting up, awake and alert, oriented, answers questions appropriately. She reports that she still having left facial numbness, slight left-sided headache, but no other focal somatic symptoms. no chest pain, dyspnea, palpitations, dizziness No fevers or chills No other symptom Admission Exam Per Admitting Provider General- oriented x 3, not in distress, speaks in sentences with no effort or accessory muscle use Head- atraumatic Eyes- PERRL, EOMI, anicteric ENT- oropharynx clear Neck- supple, no JVD, no adenopathy, no thyromegaly; carotids +2/2, no bruits appreciated Lungs- clear to auscultation bilaterally, no rales/wheezes Heart- normal rate, regular rhythm; no murmur, no gallop, no rub appreciated Abdomen- normal bowel sounds, nondistended, soft, nontender, no masses or hepatosplenomegaly Extremities- no pretibial edema, no calf tenderness; peripheral pulses intact Neuro- alert, oriented x 3; CN 2-12 grossly intact except for decreased sensation left face, 90%; motor 5/5 bilaterally;sensation 100% on the right, 90% on the left; no other gross focal neurologic deficits No pronator drift Skin- warm & dry Principal Dx & Hospital Course #1 = Principal Diagnosis (1) Left facial numbness: (1) Left facial numbness: Plan: Patient is a 59-year-old female with a history of pulmonary embolism on Eliquis, CKD stage III, hypothyroidism, bipolar disorder, anxiety, other problems noted below presenting with left-sided facial numbness that started around 4 AM this morning. Left facial numbness, possibly secondary t to transient ischemic attack or TIA Possible complicated migraine CT head: No acute process Brain MRI: No acute intracranial findings. Brain MRA: No intracranial aneurysm. No central vessel occlusion. Telemetry monitoring: No arrhythmia Total cholesterol 155 Triglycerides 115 LDL 86 HDL 46 Neurology service consulted, patient examined by Dr. Jimenez Left facial numbness felt to be possibly secondary to TIA Aspirin 81 mg p.o. daily Consider statin for cholesterol 155 Patient already on Eliquis twice daily Continue for now Mild hypokalemia Given oral potassium, resolved Mild acute kidney injury on CKD stage III Given IV fluids, resolved History of pulmonary embolism Diagnosed January 2020 Continue Eliquis 5 mg p.o. twice daily Hypothyroidism Continue levothyroxine 75 mcg daily History of bipolar disorder, anxiety disorder Continue Latuda, fluvoxamine, clonazepam DVT prophylaxis Already on Eliquis Disposition Discharge to home today Follow-up with PCP in 1 week plan of care discussed with patient in detail and at length all questions answered she is understanding, agreeable, comfortable with the plan of care Discharge Exam General- oriented x 3, not in distress, speaks in sentences with no effort or accessory muscle use Eyes- anicteric Neck- no JVD Lungs- clear breath sounds bilaterally, no rales/wheezes Heart- normal rate, regular rhythm; no murmurs Abdomen- normal bowel sounds, nondistended, soft, nontender Extremities- no pretibial edema, no calf tenderness Neuro- alert, oriented x 3; no gross focal neurologic deficits Skin- warm & dry Updated Medication List Medication Instructions Recorded Confirmed Type lamotrigine 200 mg tablet 200 mg PO BID 03/07/18 04/24/22 History (Lamictal) levothyroxine 75 mcg tablet 75 mcg PO QAM 03/07/18 04/24/22 History (Synthroid) omega-3 fatty acids 1,000 mg 1,000 mg PO BID 03/07/18 04/24/22 History capsule (Fish Oil Concentrate) baclofen 10 mg tablet 10 mg PO HS 03/08/18 04/24/22 History clonazepam 1 mg tablet 1 mg PO HS 06/25/18 04/24/22 History fluvoxamine 100 mg tablet 100 mg PO BID 06/25/18 04/24/22 History multivit with 1 tab PO QAM 04/11/20 04/24/22 History alqjteah-arlq-JZ-lutein 8 mg iron-400 mcg-300 mcg tablet (Centrum Silver Women) pantoprazole 40 mg tablet,delayed 40 mg PO QAM 04/20/20 04/24/22 History release lurasidone 40 mg tablet (Latuda) 40 mg PO QPM 01/22/21 04/24/22 History calcium carbonate 600 mg-vitamin 1 tab PO QAM 05/28/21 04/24/22 History D3 10 mcg (400 unit) tablet (Calcium 600 + D(3)) cholecalciferol (vitamin D3) 50 50 mcg PO QAM 05/28/21 04/24/22 History mcg (2,000 unit) capsule (Vitamin D3) apixaban 5 mg (74 tabs) tablets in 5 mg PO Q12H #74 ea 02/07/22 04/24/22 Rx a dose pack (Eliquis) oxycodone 5 mg tablet 5 mg PO Q6 PRN pain #12 tabs 02/09/22 04/24/22 Rx aspirin 81 mg tablet,delayed 81 mg PO QAM 30 days #30 tabs 04/25/22 Rx release lamotrigine 100 mg tablet 150 mg PO BID #30 tabs 04/25/22 Rx Hospital Stay Data Consultations 04/24/22 07:52 ED Decision to Admit Stat 04/24/22 11:23 Consult Neurology Routine Diagnostic Imagining Performed Head CT 04/24/22 05:16 CT OF THE HEAD WITHOUT CONTRAST CLINICAL HISTORY: Stroke Like Symptoms. Facial numbness. Weakness. COMPARISON STUDY: Head CT October 18, 2020. CT DOSE: 687.98 mGy.cm TECHNIQUE: Helical axial images of the head were obtained without IV contrast. Automated exposure control was utilized for the study. A dose lowering technique was utilized adhering to the principles of ALARA. FINDINGS: No acute intracranial hemorrhage, midline shift or mass effect is present. Mild white matter hypodensities favor small vessel disease. The ventricular system is unremarkable. The basal cisterns are patent. No extra- axial collections are present. There are no findings to suggest acute dural sinus thrombosis or acute territorial infarct. No significant calvarial abnormalities are present. Visualized portions of the sinuses and mastoid air cells are clear. IMPRESSION: No acute intracranial findings. ACT 112: Negative or not required by law. Electronically signed by: Dale Tyler M.D. 04/24/2022 7:07 AM Brain MRI 04/24/22 08:04 MRI OF THE BRAIN WITHOUT CONTRAST CLINICAL HISTORY: LEFT FACIAL AND LEFT SIDED NUMBNESS COMPARISON STUDY: Head CT April 24, 2022 and October 18, 2020. TECHNIQUE: Utilizing a 1.5 [place] magnet and dedicated coil, multiplanar, multiecho imaging of the brain was performed without IV contrast. FINDINGS: There are no foci of restricted diffusion to suggest acute infarct. No acute intracranial hemorrhage, midline shift or mass effect is present. Ventricular system is normal. Basal cisterns are patent. Flow-voids for the major intracranial vessels are present. No intracranial masses identified on this unenhanced exam. Numerous small white matter T2 hyperintense foci are noted. These favor small vessel disease. Calvarial signal is normal. There is no evidence for sinusitis. There is no mastoid fluid. Orbits are unremarkable on this unenhanced study. IMPRESSION: No acute intracranial findings. ACT 112: Negative or not required by law. Electronically signed by: Dale Tyler M.D. 04/24/2022 11:25 AM Head MRA 04/24/22 08:04 MRA OF THE INTRACRANIAL CIRCULATION WITHOUT CONTRAST CLINICAL HISTORY: LEFT FACIAL AND LEFT SIDED NUMBNESS COMPARISON STUDY: Head CT October 18, 2020. Head CT performed earlier today. TECHNIQUE: Utilizing a 1.5 Florencia magnet and 3-D [id number] technique, unenhanced MRA of the intracranial circulation was obtained. FINDINGS: The bilateral M1, M2, A1 and A2 segments are patent. There is no central vessel occlusion. No intracranial aneurysm is identified. Left vertebral artery is dominant. No significant stenosis within the intracranial vessels are present. Posterior circulation is intact. IMPRESSION: No intracranial aneurysm. No central vessel occlusion. ACT 112: Negative or not required by law. Electronically signed by: Dale Tyler M.D. 04/24/2022 11:27 AM Neck MRA 04/24/22 11:23 MR ANGIOGRAPHY OF THE NECK WITH AND WITHOUT CONTRAST CLINICAL HISTORY: LEFT FACIAL AND LEFT SIDED NUMBNESS COMPARISON STUDY: No previous studies for comparison. TECHNIQUE: Utilizing a 1.5 Florencia magnet and dedicated coil, unenhanced and contrast-enhanced MRA of the neck was obtained. Intravenous injection of 8.5 cc of Gadavist was uneventful. FINDINGS: The bilateral common carotid, cervical internal carotid and vertebral arteries are patent. No stenosis or dissection within these vessels is identified. The left vertebral artery is dominant and patent. There is no aneurysm within the neck. IMPRESSION: Unremarkable MRA of the neck. No stenosis or dissection within the bilateral common carotid, cervical internal carotid or vertebral arteries. ACT 112: Negative or not required by law. Electronically signed by: Dale Tyler M.D. 04/24/2022 6:27 PM 04/24/22 05:16 CT head/brain wo con Urgent 04/24/22 08:04 MR angio head wo con Stat MR brain wo con Stat 04/24/22 11:23 MR angio neck wo/w con Routine Pending Results Patient Have Any Pending Studies at Discharge: No Discharge Instructions Given to Patient (Per Discharging Provider) PLEASE REFER TO YOUR NEW MEDICATION LIST AND FOLLOW INSTRUCTIONS CAREFULLY. YOUR NEW MEDICATIONS INCLUDE: Aspirin 81 mg daily-for prevention of TIA, stroke -Always take with a full stomach Ambulate carefully to prevent falls, injuries. Return to the ER immediately for a CAT scan of the head if you experience any head trauma, even if you are not feeling any symptoms. If you are having any stroke symptoms, call [phone] immediately. FOLLOW UP WITH PRIMARY CARE PHYSICIAN OUTLINED ABOVE. FOLLOW-UP WITH NEUROLOGIST DR. JIMENEZ IN 2 TO 3 WEEKS. PLEASE CALL HIS OFFICE FOR AN APPOINTMENT. CONTACT INFORMATION PROVIDED ABOVE. Risk Factors for Stroke: You can reduce your chances of stroke by working with your medical provider to adopt a healthy lifestyle. Some specific ways to lower your chance of stroke are: If you are a smoker, now is the time to stop smoking cigarettes If you are diabetic, improve the control of your blood sugars Avoid excessive amounts of alcohol Control high blood pressure Lose weight if you are overweight Be sure to lead an active lifestyle Eat a healthy diet low in salt, cholesterol and fat You should know about other risk factors for stroke that you are unable to control. These include: Age 55 years or older Male gender Certain racial groups: , or / Family History of Stroke, Mini stroke or Heart Attack Sickle Cell Disease Follow Up: It is important for you to keep your follow up appointments with your medical provider. Who to Call and When: Medical Emergencies: Call 911 immediately if you experience any of the fo llowing warning signs and symptoms of Stroke: Sudden numbness or weakness of the face, arm or leg, especially on one side of the body Sudden confusion, trouble speaking or understanding Sudden trouble seeing in one or both eyes Sudden trouble walking, dizziness, loss of balance or coordination Sudden severe headache with no cause Do not delay calling 911 if you experience any warning signs or symptoms of a stroke. Delay in seeking medical attention may affect what treatments can be given to you. . Total Time Total Time Spent Total Time Spent (In Minutes): > 30 minutes
--- NOTE | 2022-04-25 14:40 | Pharmacy Report ---
- Date of Service April 25, 2022 - Pharmacy CVA/TIA Medication Review Medications to Prevent Stroke handout has been added to the patients discharge packet. Complicated migraine within differential. Antiplatelet(s) * asa 81 MG Cholesterol * Per neurology- "With a cholesterol of 155 a low-dose statin could be initiated, but she would not be a high-dose statin candidate." Therapeutic Anticoagulation * No history of Afib/Aflutter noted * On Eliquis for VTE Type 2 Diabetes * Patient does not have T2DM
== END 2022-04-25 14:19 | disposition home or self-care (01) ==
LOC: ED 05:08 → INTOOBSV 08:04 → 2E 08:04

== ENCOUNTER 2022-06-05 05:35 | Observation (INO) ==
[2022-06-05] MEDS ORDERED: LORazepam 2 MG/1 ML VIAL IV STA (05:50)
[2022-06-05] MEDS ORDERED: SODIUM CHLORIDE 0.9% 500 ML IV ONE (05:50)
--- NOTE | 2022-06-05 05:54 | Emergency Department Note ---
Impression & Plan Facial paresthesia, Paresthesia of left arm, Anxiety, Left sided numbness ED Provider Note Name: GENTRY RUIZ Age: 61 Sex: F Arrives Via: Walk-In Informant: Patient, ED Provider: Rios Dimas MD Chief Complaint: Stroke like symptoms Impression: As per impressions above Medical Decision Makin-year-old female arrives for evaluation of reported strokelike symptoms. She has a history of bipolar, smoking, CKD, GERD, OCD, dyslipidemia who was admitted a few weeks ago for strokelike symptoms and diagnosed with a TIA. She has been on aspirin since this occurred and is already on Eliquis given a history of a DVT previously. On review of chart she had an MRI and extensive work-up done last month which was essentially unremarkable and diagnosed with TIA at that time. Patient denies any ability to feel the left side of her face but then says she can feel the side of her face just feels different. She is severely anxious and shaking all over the bed. She was given Ativan and vastly improved though still notes that she cannot feel the side of her face properly and it radiates down into her arm. She has an NIH score of 0 on repeat evaluations. Laboratory work-up as well as a CT of the head are unremarkable. EKG is unremarkable. I discussed case with I will note that I did not call a stroke alert as I did not feel the patient would be a TNKase candidate given her Eliquis use as well as her current NIH of 0 despite the paresthesias she is having. Furthermore she does not have a clear evidence of LVO that she would not require mechanical thrombectomy. Prior Medical Record and Triage/Nursing Notes reviewed by Me Additional history obtained from chart Differentials:Infection, dehydration, metabolic abnormality, hypo/hyperglycemia, electrolyte disturbance, anemia, hypoxia, cardiac sources, intracerebral event, toxicologic, neurologic, as well as other pathologies. Vital Signs: reviewed and remarkable for no significant abnormalities Interventions: ativan 1mg iv, nss bolus Labs:Reviewed and remarkable for no significant abnormalities Imaging:CT of the head as per radiology no acute findings. EKG:Per My Interpretation: Indication Stroke like symptoms: SB 57 bpm with poor baseline, qtc 463. No Ectopy. No Ischemia. Compared to EKG 04/24/22, no significant changes. Consults:Dr Joe Lai Hospitalist Plan: Disposition:Hospitalist Condition: Good History of Present Illness:62-year-old female arrives for evaluation of left facial paresthesias. Patient notes she has been awake since about 2 AM as she is a night owl and was doing her morning exercise routines. Around 5 AM she noted some tingling in the left side of her face is associated with shaking of both arms and her face. She says she just does not feel right on the left side of her face. Denies any specific headache, neck pain, neurologic deficits otherwise, fevers, chills. She does note that she was having a runny nose and fatigue that started yesterday. She notes she just does not feel very well. No known sick contacts. No falls, trauma, injuries. She notes she had left facial paresthesias about a month ago and was seen in the hospital for which she was worked up and diagnosed with a TIA. She has been on Eliquis for a long time for blood clots and was started on aspirin 81 mg last month. Patient notes nothing makes the tingling on the left side of her face better or worse. She took no medications prior to arrival. She admits that she is very anxious secondary to the symptoms. ROS: See above HPI for pertinent positives & negatives. A total of 10 systems reviewed and were otherwise negative. Past Medical History:See Below Past Surgical History:See Below Family History:See Below Social History:See Below Home Medications:See Below Allergies:See Below Vitals:Blood Pressure: 161/102, Pulse 108, RR 20, T 36.7C, O2 98% on RA Physical Exam: GENERAL: Patient is severely anxious appearing and in moderate distress. EYES: No scleral icterus, unremarkable pupils. ENT: Mucous membranes moist, ++ nasal congestion. NECK: No masses appreciated, nomeningismus, trachea is midline. RESPIRATORY: No dyspnea. Clear to auscultation and equal bilaterally. No wheeze, no rhonchi. CARDIOVASCULAR: Regular rate and rhythm.No murmurs, rubs, gallops appreciated. GASTROINTESTINAL: Abdomen soft, non-tender, no peritonitis.Bowel sounds positive.No masses appreciated. BACK: No midline tenderness, no CVA tenderness EXTREMITIES: Normal motion all extremities, no cyanosis, no edema. NEUROLOGIC: Alert and oriented, no acute motor or sensory deficits, no focal weakness, cranial nerves grossly intact. Patient with reported decreased sensation left face. NIH 0. SKIN: No rash, no jaundice, no diaphoresis. PSYCH: Appropriate GCS: 15 ED Course: Times/Reassessments: Patient vastly improved gone down and breathing comfortably after Ativan. She is continuing to note that she can feel the left side of her face and down her arm and states this is new since this evening. Rios Dimas MD Past Med/Surg History Medical History Anxiety chronic, stable per pt, follows with a therapist and psychiatrist Bipolar disorder chronic, stable per pt, follows with a therapist and psychiatrist Cervical spinal stenosis Chronic back pain Chronic kidney disease stage 3 monitoring CKD (chronic kidney disease), stage III Degenerative disc disease Fibromyalgia GERD (gastroesophageal reflux disease) controlled, stable per pt Hypothyroidism Lumbar postlaminectomy syndrome L1-L5 Fusion OCD (obsessive compulsive disorder) Osteoarthritis Post traumatic stress disorder Presence of pessary Sacroiliitis Spinal stenosis Tobacco use Surgical History H/O eye surgery tear duct surgery (Left eye x2) H/O right knee surgery removal of right patella s/p revision of TKA; 2 meniscal repairs History of bilateral tubal ligation History of cholecystectomy History of colonoscopy History of revision of total replacement of left knee joint History of tonsillectomy History of total left knee replacement History of total right knee replacement S/P lumbar fusion fusion from L2 - L5 (3 separate surgeries) S/P GAGE (total abdominal hysterectomy) with Unilateral salping-oopherectomy Family History Mother , age 90 with multiple problems No problems noted. Father , age 86 with dementia and parkinsonism Dementia Parkinson disease Other No pertinent family history in first degree relatives Social History Smoking Status: Current every day smoker Tobacco Type: Cigarettes Cigarettes Per Day: 7; Second Hand Exposure: No; Hx Alcohol Use: No Hx Substance Use: No Preferred Language: [place] Citizen Communication Ability: Effective Visual Impairment: Limited Hearing Ability: Normal Pin Pusher Required: No Beliefs That Will Affect Care: None marital status: Current Living Situation: Spouse current occupational status: disabled current occupation: [id number] her low back, her knees, and her psychiatric conditions How many Children do You have: 1 Feels Safe at Home: Yes Assistive Devices: Cane and Walker Allergies Allergies Allergy/AdvReac Type Severity Reaction Status Date / Time oxybutynin [From Ditropan] Allergy Severe Anaphylaxis Verified 06/05/22 07:01 acetaminophen [From Tylenol] Allergy Mild Hives, Verified 06/05/22 07:01 itching, rash gabapentin AdvReac Intermediate EDEMA Verified 06/05/22 07:01 HANDS AND FEET Sulfa (Sulfonamide AdvReac Intermediate VOMITING Verified 06/05/22 07:01 Antibiotics) cariprazine [From Vraylar] AdvReac Mild sick Verified 06/05/22 07:01 Home Meds Home Medications Medication Instructions Recorded Confirmed levothyroxine 75 mcg tablet 75 mcg PO QAM 03/07/18 06/05/22 (Synthroid) omega-3 fatty acids 1,000 mg 1,000 mg PO BID 03/07/18 06/05/22 capsule (Fish Oil Concentrate) baclofen 10 mg tablet 10 mg PO HS 03/08/18 06/05/22 clonazepam 1 mg tablet 1 mg PO HS 06/25/18 06/05/22 fluvoxamine 100 mg tablet 100 mg PO BID 06/25/18 06/05/22 multivit with 1 tab PO QAM 04/11/20 06/05/22 [id number]-IK-lutein 8 mg iron-400 mcg-300 mcg tablet (Centrum Silver Women) pantoprazole 40 mg tablet,delayed 40 mg PO QAM 04/20/20 06/05/22 release lurasidone 40 mg tablet (Latuda) 40 mg PO QPM 01/22/21 06/05/22 calcium carbonate 600 mg-vitamin 1 tab PO QAM 05/28/21 06/05/22 D3 10 mcg (400 unit) tablet (Calcium 600 + D(3)) cholecalciferol (vitamin D3) 50 50 mcg PO QAM 05/28/21 06/05/22 mcg (2,000 unit) capsule (Vitamin D3) magnesium 1 tab PO DAILY 06/05/22 06/05/22 Previous Rx's Medication Instructions Recorded apixaban 5 mg (74 tabs) tablets in 5 mg PO Q12H #74 ea 02/07/22 a dose pack (Eliquis) oxycodone 5 mg tablet 5 mg PO Q6 PRN pain #12 tabs 02/09/22 aspirin 81 mg tablet,delayed 81 mg PO QAM 30 days #30 tabs 04/25/22 release lamotrigine 100 mg tablet 150 mg PO BID #30 tabs 04/25/22 Results & Data (ED) Vital Signs Vital Signs - 24 hr 06/05/22 05:40 06/05/22 07:51 Temperature 36.7 C Temperature Source Temporal Artery Scan Pulse Rate 108 H Pulse Rate [Finger] 56 L Respiratory Rate 20 19 Respiratory Effort / Characteristics Non-Labored Non-Labored Spontaneous Respiratory Depth Normal Normal Respiratory Pattern Regular Blood Pressure 161/102 H Blood Pressure [Right Arm] 148/88 H Blood Pressure Mean 121 Blood Pressure Mean [Right Arm] 108 Blood Pressure Position [Right Arm] Lying Pulse Oximetry 98 98 Oxygen Delivery Method Room Air Room Air Sepsis Recent Fever Within 48 Hours No Sepsis New/Unexplained Change in Mental Status N/A Sepsis Action Taken by Nursing No Action Required Laboratory Data Result diagrams: 06/05/22 05:58 06/05/22 05:58 Lab Results 06/05/22 06/05/22 06/05/22 Range/Units 05:58 05:58 05:58 WBC 6.16 (4.8-10.8) K/ul RBC 4.97 (3.93-5.22) M/uL Hgb 14.8 (12.0-16.0) g/dl Hct 44.1 (34.1-44.9) % MCV 88.7 (80.0-100.0) fL MCH 29.8 (25.0-34.0) pg MCHC 33.6 (32.0-36.0) g/dL RDW Std Deviation 42.4 (36.4-46.3) fL RDW Coeff of Lane 13.2 (11.5-14.5) % Plt Count 203 (130-400) K/uL MPV 10.3 (9.4-12.3) fL Immature Gran % (Auto) 0.3 % Neut % (Auto) 67.4 % Lymph % (Auto) 24.4 % [place] % (Auto) 7.1 % Eos % (Auto) 0.5 % Baso % (Auto) 0.3 % Neut # (Auto) 4.15 (1.4-6.5) K/uL Lymph # (Auto) 1.50 (1.2-3.4) K/uL [place] # (Auto) 0.44 (0.24-0.82) K/uL Eos # (Auto) 0.03 (0-0.50) K/uL Baso # (Auto) 0.02 (0-0.2) K/uL Immature Gran # (Auto) 0.02 (0.00-0.02) K/uL PT 10.4 (9.0-12.0) Seconds INR 1.0 (0.9-1.1) Sodium 140 (136-145) mmol/L Potassium 3.6 (3.5-5.1) mmol/L Chloride 106 (98-107) mmol/L Carbon Dioxide 26 (21-32) mmol/L Anion Gap 8 (3-11) BUN 19 (6-23) mg/dl Creatinine 1.25 H (0.6-1.2) mg/dl Est Cr Clr Drug Dosing 56.7 ml/min Est GFR ( Amer) 53.4 ml/min Est GFR (Non-Af Amer) 46.1 ml/min BUN/Creatinine Ratio 15.2 (10-20) Glucose 84 (70-99(Fasting)) mg/dl Calcium 9.0 (8.5-10.1) mg/dl Magnesium 2.0 (1.7-2.4) mg/dl Total Bilirubin 0.4 (0.2-1.0) mg/dl Direct Bilirubin 0.1 (0-0.2) mg/dl AST 19 (13-39) U/L ALT 7 (7-52) U/L Alkaline Phosphatase 114 H (34-104) U/L Troponin I High Sens 3.9 (0-14) pg/ml Total Protein 7.0 (6.0-8.3) gm/dl Albumin 4.5 (3.4-5.0) gm/dl Urine Color Urine Appearance (Clear) Urine pH (4.5-7.5) Ur Specific Crawford (1.000-1.030) Urine Protein (Negative) Urine Glucose (UA) (Negative) Urine Ketones (Negative) Urine Blood (Negative) Urine Nitrite (Negative) Urine Bilirubin (Negative) Urine Urobilinogen (Negative) Ur Leukocyte Esterase (Negative) Urine WBC (Auto) (0-5) /hpf Urine RBC (Auto) (0-4) /hpf U Hyaline Cast (Auto) (0-5) /lpf U Epithel Cells (Auto) (0-5) /lpf Urine Bacteria (Auto) (Negative) SARS-CoV-2 (PCR) (Negative) Influenza Type A (PCR) (Neg) Influenza Type B (PCR) (Neg) RSV (RT-PCR) (Neg) 06/05/22 06/05/22 Range/Units 06:00 06:30 WBC (4.8-10.8) K/ul RBC (3.93-5.22) M/uL Hgb (12.0-16.0) g/dl Hct (34.1-44.9) % MCV (80.0-100.0) fL MCH (25.0-34.0) pg MCHC (32.0-36.0) g/dL RDW Std Deviation (36.4-46.3) fL RDW Coeff of Lane (11.5-14.5) % Plt Count (130-400) K/uL MPV (9.4-12.3) fL Immature Gran % (Auto) % Neut % (Auto) % Lymph % (Auto) % [place] % (Auto) % Eos % (Auto) % Baso % (Auto) % Neut # (Auto) (1.4-6.5) K/uL Lymph # (Auto) (1.2-3.4) K/uL [place] # (Auto) (0.24-0.82) K/uL Eos # (Auto) (0-0.50) K/uL Baso # (Auto) (0-0.2) K/uL Immature Gran # (Auto) (0.00-0.02) K/uL PT (9.0-12.0) Seconds INR (0.9-1.1) Sodium (136-145) mmol/L Potassium (3.5-5.1) mmol/L Chloride (98-107) mmol/L Carbon Dioxide (21-32) mmol/L Anion Gap (3-11) BUN (6-23) mg/dl Creatinine (0.6-1.2) mg/dl Est Cr Clr Drug Dosing ml/min Est GFR ( Amer) ml/min Est GFR (Non-Af Amer) ml/min BUN/Creatinine Ratio (10-20) Glucose (70-99(Fasting)) mg/dl Calcium (8.5-10.1) mg/dl Magnesium (1.7-2.4) mg/dl Total Bilirubin (0.2-1.0) mg/dl Direct Bilirubin (0-0.2) mg/dl AST (13-39) U/L ALT (7-52) U/L Alkaline Phosphatase (34-104) U/L Troponin I High Sens (0-14) pg/ml Total Protein (6.0-8.3) gm/dl Albumin (3.4-5.0) gm/dl Urine Color Yellow Urine Appearance Clear (Clear) Urine pH 6.0 (4.5-7.5) Ur Specific [place] 1.004 (1.000-1.030) Urine Protein Negative (Negative) Urine Glucose (UA) Negative (Negative) Urine Ketones Negative (Negative) Urine Blood Negative (Negative) Urine Nitrite Negative (Negative) Urine Bilirubin Negative (Negative) Urine Urobilinogen Negative (Negative) Ur Leukocyte Esterase 3+ H (Negative) Urine WBC (Auto) 5-10 H (0-5) /hpf Urine RBC (Auto) 0-4 (0-4) /hpf U Hyaline Cast (Auto) 1-5 (0-5) /lpf U Epithel Cells (Auto) >30 H (0-5) /lpf Urine Bacteria (Auto) Negative (Negative) SARS-CoV-2 (PCR) NEGATIVE (Negative) Influenza Type A (PCR) Negative (Neg) Influenza Type B (PCR) Negative (Neg) RSV (RT-PCR) Negative (Neg) Administered Medications Discontinued Medications Sodium Chloride (Nss) 500 mls @ 999 mls/hr IV .Q31M ONE Stop: 06/05/22 06:20 Last Infusion: 06/05/22 06:38 Dose: 0 mls/hr Documented By: Admin: 06/05/22 05:59 Dose: 999 mls/hr Documented By: RILEY Lorazepam (Lorazepam 1 Mg/1 Ml Syr) 1 mg IV NOW STA; Protocol Stop: 06/05/22 05:51 Last Admin: 06/05/22 05:58 Dose: 1 mg Documented By: RILEY Discharge Plan Visit Data Chief Complaint: TIA Symptoms Stated Complaint: TIA ED Provider: Rios Dimas Discharge Problem: Facial paresthesia, Paresthesia of left arm, Anxiety, Left sided numbness Forms Stand Alone Forms: My [facility] Prescriptions Prescriptions: No Action omega-3 fatty acids [Fish Oil Concentrate] 1,000 mg capsule 1,000 mg PO BID levothyroxine [Synthroid] 75 mcg tablet 75 mcg PO QAM Rx Instructions: TAKE THIS MEDICATION AT LEAST 30 MINUTES BEFORE BREAKFAST OR ANY OTHER MEDICATIONS baclofen 10 mg tablet 10 mg PO HS Latuda 40 mg tablet 40 mg PO QPM Rx Instructions: must administer with food (at least 350 calories) fluvoxamine 100 mg Tablet 100 mg PO BID clonazepam 1 mg Tablet 1 mg PO HS Centrum Silver Women 8 mg iron-400 mcg-300 mcg Tablet 1 tab PO QAM pantoprazole 40 mg tablet,delayed release (DR/EC) 40 mg PO QAM Eliquis 5 mg (74 tabs) tablets,dose pack 5 mg PO Q12H Qty: 74 0RF oxycodone 5 mg tablet 5 mg PO Q6 PRN (Reason: pain) Qty: 12 0RF calcium carbonate-vitamin D3 [Calcium 600 + D(3)] 600 mg-10 mcg (400 unit) Tablet 1 tab PO QAM cholecalciferol (vitamin D3) [Vitamin D3] 50 mcg (2,000 unit) Capsule 50 mcg PO QAM aspirin 81 mg Tablet,Delayed Release (Dr/Ec) 81 mg PO QAM 30 Days Qty: 30 1RF Rx Instructions: Always take with a full stomach lamotrigine 100 mg Tablet 150 mg PO BID Qty: 30 0RF magnesium Tablet 1 tab PO DAILY Rx Instructions: 20 mg Referrals Referrals: Leanne Mistry, [Primary Care Provider] -
[2022-06-05 06:23] LABS: Basophils # (auto) 0.02 K/uL (0-0.2); Basophils % (auto) 0.3 %; Eosinophils # (auto) 0.03 K/uL (0-0.50); Eosinophils % (auto) 0.5 %; Hematocrit (blood only) 44.1 % (34.1-44.9); Hemoglobin 14.8 g/dl (12.0-16.0); Immature Granulocytes # (auto) 0.02 K/uL (0.00-0.02); Immature Granulocytes % (auto) 0.3 %; Lymphocytes % (auto) 24.4 %; Mean Corpuscular Hemoglobin 29.8 pg (25.0-34.0); Mean Corpuscular Hgb Conc 33.6 g/dL (32.0-36.0); Mean Corpuscular Volume 88.7 fL (80.0-100.0); Mean Platelet Volume 10.3 fL (9.4-12.3); Monocytes # (auto) 0.44 K/uL (0.24-0.82); Monocytes % (auto) 7.1 %; Neutrophils # (auto) 4.15 K/uL (1.4-6.5); Neutrophils % (auto) 67.4 %; Platelet Count 203 K/uL (130-400); RDW Coefficient of Variation 13.2 % (11.5-14.5); RDW Standard Deviation 42.4 fL (36.4-46.3); Red Blood Count 4.97 M/uL (3.93-5.22); White Blood Count 6.16 K/ul (4.8-10.8)
[2022-06-05 06:33] LABS: Prothrombin Time 10.4 Seconds (9.0-12.0)
[2022-06-05 06:53] LABS: Appearance Urine Clear (Clear); Bacteria Urine Automated Negative (Negative); Bilirubin Urine Negative (Negative); Blood Urine Negative (Negative); Color Urine Yellow; Epithelial Cell Urine Auto >30 /lpf (0-5); Glucose Urine UA Negative (Negative); Ketones Urine Negative (Negative); Leukocyte Esterase Urine 3+ (Negative); Nitrite Urine Negative (Negative); Protein Urine Negative (Negative); RBC Urine Automated 0-4 /hpf (0-4); Specific Gravity Urine 1.004 (1.000-1.030); Urobilinogen Urine Negative (Negative)
[2022-06-05 07:10] LABS: Albumin Level 4.5 gm/dl (3.4-5.0); BUN Creatinine Ratio 15.2 (10-20); Bilirubin Direct 0.1 mg/dl (0-0.2); Bilirubin,Total 0.4 mg/dl (0.2-1.0); Creatinine Clr Calc Pharmacy 56.7 ml/min; Est GFR (African American) 53.4 ml/min; Est GFR (Non-African American) 46.1 ml/min; Potassium 3.6 mmol/L (3.5-5.1)
[2022-06-05 07:12] LABS: Troponin I High Sensitivity 3.9 pg/ml (0-14)
[2022-06-05 07:16] LABS: Influenza A virus by PCR Negative (Neg); Influenza B virus by PCR Negative (Neg); RSV by PCR Negative (Neg); SARS CoV2 RNA(COVID-19) Ceph NEGATIVE (Negative)
--- NOTE | 2022-06-05 08:22 | History & Physical Report ---
Date of Service June 05, 2022 Assessment & Plan (1) Paresthesia of left arm: (2) Left facial numbness: (3) Myoclonus: Plan: Patient presents with a similar episode as last admission, describing 1 hour of acute onset facial paralysis with numbness and ipsilateral numbness in her left arm with difficulty walking. She describes myoclonic jerking and blurred vision without headache during this time, also. She has no seizure history. Reports a tono episode which she describes as being up all night cleaning two weeks ago. She still smokes. We discussed the small vessel disease seen on brain MRI from last workup. She currently has no focal neuromuscular deficits at this time, so repeat MRI is not felt to be helpful. Ordered EEG and routine neurology consultation. 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 She is also a self-described anxious person who reports significant anxiety overnight. She is better after Ativan given in the ER. Will place her on zonisamide (carbonic anhydrase inhibitor) for symptoms, but since we don't carry that on formulary will start her on acetazolamide as inpatient. It is notable that she is on lamotrigine for bipolar disorder which may be reducing some of her symptoms. Appreciate neurology input. (4) CKD (chronic kidney disease), stage III: Plan: chronic, she is at her baseline. Cont to monitor periodically. (5) OCD (obsessive compulsive disorder): Plan: chronic, stable (6) Anxiety: Plan: chronic, required Ativan in the ER for significant, uncontrolled anxiety on presentation. She is improved. Cont home clonazepam. (7) Bipolar disorder: Plan: chronic, reports a manic episode two weeks ago, but appears stable today. Cont home lamotrigine, clonazepam, fluvoxamine and lurasidone (drug interactions noted and checked against both acetazolamide and zonisamide). No interactions with acetazolamide, however, there is a concern with concomitant dosing of lamotrigine and zonisamide whereby the zonisamide may enhance the arrhythmogenic effect of the lamotrigine and lamotrigine may enhance the CHAINMAN depressant effect of zonisamide. Will avoid zonisamide in her at this time. May consider other alternative therapies for hemiplegic migraine including verapamil or topiramate. If verapamil were used, she would need to reduce her lurasidone dose by 50% to avoid increased serum concentrations of lurasidone through CYP34A inhibition. (To this end, she should also be avoiding grapefruit juice). If topiramate were used, this may enhance the arrhythmogenic effect of lamotrigine, and lamotrigine may enhance the CHAINMAN depressant effect of topiramate. Adjustment of the lamotrigine, or stopping altogether may need to be considered by her mental health provider prior to starting any of these new medications. (8) Hypothyroidism: Plan: Recent outpatient TSH in Mar reflects good control. (9) Tobacco use: Plan: Contemplative phase. We discussed the importance of complete smoking cessation. History of Present Illness Chief Complaint: TIA symptoms Primary Care Provider: Leanne Mistry, DO 61 yo F with strokelike symptoms that began overnight. She has a h/o smoking and was recently admitted for the same symptoms in a similar presentation. She was started on aspirin after being seen by Neurology who also did not think she was a candidate for high dose statin therapy based on lipid panel. She is already on apixaban for a h/o PE. She had an extensive workup at that time including a brain MRI. She arrived very shaky and unable to calm down without Ativan, having a severe history of anxiety. She is also a night owl and frequently is up at night, which is what occurred last night. She reports not feeling the side of her face properly and this radiated down into her arm. Lab workup was unremarkable in the ER and so was CT head without contrast. EKG unremarkable. A stroke alert was not called based on her contraindication for TNKinase given apixaban use, and her lack of clinical evidence for a large vessel obstruction which may require a mechanical thrombectomy. Did PT around 3am for her back. Around 3:45, lip and left face was drooping. Numness came on quickly wihtout aura or prior warning. +dizzy, problems walking, +myoclonic jerking of whole body. All symptoms lasted about an hour. +numbness traveled from face to arm. No headache, +blurred vision, takes OTC v itamins (calcium/D, MVI, fish oil, magnesium-recently put on after saw Bob WILSON recently). No chest pain, shortness of breath. Currently, after aTivan has no numbness. No recent cold or other illness, she is currently feeling no numbness. yesterday was feeling well, eating and drinking well. Allergies Allergy/AdvReac Type Severity Reaction Status Date / Time oxybutynin [From Ditropan] Allergy Severe Anaphylaxis Verified 06/05/22 07:01 acetaminophen [From Tylenol] Allergy Mild Hives, Verified 06/05/22 07:01 itching, rash gabapentin AdvReac Intermediate EDEMA Verified 06/05/22 07:01 HANDS AND FEET Sulfa (Sulfonamide AdvReac Intermediate VOMITING Verified 06/05/22 07:01 Antibiotics) cariprazine [From Vraylar] AdvReac Mild sick Verified 06/05/22 07:01 Home Medications Medication Instructions Recorded Confirmed Type levothyroxine 75 mcg tablet 75 mcg PO QAM 03/07/18 06/05/22 History (Synthroid) omega-3 fatty acids 1,000 mg 1,000 mg PO BID 03/07/18 06/05/22 History capsule (Fish Oil Concentrate) baclofen 10 mg tablet 10 mg PO HS 03/08/18 06/05/22 History clonazepam 1 mg tablet 1 mg PO HS 06/25/18 06/05/22 History fluvoxamine 100 mg tablet 100 mg PO BID 06/25/18 06/05/22 History multivit with 1 tab PO QAM 04/11/20 06/05/22 History bnmpmsus-gxlv-CJ-lutein 8 mg iron-400 mcg-300 mcg tablet (Centrum Silver Women) pantoprazole 40 mg tablet,delayed 40 mg PO QAM 04/20/20 06/05/22 History release lurasidone 40 mg tablet (Latuda) 40 mg PO QPM 01/22/21 06/05/22 History calcium carbonate 600 mg-vitamin 1 tab PO QAM 05/28/21 06/05/22 History D3 10 mcg (400 unit) tablet (Calcium 600 + D(3)) cholecalciferol (vitamin D3) 50 50 mcg PO QAM 05/28/21 06/05/22 History mcg (2,000 unit) capsule (Vitamin D3) apixaban 5 mg (74 tabs) tablets in 5 mg PO Q12H #74 ea 02/07/22 06/05/22 Rx a dose pack (Eliquis) oxycodone 5 mg tablet 5 mg PO Q6 PRN pain #12 tabs 02/09/22 06/05/22 Rx aspirin 81 mg tablet,delayed 81 mg PO QAM 30 days #30 tabs 04/25/22 06/05/22 Rx release lamotrigine 100 mg tablet 150 mg PO BID #30 tabs 04/25/22 06/05/22 Rx magnesium 1 tab PO DAILY 06/05/22 06/05/22 History rosuvastatin 10 mg tablet 10 mg PO HS 06/05/22 06/05/22 History Past Med/Surg History Medical History Anxiety chronic, stable per pt, follows with a therapist and psychiatrist Bipolar disorder chronic, stable per pt, follows with a therapist and psychiatrist Cervical spinal stenosis Chronic back pain Chronic kidney disease stage 3 monitoring CKD (chronic kidney disease), stage III Degenerative disc disease Fibromyalgia GERD (gastroesophageal reflux disease) controlled, stable per pt Hypothyroidism Lumbar postlaminectomy syndrome L1-L5 Fusion OCD (obsessive compulsive disorder) Osteoarthritis Post traumatic stress disorder Presence of pessary Sacroiliitis Spinal stenosis Tobacco use Surgical History H/O eye surgery tear duct surgery (Left eye x2) H/O right knee surgery removal of right patella s/p revision of TKA; 2 meniscal repairs History of bilateral tubal ligation History of cholecystectomy History of colonoscopy History of revision of total replacement of left knee joint History of tonsillectomy History of total left knee replacement History of total right knee replacement S/P lumbar fusion fusion from L2 - L5 (3 separate surgeries) S/P GAGE (total abdominal hysterectomy) with Unilateral salping-oopherectomy Family History Mother , age 90 with multiple problems No problems noted. Father , age 86 with dementia and parkinsonism Dementia Parkinson disease Other No pertinent family history in first degree relatives Social History Smoking Status: Current every day smoker Tobacco Type: Cigarettes Cigarettes Per Day: 7; Second Hand Exposure: No; Hx Alcohol Use: No Hx Substance Use: No Preferred Language: Burundian Communication Ability: Effective Visual Impairment: Limited Hearing Ability: Normal Math Tutor Required: No Beliefs That Will Affect Care: None marital status: Current Living Situation: Spouse current occupational status: disabled current occupation: [id number] her low back, her knees, and her psychiatric conditions How many Children do You have: 1 Feels Safe at Home: Yes Assistive Devices: Cane and Walker Review of Systems Review of Systems: All symptoms were reviewed and negative except as indicated in HPI. Physical Exam Physical Exam: CONSTITUTIONAL: WNWD, vitals as above, generally well- appearing EYES: EOMI bilaterally, PERRL, normal conjuctivae, no scleral icterus, no fundoscopic abnormality ENT: external ear and nose normal, oropharynx clear, no TM abnormality, no maxillary or ethmoid sinus tenderness NECK: trachea midline, no lymphadenopathy, normal thyroid RESPIRATORY: clear to auscultation bilaterally, no crackles, rales or wheezes, normal respiratory effort CARDIOVASCULAR: regular rate and rhythm, S1 and 2 heard without murmurs, gallops or rubs, no JVD, no peripheral edema, no carotid bruits CHEST: inspection of chest was normal (+pacemaker, +port) GASTROINTESTINAL: normal bowel sounds, soft, nontender, no hepatomegaly, no guarding MUSCULOSKELETAL: strength 5/5 throughout, head is normocephalic and atraumatic, neck supple, normal palpation of chest wall without tenderness SKIN: warm and dry, no rashes NEUROLOGIC: patellar DTRs 2+ bilat. PERRL, EOMI, no facial palsy, no dysarthria. Touch, pain and proprioception normal. CN 2-12 grossly intact, no sensory deficit, normal cognition, normal speech, no tremor PSYCHIATRIC: alert cooperative and oriented to person, place and time. Euthymic mood, makes good eye contact, language grossly intact, recent and remote memory grossly intact. LYMPHATIC: no LAD Results & Data Results & Data ([facility]) Vital Signs (Past 12 Hours) Vital Signs Temp Pulse Pulse Resp BP BP Pulse Ox 06/05/22 07:51 56 L 19 148/88 H 98 06/05/22 05:40 36.7 C 108 H 20 161/102 H 98 O2 Del Method 06/05/22 07:51 Room Air 06/05/22 05:40 Room Air Laboratory Results Short CBC 06/05/22 Range/Units 05:58 WBC 6.16 (4.8-10.8) K/ul Hgb 14.8 (12.0-16.0) g/dl Hct 44.1 (34.1-44.9) % Plt Count 203 (130-400) K/uL BMP 06/05/22 05:58 Sodium 140 Potassium 3.6 Chloride 106 Carbon Dioxide 26 BUN 19 Creatinine 1.25 H Glucose 84 Calcium 9.0 Liver Function 06/05/22 Range/Units 05:58 Total Bilirubin 0.4 (0.2-1.0) mg/dl Direct Bilirubin 0.1 (0-0.2) mg/dl AST 19 (13-39) U/L ALT 7 (7-52) U/L Alkaline Phosphatase 114 H (34-104) U/L Albumin 4.5 (3.4-5.0) gm/dl Urine 06/05/22 Range/Units 06:30 Urine Color Yellow Urine Appearance Clear (Clear) Urine pH 6.0 (4.5-7.5) Ur Specific [place] 1.004 (1.000-1.030) Urine Protein Negative (Negative) Urine Glucose (UA) Negative (Negative) Code Status & VTE Plan VTE Prophylaxis Plan VTE Prophylaxis will be ordered: Yes
--- NOTE | 2022-06-05 09:05 | CT Scan Report ---
CT head/brain wo con CLINICAL HISTORY: left facial paresthesias Technique: Contiguous axial CT images of the head were acquired from the base of the skull to the alon erica without intravenous contrast administration. Images were viewed in brain, subdural and [facility]. Automated dose lowering techniques and/or adjustment according to patient size were utilized for this exam. Comparison: Comparison is made to CT head 04/24/2022 Findings: The ventricles, basal cisterns, and cerebral sulci are normal. There is no acute intracranial hemorrh age or evidence of acute territorial infarction. Neither mass effect, shift of the midline structures , nor abnormal extra-axial fluid collections are shown. Imaged portions of the paranasal sinuses and mastoid air cells are clear. The orbits appear normal. There are no acute fractures of the calvaria or scalp swelling. Impression: No acute intracranial hemorrhage, no evidence of acute territorial infarction or other acute intracra nial disease process. ACT 112: Negative or not required by law. Electronically signed by: Talha Hoang M.D. 06/05/2022 9:04 AM
[2022-06-05] MEDS ORDERED: POLYETHYLENE (MIRALAX) 17 GM PACK PO PRN (10:41)
[2022-06-05] MEDS ORDERED: PHARMACIST DISCHARGE MED REC CONSULT PRN (10:41)
[2022-06-05] MEDS ORDERED: oxyCODONE HCL IR 5 MG TAB (IMMEDIATE RELEASE) PO PRN (10:41)
--- NOTE | 2022-06-05 11:29 | Neurology Consultation ---
Date of Consultation June 05, 2022 Assessment & Plan (1) Facial paresthesia: Plan Neurology Consultation Assessment: pt with recurrent chronic transient ill defined distribution of paresthesia in face/limbs in setting of anxiety and other psych issues. pt currently clinically stable. Pt likely having significant psychiatric disorder contributing to her symptoms and does not appear vascular event at this point. ddx also including acephalgic migraine but not likely given lack of associated symptoms. report of myoclonic like movements are nonspecific and can be seen side effects from many psychiatric meds and also normal benign myoclonic jerks. I do not feel she has seizure/epilepsy disorder at this point. Recommendations: -agree that mri brain is not likely help as pt recently had negative mri and symptoms essentially resolved. -do agree with Psych evaluation for her ongoing mood disorders. -there is no clear standard therapy for acephalgic migraine, whatever the hospitalist wants to try is ok, do avoid keppra and topamax as these can actually cause more symptoms in this pt's case. supportive care as now and agree with plan of care by the admitting hospitalist. not much to add from neurology. please call again if new question. shahab menon MD [facility] neurology HPI: pt well known to neurology as pt has been seen evaluated both inpt and outpt neurology recently for similar issues. pt with chronic anxiety and bipolar and manic symptoms. pt currently feeling ok with much improved numbness and essentially resolved. pt still very much anxious about her back pain issues and poor sleep. CT head negative. denies headache or speech changes. Admission/prior HPI note:61 yo F with strokelike symptoms that began overnight. She has a h/o smoking and was recently admitted for the same symptoms in a similar presentation. She was started on aspirin after being seen by Neurology who also did not think she was a candidate for high dose statin therapy based on lipid panel. She is already on apixaban for a h/o PE. She had an extensive workup at that time including a brain MRI. She arrived very shaky and unable to calm down without Ativan, having a severe history of anxiety. She is also a night owl and frequently is up at night, which is what occurred last night. She reports not feeling the side of her face properly and this radiated down into her arm. Lab workup was unremarkable in the ER and so was CT head without contrast. EKG unremarkable. A stroke alert was not called based on her contraindication for TNKinase given apixaban use, and her lack of clinical evidence for a large vessel obstruction which may require a mechanical thrombectomy. Did PT around 3am for her back. Around 3:45, lip and left face was drooping. Numness came on quickly wihtout aura or prior warning. +dizzy, problems walking, +myoclonic jerking of whole body. All symptoms lasted about an hour. +numbness traveled from face to arm. No headache, +blurred vision, takes OTC vitamins (calcium/D, MVI, fish oil, magnesium-recently put on after saw Bob WILSON recently). No chest pain, shortness of breath. Currently, after aTivan has no numbness. No recent cold or other illness, she is currently feeling no numbness. yesterday was feeling well, eating and drinking well. ROS: per HPI Med list: see chart PMHx/SHx: see chart Neuro Exam: Mental: AOx3, Fluent speech, normal comprehension, no apraxia, no neglect. CN: PERRL, Full EOM, symmetric face, tongue midline. SCM/Traps 5/5 Motor: 5/5 t/o symmetric bilaterally. Normal tone and bulk. No abnormal movements. Sens: intact to touch b/l Coord: intact DTR: toes down b/l Total time spent: 80 min. This includes time spent educating patient about medical condition and coordination of care (also including time spent on chart reviewing and documentation). History of Present Illness Attending Physician: Vicenta Diaz, Allergies Allergy/AdvReac Type Severity Reaction Status Date / Time oxybutynin [From Ditropan] Allergy Severe Anaphylaxis Verified 06/05/22 07:01 acetaminophen [From Tylenol] Allergy Mild Hives, Verified 06/05/22 07:01 itching, rash gabapentin AdvReac Intermediate EDEMA Verified 06/05/22 07:01 HANDS AND FEET Sulfa (Sulfonamide AdvReac Intermediate VOMITING Verified 06/05/22 07:01 Antibiotics) cariprazine [From Vraylar] AdvReac Mild sick Verified 06/05/22 07:01 Home Medications Medication Instructions Recorded Confirmed Type levothyroxine 75 mcg tablet 75 mcg PO QAM 03/07/18 06/05/22 History (Synthroid) omega-3 fatty acids 1,000 mg 1,000 mg PO BID 03/07/18 06/05/22 History capsule (Fish Oil Concentrate) baclofen 10 mg tablet 10 mg PO HS 03/08/18 06/05/22 History clonazepam 1 mg tablet 1 mg PO HS 06/25/18 06/05/22 History fluvoxamine 100 mg tablet 100 mg PO BID 06/25/18 06/05/22 History multivit with 1 tab PO QAM 04/11/20 06/05/22 History fmodmxhm-vcbe-UE-lutein 8 mg iron-400 mcg-300 mcg tablet (Centrum Silver Women) pantoprazole 40 mg tablet,delayed 40 mg PO QAM 04/20/20 06/05/22 History release lurasidone 40 mg tablet (Latuda) 40 mg PO QPM 01/22/21 06/05/22 History calcium carbonate 600 mg-vitamin 1 tab PO QAM 05/28/21 06/05/22 History D3 10 mcg (400 unit) tablet (Calcium 600 + D(3)) cholecalciferol (vitamin D3) 50 50 mcg PO QAM 05/28/21 06/05/22 History mcg (2,000 unit) capsule (Vitamin D3) apixaban 5 mg (74 tabs) tablets in 5 mg PO Q12H #74 ea 02/07/22 06/05/22 Rx a dose pack (Eliquis) oxycodone 5 mg tablet 5 mg PO Q6 PRN pain #12 tabs 02/09/22 06/05/22 Rx aspirin 81 mg tablet,delayed 81 mg PO QAM 30 days #30 tabs 04/25/22 06/05/22 Rx release lamotrigine 100 mg tablet 150 mg PO BID #30 tabs 04/25/22 06/05/22 Rx magnesium 1 tab PO DAILY 06/05/22 06/05/22 History rosuvastatin 10 mg tablet 10 mg PO HS 06/05/22 06/05/22 History Patient History Medical History Anxiety chronic, stable per pt, follows with a therapist and psychiatrist Bipolar disorder chronic, stable per pt, follows with a therapist and psychiatrist Cervical spinal stenosis Chronic back pain Chronic kidney disease stage 3 monitoring CKD (chronic kidney disease), stage III Degenerative disc disease Fibromyalgia GERD (gastroesophageal reflux disease) controlled, stable per pt Hypothyroidism Lumbar postlaminectomy syndrome L1-L5 Fusion OCD (obsessive compulsive disorder) Osteoarthritis Post traumatic stress disorder Presence of pessary Sacroiliitis Spinal stenosis Tobacco use Surgical History H/O eye surgery tear duct surgery (Left eye x2) H/O right knee surgery removal of right patella s/p revision of TKA; 2 meniscal repairs History of bilateral tubal ligation History of cholecystectomy History of colonoscopy History of revision of total replacement of left knee joint History of tonsillectomy History of total left knee replacement History of total right knee replacement S/P lumbar fusion fusion from L2 - L5 (3 separate surgeries) S/P GAGE (total abdominal hysterectomy) with Unilateral salping-oopherectomy Family History Mother , age 90 with multiple problems No problems noted. Father , age 86 with dementia and parkinsonism Dementia Parkinson disease Other No pertinent family history in first degree relatives Social History Smoking Status: Current every day smoker Tobacco Type: Cigarettes Cigarettes Per Day: 7; Second Hand Exposure: No; Hx Alcohol Use: No Hx Substance Use: No Preferred Language: Kenyan Communication Ability: Effective Visual Impairment: Limited Hearing Ability: Normal Order Entry Clerk Required: No Beliefs That Will Affect Care: None marital status: Current Living Situation: Spouse current occupational status: disabled current occupation: [id number] her low back, her knees, and her psychiatric conditions How many Children do You have: 1 Feels Safe at Home: Yes Assistive Devices: Cane and Walker Results & Data ([facility]) Vital Signs (Past 12 Hours) Vital Signs Temp Pulse Pulse Resp BP BP Pulse Ox 06/05/22 10:12 06/05/22 09:51 57 L 16 133/85 99 06/05/22 07:51 56 L 19 148/88 H 98 06/05/22 05:40 36.7 C 108 H 20 161/102 H 98 O2 Del Method 06/05/22 10:12 Room Air 06/05/22 09:51 Room Air 06/05/22 07:51 Room Air 06/05/22 05:40 Room Air
[2022-06-05] MEDS: acetaZOLAMIDE 250 MG TAB PO SCH ×2 (13:07→21:24)
[2022-06-05] MEDS: BACLOFEN 10 MG TAB PO SCH (21:20)
[2022-06-05] MEDS: LURASIDONE HCL 40 MG TAB PO SCH (21:21)
[2022-06-05] MEDS: APIXABAN 5 MG TABLET PO SCH (21:22)
[2022-06-05] MEDS: ROSUVASTATIN CALCIUM 10 MG TAB PO SCH (21:22)
[2022-06-05] MEDS: fluvoxaMINE MALEATE 50 MG TAB PO SCH (21:23)
[2022-06-05] MEDS: lamoTRIgine 100 MG TAB PO SCH (21:25)
[2022-06-06] MEDS: LEVOTHYROXINE SODIUM 75 MCG TABLET PO SCH (05:41)
--- NOTE | 2022-06-06 05:58 | Electrocardiogram Report ---
Test Reason : Blood Pressure : / mmHG Vent. Rate : 057 BPM Atrial Rate : 057 BPM P-R Int : 168 ms QRS Dur : 084 ms QT Int : 476 ms P-R-T Axes : 064 -01 041 degrees QTc Int : 463 ms Poor data quality, interpretation may be adversely affected Sinus bradycardia Otherwise normal ECG When compared with ECG of 24-APR-2022 05:19, No significant change was found Confirmed by Amado Randall ([id number]) on 06/06/2022 5:58:17 AM Referred By: Confirmed By:Amado Randall
[2022-06-06 06:19] LABS: Hematocrit (blood only) 42.4 % (34.1-44.9); Hemoglobin 14.3 g/dl (12.0-16.0); Mean Corpuscular Hemoglobin 29.9 pg (25.0-34.0); Mean Corpuscular Hgb Conc 33.7 g/dL (32.0-36.0); Mean Corpuscular Volume 88.5 fL (80.0-100.0); Platelet Count 204 K/uL (130-400); RDW Coefficient of Variation 13.1 % (11.5-14.5); RDW Standard Deviation 42.4 fL (36.4-46.3); Red Blood Count 4.79 M/uL (3.93-5.22); White Blood Count 4.46 K/ul (4.8-10.8)
[2022-06-06 06:46] LABS: BUN Creatinine Ratio 11.9 (10-20); Calcium 8.6 mg/dl (8.5-10.1); Chol HDL Ratio 1.9 (0-5); Creatinine Clr Calc Pharmacy 49.7 ml/min; Est GFR (African American) 49.1 ml/min; Est GFR (Non-African American) 42.4 ml/min; Magnesium 2.1 mg/dl (1.7-2.4); Potassium 3.6 mmol/L (3.5-5.1)
[2022-06-06 07:11] LABS: Estimated Average Glucose 120 mg/dl; Hemoglobin A1C 5.8 % (4.5-5.6)
[2022-06-06] MEDS: APIXABAN 5 MG TABLET PO SCH ×2 (09:23→22:01)
[2022-06-06] MEDS: CALCIUM 600MG + VIT D 400 IU TAB PO SCH (09:24)
[2022-06-06] MEDS: fluvoxaMINE MALEATE 50 MG TAB PO SCH ×2 (09:24→22:00)
[2022-06-06] MEDS: acetaZOLAMIDE 250 MG TAB PO SCH ×2 (09:24→22:01)
[2022-06-06] MEDS: PANTOprazole 40 MG TAB PO SCH (09:24)
[2022-06-06] MEDS: ASPIRIN 81 MG ECTAB PO SCH (09:24)
[2022-06-06] MEDS: lamoTRIgine 100 MG TAB PO SCH ×2 (10:04→21:59)
--- NOTE | 2022-06-06 13:27 | Psychiatric Consultation ---
Date of Consultation June 06, 2022 Impression / Recommendations Impression 61 yo female with a history of bipolar disorder and health related anxiety presented with concern of stroke like symptoms vs migraine variant. There is no evidence of tono or major depression. (1) Bipolar disorder: (2) Facial paresthesia: (3) Myoclonus: (4) Headache: (5) Anxiety: Plan PDMP search confirms she is prescribed Klonopin 1 mg hs with additional 1/2 tab prn. Otherwise continue latuda, luvox, and lamictal as ordered. f/u as scheduled with therapist and psychiatrist at [facility] there is no indication for inpatient psychiatric hospitalization. I see no evidence of serotonin syndrome or abnormal motor movements on exam at this time Psych History Identifying Data 61 yo female from [place], last seen on C&L service in 2019, established dx of bipolar do since . Admit medically for w/u monitoring of neurologic symptoms. Consult is by hospitalist service due to somatic component. Chief Complaint "I've been bipolar my whole life but my current team is my best team by far". History of Present Illness Patient reports that she see's therapist and psychiatrist regularly at [facility]. She denies recent issues with medication (hx of dyskinesia is listed in [facility] records), she reports non specific stress but is actually positive/prepared for the holidays. She is attributing some of her health related anxiety to being told she has a venous malformation. Her head CT was negative and neurology does not appear to be recommending a repeat MRI given recent MRI being largely unremarkable. The patient states that she is med compliant and denies recent concerns or changes. Her sleep/appetite/energy have been stable. She states her daughter will be travelling to [place] for [employer] but she is happy for her. She attributes facial numbness to migraine variant. Past Psychiatric History Previous Psych History: Current Psychiatric Diagnosis: Bipolar disorder, NIECY; PTSD; OCD Outpatient Services: Psychiatrist - Dr. Roopa Brice - [facility] Therapist - [facility] Previous Psych Admissions: None Do You Have Access To A Gun?: No (hx multiple guns in home, but securely locked by ; pt denies access) History of Previous Suicide Attempt: No Describe Attempts in the Past: None Past Medication Trials: Per outpatient psychiatric records: 1. Buspirone 2. Remeron - increased appetite, weight gain 3. Xanax 4. Lexapro 5. [place] - hypothyroidism and weight gain 6. Trazodone 7. Celexa 8. Ambien 9. Lamictal 10.Cymbalta 11.Risperdal 12.Luvox 13.Wellbutrin 14.Abilify 15.Propranolol 16.Hydroxyzine 17.Vraylar Allergies Allergy/AdvReac Type Severity Reaction Status Date / Time oxybutynin [From Ditropan] Allergy Severe Anaphylaxis Verified 06/05/22 07:01 acetaminophen [From Tylenol] Allergy Mild Hives, Verified 06/05/22 07:01 itching, rash gabapentin AdvReac Intermediate EDEMA Verified 06/05/22 07:01 HANDS AND FEET Sulfa (Sulfonamide AdvReac Intermediate VOMITING Verified 06/05/22 07:01 Antibiotics) cariprazine [From Vraylar] AdvReac Mild sick Verified 06/05/22 07:01 Home Medications Medication Instructions Recorded Confirmed Type levothyroxine 75 mcg tablet 75 mcg PO QAM 03/07/18 06/05/22 History (Synthroid) omega-3 fatty acids 1,000 mg 1,000 mg PO BID 03/07/18 06/05/22 History capsule (Fish Oil Concentrate) baclofen 10 mg tablet 10 mg PO HS 03/08/18 06/05/22 History clonazepam 1 mg tablet 1 mg PO HS 06/25/18 06/05/22 History fluvoxamine 100 mg tablet 100 mg PO BID 06/25/18 06/05/22 History multivit with 1 tab PO QAM 04/11/20 06/05/22 History nexwqfeg-ncyc-VP-lutein 8 mg iron-400 mcg-300 mcg tablet (Centrum Silver Women) pantoprazole 40 mg tablet,delayed 40 mg PO QAM 04/20/20 06/05/22 History release lurasidone 40 mg tablet (Latuda) 40 mg PO QPM 01/22/21 06/05/22 History calcium carbonate 600 mg-vitamin 1 tab PO QAM 05/28/21 06/05/22 History D3 10 mcg (400 unit) tablet (Calcium 600 + D(3)) cholecalciferol (vitamin D3) 50 50 mcg PO QAM 05/28/21 06/05/22 History mcg (2,000 unit) capsule (Vitamin D3) apixaban 5 mg (74 tabs) tablets in 5 mg PO Q12H #74 ea 02/07/22 06/05/22 Rx a dose pack (Eliquis) oxycodone 5 mg tablet 5 mg PO Q6 PRN pain #12 tabs 02/09/22 06/05/22 Rx aspirin 81 mg tablet,delayed 81 mg PO QAM 30 days #30 tabs 04/25/22 06/05/22 Rx release lamotrigine 100 mg tablet 150 mg PO BID #30 tabs 04/25/22 06/05/22 Rx magnesium 1 tab PO DAILY 06/05/22 06/05/22 History rosuvastatin 10 mg tablet 10 mg PO HS 06/05/22 06/05/22 History Personal History Beliefs That Will Affect Care: None Patient History Medical History Anxiety chronic, stable per pt, follows with a therapist and psychiatrist Bipolar disorder chronic, stable per pt, follows with a therapist and psychiatrist Cervical spinal stenosis Chronic back pain Chronic kidney disease stage 3 monitoring CKD (chronic kidney disease), stage III Degenerative disc disease Fibromyalgia GERD (gastroesophageal reflux disease) controlled, stable per pt Hypothyroidism Lumbar postlaminectomy syndrome L1-L5 Fusion OCD (obsessive compulsive disorder) Osteoarthritis Post traumatic stress disorder Presence of pessary Sacroiliitis Spinal stenosis Tobacco use Surgical History H/O eye surgery tear duct surgery (Left eye x2) H/O right knee surgery removal of right patella s/p revision of TKA; 2 meniscal repairs History of bilateral tubal ligation History of cholecystectomy History of colonoscopy History of revision of total replacement of left knee joint History of tonsillectomy History of total left knee replacement History of total right knee replacement S/P lumbar fusion fusion from L2 - L5 (3 separate surgeries) S/P GAGE (total abdominal hysterectomy) with Unilateral salping-oopherectomy Family History Mother , age 90 with multiple problems No problems noted. Father , age 86 with dementia and parkinsonism Dementia Parkinson disease Other No pertinent family history in first degree relatives Social History Smoking Status: Current every day smoker Tobacco Type: Cigarettes Cigarettes Per Day: 8/DAY; Second Hand Exposure: Yes; Do You Dip or Chew Tobacco: No; Tobacco Cessation Education Requested by Patient: No Hx Alcohol Use: No Hx Substance Use: Yes Substance Use Type Other:: MARIJUANA A TEENAGER Preferred Language: Tamazight Communication Ability: Effective Visual Impairment: Limited Hearing Ability: Normal Engineering Group Manager Required: No Beliefs That Will Affect Care: None marital status: Current Living Situation: Spouse current occupational status: disabled 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 her low back, her knees, and her psych iatric conditions How many Children do You have: 1 Other Information That Helps Us Care for You: No Feels Safe at Home: Yes Safety Concerns: Feels Safe At This Time Assistive Devices: Glasses, Lift Chair and Raised Toilet Seat Assistive Devices Comment: TRANSFER SHOWER BENCH, REACH BARS ON BOTH SIDES OF TOILET Physical Exam Psychiatric: Orientation: alert and oriented x 3 Apperance: appropriately dressed and appropriately groomed Eye Contact: good eye contact Motor Behavior: no abnormal motor movements Speech: normal rate/rhythm/volume of speech Affect: euthymic affect Mood: no depressed mood Thought Process: goal directed thought process Thought Content: reality based without delusions Suicidal Thoughts: denies suicidal thoughts Homicidal Thoughts: denies homicidal thoughts Hallucinations: no auditory hallucinations and no visual hallucinations Cognition: attention grossly intact and language grossly intact Estimated Intelligence: consistent with education level Vital Signs (Past 24 Hours): Last Vital Signs Temp 36.8 C 06/06/22 11:27 Pulse 58 L 06/06/22 11:27 Resp 18 06/06/22 11:27 BP 122/78 06/06/22 11:27 Pulse Ox 98 06/06/22 11:27 O2 Del Method 06/06/22 11:27 Review of Systems All systems reviewed & are unremarkable except as noted in HPI & below Results & Data (PSY) Laboratory Results 06/06/22 06/06/22 06/06/22 Range/Units 05:53 05:53 05:53 WBC (4.8-10.8) K/ul RBC (3.93-5.22) M/uL Hgb (12.0-16.0) g/dl Hct (34.1-44.9) % MCV (80.0-100.0) fL MCH (25.0-34.0) pg MCHC (32.0-36.0) g/dL RDW Std Deviation (36.4-46.3) fL RDW Coeff of Lane (11.5-14.5) % Plt Count (130-400) K/uL MPV (9.4-12.3) fL Sodium 142 (136-145) mmol/L Potassium 3.6 (3.5-5.1) mmol/L Chloride 112 H (98-107) mmol/L Carbon Dioxide 23 (21-32) mmol/L Anion Gap 7 (3-11) BUN 16 (6-23) mg/dl Creatinine 1.34 H (0.6-1.2) mg/dl Est Cr Clr Drug Dosing 49.7 ml/min Est GFR ( Amer) 49.1 ml/min Est GFR (Non-Af Amer) 42.4 ml/min BUN/Creatinine Ratio 11.9 (10-20) Glucose 82 (70-99(Fasting)) mg/dl Estimat Average Glucose 120 mg/dl Hemoglobin A1c 5.8 H (4.5-5.6) % Calcium 8.6 (8.5-10.1) mg/dl Phosphorus 4.0 (2.5-4.9) mg/dl Magnesium 2.1 (1.7-2.4) mg/dl Triglycerides 70 (0-150) mg/dl Cholesterol 117 (0-200) mg/dl LDL Cholesterol, Calc 40 mg/dl VLDL Cholesterol, Calc 14 (0-30) mg/dl HDL Cholesterol 63 mg/dl Cholesterol/HDL Ratio 1.9 (0-5) Hepatitis C Ab (EIA) Pending Hep C Ab Signal/Cutoff Pending 06/06/22 Range/Units 05:53 WBC 4.46 L (4.8-10.8) K/ul RBC 4.79 (3.93-5.22) M/uL Hgb 14.3 (12.0-16.0) g/dl Hct 42.4 (34.1-44.9) % MCV 88.5 (80.0-100.0) fL MCH 29.9 (25.0-34.0) pg MCHC 33.7 (32.0-36.0) g/dL RDW Std Deviation 42.4 (36.4-46.3) fL RDW Coeff of Lane 13.1 (11.5-14.5) % Plt Count 204 (130-400) K/uL MPV 10.0 (9.4-12.3) fL Sodium (136-145) mmol/L Potassium (3.5-5.1) mmol/L Chloride (98-107) mmol/L Carbon Dioxide (21-32) mmol/L Anion Gap (3-11) BUN (6-23) mg/dl Creatinine (0.6-1.2) mg/dl Est Cr Clr Drug Dosing ml/min Est GFR ( Amer) ml/min Est GFR (Non-Af Amer) ml/min BUN/Creatinine Ratio (10-20) Glucose (70-99(Fasting)) mg/dl Estimat Average Glucose mg/dl Hemoglobin A1c (4.5-5.6) % Calcium (8.5-10.1) mg/dl Phosphorus (2.5-4.9) mg/dl Magnesium (1.7-2.4) mg/dl Triglycerides (0-150) mg/dl Cholesterol (0-200) mg/dl LDL Cholesterol, Calc mg/dl VLDL Cholesterol, Calc (0-30) mg/dl HDL Cholesterol mg/dl Cholesterol/HDL Ratio (0-5) Hepatitis C Ab (EIA) Hep C Ab Signal/Cutoff Diagnostic Findings Head CT 06/05/22 05:50 CT head/brain wo con CLINICAL HISTORY: left facial paresthesias Technique: Contiguous axial CT images of the head were acquired from the base of the skull to the vertex without intravenous contrast administration. Images were viewed in brain, subdural and bone windows. Automated dose lowering techniques and/or adjustment according to patient size were utilized for this exam. Comparison: Comparison is made to CT head 04/24/2022 Findings: The ventricles, basal cisterns, and cerebral sulci are normal. There is no acute intracranial hemorrhage or evidence of acute territorial infarction. Neither mass effect, shift of the midline structures, nor abnormal extra-axial fluid collections are shown. Imaged portions of the paranasal sinuses and mastoid air cells are clear. The orbits appear normal. There are no acute fractures of the calvaria or scalp swelling. Impression: No acute intracranial hemorrhage, no evidence of acute territorial infarction or other acute intracranial disease process. ACT 112: Negative or not required by law. Electronically signed by: Talha Hoang M.D. 06/05/2022 9:04 AM Medications Administered Acetazolamide (Acetazolamide 250 Mg Tab) 250 mg PO BID [facility] Stop: 07/05/22 10:40 Last Admin: 06/06/22 09:24 Dose: 250 mg Documented By: [id number] Admin: 06/05/22 21:24 Dose: 250 mg Documented By: Admin: 06/05/22 13:07 Dose: 250 mg Documented By: COSTA Apixaban (Apixaban 5 Mg Tablet) 5 mg PO BID [facility] Stop: 07/05/22 20:59 Last Admin: 06/06/22 09:23 Dose: 5 mg Documented By: [id number] Admin: 06/05/22 21:22 Dose: 5 mg Documented By: LIN Aspirin (Aspirin 81 Mg Ectab) 81 mg PO QAM [facility] Stop: 07/06/22 08:59 Last Admin: 06/06/22 09:24 Dose: 81 mg Documented By: [id number] Baclofen (Baclofen 10 Mg Tab) 10 mg PO HS [facility] Stop: 07/05/22 20:59 Last Admin: 06/05/22 21:20 Dose: 10 mg Documented By: LIN Calcium/Vitamin D (Calcium 600mg + Vit D 400 Iu Tab) [facility] Stop: 07/06/22 08:59 Last Admin: 06/06/22 09:24 Dose: 1 tab Documented By: [id number] Fluvoxamine Maleate (Fluvoxamine Maleate 50 Mg Tab) 100 mg PO BID [facility] Stop: 07/05/22 20:59 Last Admin: 06/06/22 09:24 Dose: 100 mg Documented By: [id number] Admin: 06/05/22 21:23 Dose: 100 mg Documented By: LIN Lamotrigine (Lamotrigine 100 Mg Tab) 150 mg PO BID [facility] Stop: 07/05/22 20:59 Last Admin: 06/06/22 10:04 Dose: 150 mg Documented By: [id number] Admin: 06/05/22 21:25 Dose: 150 mg Documented By: LIN Levothyroxine Sodium (Levothyroxine Sodium 75 Mcg Tablet) 75 mcg PO DAILYBB [facility] Stop: 07/06/22 06:29 Last Admin: 06/06/22 05:41 Dose: 75 mcg Documented By: OO Lurasidone HCl (Lurasidone Hcl 40 Mg Tab) 40 mg PO QPM [facility] Stop: 07/05/22 20:59 Last Admin: 06/05/22 21:21 Dose: 40 mg Documented By: OO Pantoprazole Sodium (Pantoprazole 40 Mg Tab) 40 mg PO QAM [facility] Stop: 07/06/22 08:59 Last Admin: 06/06/22 09:24 Dose: 40 mg Documented By: [id number] Rosuvastatin Calcium (Rosuvastatin Calcium 10 Mg Tab) 10 mg PO HS [facility] Stop: 07/05/22 20:59 Last Admin: 06/05/22 21:22 Dose: 10 mg Documented By: LIN Coding Level of Care Code 26041 [facility] Intl Hosp Care Lvl 2 Diagnoses Bipolar disorder F31.9 Facial paresthesia R20.2 Myoclonus G25.3 Headache R51.9 Anxiety F41.9
--- NOTE | 2022-06-06 17:29 | Hospitalist Progress Note ---
Date of Service June 06, 2022 Assessment & Plan (1) Paresthesia of left arm: (2) Left facial numbness: (3) Myoclonus: Plan: Patient presents with a similar episode as last admission, describing 1 hour of acute onset facial paralysis with numbness and ipsilateral numbness in her left arm with difficulty walking. She describes myoclonic jerking and blurred vision without headache during this time, also. She has no seizure history. Reports a tono episode which she describes as being up all night cleaning two weeks ago. She still smokes. We discussed the small vessel disease seen on brain MRI from last workup. She currently has no focal neuromuscular deficits at this time, so repeat MRI is not felt to be helpful. EEG performed this morning with reading pending. No further input from neurology. Continuing on acetazolamide. Check ESR. CRP, Lyme panel, B12 and folate levels. (4) CKD (chronic kidney disease), stage III: Plan: chronic, she is at her baseline. Cont to monitor periodically. (5) OCD (obsessive compulsive disorder): Plan: chronic, stable (6) Anxiety: Plan: chronic, required Ativan in the ER for significant, uncontrolled anxiety on presentation. She is improved. Cont home clonazepam. (7) Bipolar disorder: Plan: chronic, reports a manic episode two weeks ago, but appears stable today. Cont home lamotrigine, clonazepam, fluvoxamine and lurasidone (drug interactions noted and checked against both acetazolamide and zonisamide). No interactions with acetazolamide, however, there is a concern with concomitant dosing of lamotrigine and zonisamide whereby the zonisamide may enhance the arrhythmogenic effect of the lamotrigine and lamotrigine may enhance the CONTACT LENS POLISHER depressant effect of zonisamide. Will avoid zonisamide in her at this time. May consider other alternative therapies for hemiplegic migraine including verapamil or topiramate. If verapamil were used, she would need to reduce her lurasidone dose by 50% to avoid increased serum concentrations of lurasidone through CYP34A inhibition. (To this end, she should also be avoiding grapefruit juice). If topiramate were used, this may enhance the arrhythmogenic effect of lamotrigine, and lamotrigine may enhance the CONTACT LENS POLISHER depressant effect of topiramate. Adjustment of the lamotrigine, or stopping altogether may need to be considered by her mental health provider prior to starting any of these new medications. (8) Hypothyroidism: Plan: Recent outpatient TSH in [place] reflects good control. (9) Tobacco use: Plan: Contemplative phase. We discussed the importance of complete smoking cessation. DVT proph: apixaban Full Code Dispo-to home in 1-2 days. Vicenta Diaz [facility]tic[facility]ated Discharge Date Admission Date: June 05, 2022 Subjective 61 yo F presented with facial paresthesias and other stroke like symptoms. She reports being symptom free but did have some paresthesias in her face overnight. No arrhythmias on telemetry She is ambulating without issues and reports no other symptoms at this time. She is tolerating the acetazolamide EEG performed this am with read pending Psych consult also today Review of Systems Review of Systems: All symptoms were reviewed and negative except as indicated above Physical Exam Physical Exam: CONSTITUTIONAL: WNWD, vitals as above, generally well- appearing, NAD EYES: PERRL, normal conjunctivae ENT: external ear and nose normal, oropharynx clear NECK: trachea midline, MMM RESPIRATORY: clear to auscultation bilaterally, no crackles, rales or wheezes, normal respiratory effort CARDIOVASCULAR: regular rate and rhythm, S1 and 2 heard without murmurs, gallops or rubs, no JVD, no peripheral edema CHEST: inspection of chest was normal GASTROINTESTINAL: soft, nontender, no guarding MUSCULOSKELETAL: strength 5/5 throughout, head is normocephalic and atraumatic SKIN: warm and dry NEUROLOGIC: CN 2-12 grossly intact, no sensory deficit, normal cognition, normal speech, no tremor PSYCHIATRIC: alert cooperative and oriented to person, place and time. Euthymic mood, makes good eye contact, language grossly intact, recent and remote memory grossly intact. Results & Data Results & Data ([facility]) Vital Signs (Past 12 Hours) Vital Signs Temp Pulse Resp BP Pulse Ox O2 Del Method 06/06/22 16:08 36.8 C 67 18 122/79 97 Room Air 06/06/22 11:27 36.8 C 58 L 18 122/78 98 Room Air 06/06/22 07:32 36.9 C 73 18 102/67 95 Room Air Laboratory Results Short CBC 06/06/22 Range/Units 05:53 WBC 4.46 L (4.8-10.8) K/ul Hgb 14.3 (12.0-16.0) g/dl Hct 42.4 (34.1-44.9) % Plt Count 204 (130-400) K/uL [facility] 06/06/22 05:53 Sodium 142 Potassium 3.6 Chloride 112 H Carbon Dioxide 23 BUN 16 Creatinine 1.34 H Glucose 82 Calcium 8.6 Medications Administered Current Inpatient Medications Acetazolamide (Acetazolamide 250 Mg Tab) 250 mg PO BID [facility] Stop: 07/05/22 10:40 Last Admin: 06/06/22 09:24 Dose: 250 mg Apixaban (Apixaban 5 Mg Tablet) 5 mg PO BID [facility] Stop: 07/05/22 20:59 Last Admin: 06/06/22 09:23 Dose: 5 mg Aspirin (Aspirin 81 Mg Ectab) 81 mg PO QAM [facility] Stop: 07/06/22 08:59 Last Admin: 06/06/22 09:24 Dose: 81 mg Baclofen (Baclofen 10 Mg Tab) 10 mg PO HS [facility] Stop: 07/05/22 20:59 Last Admin: 06/05/22 21:20 Dose: 10 mg Calcium/Vitamin D (Calcium 600mg + Vit D 400 Iu Tab) 1 tab PO QAM [facility] Stop: 07/06/22 08:59 Last Admin: 06/06/22 09:24 Dose: 1 tab Fluvoxamine Maleate (Fluvoxamine Maleate 50 Mg Tab) 100 mg PO BID [facility] Stop: 07/05/22 20:59 Last Admin: 06/06/22 09:24 Dose: 100 mg Lamotrigine (Lamotrigine 100 Mg Tab) 150 mg PO BID [facility] Stop: 07/05/22 20:59 Last Admin: 06/06/22 10:04 Dose: 150 mg Levothyroxine Sodium (Levothyroxine Sodium 75 Mcg Tablet) 75 mcg PO DAILYBB [facility] Stop: 07/06/22 06:29 Last Admin: 06/06/22 05:41 Dose: 75 mcg Lurasidone HCl (Lurasidone Hcl 40 Mg Tab) 40 mg PO QPM [facility] Stop: 07/05/22 20:59 Last Admin: 06/05/22 21:21 Dose: 40 mg Oxycodone HCl (Oxycodone Hcl Ir 5 Mg Tab (Immediate Release)) 5 mg PO Q6 PRN PRN Reason: severe uncontrolled pain (7-10 Stop: 06/19/22 10:40 Pantoprazole Sodium (Pantoprazole 40 Mg Tab) 40 mg PO QAM [facility] Stop: 07/06/22 08:59 Last Admin: 06/06/22 09:24 Dose: 40 mg Polyethylene Glycol (Polyethylene (Miralax) 17 Gm Pack) 17 gm PO DAILY PRN PRN Reason: Constipation Stop: 07/05/22 10:40 Rosuvastatin Calcium (Rosuvastatin Calcium 10 Mg Tab) 10 mg PO [facility] Stop: 07/05/22 20:59 Last Admin: 06/05/22 21:22 Dose: 10 mg
[2022-06-06 18:58] LABS: Lyme Ab IgG w/WB Rflx Negative (Negative); Lyme Ab IgM w/WB Rflx Negative (Negative)
[2022-06-06 18:59] LABS: Vitamin B12 416 pg/ml (180-914)
--- NOTE | 2022-06-06 21:59 | Electroencephalogram ---
EEG Procedure Note Date of Service June 06, 2022 Start / End Times Start Time: 10:44 End Time: 11:[address] Vicenta Diaz History A 61 year old female with paresthesias and involuntary movements. EEG performed for evaluation of epileptiform activity. Home Medication List Medication Instructions Recorded Confirmed Type levothyroxine 75 mcg tablet 75 mcg PO QAM 03/07/18 06/05/22 History (Synthroid) omega-3 fatty acids 1,000 mg 1,000 mg PO BID 03/07/18 06/05/22 History capsule (Fish Oil Concentrate) baclofen 10 mg tablet 10 mg PO HS 03/08/18 06/05/22 History clonazepam 1 mg tablet 1 mg PO HS 06/25/18 06/05/22 History fluvoxamine 100 mg tablet 100 mg PO BID 06/25/18 06/05/22 History multivit with 1 tab PO QAM 04/11/20 06/05/22 History ylncwkjn-wmwr-XQ-lutein 8 mg iron-400 mcg-300 mcg tablet (Centrum Silver Women) pantoprazole 40 mg tablet,delayed 40 mg PO QAM 04/20/20 06/05/22 History release lurasidone 40 mg tablet (Latuda) 40 mg PO QPM 01/22/21 06/05/22 History calcium carbonate 600 mg-vitamin 1 tab PO QAM 05/28/21 06/05/22 History D3 10 mcg (400 unit) tablet (Calcium 600 + D(3)) cholecalciferol (vitamin D3) 50 50 mcg PO QAM 05/28/21 06/05/22 History mcg (2,000 unit) capsule (Vitamin D3) apixaban 5 mg (74 tabs) tablets in 5 mg PO Q12H #74 ea 02/07/22 06/05/22 Rx a dose pack (Eliquis) oxycodone 5 mg tablet 5 mg PO Q6 PRN pain #12 tabs 02/09/22 06/05/22 Rx aspirin 81 mg tablet,delayed 81 mg PO QAM 30 days #30 tabs 04/25/22 06/05/22 Rx release lamotrigine 100 mg tablet 150 mg PO BID #30 tabs 04/25/22 06/05/22 Rx magnesium 1 tab PO DAILY 06/05/22 06/05/22 History rosuvastatin 10 mg tablet 10 mg PO HS 06/05/22 06/05/22 History Inpatient Medication List Acetazolamide (Acetazolamide 250 Mg Tab) 250 mg PO BID [facility] Stop: 07/05/22 10:40 Last Admin: 06/06/22 09:24 Dose: 250 mg Documented By: [id number] Admin: 06/05/22 21:24 Dose: 250 mg Documented By: Admin: 06/05/22 13:07 Dose: 250 mg Documented By: COSTA Apixaban (Apixaban 5 Mg Tablet) 5 mg PO BID [facility] Stop: 07/05/22 20:59 Last Admin: 06/06/22 09:23 Dose: 5 mg Documented By: [id number] Admin: 06/05/22 21:22 Dose: 5 mg Documented By: LIN Aspirin (Aspirin 81 Mg Ectab) [facility] Stop: 07/06/22 08:59 Last Admin: 06/06/22 09:24 Dose: 81 mg Documented By: [id number] Baclofen (Baclofen 10 Mg Tab) 10 mg PO [facility] Stop: 07/05/22 20:59 Last Admin: 06/05/22 21:20 Dose: 10 mg Documented By: LIN Calcium/Vitamin D (Calcium 600mg + Vit D 400 Iu Tab) 1 tab PO [facility] Stop: 07/06/22 08:59 Last Admin: 06/06/22 09:24 Dose: 1 tab Documented By: [id number] Fluvoxamine Maleate (Fluvoxamine Maleate 50 Mg Tab) 100 mg PO BID [facility] Stop: 07/05/22 20:59 Last Admin: 06/06/22 09:24 Dose: 100 mg Documented By: [id number] Admin: 06/05/22 21:23 Dose: 100 mg Documented By: LIN Lamotrigine (Lamotrigine 100 Mg Tab) 150 mg PO BID [facility] Stop: 07/05/22 20:59 Last Admin: 06/06/22 10:04 Dose: 150 mg Documented By: [id number] Admin: 06/05/22 21:25 Dose: 150 mg Documented By: LIN Levothyroxine Sodium (Levothyroxine Sodium 75 Mcg Tablet) [facility]: 07/06/22 06:29 Last Admin: 06/06/22 05:41 Dose: 75 mcg Documented By: OO Lurasidone HCl (Lurasidone Hcl 40 Mg Tab) 40 mg PO QPM [facility] Stop: 07/05/22 20:59 Last Admin: 06/05/22 21:21 Dose: 40 mg Documented By: OO Pantoprazole Sodium (Pantoprazole 40 Mg Tab) 40 mg PO QAM [facility] Stop: 07/06/22 08:59 Last Admin: 06/06/22 09:24 Dose: 40 mg Documented By: [id number] Rosuvastatin Calcium (Rosuvastatin Calcium 10 Mg Tab) 10 mg PO HS [facility] Stop: 07/05/22 20:59 Last Admin: 06/05/22 21:22 Dose: 10 mg Documented By: OO Discontinued Medications Sodium Chloride (Nss) 500 mls @ 999 mls/hr IV .Q31M ONE Stop: 06/05/22 06:20 Last Infusion: 06/05/22 06:38 Dose: 0 mls/hr Documented By: Admin: 06/05/22 05:59 Dose: 999 mls/hr Documented By: RILEY Lorazepam (Lorazepam 1 Mg/1 Ml Syr) 1 mg IV NOW STA; Protocol Stop: 06/05/22 05:51 Last Admin: 06/05/22 05:58 Dose: 1 mg Documented By: RILEY Description This is a 21 electrode EEG with a single channel dedicated to limited EKG. The electrodes were placed in accordance with the International 10-20 system. REPORT: At the onset of the EEG, the patient is awake. The background activity consist of 10-11 Hz, persistent, posteriorly dominant, moderate amplitude, symmetric and rhythmic activity that is reactive to eye opening. Anteriorly, it consist of a mixture of low voltage indeterminate activity and 15-25 Hz, persistent, low amplitude, symmetric and rhythmic activity. Stepwise intermittent photic stimulation does not induce any abnormalities. Drowsiness is characterized by low amplitude mixed frequency activity, roving eye movements, and decreased eye blinking and muscle artifact. Interpretation IMPRESSION: This is a normal awake and drowsy EEG. There is no evidence of focal slowing or epileptiform activity.
[2022-06-06] MEDS: LURASIDONE HCL 40 MG TAB PO SCH (22:02)
[2022-06-06] MEDS: BACLOFEN 10 MG TAB PO SCH (22:04)
[2022-06-06] MEDS: ROSUVASTATIN CALCIUM 10 MG TAB PO SCH (22:05)
[2022-06-07] MEDS: LEVOTHYROXINE SODIUM 75 MCG TABLET PO SCH (06:01)
[2022-06-07] MEDS: acetaZOLAMIDE 250 MG TAB PO SCH (08:41)
[2022-06-07] MEDS: ASPIRIN 81 MG ECTAB PO SCH (08:41)
[2022-06-07] MEDS: fluvoxaMINE MALEATE 50 MG TAB PO SCH (08:41)
[2022-06-07] MEDS: lamoTRIgine 100 MG TAB PO SCH (08:41)
[2022-06-07] MEDS: CALCIUM 600MG + VIT D 400 IU TAB PO SCH (08:41)
[2022-06-07] MEDS: PANTOprazole 40 MG TAB PO SCH (08:42)
[2022-06-07] MEDS: APIXABAN 5 MG TABLET PO SCH (08:42)
[2022-06-07] MEDS ORDERED: VERAPAMIL HCL 40 MG TAB PO SCH (10:00)
[2022-06-07 10:42] LABS: BUN Creatinine Ratio 12.7 (10-20); Calcium 8.8 mg/dl (8.5-10.1); Creatinine Clr Calc Pharmacy 42.7 ml/min; Est GFR (African American) 40.5 ml/min; Potassium 3.8 mmol/L (3.5-5.1)
--- NOTE | 2022-06-07 12:30 | Discharge Summary ---
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 Medication Changes From Visit verapamil 40mg PO BID Admission HPI Per Admitting Provider 61 yo F with strokelike symptoms that began overnight. She has a h/o smoking and was recently admitted for the same symptoms in a similar presentation. She was started on aspirin after being seen by Neurology who also did not think she was a candidate for high dose statin therapy based on lipid panel. She is already on apixaban for a h/o PE. She had an extensive workup at that time including a brain MRI. She arrived very shaky and unable to calm down without Ativan, having a severe history of anxiety. She is also a night owl and frequently is up at night, which is what occurred last night. She reports not feeling the side of her face properly and this radiated down into her arm. Lab workup was unremarkable in the ER and so was CT head without contrast. EKG unremarkable. A stroke alert was not called based on her contraindication for TNKinase given apixaban use, and her lack of clinical evidence for a large vessel obstruction which may require a mechanical thrombectomy. Did PT around 3am for her back. Around 3:45, lip and left face was drooping. Numness came on quickly wihtout aura or prior warning. +dizzy, problems w alking, +myoclonic jerking of whole body. All symptoms lasted about an hour. +numbness traveled from face to arm. No headache, +blurred vision, takes OTC vitamins (calcium/D, MVI, fish oil, magnesium-recently put on after saw Bob WILSON recently). No chest pain, shortness of breath. Currently, after aTivan has no numbness. No recent cold or other illness, she is currently feeling no numbness. yesterday was feeling well, eating and drinking well. Admission Exam Per Admitting Provider Physical Exam: CONSTITUTIONAL: WNWD, vitals as above, generally well- appearing EYES: EOMI bilaterally, PERRL, normal conjuctivae, no scleral icterus, no fundoscopic abnormality ENT: external ear and nose normal, oropharynx clear, no TM abnormality, no maxillary or ethmoid sinus tenderness NECK: trachea midline, no lymphadenopathy, normal thyroid RESPIRATORY: clear to auscultation bilaterally, no crackles, rales or wheezes, normal respiratory effort CARDIOVASCULAR: regular rate and rhythm, S1 and 2 heard without murmurs, gallops or rubs, no JVD, no peripheral edema, no carotid bruits CHEST: inspection of chest was normal (+pacemaker, +port) GASTROINTESTINAL: normal bowel sounds, soft, nontender, no hepatomegaly, no guarding MUSCULOSKELETAL: strength 5/5 throughout, head is normocephalic and atraumatic, neck supple, normal palpation of chest wall without tenderness SKIN: warm and dry, no rashes NEUROLOGIC: patellar DTRs 2+ bilat. PERRL, EOMI, no facial palsy, no dysarthria. Touch, pain and proprioception normal. CN 2-12 grossly intact, no sensory deficit, normal cognition, normal speech, no tremor PSYCHIATRIC: alert cooperative and oriented to person, place and time. Euthymic mood, makes good eye contact, language grossly intact, recent and remote memory grossly intact. LYMPHATIC: no LAD Principal Dx & Hospital Course #1 = Principal Diagnosis (1) Paresthesia of left arm: (2) Left facial numbness: (3) Myoclonus: (4) CKD (chronic kidney disease), stage III: (5) OCD (obsessive compulsive disorder): (6) Anxiety: (7) Bipolar disorder: (8) Tobacco use: Plan Patient presents with a similar episode as last admission, describing one hour of acute onset facial paralysis with numbness and ipsilateral numbness in her left arm with difficulty walking. She describes myoclonic jerking and blurred vision without headache during this time, also. She was very anxious on admission requiring intravenous benzodiazepines in the ER. She has no seizure history. Reports a tono episode which she describes as being up all night cleaning two weeks ago. She still smokes. We discussed the small vessel disease seen on brain MRI from last workup. She currently has no focal neuromuscular deficits at this time, so repeat MRI is not felt to be helpful. EEG performed with no evidence of seizure focus. Per neurologist this doesn't appear to be vascular in nature. 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 However, after a discussion with her outpatient neurologist, decided on verapamil for treatment. Of note, other diagnoses such as vasculitis, Lyme and nutritional deficiency was entertained. ESR and CRP were normal, Lyme panel was negative and B12 and folate levels were within normal limits. She was discharged in stable condition with close primary care follow-up recommended. Discharge Exam CONSTITUTIONAL: WNWD, vitals as above, generally well-appearing, NAD EYES: PERRL, normal conjunctivae ENT: external ear and nose normal, oropharynx clear NECK: trachea midline, MMM RESPIRATORY: clear to auscultation bilaterally, no crackles, rales or wheezes, normal respiratory effort CARDIOVASCULAR: regular rate and rhythm, S1 and 2 heard without murmurs, gallops or rubs, no JVD, no peripheral edema CHEST: inspection of chest was normal GASTROINTESTINAL: soft, nontender, no guarding MUSCULOSKELETAL: strength 5/5 throughout, head is normocephalic and atraumatic SKIN: warm and dry NEUROLOGIC: CN 2-12 grossly intact, no sensory deficit, normal cognition, normal speech, no tremor PSYCHIATRIC: alert cooperative and oriented to person, place and time. Euthymic mood, makes good eye contact, language grossly intact, recent and remote memory grossly intact. Updated Medication List Medication Instructions Recorded Confirmed Type levothyroxine 75 mcg tablet 75 mcg PO QAM 03/07/18 06/05/22 History (Synthroid) omega-3 fatty acids 1,000 mg 1,000 mg PO BID 03/07/18 06/05/22 History capsule (Fish Oil Concentrate) baclofen 10 mg tablet 10 mg PO HS 03/08/18 06/05/22 History clonazepam 1 mg tablet 1 mg PO HS 06/25/18 06/05/22 History fluvoxamine 100 mg tablet 100 mg PO BID 06/25/18 06/05/22 History multivit with 1 tab PO QAM 04/11/20 06/05/22 History keqghoqv-aynn-LZ-lutein 8 mg iron-400 mcg-300 mcg tablet (Centrum Silver Women) pantoprazole 40 mg tablet,delayed 40 mg PO QAM 04/20/20 06/05/22 History release lurasidone 40 mg tablet (Latuda) 40 mg PO QPM 01/22/21 06/05/22 History calcium carbonate 600 mg-vitamin 1 tab PO QAM 05/28/21 06/05/22 History D3 10 mcg (400 unit) tablet (Calcium 600 + D(3)) cholecalciferol (vitamin D3) 50 50 mcg PO QAM 05/28/21 06/05/22 History mcg (2,000 unit) capsule (Vitamin D3) apixaban 5 mg (74 tabs) tablets in 5 mg PO Q12H #74 ea 02/07/22 06/05/22 Rx a dose pack (Eliquis) oxycodone 5 mg tablet 5 mg PO Q6 PRN pain #12 tabs 02/09/22 06/05/22 Rx aspirin 81 mg tablet,delayed 81 mg PO QAM 30 days #30 tabs 04/25/22 06/05/22 Rx release lamotrigine 100 mg tablet 150 mg PO BID #30 tabs 04/25/22 06/05/22 Rx magnesium 1 tab PO DAILY 06/05/22 06/05/22 History rosuvastatin 10 mg tablet 10 mg PO HS 06/05/22 06/05/22 History verapamil 40 mg tablet 40 mg PO BID #60 tabs 06/07/22 Rx Hospital Stay Data Consultations 06/05/22 08:00 ED Decision to Admit Stat 06/05/22 10:41 Consult Neurology Routine 06/05/22 18:18 Consult Psychiatry Routine Diagnostic Imagining Performed 06/05/22 05:50 CT head/brain wo con Urgent Pending Results Patient Have Any Pending Studies at Discharge: No Discharge Instructions Given to Patient (Per Discharging Provider) You were hospitalized with recurrent facial and left arm numbness and weakness. After extensive workups, this is thought possibly secondary to a complicated migraine without headache. Please take all medications as instructed on discharge list below. 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 Please continue this until your scheduled follow-up with neurology to let them know how things are going. They may provide a refill if this is needed. Your heart rate can be lowered on the new medication verapamil. As a result, please check your heart rate regularly using a home monitor such as on a pulse oximeter machine or by counting manually the beats over one minute. Please hold off taking the medication if your heart rate is less than 60 beats per minute. Close follow-up with your primary care provider is recommended within 1-2 weeks of hospital discharge to ensure you are still doing well after returning home. Smoking cessation is strongly advised as it may contribute to your symptoms, and puts you at an increased risk of stroke among other health conditions. It was a pleasure taking care of you! Please call if you have any questions or problems. You can reach a [facility] hospitalist on duty at [facility] 24 hours a day by calling [phone]. Take care of yourself. Vicenta Diaz, [facility] Total Time Total Time Spent Total Time Spent (In Minutes): 60
--- NOTE | 2022-06-13 10:00 | Communication Note ---
Date of Service: June 13, 2022 Called and LM checking on how she was doing on the new verapamil. Also counseled her that if she was continuing to take this, would need to decrease h er lurasidone dose by 50% to avoid increased serum concentrations of lurasidone through CYP34A inhibition. (To this end, she should also be avoiding grapefruit juice). LM for her to call me back, and also sent staff message to her PCP for upcoming scheduled appointment in 3 days, to discuss these changes at that time. Joe, DO
== END 2022-06-07 13:54 | disposition home or self-care (01) ==
LOC: ED 05:35 → EDINP 08:13 → INTOOBSV 08:13 → 2S 10:12